=== PATIENT | male | born 1950 ===

== ENCOUNTER → 2020-05-11 09:25 | Outpatient (BNVA) | payer MEDICARE, OTHER, SELFPAY | PROVIDERS: PCP Internal Medicine; Visit Provider Anesthesiology | DX: G89.4 Chronic pain syndrome (principal); G03.8 Meningitis due to other specified causes; M19.011 Primary osteoarthritis, right shoulder; M96.1 Postlaminectomy syndrome, not elsewhere classified | CPT/HCPCS: 62370 ==

== ENCOUNTER → 2020-06-14 08:13 | Outpatient (BNVA) | payer MEDICARE, OTHER, SELFPAY | PROVIDERS: PCP Internal Medicine; Referring Provider Internal Medicine; Visit Provider Anesthesiology | DX: G03.9 Meningitis, unspecified (principal); G89.4 Chronic pain syndrome; M19.011 Primary osteoarthritis, right shoulder; M96.1 Postlaminectomy syndrome, not elsewhere classified | CPT/HCPCS: 99212 ==

== ENCOUNTER 2020-06-28 13:41 | Outpatient (REF) | payer MEDICARE, OTHER, SELFPAY ==
--- NOTE | 2020-06-28 14:19 | MR_ITS ---
EXAMINATION: MR LUMBAR SPINE WITHOUT AND WITH CONTRAST CLINICAL INFORMATION: Bilateral leg pain. COMPARISON: None TECHNIQUE: MRI of the lumbar spine was obtained using routine sequences without and with intravenous administration of 10 mL of Gadavist. FINDINGS: VERTEBRAL BODIES AND PARASPINAL STRUCTURES: The marrow signal is mildly heterogeneous with regions of fatty change. There is a minimal anterolisthesis at L4-L5. Chronic post laminectomy changes evident at L5-S1. There are no compression fractures. Mild endplate edematous changes are evident at L5-S1 with degenerative Schmorl's nodes. There is ectasia of the upper abdominal aorta, partially visualized. CONUS MEDULLARIS AND CAUDA EQUINA: Normal, terminating at the level of L1. No lower cord signal abnormality is seen. The cauda equina nerve roots are normal. There is no pathologic leptomeningeal enhancement. SPINAL LEVELS: L1-L2: No disc pathology. No central canal stenosis or foraminal narrowing. L2-L3: Mild facet arthropathy. No disc abnormality. No central canal stenosis or foraminal narrowing. L3-L4: Mild facet arthropathy and thickening of the ligamentum flavum with a minimal annular bulge. Mild central canal stenosis. Very mild right foraminal encroachment. L4-L5: Mild anterolisthesis and disc bulge with a shallow broad-based right paracentral disc protrusion resulting in ventral thecal sac distortion. Hypertrophic facet arthropathy and thickening of the ligamentum flavum also present. Findings result in grgkxktb-af-[id number] central canal stenosis. Focal right foraminal disc protrusion abuts the exiting right L4 nerve root with mild right foraminal encroachment. L5-S1: Chronic postoperative changes without central canal stenosis. A small left lateral recess disc protrusion results in mild mass effect upon the left S1 nerve root. Patent foramina. MR/MR lumbar spine wo con IMPRESSION: Mild anterolisthesis and [id number]-[id number] central canal stenosis with spondylitic changes at L4-L5. Additional focal right foraminal disc protrusion abutting the right L4 nerve root. Chronic postoperative changes at L5-S1. Focal left lateral recess disc protrusion with mild mass effect upon the left S1 nerve root.
[2020-06-28 14:24] LABS: Blood Urea Nitrogen 20 mg/dL (9-16); Estimated Glomerular Filt Rate > 60
== END 2020-06-28 13:42 | disposition home or self-care (01) ==
LOC: HO.MRI 13:41
PROVIDERS: Visit Provider Anesthesiology
DX: G03.9 Meningitis, unspecified (principal); G89.4 Chronic pain syndrome; M96.1 Postlaminectomy syndrome, not elsewhere classified; M19.011 Primary osteoarthritis, right shoulder
CPT/HCPCS: 72148; 82565; 84520; A9585

== ENCOUNTER → 2020-07-12 11:36 | Outpatient (BNVA) | payer MEDICARE, OTHER, SELFPAY | PROVIDERS: PCP Internal Medicine; Visit Provider Anesthesiology | DX: G03.9 Meningitis, unspecified (principal); M19.011 Primary osteoarthritis, right shoulder; G89.4 Chronic pain syndrome; M96.1 Postlaminectomy syndrome, not elsewhere classified | CPT/HCPCS: Q3014 ==

== ENCOUNTER 2020-07-27 05:09 | Outpatient (REF) | payer MEDICARE, OTHER, SELFPAY | END 2020-07-27 05:10 | disposition home or self-care (01) | LOC: HO.RADIR 05:09 | PROVIDERS: Visit Provider Anesthesiology | DX: M19.011 Primary osteoarthritis, right shoulder (principal); G03.9 Meningitis, unspecified; G89.4 Chronic pain syndrome; M96.1 Postlaminectomy syndrome, not elsewhere classified | CPT/HCPCS: 99212 ==

== ENCOUNTER 2020-09-07 07:56 | Outpatient (REF) | payer MEDICARE, OTHER, SELFPAY | END 2020-09-07 07:57 | disposition home or self-care (01) | LOC: HO.RADIR 07:56 | PROVIDERS: Visit Provider Anesthesiology | DX: G03.9 Meningitis, unspecified (principal); M19.011 Primary osteoarthritis, right shoulder; G89.4 Chronic pain syndrome; M96.1 Postlaminectomy syndrome, not elsewhere classified; Z88.0 Allergy status to penicillin; Z88.8 Allergy status to other drugs, medicaments and biological substances | CPT/HCPCS: 62370 ==

== ENCOUNTER 2020-10-26 06:09 | Outpatient (REF) | payer MEDICARE, OTHER, SELFPAY | END 2020-10-26 06:10 | disposition home or self-care (01) | LOC: HO.RADIR 06:09 | PROVIDERS: Visit Provider Anesthesiology | DX: Z13.89 Encounter for screening for other disorder (principal) ==

== ENCOUNTER 2020-11-02 07:14 | Outpatient (REF) | payer MEDICARE, OTHER, SELFPAY | END 2020-11-02 07:15 | disposition home or self-care (01) | LOC: HO.RADIR 07:14 | PROVIDERS: Visit Provider Anesthesiology | DX: Z13.89 Encounter for screening for other disorder (principal) ==

== ENCOUNTER 2020-12-28 06:22 | Outpatient (REF) | payer MEDICARE, OTHER, SELFPAY | END 2020-12-28 06:23 | disposition home or self-care (01) | LOC: HO.RADIR 06:22 | PROVIDERS: Visit Provider Anesthesiology | DX: Z13.89 Encounter for screening for other disorder (principal) ==

== ENCOUNTER 2021-02-15 05:50 | Outpatient (REF) | payer MEDICARE, OTHER, SELFPAY | END 2021-02-15 05:51 | disposition home or self-care (01) | LOC: HO.RADIR 05:50 | PROVIDERS: Visit Provider Anesthesiology | DX: Z13.89 Encounter for screening for other disorder (principal) ==

== ENCOUNTER 2021-04-12 06:31 | Outpatient (REF) | payer MEDICARE, OTHER, SELFPAY | END 2021-04-12 06:32 | disposition home or self-care (01) | LOC: HO.RADIR 06:31 | PROVIDERS: Visit Provider Anesthesiology | DX: Z13.89 Encounter for screening for other disorder (principal) ==

== ENCOUNTER 2021-06-07 05:43 | Outpatient (REF) | payer MEDICARE, OTHER, SELFPAY | END 2021-06-07 05:44 | disposition home or self-care (01) | LOC: HO.RADIR 05:43 | PROVIDERS: Visit Provider Anesthesiology | DX: Z13.89 Encounter for screening for other disorder (principal) ==

== ENCOUNTER 2021-06-27 10:35 | Outpatient (RCR) | payer MEDICARE, OTHER, SELFPAY | END 2021-07-14 11:37 | disposition home or self-care (01) | LOC: HO.WCC 10:35 | PROVIDERS: PCP Internal Medicine; Visit Provider Physician Assistant | DX: L97.421 Non-pressure chronic ulcer of left heel and midfoot limited to breakdown of skin (principal); I87.2 Venous insufficiency (chronic) (peripheral); R60.0 Localized edema; G62.9 Polyneuropathy, unspecified; I10 Essential (primary) hypertension; Z87.891 Personal history of nicotine dependence; Z79.2 Long term (current) use of antibiotics | CPT/HCPCS: 11055; 97597; 99212 ==

== ENCOUNTER 2021-08-16 05:55 | Outpatient (REF) | payer MEDICARE, OTHER, SELFPAY | END 2021-08-16 05:56 | disposition home or self-care (01) | LOC: HO.RADIR 05:55 | PROVIDERS: Visit Provider Anesthesiology | DX: Z13.89 Encounter for screening for other disorder (principal) ==

== ENCOUNTER 2021-10-11 06:04 | Outpatient (REF) | payer MEDICARE, OTHER, SELFPAY | END 2021-10-11 06:05 | disposition home or self-care (01) | LOC: HO.RADIR 06:04 | PROVIDERS: Visit Provider Anesthesiology | DX: Z13.89 Encounter for screening for other disorder (principal) ==

== ENCOUNTER 2021-11-22 06:19 | Outpatient (REF) | payer MEDICARE, OTHER, SELFPAY | END 2021-11-22 06:20 | disposition home or self-care (01) | LOC: HO.RADIR 06:19 | PROVIDERS: Visit Provider Anesthesiology | DX: Z13.89 Encounter for screening for other disorder (principal) ==

== ENCOUNTER → 2022-01-12 09:35 | Outpatient (BNVA) | payer MEDICARE, OTHER, SELFPAY | PROVIDERS: PCP Internal Medicine; Visit Provider Internal Medicine | DX: G89.4 Chronic pain syndrome (principal) | CPT/HCPCS: 62370 ==

== ENCOUNTER → 2022-02-15 10:20 | Outpatient (BNVA) | payer MEDICARE, OTHER, SELFPAY | PROVIDERS: PCP Internal Medicine; Visit Provider Anesthesiology | DX: Z45.1 Encounter for adjustment and management of infusion pump (principal); G89.4 Chronic pain syndrome; G03.9 Meningitis, unspecified; M19.011 Primary osteoarthritis, right shoulder; M96.1 Postlaminectomy syndrome, not elsewhere classified | CPT/HCPCS: 62367 ==

== ENCOUNTER 2022-02-16 10:00 | Day surgery (SDC) | payer MEDICARE, OTHER, SELFPAY ==
[2022-02-16] VITALS (7 sets, daily range): BP systolic 114–153; BP diastolic 55–86; PULSE 58–64; RESP 12–18; TEMP 36.6; O2SAT 96–100; BMI 36.3
--- NOTE | ~2022-02-16 | FL_ITS ---
EXAMINATION: XR FLUOROSCOPY WITH IMAGES CLINICAL INFORMATION: Refill pump. COMPARISON: None. TECHNIQUE: Fluoroscopy performed by Dr. Alexander Munguia. Fluoroscopy time: 0.0 minutes DAP: 0.599 mGycm2 Images: 1 FINDINGS: A single image was obtained about the left pelvis where a pump/electronic device is noted. No gross bony abnormality seen. FL/FL guidance in OR IMPRESSION: Single image of the left pelvis obtained. A pump/electronic device is noted..
--- NOTE | 2022-02-16 12:26 | MHC.SHP ---
Pre-Procedural Eval Section A Date of Service: 02/16/22 The patient is an INPATIENT: No Changes since office visit: Yes Patient answered all questions The History & Physical has been completed within 30 days and I have reviewed it.: No Section B Chief Complaint: Postlaminectomy syndrome, not elsewhere classified Details of Present Illness: as above Relevant Family History (Specify if Yes): No Relevant Social History: None Present Medications: None Medical History: No relevant PMH History of Previous Operations: Relevant previous surgery/procedure and date(s) Allergies: Allergies Allergy/AdvReac Type Severity Reaction Status Date / Time penicillin G Allergy Severe Hives Verified 02/16/22 10:49 zolpidem [Ambien] Allergy Intermediate sleep Verified 02/16/22 10:49 walking Review of Systems Sugical H&P ROS: Negative: Cardiovascular, Respiratory, Neurological, Psychiatric, Hem-Onc, Allergic/Immunologic, Gastrointestinal, Genitourinary, Musculoskeletal, Integumentary, Endocrine and Eyes/Ears/Nose/Throat and Yes, Specify: Constitution (morbid obesity) Exam Surgical H&P Exam: Normal: HEENT, Normal: Heart, Normal: Lungs, Normal: Extremities, Normal: Skin and Normal: Neurological and Significant Findings: Abdomen (enlarge 2 to intraabdominal and s/q fat) Plan Diagnosis/Plan: Unchanged I have reviewed the history and physical and performed a pertinent physical examination on my patient. No changes have occurred unless specified.
--- NOTE | 2022-02-16 12:28 | W.PM.OPN ---
Operative Note Operative Note Date of Service: 02/16/22 Narrative: THE PATIENT CAME TODAY IN THE OR FOR THE CHANGE OF THE MEDICATION IN her PAIN PUMP. Yesterday 02/15/2022 he came to the office for the pump refill and the attempt to penetrate a central plug of the pump was technically difficult. The patient recently had THR and was at home with minimal mobility. He gained significant amount of weight. 4 attempts to find a central plug was made with one set of the sterile refill kit without success. The needle was removed and Ultrasound probe was brought on the field and location of the central plug was found on the screen. The projection of the plug to the skin was verified and new kit was brought up and assembled with the second drape and prep. At this time the central plug was found with one attempt however when aspiration was performed the serosanguineous fluid appeared in the extension set and went into the syringe. The decision was made not to refill the pump. The amount of aspirated fluid was 11 mls which was corresponding to the amount of the fluid read by the interrogation device from the pump. The patient was discharged from the office in stable condition but later on that date at home he started to feel dizzy. His BP was 140/70 and he called 911 the ambulance came and brought him to the ER of [facility]. There he was diagnosed with respiratory depression and he was given naloxone intranasal. He was under observation for 12 hours and no new episodes of dizziness were observed. He came today to OR for the refill under Xray guidance. HE WAS POSITIONED supine on the bed AND THE AREA OF THE INTRATHECAL PUMP WAS PREPPED WITH CHLORAPREP. The fenestrated drape was sterilely applied over the area of the pump. Sterile gloves were worn and of the aspiration system was assembled containing 2 in 22 gauge noncoring needle, the needle was connected to extension tubing which was connected to the 20 cc sterile syringe. C-arm was brought over the operating field and square image of the pump was demonstrated on the screen. 22G noncoring needle was inserted through the skin and advanced into the main reservoir of the pump. Aspiration was made on the syringe and scant amount of pale serosanguneous fluid was aspirated into the needle. After that 20 mls of PF normal saline was injected into the pump with frequent aspirations and free flow of the fluid back into the syringe. initially the fluid was slightly blood tinged but eventually became completely clear. The pump was flushed with 20 mls twice.. After that a new batch? of medication was obtained which was containing? Fentanyl in concentration 12,000 micro g/ml and bupivacain 15 mg per ml .? The admixture was made in 20 cc syringe prepared by [facility] compounding pharmacy. The syringe was connected to the bacterial filter, and then connected to the extension tubing. After that the medication in the syringe was slowly instilled into the pump with aspirations at 15 and 5 cc ames. ? After that the needle was removed and sterile dressing was applied.? The pump was reprogrammed and remained at previous doses of the opioid medications which includes continuos 2500 micro g of fentanyl plus 1500 micro g of fentanyl on demand.? The discharge instructions were given - see in the instruction.
--- NOTE | 2022-02-16 14:47 | P.BOP_ITS ---
Brief Operative Note Date of Service: 02/16/22 Pre-op diagnosis: postlaminectomy syndrome Post-op diagnosis: same Procedure: refill of the ITDD Surgeon: Alexander Munguia MD Was an Independent Producer used for this Procedure?: No Estimated blood loss (mL): 0 Pathology: none sent Condition: stable Disposition: PACU
== END 2022-02-16 14:09 | disposition home or self-care (01) ==
PROVIDERS: PCP Internal Medicine; Visit Provider Anesthesiology
PROC: (CPT 62370; principal; 2022-02-16 11:20)
DX: M96.1 Postlaminectomy syndrome, not elsewhere classified (principal); G03.9 Meningitis, unspecified; M19.011 Primary osteoarthritis, right shoulder; G89.4 Chronic pain syndrome; Z96.643 Presence of artificial hip joint, bilateral; Z79.899 Other long term (current) drug therapy; Z88.0 Allergy status to penicillin; Z87.891 Personal history of nicotine dependence; Z98.890 Other specified postprocedural states
CPT/HCPCS: 62370

== ENCOUNTER 2022-04-18 07:21 | Outpatient (REF) | payer MEDICARE, OTHER, SELFPAY ==
--- NOTE | ~2022-04-18 | FL_ITS ---
EXAMINATION: XR FLUOROSCOPY WITH IMAGES CLINICAL INFORMATION: G89.4 - Chronic pain syndrome COMPARISON: Fluoroscopic spot views 02/16/2022, MR lumbar spine 06/28/2020 TECHNIQUE: Fluoroscopy performed by Dr. Alexander Munguia. Fluoroscopy time: 0.1 minutes. Cumulative Dose: 4.04 mGy. DAP: 1.10 Gy-cm2. Images: 1. FINDINGS: Electronic pump device overlying the left upper pelvis paralumbar region. There is some faint catheter tubing present. Probable orthopedic screw overlies left pelvis. There are degenerative changes lumbar spine with vertebral spurring. FL/FL guidance in treatment room IMPRESSION: Fluoroscopy for pain management procedure.
== END 2022-04-18 07:22 | disposition home or self-care (01) ==
LOC: HO.RADIR 07:21
PROVIDERS: Visit Provider Anesthesiology
DX: M96.1 Postlaminectomy syndrome, not elsewhere classified (principal); G89.4 Chronic pain syndrome; G03.9 Meningitis, unspecified; M19.011 Primary osteoarthritis, right shoulder
CPT/HCPCS: 62370

== ENCOUNTER → 2022-06-12 08:10 | Outpatient (BNVA) | payer MEDICARE, OTHER, SELFPAY | PROVIDERS: PCP Internal Medicine; Visit Provider Anesthesiology | DX: M96.1 Postlaminectomy syndrome, not elsewhere classified (principal); G89.4 Chronic pain syndrome; G03.8 Meningitis due to other specified causes; M19.011 Primary osteoarthritis, right shoulder | CPT/HCPCS: 62370; 99212 ==

== ENCOUNTER → 2022-07-26 13:29 | Outpatient (BNVA) | payer MEDICARE, OTHER, SELFPAY | PROVIDERS: PCP Internal Medicine; Visit Provider Anesthesiology | DX: Z45.1 Encounter for adjustment and management of infusion pump (principal); G89.4 Chronic pain syndrome; M96.1 Postlaminectomy syndrome, not elsewhere classified; G03.9 Meningitis, unspecified; M19.011 Primary osteoarthritis, right shoulder | CPT/HCPCS: 62370 ==

== ENCOUNTER → 2022-09-13 12:55 | Outpatient (BNVA) | payer MEDICARE, OTHER, SELFPAY | PROVIDERS: PCP Internal Medicine; Visit Provider Anesthesiology | DX: Z45.1 Encounter for adjustment and management of infusion pump (principal); G89.4 Chronic pain syndrome; M96.1 Postlaminectomy syndrome, not elsewhere classified; M19.011 Primary osteoarthritis, right shoulder; G03.9 Meningitis, unspecified | CPT/HCPCS: 62370 ==

== ENCOUNTER → 2022-11-01 13:44 | Outpatient (BNVA) | payer MEDICARE, OTHER, SELFPAY | PROVIDERS: PCP Internal Medicine; Visit Provider Anesthesiology | DX: G03.9 Meningitis, unspecified (principal); M19.011 Primary osteoarthritis, right shoulder; G89.4 Chronic pain syndrome; M96.1 Postlaminectomy syndrome, not elsewhere classified; Z96.643 Presence of artificial hip joint, bilateral | CPT/HCPCS: 62370 ==

== ENCOUNTER → 2022-12-18 11:26 | Outpatient (BNVA) | payer MEDICARE, OTHER, SELFPAY | PROVIDERS: PCP Internal Medicine; Visit Provider Anesthesiology ==

== ENCOUNTER 2022-12-26 06:15 | Outpatient (REF) | payer MEDICARE, OTHER, SELFPAY | END 2022-12-26 06:16 | disposition home or self-care (01) | LOC: CF 06:15 | PROVIDERS: Visit Provider Anesthesiology | DX: G03.9 Meningitis, unspecified (principal); M19.011 Primary osteoarthritis, right shoulder; G89.4 Chronic pain syndrome; M96.1 Postlaminectomy syndrome, not elsewhere classified; Z45.1 Encounter for adjustment and management of infusion pump; Z96.89 Presence of other specified functional implants | CPT/HCPCS: 62370 ==

== ENCOUNTER → 2023-01-04 08:26 | Outpatient (BNVA) | payer MEDICARE, OTHER, SELFPAY | PROVIDERS: PCP Internal Medicine; Visit Provider Anesthesiology | DX: G89.4 Chronic pain syndrome (principal); M96.1 Postlaminectomy syndrome, not elsewhere classified; M19.011 Primary osteoarthritis, right shoulder; G03.9 Meningitis, unspecified | CPT/HCPCS: 99212 ==

== ENCOUNTER → 2023-02-14 10:07 | Outpatient (BNVA) | payer MEDICARE, OTHER, SELFPAY | PROVIDERS: PCP Internal Medicine; Visit Provider Anesthesiology | DX: Z46.2 Encounter for fitting and adjustment of other devices related to nervous system and special senses (principal) | CPT/HCPCS: 99211 ==

== ENCOUNTER 2023-02-21 14:52 | Outpatient (AMB) | payer MEDICARE, OTHER, SELFPAY ==
[2023-02-21 15:16] VITALS: BP 141/73; PULSE 76; O2SAT 97; BMI 33.0
--- NOTE | 2023-02-21 15:16 | A.OFFVIS_ITS ---
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 Allergies penicillin G Allergy (Severe, Verified 02/21/23 15:56) Hives zolpidem [Ambien] Allergy (Intermediate, Verified 02/21/23 15:56) sleep walking Medication List - Last Reconciled 02/21/23 by Lilibeth Bonilla RN alprazolam 0.5 mg PO TID PRN aspirin (Adult Low Dose Aspirin) 81 mg PO DAILY flecainide 100 mg PO BID furosemide 80 mg PO DAILY hydrocodone-acetaminophen 7.5-325 mg 1 tab PO TID PRN 30 days levothyroxine 88 mcg PO DAILY lisinopril 10 mg PO DAILY metoprolol succinate ER 100 mg PO DAILY miscellaneous medical supply [facility] [place] potassium chloride ER 40 mEq PO DAILY potassium chloride ER 40 mEq PO DAILY sildenafil 100 mg PO tamsulosin 0.4 mg PO BEDTIME testosterone 10 mg/0.5 gram /actuation 20 mg topical DAILY zaleplon 10 mg PO BEDTIME PRN 30 days HPI HPI Comments History of Present Illness Details Marcus is very pleasant 72 years old gentleman who is in my office with complains on pain in bilateral shoulders lower back bilateral lower extremities. He is in my office under observation with intrathecal drug delivery system pain pump. About 2 years ago he was found to be prescribed with 3 different practitioners with the opioid medications while he was receiving opioid medications from of this office oral consumption. On top of that him was receiving intrathecal opioids. He was suspended at that time for 1 year interval because we found this situation is quite dangerous for the patient. He was readmitted to our a chronic opioid program. He was prescribed with hydrocodone 7.5 mg t.i.d. he reported no pain relief from this medication at all. He brought today excess of the hydrocodone. Will destroy his hydrocodone and I will prescribe him hydromorphone 2 mg t.i.d.. He has continued to be prescribed benzodiazepines I will send him prescription of the Narcan. I will continue to fill up his pain pump with medications as it was done pre viously. I will make sure that he has supply of Narcan at home as well. Today's pump refill is as below. PENDING SALE TO [facility] Medical History (Updated 01/04/23 @ 09:11 by Alexander Munguia MD) History of cardioversion Primary osteoarthritis, right shoulder Surgical History (Updated 02/16/22 @ 10:40 by Diane Thomas RN) History of bilateral hip replacements Hx of colonoscopy Hx of spinal surgery Social History Patient Tobacco Use Status: Former Tobacco user Review of Systems Const All systems reviewed & are unremarkable except as noted in HPI and below Neuro Denies Abnormal speech present Physical Exam Vital Signs: Last Vital Signs Pulse 76 02/21/23 15:16 BP 141/73 H 02/21/23 15:16 Pulse Ox 97 02/21/23 15:16 Oxygen Delivery Method Room Air 02/21/23 15:16 BMI result Body Mass Index 33.0 Const General: cooperative, no acute distress and well groomed Orientation/consciousness: patient oriented x3 Resp Effort & Inspection: normal respiratory effort, able to speak in complete sentences and normal respiratory pattern Cardio Jugular venous distension: no JVD Neuro General: patient oriented x3 and gait normal Cognition (Neuro): normal cognition Speech: No Abnormal speech present Psych Appearance: grossly normal Mental Status: mental status grossly normal Speech and movement: Normal speech and movement present Affect: normal affect Attitude: cooperative Thought process: Normal thought process present Thought content: Normal thought content present Insight: Fair insight present (Psych) Assessment & Plan Assessment & Plan (1) Adhesive arachnoiditis: Code(s): G03.9 - Meningitis, unspecified (2) Primary osteoarthritis, right shoulder: Code(s): M19.011 - Primary osteoarthritis, right shoulder (3) Chronic pain syndrome: Code(s): G89.4 - Chronic pain syndrome (4) Postlaminectomy syndrome: Code(s): M96.1 - Postlaminectomy syndrome, not elsewhere classified Plan: . In the beginning of 2020 at his pump refilled It was noted that 3 different practitioners were prescribing this patient to different medications. . he was in the breech of a contract. He was suspended with his oral opioid therapy according to his risks. However I agreed to continue to refill his pump with current dose of the medications without any escalation. In March 2022 during the pump refill when the access to the port was found to be difficult aspiration of the meds from the pump was found to be grossly blood tinged. The pump was filled with saline and the patient was sent home. The refill eventually was performed in OR. Since then the patient is insisting to do refills only in OR under fluoroscopy guidance, however now since we have ultrasound machine in the office he would accept refills with ultrasound guidance. I promised him to start him on hydroxyzine however unfortunately he is on flecainide very high doses and may lead to QT interval prolongation. Before starting him on hydroxyzine I need to send him to EKG to check the length of his QT interval. Tizanidine might be theoretically helpful however he is on 100 mg of metoprolol and that medication may slow his heart rate down. I will start him on Dilaudid 2 mg p.o. t.i.d.. He has to attend pill count in 2 weeks. eart rate down. Plan Intrathecal pump refill. THE PATIENT CAME TODAY IN THE office FOR THE CHANGE OF THE MEDICATION IN her PAIN PUMP. The name and date of were verified and informed consent was obtained for the procedure. ?The pump was interrogated and the residual amount of fluid was found to be 3.7 mL. HE WAS POSITIONED supine on the bed. Ultrasound probe was placed on the left lower abdomen in the area of location of the pain pump and the silicone plug location was established by ultrasound. The location of the silicone plug was marked with permanent marker. After that THE AREA OF THE INTRATHECAL PUMP WAS PREPPED WITH CHLORAPREP. The fenestrated drape was sterilely applied over the area of the pump. Sterile gloves were worn and of the aspiration system was assembled containing 2 in 22 gauge noncoring needle, the needle was connected to extension tubing which was connected to the 20 cc sterile syringe. The pain pump was palpated under the skin in the patient's right buttock area. The needle was inserted through the skin and the central plug of the pain pump and fluid was aspirated. The clear fluid was going into the syringe the total amount of the fluid was 5.0 mL .. After that a new batch? of medication was obtained which was containing Fentanyl in concentration 12,000 micro g/ml and bupivacain 15 mg per ml. The admixture was made in 20 cc syringe prepared by [facility] compounding pharmacy. The syringe was connected to the bacterial filter, and then connected to the extension tubing. After that the medication in the syringe was slowly instilled into the pump with aspirations at 15 and 5 cc ames.? The pump was reprogrammed for the doses of Fentanyl 2,399 mcg per day with corresponding dose of bupivacaine.? The patient was given 5 doses of PTM 425 micrograms intrathecally? every 4 hours with maximum 5 activations per 24 hour. With all activations the total dose of fentanyl is 4,485 mg in 24 hours. Medications: New hydromorphone Partial Fill upon patient request. 2 mg PO TID 30 days 90 tabs 0RF naloxone 4 mg/actuation spray 1 dose into ONE nostril; alternate nostrils w each dose until help arrives 4 mg intranasal Q3M 1 day PRN 2 ea 2RF opioid overdose Discontinued hydrocodone-acetaminophen 7.5-325 mg Partial Fill upon patient request. Discontinued Reason: Doctor's Order 1 tab PO TID 30 days PRN 90 tabs 0RF pain Coding Level of Care Code Est Pt Level 4 (30931) Procedure Only Diagnoses Adhesive arachnoiditis G03.9 Primary osteoarthritis, right shoulder M19.011 Chronic pain syndrome G89.4 Postlaminectomy syndrome M96.1
== END 2023-02-21 15:45 | disposition home or self-care (01) ==
PROVIDERS: PCP Internal Medicine; Visit Provider Anesthesiology
DX: G89.4 Chronic pain syndrome (principal); M19.011 Primary osteoarthritis, right shoulder; G03.9 Meningitis, unspecified; M96.1 Postlaminectomy syndrome, not elsewhere classified
CPT/HCPCS: 62370; 99214

== ENCOUNTER → 2023-02-21 14:52 | Outpatient (BNVA) | payer MEDICARE, OTHER, SELFPAY | PROVIDERS: PCP Internal Medicine; Visit Provider Anesthesiology | DX: G03.9 Meningitis, unspecified (principal); M19.011 Primary osteoarthritis, right shoulder; M96.1 Postlaminectomy syndrome, not elsewhere classified; G89.4 Chronic pain syndrome | CPT/HCPCS: 99212 ==

== ENCOUNTER → 2023-03-07 11:25 | Outpatient (BNVA) | payer MEDICARE, OTHER, SELFPAY | PROVIDERS: PCP Internal Medicine; Visit Provider Anesthesiology | DX: Z51.81 Encounter for therapeutic drug level monitoring (principal); Z79.899 Other long term (current) drug therapy | CPT/HCPCS: 99211 ==

== ENCOUNTER 2023-04-11 14:15 | Outpatient (AMB) | payer MEDICARE, OTHER, SELFPAY ==
--- NOTE | 2023-04-11 14:39 | MHC.OFFVIS ---
Intake Vital Signs 04/11/23 14:52 Height 5 ft 10 in Weight 237 lb BMI 34.0 BP 120/58 L Blood Pressure Location Lt brachial Position Sitting Respiration 16 Pulse 65 Pulse Oximetry (%) 94 Oxygen Delivery Method Room Air Intake Visit Reasons: ITDD Refill/Pill count Intake Note: patient comes in for ITDD refill and pill count. Allergies penicillin G Allergy (Severe, Verified 04/11/23 14:39) Hives zolpidem [Ambien] Allergy (Intermediate, Verified 04/11/23 14:39) sleep walking HPI HPI Comments History of Present Illness Details Marcus is back in my office for the pain medication refill and refill of the intrathecal pump. He receives 2 mg of Dilaudid 3 times a day. He reports this regimen helps him to stay active and perform better activities of daily living. He today presented for the pill count with 36 pills in his possession his supposed to have only 30 pills. That demonstrates responsible attitude to were the opioid medications his mass pat is also consistent with current prescription. He is on Zaleplon for night sleep which is prescribed to him by me as well. He has naloxone his possession at home. He will be refilled with his medication on 04/22/2023. His next pump refill will be scheduled in May. Today pump refill note as below. He continues to receive continues doses and on demand doses as below. Prior: C/o on pain in bilateral shoulders lower back bilateral lower extremities. He is in my office under observation with intrathecal drug delivery system pain pump. About 2 years ago he was found to be prescribed with 3 different practitioners with the opioid medications while he was receiving opioid medications from of this office oral consumption. On top of that him was receiving intrathecal opioids. He was suspended at that time for 1 year interval because we found this situation is quite dangerous for the patient. He was readmitted to our a chronic opioid program. He has continued to be prescribed benzodiazepines and zaleplon he has Narcan in his household. [facility] Medical History (Updated 01/04/23 @ 09:11 by Alexander Munguia MD) History of cardioversion Primary osteoarthritis, right shoulder Surgical History (Updated 02/16/22 @ 10:40 by Diane Thomas RN) History of bilateral hip replacements Hx of colonoscopy Hx of spinal surgery Social History Patient Tobacco Use Status: Former Tobacco user Review of Systems Const All systems reviewed & are unremarkable except as noted in HPI and below Neuro Denies Abnormal speech present Physical Exam Vital Signs: Last Vital Signs Pulse 65 04/11/23 14:52 Resp 16 04/11/23 14:52 BP 120/58 L 04/11/23 14:52 Pulse Ox 94 04/11/23 14:52 Oxygen Delivery Method Room Air 04/11/23 14:52 BMI result Body Mass Index 34.0 Const General: cooperative, no acute distress and well groomed Orientation/consciousness: patient oriented x3 Resp Effort & Inspection: normal respiratory effort, able to speak in complete sentences and normal respiratory pattern Cardio Jugular venous distension: no JVD Neuro General: patient oriented x3 and gait normal Cognition (Neuro): normal cognition Speech: No Abnormal speech present Psych Appearance: grossly normal Mental Status: mental status grossly normal Speech and movement: Normal speech and movement present Affect: normal affect Attitude: cooperative Thought process: Normal thought process present Thought content: Normal thought content present Insight: Fair insight present (Psych) Assessment & Plan Assessment & Plan (1) Adhesive arachnoiditis: Code(s): G03.9 - Meningitis, unspecified (2) Primary osteoarthritis, right shoulder: Code(s): M19.011 - Primary osteoarthritis, right shoulder (3) Chronic pain syndrome: Code(s): G89.4 - Chronic pain syndrome Plan: I offered him today to change the concentration of bupivacaine and fentanyl in his pump to make his visits to us less frequent however the patient refused to consider this change. Maximum concentration of fentanyl is 10 mg per mL, concentration of the medication in [place] admixture [place] 6[address]74 micrograms/mL which is 12 milligrams/mL. This is more than maximal concentration. Therefore I cannot increase the concentration of the fentanyl any further. But we can doubled concentration of bupivacaine and effectively increase the bupivacaine does in the pump provided patient is consenting for this change. (4) Postlaminectomy syndrome: Code(s): M96.1 - Postlaminectomy syndrome, not elsewhere classified Plan: . In the beginning of 2020 at his pump refilled It was noted that 3 different practitioners were prescribing this patient to different medications. . he was in the breech of a contract. He was suspended with his oral opioid therapy according to his risks. However I agreed to continue to refill his pump with current dose of the medications without any escalation. In March 2022 during the pump refill when the access to the port was found to be difficult aspiration of the meds from the pump was found to be grossly blood tinged. The pump was filled with saline and the patient was sent home. The refill eventually was performed in OR. Since then the patient is insisting to do refills only in OR under fluoroscopy guidance, however now since we have ultrasound machine in the office he would accept refills with ultrasound guidance. Plan Intrathecal pump refill. THE PATIENT CAME TODAY IN THE office FOR THE CHANGE OF THE MEDICATION IN her PAIN PUMP. The name and date of were verified and informed consent was obtained for the procedure. ?The pump was interrogated and the residual amount of fluid was found to be 6.0 mL. HE WAS POSITIONED supine on the bed. Ultrasound probe was placed on the left lower abdomen in the area of location of the pain pump and the silicone plug location was established by ultrasound. The location of the silicone plug was marked with permanent marker. After that THE AREA OF THE INTRATHECAL PUMP WAS PREPPED WITH CHLORAPREP. The fenestrated drape was sterilely applied over the area of the pump. Sterile gloves were worn and of the aspiration system was assembled containing 2 in 22 gauge noncoring needle, the needle was connected to extension tubing which was connected to the 20 cc sterile syringe. The pain pump was palpated under the skin in the patient's right buttock area. The needle was inserted through the skin and the central plug of the pain pump and fluid was aspirated. The clear fluid was going into the syringe the total amount of the fluid was6.5mL .. After that a new batch? of medication was obtained which was containing Fentanyl in concentration 12,000 micro g/ml and bupivacain 15 mg per ml. The admixture was made in 20 cc syringe prepared by [facility] compounding pharmacy. The syringe was connected to the bacterial filter, and then connected to the extension tubing. After that the medication in the syringe was slowly instilled into the pump with aspirations at 15 and 5 cc ames.? The pump was reprogrammed for the doses of Fentanyl 2,399 mcg per day with corresponding dose of bupivacaine.? The patient was given 5 doses of PTM 425 micrograms intrathecally? every 4 hours with maximum 5 activations per 24 hour. With all activations the total dose of fentanyl is 4,485 mg in 24 hours. Medications: Changed From hydromorphone Partial Fill upon patient request. 2 mg PO TID 30 days 90 tabs 0RF pain G89.4 - Chronic pain syndrome, M96.1 - Postlaminectomy syndrome, not elsewhere classified To hydromorphone Partial Fill upon patient request. 2 mg PO TID 30 days PRN 90 tabs 0RF pain G89.4 - Chronic pain syndrome, M96.1 - Postlaminectomy syndrome, not elsewhere classified Coding Level of Care Code Est Pt Level 4 (26480) Procedure Only Diagnoses Adhesive arachnoiditis G03.9 Primary osteoarthritis, right shoulder M19.011 Chronic pain syndrome G89.4 Postlaminectomy syndrome M96.1
[2023-04-11 14:52] VITALS: BP 120/58; PULSE 65; RESP 16; O2SAT 94; BMI 34.0
== END 2023-04-11 15:49 | disposition home or self-care (01) ==
PROVIDERS: PCP Internal Medicine; Visit Provider Anesthesiology
DX: Z45.1 Encounter for adjustment and management of infusion pump (principal); G89.4 Chronic pain syndrome; M19.011 Primary osteoarthritis, right shoulder; M96.1 Postlaminectomy syndrome, not elsewhere classified; Z79.891 Long term (current) use of opiate analgesic
CPT/HCPCS: 62370; 99214

== ENCOUNTER → 2023-04-11 14:15 | Outpatient (BNVA) | payer MEDICARE, OTHER, SELFPAY | PROVIDERS: PCP Internal Medicine; Visit Provider Anesthesiology | DX: Z45.1 Encounter for adjustment and management of infusion pump (principal); G89.4 Chronic pain syndrome; G03.9 Meningitis, unspecified; M96.1 Postlaminectomy syndrome, not elsewhere classified; M19.011 Primary osteoarthritis, right shoulder | CPT/HCPCS: 62370; 99212 ==

== ENCOUNTER 2023-05-23 14:11 | Outpatient (AMB) | payer MEDICARE, OTHER, SELFPAY ==
--- NOTE | 2023-05-23 14:18 | MHC.OFFVIS ---
Intake Vital Signs 05/23/23 14:38 Height 5 ft 10 in Weight 247 lb 2 oz BMI 35.5 BP 156/72 H Blood Pressure Location Lt brachial Position Sitting Respiration 16 Pulse 67 Pulse Source Pulse Oximeter Pulse Oximetry (%) 94 Oxygen Delivery Method Room Air Intake Visit Reasons: Medication Count Intake Note: Patient comes in for pill count to Hydromorphone tablets. Allergies penicillin G Allergy (Severe, Verified 05/23/23 14:38) Hives zolpidem [Ambien] Allergy (Intermediate, Verified 05/23/23 14:38) sleep walking HPI HPI Comments History of Present Illness Details Marcus is back in my office for the pain medication refill. He receives 2 mg of Dilaudid 3 times a day. He reports this regimen helps him to stay active and perform better activities of daily living. He today presented for the pill count with 7 pills in his possession his supposed to have 0 pills. That demonstrates responsible attitude to the opioid medications his mass pat is also consistent with current prescription. He is on Zaleplon for night sleep which is prescribed to him by me as well. He has naloxone his possession at home. He will be refilled with his medication today. His next pump refil is in May 30. He reports that he was diagnosed with bronchitis and now he is taking antibiotic on for this condition. Prior: C/o on pain in bilateral shoulders lower back bilateral lower extremities. He is in my office under observation with intrathecal drug delivery system pain pump. About 2 years ago he was found to be prescribed with 3 different practitioners with the opioid medications while he was receiving opioid medications from of this office oral consumption. On top of that him was receiving intrathecal opioids. He was suspended at that time for 1 year interval because we found this situation is quite dangerous for the patient. He was readmitted to our a chronic opioid program. He has continued to be prescribed benzodiazepines and zaleplon he has Narcan in his household. [facility] Medical History (Updated 01/04/23 @ 09:11 by Alexander Munguia MD) History of cardioversion Primary osteoarthritis, right shoulder Surgical History (Updated 02/16/22 @ 10:40 by Diane Thomas RN) Hx of spinal surgery Hx of colonoscopy History of bilateral hip replacements Social History Patient Tobacco Use Status: Former Tobacco user Review of Systems Const All systems reviewed & are unremarkable except as noted in HPI and below Neuro Denies Abnormal speech present Physical Exam Vital Signs: Last Vital Signs Pulse 67 05/23/23 14:38 Resp 16 05/23/23 14:38 BP 156/72 H 05/23/23 14:38 Pulse Ox 94 05/23/23 14:38 Oxygen Delivery Method Room Air 05/23/23 14:38 BMI result Body Mass Index 35.5 Const General: cooperative, no acute distress and well groomed Orientation/consciousness: patient oriented x3 Resp Effort & Inspection: normal respiratory effort, able to speak in complete sentences and normal respiratory pattern Cardio Jugular venous distension: no JVD Neuro General: patient oriented x3 and gait normal Cognition (Neuro): normal cognition Speech: No Abnormal speech present Psych Appearance: grossly normal Mental Status: mental status grossly normal Speech and movement: Normal speech and movement present Affect: normal affect Attitude: cooperative Thought process: Normal thought process present Thought content: Normal thought content present Insight: Fair insight present (Psych) Assessment & Plan Assessment & Plan (1) Adhesive arachnoiditis: Code(s): G03.9 - Meningitis, unspecified (2) Primary osteoarthritis, right shoulder: Code(s): M19.011 - Primary osteoarthritis, right shoulder (3) Chronic pain syndrome: Code(s): G89.4 - Chronic pain syndrome (4) Postlaminectomy syndrome: Code(s): M96.1 - Postlaminectomy syndrome, not elsewhere classified Plan: . In the beginning of 2020 at his pump refilled It was noted that 3 different practitioners were prescribing this patient to different medications. . he was in the breech of a contract. He was suspended with his oral opioid therapy according to his risks. However I agreed to continue to refill his pump with current dose of the medications without any escalation. In March 2022 during the pump refill when the access to the port was found to be difficult aspiration of the meds from the pump was found to be grossly blood tinged. The pump was filled with saline and the patient was sent home. The refill eventually was performed in OR. Since then the patient is insisting to do refills only in OR under fluoroscopy guidance, however now since we have ultrasound machine in the office he would accept refills with ultrasound guidance. Plan I will refill medication for markers of today 05/23/2023. His supposed to have no medications in his possession he presented with 7 pills. This demonstrates responsible attitude for opioid medications. His pump refill is on 05/30/2023. Medications: Refilled hydromorphone Partial Fill upon patient request. 2 mg PO TID PRN 90 tabs 0RF pain 30 days G89.4 - Chronic pain syndrome, M96.1 - Postlaminectomy syndrome, not elsewhere classified Coding Level of Care Code Est Pt Level 3 (45127) Diagnoses Adhesive arachnoiditis G03.9 Primary osteoarthritis, right shoulder M19.011 Chronic pain syndrome G89.4 Postlaminectomy syndrome M96.1
[2023-05-23 14:38] VITALS: BP 156/72; PULSE 67; RESP 16; O2SAT 94; BMI 35.5
== END 2023-05-23 14:42 | disposition home or self-care (01) ==
PROVIDERS: PCP Internal Medicine; Visit Provider Anesthesiology
DX: G03.9 Meningitis, unspecified (principal); M19.011 Primary osteoarthritis, right shoulder; G89.4 Chronic pain syndrome; M96.1 Postlaminectomy syndrome, not elsewhere classified
CPT/HCPCS: 99213

== ENCOUNTER → 2023-05-23 14:11 | Outpatient (BNVA) | payer MEDICARE, OTHER, SELFPAY | PROVIDERS: PCP Internal Medicine; Visit Provider Anesthesiology | DX: Z51.81 Encounter for therapeutic drug level monitoring (principal); F11.20 Opioid dependence, uncomplicated; M19.011 Primary osteoarthritis, right shoulder; M96.1 Postlaminectomy syndrome, not elsewhere classified; G03.9 Meningitis, unspecified; G89.4 Chronic pain syndrome | CPT/HCPCS: 99212 ==

== ENCOUNTER 2023-05-30 13:46 | Outpatient (AMB) | payer MEDICARE, OTHER, SELFPAY ==
--- NOTE | 2023-05-30 14:03 | A.OFFVIS_ITS ---
Intake Vital Signs 05/30/23 14:12 Height 5 ft 10 in Weight 245 lb BMI 35.2 BP 128/60 Blood Pressure Location Rt brachial Position Sitting Respiration 16 Pulse 66 Pulse Source Pulse Oximeter Pulse Oximetry (%) 94 Oxygen Delivery Method Room Air Intake Visit Reasons: ITDD Refill Intake Note: patient comes in for pain pump medication refill. Pain level 6/10. Allergies penicillin G Allergy (Severe, Verified 05/30/23 14:11) Hives zolpidem [Ambien] Allergy (Intermediate, Verified 05/30/23 14:11) sleep walking HPI HPI Comments History of Present Illness Details Marcus is back in my office for the pain medication refill. He receives 2 mg of Dilaudid 3 times a day. He reports this regimen helps him to stay active and perform better activities of daily living. He today presented for the pill count with 7 pills in his possession his supposed to have 0 pills. That demonstrates responsible attitude to the opioid medications his mass pat is also consistent with current prescription. He is on Zaleplon for night sleep which is prescribed to him by me as well. He has naloxone his possession at home. He will be refilled with his medication today. His next pump refil is in May 30. He reports that he was diagnosed with bronchitis and now he is taking antibiotic on for this condition. Prior: C/o on pain in bilateral shoulders lower back bilateral lower extremities. He is in my office under observation with intrathecal drug delivery system pain pump. About 2 years ago he was found to be prescribed with 3 different practitioners with the opioid medications while he was receiving opioid medications from of this office oral consumption. On top of that him was receiving intrathecal opioids. He was suspended at that time for 1 year interval because we found this situation is quite dangerous for the patient. He was readmitted to our a chronic opioid program. He has continued to be prescribed benzodiazepines and zaleplon he has Narcan in his household. [facility] Medical History (Updated 01/04/23 @ 09:11 by Alexander Munguia MD) History of cardioversion Primary osteoarthritis, right shoulder Surgical History (Updated 02/16/22 @ 10:40 by Diane Thomas RN) Hx of spinal surgery Hx of colonoscopy History of bilateral hip replacements Social History Patient Tobacco Use Status: Former Tobacco user Review of Systems Const All systems reviewed & are unremarkable except as noted in HPI and below Neuro Denies Abnormal speech present Physical Exam Vital Signs: Last Vital Signs Pulse 66 05/30/23 14:12 Resp 16 05/30/23 14:12 BP 128/60 05/30/23 14:12 Pulse Ox 94 05/30/23 14:12 Oxygen Delivery Method Room Air 05/30/23 14:12 BMI result Body Mass Index 35.2 Const General: cooperative, no acute distress and well groomed Orientation/consciousness: patient oriented x3 Resp Effort & Inspection: normal respiratory effort, able to speak in complete sentences and normal respiratory pattern Cardio Jugular venous distension: no JVD Neuro General: patient oriented x3 and gait normal Cognition (Neuro): normal cognition Speech: No Abnormal speech present Psych Appearance: grossly normal Mental Status: mental status grossly normal Speech and movement: Normal speech and movement present Affect: normal affect Attitude: cooperative Thought process: Normal thought process present Thought content: Normal thought content present Insight: Fair insight present (Psych) Assessment & Plan Assessment & Plan (1) Adhesive arachnoiditis: Code(s): G03.9 - Meningitis, unspecified (2) Primary osteoarthritis, right shoulder: Code(s): M19.011 - Primary osteoarthritis, right shoulder (3) Chronic pain syndrome: Code(s): G89.4 - Chronic pain syndrome (4) Postlaminectomy syndrome: Code(s): M96.1 - Postlaminectomy syndrome, not elsewhere classified Plan: . In the beginning of 2020 at his pump refilled It was noted that 3 different practitioners were prescribing this patient to different medications. . he was in the breech of a contract. He was suspended with his oral opioid therapy according to his risks. However I agreed to continue to refill his pump with current dose of the medications without any escalation. In March 2022 during the pump refill when the access to the port was found to be difficult aspiration of the meds from the pump was found to be grossly blood tinged. The pump was filled with saline and the patient was sent home. The refill eventually was performed in OR. Since then the patient is insisting to do refills only in OR under fluoroscopy guidance, however now since we have ultrasound machine in the office he would accept refills with ultrasound guidance. The patient refuses to change concentration of the medication in his intrathecal pump, he prefers to say the same level of the same medications. Plan Intrathecal pump refill. THE PATIENT CAME TODAY IN THE office FOR THE CHANGE OF THE MEDICATION IN her PAIN PUMP. The name and date of were verified and informed consent was obtained for the procedure. ?The pump was interrogated and the residual amount of fluid was found to be 4.5 mL. HE WAS POSITIONED supine on the bed. Ultrasound probe was placed on the left lower abdomen in the area of location of the pain pump and the silicone plug location was established by ultrasound. The location of the silicone plug was marked with permanent marker. After that THE AREA OF THE INTRATHECAL PUMP WAS PREPPED WITH CHLORAPREP. The fenestrated drape was sterilely applied over the area of the pump. Sterile gloves were worn and of the aspiration system was assembled containing 2 in 22 gauge noncoring needle, the needle was connected to extension tubing which was connected to the 20 cc sterile syringe. The pain pump was palpated under the skin in the patient's right buttock area. The needle was inserted through the skin and the central plug of the pain pump and fluid was aspirated. The clear fluid was going into the syringe the total amount of the fluid was 5.3 mL .. After that a new batch? of medication was obtained which was containing Fentanyl in concentration 12,000 micro g/ml and bupivacain 15 mg per ml. The admixture was made in 20 cc syringe prepared by [facility] compounding pharmacy. The syringe was connected to the bacterial filter, and then connected to the extension tubing. After that the medication in the syringe was slowly instilled into the pump with aspirations at 15 and 5 cc ames.? The pump was reprogrammed for the doses of Fentanyl 2,399 mcg per day with corresponding dose of bupivacaine.? The patient was given 5 doses of PTM 425 micrograms intrathecally? every 4 hours with maximum 5 activations per 24 hour. With all activations the total dose of fentanyl is 4,485 mg in 24 hours. Coding Level of Care Code Procedure Only Diagnoses Adhesive arachnoiditis G03.9 Primary osteoarthritis, right shoulder M19.011 Chronic pain syndrome G89.4 Postlaminectomy syndrome M96.1
[2023-05-30 14:12] VITALS: BP 128/60; PULSE 66; RESP 16; O2SAT 94; BMI 35.2
== END 2023-05-30 14:57 | disposition home or self-care (01) ==
PROVIDERS: PCP Internal Medicine; Visit Provider Anesthesiology
DX: G03.9 Meningitis, unspecified (principal); M19.011 Primary osteoarthritis, right shoulder; G89.4 Chronic pain syndrome; M96.1 Postlaminectomy syndrome, not elsewhere classified; Z45.1 Encounter for adjustment and management of infusion pump
CPT/HCPCS: 62370; 99213

== ENCOUNTER → 2023-05-30 13:46 | Outpatient (BNVA) | payer MEDICARE, OTHER, SELFPAY | PROVIDERS: PCP Internal Medicine; Visit Provider Anesthesiology | DX: Z45.1 Encounter for adjustment and management of infusion pump (principal); M19.011 Primary osteoarthritis, right shoulder; M96.1 Postlaminectomy syndrome, not elsewhere classified; G89.4 Chronic pain syndrome; G03.9 Meningitis, unspecified | CPT/HCPCS: 62370; 99212 ==

== ENCOUNTER → 2023-06-20 13:38 | Outpatient (BNVA) | payer MEDICARE, OTHER, SELFPAY | PROVIDERS: PCP Internal Medicine; Visit Provider Anesthesiology | DX: Z51.81 Encounter for therapeutic drug level monitoring (principal); F11.20 Opioid dependence, uncomplicated | CPT/HCPCS: 99211 ==

== ENCOUNTER 2023-07-18 12:55 | Outpatient (AMB) | payer MEDICARE, OTHER, SELFPAY ==
--- NOTE | 2023-07-18 13:09 | MHC.OFFVIS ---
Intake Vital Signs 07/18/23 14:05 Height 5 ft 10 in Weight 263 lb BMI 37.7 BP 150/68 H Blood Pressure Location Lt brachial Position Sitting Respiration 17 Pulse 66 Pulse Source Pulse Oximeter Pulse Oximetry (%) 95 Oxygen Delivery Method Room Air Intake Visit Reasons: ITDD Pain Pump Refill AND Medication Count/conf Intake Note: Patient comes in for pain pump medication refill. He reports pain level of 6/10. Allergies penicillin G Allergy (Severe, Verified 07/18/23 14:05) Hives zolpidem [Ambien] Allergy (Intermediate, Verified 07/18/23 14:05) sleep walking HPI HPI Comments History of Present Illness Details Marcus is back in my office for the pain medication refill. He receives 2 mg of Dilaudid 3 times a day. He reports this regimen helps him to stay active and perform better activities of daily living. He today presented for the pill count with 9 pills in his possession his supposed to have 9 pills. His pill count is correct. Mass pat was reviewed there is no evidence of abuse or diversion. That demonstrates responsible attitude to the opioid medications his mass pat is also consistent with current prescription. He is on Zaleplon for night sleep which is prescribed to him by me as well. He has naloxone his possession at home. He will be refilled with his medication today. The pump is refilled as below. Prior: C/o on pain in bilateral shoulders lower back bilateral lower extremities. He is in my office under observation with intrathecal drug delivery system pain pump. About 2 years ago he was found to be prescribed with 3 different practitioners with the opioid medications while he was receiving opioid medications from of this office oral consumption. On top of that him was receiving intrathecal opioids. He was suspended at that time for 1 year interval because we found this situation is quite dangerous for the patient. He has continued to be prescribed benzodiazepines and zaleplon he has Narcan in his household. [facility] Medical History (Updated 01/04/23 @ 09:11 by Alexander Munguia MD) History of cardioversion Primary osteoarthritis, right shoulder Surgical History (Updated 02/16/22 @ 10:40 by Diane Thomas RN) Hx of spinal surgery Hx of colonoscopy History of bilateral hip replacements Social History Patient Tobacco Use Status: Former Tobacco user Review of Systems Const All systems reviewed & are unremarkable except as noted in HPI and below Neuro Denies Abnormal speech present Physical Exam Const General: cooperative, no acute distress and well groomed Orientation/consciousness: patient oriented x3 Resp Effort & Inspection: normal respiratory effort, able to speak in complete sentences and normal respiratory pattern Cardio Jugular venous distension: no JVD Neuro General: patient oriented x3 and gait normal Cognition (Neuro): normal cognition Speech: No Abnormal speech present Psych Appearance: grossly normal Mental Status: mental status grossly normal Speech and movement: Normal speech and movement present Affect: normal affect Attitude: cooperative Thought process: Normal thought process present Thought content: Normal thought content present Insight: Fair insight present (Psych) Assessment & Plan Assessment & Plan (1) Adhesive arachnoiditis: Code(s): G03.9 - Meningitis, unspecified (2) Primary osteoarthritis, right shoulder: Code(s): M19.011 - Primary osteoarthritis, right shoulder (3) Chronic pain syndrome: Code(s): G89.4 - Chronic pain syndrome (4) Postlaminectomy syndrome: Code(s): M96.1 - Postlaminectomy syndrome, not elsewhere classified Plan: He accepts pump refills only under image guidance. He is red admitted to our opioid program. He seem to be compliant with his opioid regimen. He was explained that is not ideal to have both oral and intrathecal opioids. However he sees this only as 1 solution for his pains widespread around his body. The patient refuses to change concentration of the medication in his intrathecal pump, he prefers to stay the same level of the same medications. Plan Intrathecal pump refill. THE PATIENT CAME TODAY IN THE office FOR THE CHANGE OF THE MEDICATION IN her PAIN PUMP. The name and date of were verified and informed consent was obtained for the procedure. ?The pump was interrogated and the residual amount of fluid was found to be 5.4 mL. HE WAS POSITIONED supine on the bed. Ultrasound probe was placed on the left lower abdomen in the area of location of the pain pump and the silicone plug location was established by ultrasound. The location of the silicone plug was marked with permanent marker. After that THE AREA OF THE INTRATHECAL PUMP WAS PREPPED WITH CHLORAPREP. The fenestrated drape was sterilely applied over the area of the pump. Sterile gloves were worn and of the aspiration system was assembled containing 2 in 22 gauge noncoring needle, the needle was connected to extension tubing which was connected to the 20 cc sterile syringe. The pain pump was palpated under the skin in the patient's right buttock area. The needle was inserted through the skin and the central plug of the pain pump and fluid was aspirated. The clear fluid was going into the syringe the total amount of the fluid was 6.1 mL .. After that a new batch? of medication was obtained which was containing Fentanyl in concentration 12,000 micro g/ml and bupivacain 15 mg per ml. The admixture was made in 20 cc syringe prepared by [facility] compounding pharmacy. The syringe was connected to the bacterial filter, and then connected to the extension tubing. After that the medication in the syringe was slowly instilled into the pump with aspirations at 15 and 5 cc ames.? The pump was reprogrammed for the doses of Fentanyl 2,399 mcg per day with corresponding dose of bupivacaine.? The patient was given 5 doses of PTM 425 micrograms intrathecally? every 4 hours with maximum 5 activations per 24 hour. With all activations the total dose of fentanyl is 4,485 mg in 24 hours. Coding Level of Care Code Est Pt Level 3 (29931) Procedure Only Diagnoses Adhesive arachnoiditis G03.9 Primary osteoarthritis, right shoulder M19.011 Chronic pain syndrome G89.4 Postlaminectomy syndrome M96.1
[2023-07-18 14:05] VITALS: BP 150/68; PULSE 66; RESP 17; O2SAT 95; BMI 37.7
== END 2023-07-18 15:03 | disposition home or self-care (01) ==
PROVIDERS: PCP Internal Medicine; Visit Provider Anesthesiology
DX: G89.4 Chronic pain syndrome (principal); G03.9 Meningitis, unspecified; M19.011 Primary osteoarthritis, right shoulder; M96.1 Postlaminectomy syndrome, not elsewhere classified; Z45.1 Encounter for adjustment and management of infusion pump
CPT/HCPCS: 62370; 99213

== ENCOUNTER → 2023-07-18 12:55 | Outpatient (BNVA) | payer MEDICARE, OTHER, SELFPAY | PROVIDERS: PCP Internal Medicine; Visit Provider Anesthesiology | DX: G03.9 Meningitis, unspecified (principal); M19.011 Primary osteoarthritis, right shoulder; M96.1 Postlaminectomy syndrome, not elsewhere classified; G89.4 Chronic pain syndrome | CPT/HCPCS: 62370; 99212 ==

== ENCOUNTER 2023-08-15 13:05 | Outpatient (AMB) | payer MEDICARE, OTHER, SELFPAY ==
--- NOTE | 2023-08-15 13:07 | A.OFFVIS_ITS ---
Intake Vital Signs 08/15/23 13:22 Height 5 ft 10 in Weight 250 lb 2 oz BMI 35.9 BP 130/72 Blood Pressure Location Lt brachial Position Sitting Respiration 16 Pulse 81 Pulse Source Pulse Oximeter Pulse Oximetry (%) 94 Oxygen Delivery Method Room Air Intake Visit Reasons: Pill count/confirmed Intake Note: Patient comes in for pill to Hydromorphone 2 mg tablets. Allergies penicillin G Allergy (Severe, Verified 08/15/23 13:24) Hives zolpidem [Ambien] Allergy (Intermediate, Verified 08/15/23 13:24) sleep walking HPI HPI Comments History of Present Illness Details Marcus is back in my office for the pain medication refill. He receives 2 mg of Dilaudid 3 times a day. He reports this regimen helps him to stay active and perform better activities of daily living. He admits that the changes in the weather does not help his pain. He today presented for the pill count with 19 pills in his possession his supposed to have 18 pills. His pill count is correct. Mass pat was reviewed there is no evidence of abuse or diversion. That demonstrates responsible attitude to the opioid medications his mass pat is also consistent with current prescription. He is on Zaleplon for night sleep which is prescribed to him by me as well. He has naloxone his possession at home. He will be refilled with his medication today. He receives benzodiazep bella from his primary care physician alprazolam 0.5 mg p.r.n. anxiety. The pump is refilled as below. Prior: C/o on pain in bilateral shoulders lower back bilateral lower extremities. He is in my office under observation with intrathecal drug delivery system pain pump. About 2 years ago he was found to be prescribed with 3 different practitioners with the opioid medications while he was receiving opioid medications from of this office oral consumption. On top of that him was receiving intrathecal opioids. He was suspended at that time for 1 year interval because we found this situation is quite dangerous for the patient. [facility] Medical History (Updated 01/04/23 @ 09:11 by Alexander Munguia MD) History of cardioversion Primary osteoarthritis, right shoulder Surgical History (Updated 02/16/22 @ 10:40 by Diane Thomas RN) Hx of spinal surgery Hx of colonoscopy History of bilateral hip replacements Social History Patient Tobacco Use Status: Former Tobacco user Review of Systems Const All systems reviewed & are unremarkable except as noted in HPI and below Neuro Denies Abnormal speech present Physical Exam Vital Signs: Last Vital Signs Pulse 81 08/15/23 13:22 Resp 16 08/15/23 13:22 BP 130/72 08/15/23 13:22 Pulse Ox 94 08/15/23 13:22 Oxygen Delivery Method Room Air 08/15/23 13:22 BMI result Body Mass Index 35.9 Const General: cooperative, no acute distress and well groomed Orientation/consciousness: patient oriented x3 Resp Effort & Inspection: normal respiratory effort, able to speak in complete sentences and normal respiratory pattern Cardio Jugular venous distension: no JVD Neuro General: patient oriented x3 and gait normal Cognition (Neuro): normal cognition Speech: No Abnormal speech present Psych Appearance: grossly normal Mental Status: mental status grossly normal Speech and movement: Normal speech and movement present Affect: normal affect Attitude: cooperative Thought process: Normal thought process present Thought content: Normal thought content present Insight: Fair insight present (Psych) Assessment & Plan Assessment & Plan (1) Adhesive arachnoiditis: Code(s): G03.9 - Meningitis, unspecified (2) Primary osteoarthritis, right shoulder: Code(s): M19.011 - Primary osteoarthritis, right shoulder (3) Chronic pain syndrome: Code(s): G89.4 - Chronic pain syndrome (4) Postlaminectomy syndrome: Code(s): M96.1 - Postlaminectomy syndrome, not elsewhere classified Plan: He accepts pump refills only under image guidance. He is red admitted to our opioid program. He seem to be compliant with his opioid regimen. He was explained that is not ideal to have both oral and intrathecal opioids. However he sees this only as 1 solution for his pains widespread around his body. The patient refuses to change concentration of the medication in his intrathecal pump, he prefers to stay the same level of the same medications. I will refill his medications hydromorphone 2 mg t.i.d. is needed he is due for his prescription add 08/22/2023. Plan Medications: Refilled hydromorphone Partial Fill upon patient request. 2 mg PO TID PRN 90 tabs 0RF pain 30 days G89.4 - Chronic pain syndrome, M96.1 - Postlaminectomy syndrome, not elsewhere classified Coding Level of Care Code Est Pt Level 3 (23757) Diagnoses Adhesive arachnoiditis G03.9 Primary osteoarthritis, right shoulder M19.011 Chronic pain syndrome G89.4 Postlaminectomy syndrome M96.1
[2023-08-15 13:22] VITALS: BP 130/72; PULSE 81; RESP 16; O2SAT 94; BMI 35.9
== END 2023-08-15 14:28 | disposition home or self-care (01) ==
PROVIDERS: PCP Internal Medicine; Visit Provider Anesthesiology
DX: G89.4 Chronic pain syndrome (principal); G03.9 Meningitis, unspecified; M19.011 Primary osteoarthritis, right shoulder; Z79.891 Long term (current) use of opiate analgesic; M96.1 Postlaminectomy syndrome, not elsewhere classified
CPT/HCPCS: 99213

== ENCOUNTER → 2023-08-15 13:05 | Outpatient (BNVA) | payer MEDICARE, OTHER, SELFPAY | PROVIDERS: PCP Internal Medicine; Visit Provider Anesthesiology | DX: Z51.81 Encounter for therapeutic drug level monitoring (principal); F11.20 Opioid dependence, uncomplicated; M19.011 Primary osteoarthritis, right shoulder; M96.1 Postlaminectomy syndrome, not elsewhere classified; G03.9 Meningitis, unspecified; G89.4 Chronic pain syndrome | CPT/HCPCS: 99212 ==

== ENCOUNTER 2023-09-03 13:26 | Outpatient (AMB) | payer MEDICARE, OTHER, SELFPAY ==
--- NOTE | 2023-09-03 13:48 | A.OFFVIS_ITS ---
Intake Vital Signs 09/03/23 13:49 Height 5 ft 10 in Weight 246 lb 8 oz BMI 35.4 BP 130/60 Blood Pressure Location Lt brachial Position Sitting Respiration 16 Pulse 70 Pulse Source Pulse Oximeter Pulse Oximetry (%) 94 Oxygen Delivery Method Room Air Intake Visit Reasons: ITDD Refill/lvm Intake Note: Patient comes in for intrathecal medication refill and pill count. Reports pain 6/10. Allergies penicillin G Allergy (Severe, Verified 09/03/23 13:49) Hives zolpidem [Ambien] Allergy (Intermediate, Verified 09/03/23 13:49) sleep walking HPI HPI Comments History of Present Illness Details Marcus is back in my office for the pain medication refill and refill of the medication in the pain pump. He receives 2 mg of Dilaudid 3 times a day. He reports this regimen helps him to stay active and perform better activities of daily living. He admits that the changes in the weather does not help his pain. He today presented for the pill count with 54 pills in his possession his supposed to have 54 pills. His pill count is correct. Mass pat was reviewed there is no evidence of abuse or diversion. He is on Zaleplon for night sleep which is prescribed to him by me as well. He has naloxone his possession at home. He will be refilled with his medication today. He receives benzodiazepines from his primary care physician alprazolam 0.5 mg p.r.n. anxiety. The pump is refilled as below. Prior: C/o on pain in bilateral shoulders lower back bilateral lower extremities. He is in my office under observation with intrathecal drug delivery system pain pump. About 2 years ago he was found to be prescribed with 3 different practitioners with the opioid medications while he was receiving opioid medications from of this office oral consumption. On top of that him was receiving intrathecal opioids. He was suspended at that time for 1 year interval because we found this situation is quite dangerous for the patient. [facility] Medical History (Updated 01/04/23 @ 09:11 by Alexander Munguia MD) History of cardioversion Primary osteoarthritis, right shoulder Surgical History (Updated 02/16/22 @ 10:40 by Diane Thomas RN) Hx of spinal surgery Hx of colonoscopy History of bilateral hip replacements Social History Patient Tobacco Use Status: Former Tobacco user Review of Systems Const All systems reviewed & are unremarkable except as noted in HPI and below Neuro Denies Abnormal speech present Physical Exam Vital Signs: Last Vital Signs Pulse 70 09/03/23 13:49 Resp 16 09/03/23 13:49 BP 130/60 09/03/23 13:49 Pulse Ox 94 09/03/23 13:49 Oxygen Delivery Method Room Air 09/03/23 13:49 BMI result Body Mass Index 35.4 Const General: cooperative, no acute distress and well groomed Orientation/consciousness: patient oriented x3 Resp Effort & Inspection: normal respiratory effort, able to speak in complete sentences and normal respiratory pattern Cardio Jugular venous distension: no JVD Neuro General: patient oriented x3 and gait normal Cognition (Neuro): normal cognition Speech: No Abnormal speech present Psych Appearance: grossly normal Mental Status: mental status grossly normal Speech and movement: Normal speech and movement present Affect: normal affect Attitude: cooperative Thought process: Normal thought process present Thought content: Normal thought content present Insight: Fair insight present (Psych) Assessment & Plan Assessment & Plan (1) Adhesive arachnoiditis: Code(s): G03.9 - Meningitis, unspecified Plan: Intrathecal pump refill. THE PATIENT CAME TODAY IN THE [id number] FOR THE CHANGE OF THE MEDICATION IN her PAIN PUMP. The name and date of were verified and informed consent was obtained for the procedure. ?The pump was interrogated and the residual amount of fluid was found to be 5.6 mL. HE WAS POSITIONED supine on the bed. Ultrasound probe was placed on the left lower abdomen in the area of location of the pain pump and the silicone plug location was established by ultrasound. The location of the silicone plug was marked with permanent marker. After that THE AREA OF THE INTRATHECAL PUMP WAS PREPPED WITH CHLORAPREP. The fenestrated drape was sterilely applied over the area of the pump. Sterile gloves were worn and of the aspiration system was assembled containing 2 in 22 gauge noncoring needle, the needle was connected to extension tubing which was connected to the 20 cc sterile syringe. The pain pump was palpated under the skin in the patient's left anterior abdomen area. The ultrasound probe was applied and the central plug was detected under the skin on direct ultrasound view. The point on the skin corresponding to the area of the central plug was marked with blue surgical marker. After that the area of the pump was prepped with ChloraPrep and draped with fenestrated drape. The needle was inserted through the skin and the central plug of the pain pump and fluid was aspirated. The clear fluid was going into the syringe the total amount of the fluid was 6.4 mL .. After that a new batch? of medication was obtained which was containing Fentanyl in concentration 12,500 micro g/ml and bupivacain 15 mg per ml. The admixture was made in 20 cc syringe prepared by [facility] compounding pharmacy. The syringe was connected to the bacterial filter, and then connected to the extension tubing. After that the medication in the syringe was slowly instilled into the pump with aspirations at 15 and 5 cc ames.? The pump was reprogrammed as it was previously set for the doses of Fentanyl 2,399 mcg per day with corresponding dose of bupivacaine.? The patient was given 5 doses of PTM 425 micrograms intrathecally? every 4 hours with maximum 5 activations per 24 hour. With all activations the total dose of fentanyl is 4,485 mg in 24 hour (2) Primary osteoarthritis, right shoulder: Code(s): M19.011 - Primary osteoarthritis, right shoulder (3) Chronic pain syndrome: Code(s): G89.4 - Chronic pain syndrome (4) Postlaminectomy syndrome: Code(s): M96.1 - Postlaminectomy syndrome, not elsewhere classified Plan: He accepts pump refills only under image guidance. He is readmitted to our opioid program. He seem to be compliant with his opioid regimen. He was explained that is not ideal to have both oral and intrathecal opioids. However he sees this only as 1 solution for his pains widespread around his body. The patient refuses to change concentration of the medication in his intrathecal pump, he prefers to stay the same level of the same medications. I will refill his medications hydromorphone 2 mg t.i.d. is needed he is due for his prescription add 08/22/2023. Plan Medications: Refilled hydromorphone Partial Fill upon patient request. 2 mg PO TID PRN 90 tabs 0RF pain 30 days G89.4 - Chronic pain syndrome, M96.1 - Postlaminectomy syndrome, not elsewhere classified Coding Level of Care Code Est Pt Level 3 (93685) Procedure Only Diagnoses Adhesive arachnoiditis G03.9 Primary osteoarthritis, right shoulder M19.011 Chronic pain syndrome G89.4 Postlaminectomy syndrome M96.1
[2023-09-03 13:49] VITALS: BP 130/60; PULSE 70; RESP 16; O2SAT 94; BMI 35.4
== END 2023-09-03 14:17 | disposition home or self-care (01) ==
PROVIDERS: PCP Internal Medicine; Visit Provider Anesthesiology
DX: G03.9 Meningitis, unspecified (principal); M19.011 Primary osteoarthritis, right shoulder; G89.4 Chronic pain syndrome; M96.1 Postlaminectomy syndrome, not elsewhere classified; Z45.1 Encounter for adjustment and management of infusion pump
CPT/HCPCS: 62370; 99213

== ENCOUNTER → 2023-09-03 13:26 | Outpatient (BNVA) | payer MEDICARE, OTHER, SELFPAY | PROVIDERS: PCP Internal Medicine; Visit Provider Anesthesiology | DX: Z45.89 Encounter for adjustment and management of other implanted devices (principal); Z51.81 Encounter for therapeutic drug level monitoring; F11.20 Opioid dependence, uncomplicated; M19.011 Primary osteoarthritis, right shoulder; M96.1 Postlaminectomy syndrome, not elsewhere classified; G03.9 Meningitis, unspecified; G89.4 Chronic pain syndrome | CPT/HCPCS: 62370; 99212 ==

== ENCOUNTER 2023-10-22 13:51 | Outpatient (AMB) | payer MEDICARE, OTHER, SELFPAY ==
--- NOTE | 2023-10-22 13:54 | A.OFFVIS_ITS ---
Intake Vital Signs 10/22/23 14:51 Height 5 ft 10 in Weight 258 lb BMI 37.0 BP 150/70 H Blood Pressure Location Lt brachial Position Sitting Respiration 16 Pulse 67 Pulse Source Pulse Oximeter Pulse Oximetry (%) 94 Oxygen Delivery Method Room Air Intake Visit Reasons: ITDD REFILL Intake Note: Patient comes in for intrathecal medication refill and pill count. Reports pain 6/10. Allergies penicillin G Allergy (Severe, Verified 10/22/23 14:53) Hives zolpidem [Ambien] Allergy (Intermediate, Verified 10/22/23 14:53) sleep walking HPI HPI Comments History of Present Illness Details Marcus is back in my office for the pain medication refill and refill of the medication in the pain pump. He receives 2 mg of Dilaudid 3 times a day. He reports this regimen helps him to stay active and perform better activities of daily living. He presents today with 16 pills in his possession. Supposed to have 12 pills in his possession. This demonstrates responsible attitude for opioid medications. He reports improved mobility and activities of daily living with the opioid medications. He is due for new prescription on 10/27/2023. His intrathecal pump was interrogated and refilled today. See description as below. He is going for shoulder surgery in [place] for rotator cuff tear. He is on Zaleplon for night sleep which is prescribed to him by me as well. He has naloxone his possession at home. He will be refilled with his medication today. He receives benzodiazepines from his primary care physician alprazolam 0.5 mg p.r.n. anxiety. The pump is refilled as below. Prior: C/o on pain in bilateral shoulders lower back bilateral lower extremities. He is in my office under observation with intrathecal drug delivery system pain pump. About 2 years ago he was found to be prescribed with 3 different practitioners with the opioid medications while he was receiving opioid medications from of this office oral consumption. On top of that him was receiving intrathecal opioids. He was suspended at that time for 1 year interval because we found this situation is quite dangerous for the patient. [facility] Medical History (Updated 01/04/23 @ 09:11 by Alexander Munguia MD) History of cardioversion Primary osteoarthritis, right shoulder Surgical History (Updated 02/16/22 @ 10:40 by Diane Thomas RN) Hx of spinal surgery Hx of colonoscopy History of bilateral hip replacements Social History Patient Tobacco Use Status: Former Tobacco user Review of Systems Const All systems reviewed & are unremarkable except as noted in HPI and below Neuro Denies Abnormal speech present Physical Exam Vital Signs: Last Vital Signs Pulse 67 10/22/23 14:51 Resp 16 10/22/23 14:51 BP 150/70 H 10/22/23 14:51 Pulse Ox 94 10/22/23 14:51 Oxygen Delivery Method Room Air 10/22/23 14:51 BMI result Body Mass Index 37.0 Const General: cooperative, no acute distress and well groomed Orientation/consciousness: patient oriented x3 Resp Effort & Inspection: normal respiratory effort, able to speak in complete sentences and normal respiratory pattern Cardio Jugular venous distension: no JVD Neuro General: patient oriented x3 and gait normal Cognition (Neuro): normal cognition Speech: No Abnormal speech present Psych Appearance: grossly normal Mental Status: mental status grossly normal Speech and movement: Normal speech and movement present Affect: normal affect Attitude: cooperative Thought process: Normal thought process present Thought content: Normal thought content present Insight: Fair insight present (Psych) Assessment & Plan Assessment & Plan (1) Adhesive arachnoiditis: Code(s): G03.9 - Meningitis, unspecified Plan: Intrathecal pump refill. THE PATIENT CAME TODAY IN THE [id number] FOR THE CHANGE OF THE MEDICATION IN her PAIN PUMP. The name and date of were verified and informed consent was obtained for the procedure. ?The pump was interrogated and the residual amount of fluid was found to be 4.2 mL. HE WAS POSITIONED supine on the bed. Ultrasound probe was placed on the left lower abdomen in the area of location of the pain pump and the silicone plug location was established by ultrasound. The location of the silicone plug was marked with permanent marker. After that THE AREA OF THE INTRATHECAL PUMP WAS PREPPED WITH CHLORAPREP. The fenestrated drape was sterilely applied over the area of the pump. Sterile gloves were worn and of the aspiration system was assembled containing 2 in 22 gauge noncoring needle, the needle was connected to extension tubing which was connected to the 20 cc sterile syringe. The pain pump was palpated under the skin in the patient's left anterior abdomen area. The ultrasound probe was applied and the central plug was detected under the skin on direct ultrasound view. The point on the skin corresponding to the area of the central plug was marked with blue surgical marker. After that the area of the pump was prepped with ChloraPrep and draped with fenestrated drape. The needle was inserted through the skin and the central plug of the pain pump and fluid was aspirated. The clear fluid was going into the syringe the total amount of the fluid was 5.2 mL .. After that a new batch? of medication was obtained which was containing Fentanyl in concentration 12,500 micro g/ml and bupivacain 15 mg per ml. The admixture was made in 20 cc syringe prepared by [facility] compounding pharmacy. The syringe was connected to the bacterial filter, and then connected to the extension tubing. After that the medication in the syringe was slowly instilled into the pump with aspirations at 15 and 5 cc ames.? The pump was reprogrammed as it was previously set for the doses of Fentanyl 2,399 mcg per day with corresponding dose of bupivacaine.? The patient was given 5 doses of PTM 425 micrograms intrathecally? every 4 hours with maximum 5 activations per 24 hour. With all activations the total dose of fentanyl is 4,485 mg in 24 hour. (2) Primary osteoarthritis, right shoulder: Code(s): M19.011 - Primary osteoarthritis, right shoulder (3) Chronic pain syndrome: Code(s): G89.4 - Chronic pain syndrome (4) Postlaminectomy syndrome: Code(s): M96.1 - Postlaminectomy syndrome, not elsewhere classified Plan: He accepts pump refills only under image guidance. He is readmitted to our opioid program. He seem to be compliant with his opioid regimen. He was explained that is not ideal to have both oral and intrathecal opioids. However he sees this only as 1 solution for his pains widespread around his body. He has naltrexone in 2 locations in his household and in his car as well. The patient refuses to change concentration of the medication in his intrathecal pump, he prefers to stay the same level of the same medications. I will refill his medications hydromorphone 2 mg t.i.d. is needed he is due for his prescription add 10/27/2023 Plan Medications: Refilled hydromorphone Partial Fill upon patient request. 2 mg PO TID PRN 90 tabs 0RF pain 30 days G89.4 - Chronic pain syndrome, M96.1 - Postlaminectomy syndrome, not elsewhere classified Coding Level of Care Code Est Pt Level 3 (79289) Procedure Only Diagnoses Adhesive arachnoiditis G03.9 Primary osteoarthritis, right shoulder M19.011 Chronic pain syndrome G89.4 Postlaminectomy syndrome M96.1
[2023-10-22 14:51] VITALS: BP 150/70; PULSE 67; RESP 16; O2SAT 94; BMI 37.0
== END 2023-10-22 14:38 | disposition home or self-care (01) ==
PROVIDERS: PCP Internal Medicine; Visit Provider Anesthesiology
DX: G03.9 Meningitis, unspecified (principal); M19.011 Primary osteoarthritis, right shoulder; G89.4 Chronic pain syndrome; M96.1 Postlaminectomy syndrome, not elsewhere classified; Z45.1 Encounter for adjustment and management of infusion pump
CPT/HCPCS: 62370; 99213

== ENCOUNTER → 2023-10-22 13:51 | Outpatient (BNVA) | payer MEDICARE, OTHER, SELFPAY | PROVIDERS: PCP Internal Medicine; Visit Provider Anesthesiology | DX: G03.9 Meningitis, unspecified (principal); M19.011 Primary osteoarthritis, right shoulder; G89.4 Chronic pain syndrome; M96.1 Postlaminectomy syndrome, not elsewhere classified | CPT/HCPCS: 62370; 99212 ==

== ENCOUNTER 2023-11-22 12:45 | Outpatient (AMB) | payer MEDICARE, OTHER, SELFPAY ==
--- NOTE | 2023-11-22 12:59 | MHC.OFFVIS ---
Vital Signs 11/22/23 13:08 Height 5 ft 10 in Weight 254 lb BMI 36.4 BP 127/63 Blood Pressure Location Lt brachial Position Sitting Respiration 16 Pulse 78 Pulse Source Pulse Oximeter Pulse Oximetry (%) 96 Oxygen Delivery Method Room Air Intake Visit Reasons: PILL COUNT/ Random UDS Intake Note: Patient comes in for pill count. Reports pain 6/10. Allergies penicillin G Allergy (Severe, Verified 10/22/23 14:53) Hives zolpidem [Ambien] Allergy (Intermediate, Verified 10/22/23 14:53) sleep walking HPI Comments Details: Marcus is back in my office for the pain medication refill. He receives 2 mg of Dilaudid 3 times a day. He reports this regimen helps him to stay active and perform better activities of daily living. He presents today with 8 pills in his possession. Supposed to have 9 pills in his possession. This demonstrates responsible attitude for opioid medications. He reports improved mobility and activities of daily living with the opioid medications. He is due for new prescription on 11/24/22 He is no longer on Zaleplon for night sleep due to insurance denial for the med. He reports that he is going to go for the surgery for his right shoulder with an orthopedic surgeon, apparently rotator cuff repair. He was ordered a UDS today. Prior: C/o on pain in bilateral shoulders lower back bilateral lower extremities. He is in my office under observation with intrathecal drug delivery system pain pump. About 2 years ago he was found to be prescribed with 3 different practitioners with the opioid medications while he was receiving opioid medications from of this office oral consumption. On top of that him was receiving intrathecal opioids. He was suspended at that time for 1 year interval because we found this situation is quite dangerous for the patient. [facility] Medical History (Updated 11/08/23 @ 09:52 by Alexander Munguia MD) Insomnia History of cardioversion Primary osteoarthritis, right shoulder Surgical History (Updated 02/16/22 @ 10:40 by Diane Thomas RN) Hx of spinal surgery Hx of colonoscopy History of bilateral hip replacements Social History Patient Tobacco Use Status: Former Tobacco user Review of Systems Const All systems reviewed & are unremarkable except as noted in HPI and below Neuro Denies Abnormal speech present Physical Exam Vital Signs: Last Vital Signs Pulse 78 11/22/23 13:08 Resp 16 11/22/23 13:08 BP 127/63 11/22/23 13:08 Pulse Ox 96 11/22/23 13:08 Oxygen Delivery Method Room Air 11/22/23 13:08 BMI result Body Mass Index 36.4 Const General: cooperative, no acute distress and well groomed Orientation/consciousness: patient oriented x3 Resp Effort & Inspection: normal respiratory effort, able to speak in complete sentences and normal respiratory pattern Cardio Jugular venous distension: no JVD Neuro General: patient oriented x3 and gait normal Cognition (Neuro): normal cognition Speech: No Abnormal speech present Psych Appearance: grossly normal Mental Status: mental status grossly normal Speech and movement: Normal speech and movement present Affect: normal affect Attitude: cooperative Thought process: Normal thought process present Thought content: Normal thought content present Insight: Fair insight present (Psych) Assessment & Plan Assessment & Plan (1) Adhesive arachnoiditis: Code(s): G03.9 - Meningitis, unspecified Category: Medical (2) Primary osteoarthritis, right shoulder: Code(s): M19.011 - Primary osteoarthritis, right shoulder Category: Medical (3) Chronic pain syndrome: Code(s): G89.4 - Chronic pain syndrome Category: Medical (4) Postlaminectomy syndrome: Code(s): M96.1 - Postlaminectomy syndrome, not elsewhere classified Category: Medical Plan: He accepts pump refills only under image guidance. He is readmitted to our opioid program. He seem to be compliant with his opioid regimen. He was explained that is not ideal to have both oral and intrathecal opioids. However he sees this only as 1 solution for his pains widespread around his body. He has naltrexone in 2 locations in his household and in his car as well. The patient refuses to change concentration of the medication in his intrathecal pump, he prefers to stay the same level of the same medications. I will refill his medications hydromorphone 2 mg t.i.d. is needed he is due for his prescription add 11/25/23 He was ordered UDS today. Plan Medications: Refilled hydromorphone Partial Fill upon patient request. 2 mg PO TID PRN 90 tabs 0RF pain 30 days G89.4 - Chronic pain syndrome, M96.1 - Postlaminectomy syndrome, not elsewhere classified
[2023-11-22 13:08] VITALS: BP 127/63; PULSE 78; RESP 16; O2SAT 96; BMI 36.4
== END 2023-11-22 13:22 | disposition home or self-care (01) ==
PROVIDERS: PCP Internal Medicine; Visit Provider Anesthesiology
DX: G03.9 Meningitis, unspecified (principal); M19.011 Primary osteoarthritis, right shoulder; G89.4 Chronic pain syndrome; M96.1 Postlaminectomy syndrome, not elsewhere classified
CPT/HCPCS: 99213

== ENCOUNTER → 2023-11-22 12:45 | Outpatient (BNVA) | payer MEDICARE, OTHER, SELFPAY | PROVIDERS: PCP Internal Medicine; Visit Provider Anesthesiology | DX: Z51.81 Encounter for therapeutic drug level monitoring (principal); F11.20 Opioid dependence, uncomplicated | CPT/HCPCS: 99212 ==

== ENCOUNTER 2023-12-10 15:27 | Outpatient (AMB) | payer MEDICARE, OTHER, SELFPAY ==
--- NOTE | 2023-12-10 15:29 | MHC.OFFVIS ---
Vital Signs 12/10/23 16:09 Height 5 ft 10 in Weight 263 lb 6 oz BMI 37.8 BP 138/72 Blood Pressure Location Lt brachial Position Sitting Respiration 16 Pulse 72 Pulse Source Pulse Oximeter Pulse Oximetry (%) 96 Oxygen Delivery Method Room Air Intake Visit Reasons: ITDD REFILL Intake Note: Patient comes in for intrathecal medication refill. Reports pain 5/10. Allergies penicillin G Allergy (Severe, Verified 12/10/23 16:13) Hives zolpidem [Ambien] Allergy (Intermediate, Verified 12/10/23 16:13) sleep walking [facility] Medical History (Updated 11/08/23 @ 09:52 by Alexander Munguia MD) Insomnia History of cardioversion Primary osteoarthritis, right shoulder Surgical History (Updated 02/16/22 @ 10:40 by Diane Thomas RN) Hx of spinal surgery Hx of colonoscopy History of bilateral hip replacements Social History Patient Tobacco Use Status: Former Tobacco user Physical Exam Vital Signs: Last Vital Signs Pulse 72 12/10/23 16:09 Resp 16 12/10/23 16:09 BP 138/72 12/10/23 16:09 Pulse Ox 96 12/10/23 16:09 Oxygen Delivery Method Room Air 12/10/23 16:09 BMI result Body Mass Index 37.8 Assessment & Plan Assessment & Plan (1) Adhesive arachnoiditis: Code(s): 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 THE PATIENT CAME TODAY IN THE [id number] FOR THE CHANGE OF THE MEDICATION IN her PAIN PUMP. The name and date of were verified and informed consent was obtained for the procedure. ?The pump was interrogated and the residual amount of fluid was found to be 4.5 mL. HE WAS POSITIONED supine on the bed. Ultrasound probe was placed on the left lower abdomen in the area of location of the pain pump and the silicone plug location was established by ultrasound. The location of the silicone plug was marked with permanent marker. After that THE AREA OF THE INTRATHECAL PUMP WAS PREPPED WITH CHLORAPREP. The fenestrated drape was sterilely applied over the area of the pump. Sterile gloves were worn and of the aspiration system was assembled containing 2 in 22 gauge noncoring needle, the needle was connected to extension tubing which was connected to the 20 cc sterile syringe. The pain pump was palpated under the skin in the patient's left anterior abdomen area. The ultrasound probe was applied and the central plug was detected under the skin on direct ultrasound view. The point on the skin corresponding to the area of the central plug was marked with blue surgical marker. After that the area of the pump was prepped with ChloraPrep and draped with fenestrated drape. The needle was inserted through the skin and the central plug of the pain pump and fluid was aspirated. The clear fluid was going into the syringe the total amount of the fluid was 5.0 mL .. After that a new batch? of medication was obtained which was containing Fentanyl in concentration 12,500 micro g/ml and bupivacain 15 mg per ml. The admixture was made in 20 cc syringe prepared by [facility] compounding pharmacy. The syringe was connected to the bacterial filter, and then connected to the extension tubing. After that the medication in the syringe was slowly instilled into the pump with aspirations at 15 and 5 cc ames.? The pump was reprogrammed as it was previously set for the doses of Fentanyl 2,399 mcg per day with corresponding dose of bupivacaine.? The patient was given 5 doses of PTM 425 micrograms intrathecally? every 4 hours with maximum 5 activations per 24 hour. With all activations the total dose of fentanyl is 4,485 mg in 24 hour. (2) Primary osteoarthritis, right shoulder: Code(s): M19.011 - Primary osteoarthritis, right shoulder Category: Medical (3) Chronic pain syndrome: Code(s): G89.4 - Chronic pain syndrome Category: Medical (4) Postlaminectomy syndrome: Code(s): M96.1 - Postlaminectomy syndrome, not elsewhere classified Category: Medical Plan: He accepts pump refills only under image guidance. He is readmitted to our opioid program. He seem to be compliant with his opioid regimen. He was explained that is not ideal to have both oral and intrathecal opioids. However he sees this only as 1 solution for his pains widespread around his body. He has naltrexone in 2 locations in his household and in his car as well. The patient refuses to change concentration of the medication in his intrathecal pump, he prefers to stay the same level of the same medications. I will refill his medications hydromorphone 2 mg t.i.d. is needed he is due for his prescription add 10/27/2023 Plan Coding Level of Care Code Procedure Only Diagnoses Adhesive arachnoiditis G03.9 Primary osteoarthritis, right shoulder M19.011 Chronic pain syndrome G89.4 Postlaminectomy syndrome M96.1
[2023-12-10 16:09] VITALS: BP 138/72; PULSE 72; RESP 16; O2SAT 96; BMI 37.8
== END 2023-12-10 16:04 | disposition home or self-care (01) ==
PROVIDERS: PCP Internal Medicine; Referring Provider Internal Medicine; Visit Provider Anesthesiology
DX: Z45.1 Encounter for adjustment and management of infusion pump (principal); G89.4 Chronic pain syndrome; G03.9 Meningitis, unspecified; M19.011 Primary osteoarthritis, right shoulder; M96.1 Postlaminectomy syndrome, not elsewhere classified
CPT/HCPCS: 62370; 76942

== ENCOUNTER → 2023-12-10 15:27 | Outpatient (BNVA) | payer MEDICARE, OTHER, SELFPAY | PROVIDERS: PCP Internal Medicine; Visit Provider Anesthesiology | DX: M19.011 Primary osteoarthritis, right shoulder (principal); M96.1 Postlaminectomy syndrome, not elsewhere classified; G03.9 Meningitis, unspecified; G89.4 Chronic pain syndrome | CPT/HCPCS: 62370 ==

== ENCOUNTER 2023-12-19 15:32 | Outpatient (AMB) | payer MEDICARE, OTHER, SELFPAY ==
--- NOTE | 2023-12-19 15:59 | A.OFFVIS_ITS ---
Vital Signs 12/19/23 16:04 Height 5 ft 10 in Weight 262 lb BMI 37.6 BP 150/72 H Blood Pressure Location Lt brachial Position Sitting Respiration 14 Pulse 79 Pulse Source Pulse Oximeter Pulse Oximetry (%) 97 Oxygen Delivery Method Room Air Intake Visit Reasons: Pill Count Intake Note: Patient comes in for pill count. Reports pain 6/10. Allergies penicillin G Allergy (Severe, Verified 12/19/23 16:04) Hives zolpidem [Ambien] Allergy (Intermediate, Verified 12/19/23 16:04) sleep walking HPI Comments Details: Marcus is back in my office for the pain medication refill. He is on 2 mg of Dilaudid 3 times a day. He reports this regimen helps him to stay active and perform better activities of daily living. He presents today with 21 pills in his possession. Supposed to have 18 pills in his possession. This demonstrates responsible attitude for opioid medications. He reports improved mobility and activities of daily living with the opioid medications. He is due for new prescription on 11/24/22 Prior: C/o on pain in bilateral shoulders lower back bilateral lower extremities. He is in my office under observation with intrathecal drug delivery system pain pump. About 2 years ago he was found to be prescribed with 3 different pr actitioners with the opioid medications while he was receiving opioid medications from of this office oral consumption. On top of that him was receiving intrathecal opioids. He was suspended at that time for 1 year interval because we found this situation is quite dangerous for the patient. [facility] Medical History (Updated 11/08/23 @ 09:52 by Alexander Munguia MD) Insomnia History of cardioversion Primary osteoarthritis, right shoulder Surgical History (Updated 02/16/22 @ 10:40 by Diane Thomas RN) Hx of spinal surgery Hx of colonoscopy History of bilateral hip replacements Social History Patient Tobacco Use Status: Former Tobacco user Review of Systems Const All systems reviewed & are unremarkable except as noted in HPI and below Neuro Denies Abnormal speech present Physical Exam Vital Signs: Last Vital Signs Pulse 79 12/19/23 16:04 Resp 14 12/19/23 16:04 BP 150/72 H 12/19/23 16:04 Pulse Ox 97 12/19/23 16:04 Oxygen Delivery Method Room Air 12/19/23 16:04 BMI result Body Mass Index 37.6 Const General: cooperative, no acute distress and well groomed Orientation/consciousness: patient oriented x3 Resp Effort & Inspection: normal respiratory effort, able to speak in complete sentences and normal respiratory pattern Cardio Jugular venous distension: no JVD Neuro General: patient oriented x3 and gait normal Cognition (Neuro): normal cognition Speech: No Abnormal speech present Psych Appearance: grossly normal Mental Status: mental status grossly normal Speech and movement: Normal speech and movement present Affect: normal affect Attitude: cooperative Assessment & Plan Assessment & Plan (1) Adhesive arachnoiditis: Code(s): G03.9 - Meningitis, unspecified Category: Medical (2) Primary osteoarthritis, right shoulder: Code(s): M19.011 - Primary osteoarthritis, right shoulder Category: Medical (3) Chronic pain syndrome: Code(s): G89.4 - Chronic pain syndrome Category: Medical (4) Postlaminectomy syndrome: Code(s): M96.1 - Postlaminectomy syndrome, not elsewhere classified Category: Medical Plan: Of the drug screen the patient received from us via saliva test it was not positive for any of the medications he is actually taking. Therefore it was incorrectly taken. I me the presumption that he had just dry mouth and not maria victoria ugh of the fluid in the mouth swab 2 tested for any amount of the medication. Therefore he has not suspended in our opioid program. We will continue his opioid prescription as previously done. I will prescribe him today with hydromorphone 2 mg t.i.d. and the date of the prescription will be 12/26/2023. He will continue to be followed up in this office with pump refills. Plan Medications: Refilled hydromorphone Partial Fill upon patient request. 2 mg PO TID PRN 90 tabs 0RF pain 30 days G89.4 - Chronic pain syndrome, M96.1 - Postlaminectomy syndrome, not elsewhere classified Coding Level of Care Code Est Pt Level 3 (66782) Diagnoses Adhesive arachnoiditis G03.9 Primary osteoarthritis, right shoulder M19.011 Chronic pain syndrome G89.4 Postlaminectomy syndrome M96.1
[2023-12-19 16:04] VITALS: BP 150/72; PULSE 79; RESP 14; O2SAT 97; BMI 37.6
== END 2023-12-19 16:09 | disposition home or self-care (01) ==
PROVIDERS: PCP Internal Medicine; Visit Provider Anesthesiology
DX: G03.9 Meningitis, unspecified (principal); M19.011 Primary osteoarthritis, right shoulder; G89.4 Chronic pain syndrome; M96.1 Postlaminectomy syndrome, not elsewhere classified
CPT/HCPCS: 99213

== ENCOUNTER → 2023-12-19 15:32 | Outpatient (BNVA) | payer MEDICARE, OTHER, SELFPAY | PROVIDERS: PCP Internal Medicine; Visit Provider Anesthesiology | DX: Z51.81 Encounter for therapeutic drug level monitoring (principal); F11.20 Opioid dependence, uncomplicated; M19.011 Primary osteoarthritis, right shoulder; M96.1 Postlaminectomy syndrome, not elsewhere classified; G03.9 Meningitis, unspecified; G89.4 Chronic pain syndrome | CPT/HCPCS: 99212 ==

== ENCOUNTER 2024-01-16 12:48 | Outpatient (AMB) | payer MEDICARE, OTHER, SELFPAY ==
--- NOTE | 2024-01-16 12:57 | A.OFFVIS_ITS ---
Vital Signs 01/16/24 13:07 Height 5 ft 10 in Weight 259 lb 2 oz BMI 37.2 BP 160/68 H Blood Pressure Location Lt radial Position Sitting Respiration 16 Pulse 64 Pulse Source Pulse Oximeter Pulse Oximetry (%) 97 Oxygen Delivery Method Room Air Intake Visit Reasons: PILL COUNT Intake Note: Patient comes in for pill count. Reports pain 6/10. Allergies penicillin G Allergy (Severe, Verified 01/16/24 13:09) Hives zolpidem [Ambien] Allergy (Intermediate, Verified 01/16/24 13:09) sleep walking HPI Comments Details: Marcus is back in my office for the pain medication refill. He reports that he has not feeling well today. Two weeks ago he contracted norovirus and developed diarrhea and dehydration. He was 1 day in the hospital. His pill count is correct today. He presented with 24 pills in his possession. His supposed to have 24 pills in his possession. He is on 2 mg of Dilaudid 3 times a day. This demonstrates responsible attitude for opioid medications. He reports improved mobility and activities of daily living with the opioid medications. He is due for new prescription on 11/24/22 Prior: C/o on pain in bilateral shoulders lower back bilateral lower extremities. He is in my office under observation with intrathecal drug delivery system pain pump. About 2 years ago he was found to be prescribed with 3 different practitioners with the opioid medications while he was receiving opioid medications from of this office oral consumption. On top of that him was receiving intrathecal opioids. He was suspended at that time for 1 year interval because we found this situation is quite dangerous for the patient. [facility] Medical History (Updated 11/08/23 @ 09:52 by Alexander Munguia MD) Insomnia History of cardioversion Primary osteoarthritis, right shoulder Surgical History (Updated 02/16/22 @ 10:40 by Diane Thomas RN) Hx of spinal surgery Hx of colonoscopy History of bilateral hip replacements Social History Patient Tobacco Use Status: Former Tobacco user Review of Systems Const All systems reviewed & are unremarkable except as noted in HPI and below Neuro Denies Abnormal speech present Physical Exam Vital Signs: Last Vital Signs Pulse 64 01/16/24 13:07 Resp 16 01/16/24 13:07 BP 160/68 H 01/16/24 13:07 Pulse Ox 97 01/16/24 13:07 Oxygen Delivery Method Room Air 06/12/24 13:07 BMI result Body Mass Index 37.2 Const General: cooperative, no acute distress and well groomed Orientation/consciousness: patient oriented x3 Resp Effort & Inspection: normal respiratory effort, able to speak in complete sentences and normal respiratory pattern Cardio Jugular venous distension: no JVD Neuro General: patient oriented x3 and gait normal Cognition (Neuro): normal cognition Speech: No Abnormal speech present Psych Appearance: grossly normal Mental Status: mental status grossly normal Speech and movement: Normal speech and movement present Affect: normal affect Attitude: cooperative Assessment & Plan Assessment & Plan (1) Adhesive arachnoiditis: Code(s): G03.9 - Meningitis, unspecified Category: Medical (2) Primary osteoarthritis, right shoulder: Code(s): M19.011 - Primary osteoarthritis, right shoulder Category: Medical (3) Chronic pain syndrome: Code(s): G89.4 - Chronic pain syndrome Category: Medical (4) Postlaminectomy syndrome: Code(s): M96.1 - Postlaminectomy syndrome, not elsewhere classified Category: Medical Plan: Marcus is doing okay with his opioids demonstrated good pill count today. His next pill count will be scheduled in 1 month. He is recovering from norovirus. He spent 1 day in the hospital. His next pain pump fill up in 2 weeks. Of the drug screen the patient received from us via saliva test it was not positive for any of the medications he is actually taking. Therefore it was incorrectly taken. I me the presumption that he had just dry mouth and not enough of the fluid in the mouth swab 2 tested for any amount of the medication. Therefore he has not suspended in our opioid program. We will continue his opioid prescription as previously done. I will prescribe him today with hydromorphone 2 mg t.i.d. and the date of the prescription will be 12/26/2023. He will continue to be followed up in this office with pump refills. Plan Medications: Refilled hydromorphone Partial Fill upon patient request. 2 mg PO TID PRN 90 tabs 0RF pain 30 days G89.4 - Chronic pain syndrome, M96.1 - Postlaminectomy syndrome, not elsewhere classified Coding Level of Care Code Est Pt Level 3 (00571) Diagnoses Adhesive arachnoiditis G03.9 Primary osteoarthritis, right shoulder M19.011 Chronic pain syndrome G89.4 Postlaminectomy syndrome M96.1
[2024-01-16 13:07] VITALS: BP 160/68; PULSE 64; RESP 16; O2SAT 97; BMI 37.2
== END 2024-01-16 13:15 | disposition home or self-care (01) ==
PROVIDERS: PCP Internal Medicine; Visit Provider Anesthesiology
DX: G89.4 Chronic pain syndrome (principal); G03.9 Meningitis, unspecified; M19.011 Primary osteoarthritis, right shoulder; M96.1 Postlaminectomy syndrome, not elsewhere classified
CPT/HCPCS: 99213

== ENCOUNTER → 2024-01-16 12:48 | Outpatient (BNVA) | payer MEDICARE, OTHER, SELFPAY | PROVIDERS: PCP Internal Medicine; Visit Provider Anesthesiology | DX: Z51.81 Encounter for therapeutic drug level monitoring (principal); Z45.1 Encounter for adjustment and management of infusion pump; G03.9 Meningitis, unspecified; G89.4 Chronic pain syndrome; M19.011 Primary osteoarthritis, right shoulder; M96.1 Postlaminectomy syndrome, not elsewhere classified | CPT/HCPCS: 99212 ==

== ENCOUNTER 2024-01-30 11:28 | Outpatient (AMB) | payer MEDICARE, OTHER, SELFPAY ==
--- NOTE | 2024-01-30 11:33 | MHC.OFFVIS ---
Vital Signs 01/30/24 11:40 Height 5 ft 10 in Weight 261 lb BMI 37.4 BP 140/74 H Blood Pressure Location Lt brachial Position Sitting Respiration 14 Pulse 66 Pulse Source Pulse Oximeter Pulse Oximetry (%) 94 Oxygen Delivery Method Room Air Intake Visit Reasons: ITDD REFILL Intake Note: Patient comes in for intrathecal medication refill. Reports pain 11/13. Allergies penicillin G Allergy (Severe, Verified 01/30/24 11:42) Hives zolpidem [Ambien] Allergy (Intermediate, Verified 01/30/24 11:42) sleep walking HPI Comments Details: Marcus is back in my office for refill of the intrathecal pain pump. He continues to complain on pain on bilateral shoulders. He reports limited mobility of bilateral shoulders. He informed me that he is going to have bilateral intra-articular injections. He does not know the target of the injections but I presume they will be intra-articular bilateral steroid injections. I explained to the patient risks of the steroid medications. I discussed briefly with him possibility of treating his pain with stim wave/Curonix. Alternatively he is 73 years old and could be a good candidate for reverse total shoulder replacement. He continues to receive benefit from the pain pump. The pain pump was refilled as below. Prior: C/o on pain in bilateral shoulders lower back bilateral lower extremities. He is in my office under observation with intrathecal drug delivery system pain pump. About 2 years ago he was found to be prescribed with 3 different practitioners with the opioid medications while he was receiving opioid medications from of this office oral consumption. On top of that him was receiving intrathecal opioids. He was suspended at that time for 1 year interval because we found this situation is quite dangerous for the patient. [facility] Medical History (Updated 11/08/23 @ 09:52 by Alexander Munguia MD) Insomnia History of cardioversion Primary osteoarthritis, right shoulder Surgical History (Updated 02/16/22 @ 10:40 by Diane Thomas RN) Hx of spinal surgery Hx of colonoscopy History of bilateral hip replacements Social History Patient Tobacco Use Status: Former Tobacco user Review of Systems Const All systems reviewed & are unremarkable except as noted in HPI and below Neuro Denies Abnormal speech present Physical Exam Vital Signs: Last Vital Signs Pulse 66 01/30/24 11:40 Resp 14 01/30/24 11:40 BP 140/74 H 01/30/24 11:40 Pulse Ox 94 01/30/24 11:40 Oxygen Delivery Method Room Air 01/30/24 11:40 BMI result Body Mass Index 37.4 Const General: cooperative, no acute distress and well groomed Orientation/consciousness: patient oriented x3 Resp Effort & Inspection: normal respiratory effort, able to speak in complete sentences and normal respiratory pattern Cardio Jugular venous distension: no JVD Neuro General: patient oriented x3 and gait normal Cognition (Neuro): normal cognition Speech: No Abnormal speech present Psych Appearance: grossly normal Mental Status: mental status grossly normal Speech and movement: Normal speech and movement present Affect: normal affect Attitude: cooperative Assessment & Plan Assessment & Plan (1) Adhesive arachnoiditis: Code(s): 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 THE PATIENT CAME TODAY IN THE [facility] FOR THE CHANGE OF THE MEDICATION IN her PAIN PUMP. The name and date of were verified and informed consent was obtained for the procedure. ?The pump was interrogated and the residual amount of fluid was found to be 3.1 mL. HE WAS POSITIONED supine on the bed. Ultrasound probe was placed on the left lower abdomen in the area of location of the pain pump and the silicone plug location was established by ultrasound. The location of the silicone plug was marked with permanent marker. After that THE AREA OF THE INTRATHECAL PUMP WAS PREPPED WITH CHLORAPREP. The fenestrated drape was sterilely applied over the area of the pump. Sterile gloves were worn and of the aspiration system was assembled containing 2 in 22 gauge noncoring needle, the needle was connected to extension tubing which was connected to the 20 cc sterile syringe. The pain pump was palpated under the skin in the patient's left anterior abdomen area. The ultrasound probe was applied and the central plug was detected under the skin on direct ultrasound view. The point on the skin corresponding to the area of the central plug was marked with blue surgical marker. After that the area of the pump was prepped with ChloraPrep and draped with fenestrated drape. The needle was inserted through the skin and the central plug of the pain pump and fluid was aspirated. The clear fluid was going into the syringe the total amount of the fluid was 4.0 mL .. After that a new batch? of medication was obtained which was containing Fentanyl in concentration 12,500 micro g/ml and bupivacain 15 mg per ml. The admixture was made in 20 cc syringe prepared by [facility] compounding pharmacy. The syringe was connected to the bacterial filter, and then connected to the extension tubing. After that the medication in the syringe was slowly instilled into the pump with aspirations at 15 and 5 cc ames.? The pump was reprogrammed as it was previously set for the doses of Fentanyl 2,399 mcg per day with corresponding dose of bupivacaine.? The patient was given 5 doses of PTM 425 micrograms intrathecally? every 4 hours with maximum 5 activations per 24 hour. With all activations the total dose of fentanyl is 4,485 mg in 24 hour. (2) Primary osteoarthritis, right shoulder: Code(s): M19.011 - Primary osteoarthritis, right shoulder Category: Medical (3) Chronic pain syndrome: Code(s): G89.4 - Chronic pain syndrome Category: Medical (4) Postlaminectomy syndrome: Code(s): M96.1 - Postlaminectomy syndrome, not elsewhere classified Category: Medical Plan: He accepts pump refills only under image guidance. He is readmitted to our opioid program. He seem to be compliant with his opioid regimen. He was explained that is not ideal to have both oral and intrathecal opioids. However he sees this only as 1 solution for his pains widespread around his body. He has naltrexone in 2 locations in his household and in his car as well. The patient refuses to change concentration of the medication in his intrathecal pump, he prefers to stay the same level of the same medications. His next refill is due on 03/20/2024. I will request the order of the same medication for him. Plan Coding Level of Care Code Est Pt Level 3 (05004) Procedure Only Diagnoses Adhesive arachnoiditis G03.9 Primary osteoarthritis, right shoulder M19.011 Chronic pain syndrome G89.4 Postlaminectomy syndrome M96.1
[2024-01-30 11:40] VITALS: BP 140/74; PULSE 66; RESP 14; O2SAT 94; BMI 37.4
== END 2024-01-30 12:15 | disposition home or self-care (01) ==
PROVIDERS: PCP Internal Medicine; Visit Provider Anesthesiology
DX: G89.4 Chronic pain syndrome (principal); M96.1 Postlaminectomy syndrome, not elsewhere classified; M19.011 Primary osteoarthritis, right shoulder; G03.9 Meningitis, unspecified; Z45.1 Encounter for adjustment and management of infusion pump
CPT/HCPCS: 62370; 99213

== ENCOUNTER → 2024-01-30 11:28 | Outpatient (BNVA) | payer MEDICARE, OTHER, SELFPAY | PROVIDERS: PCP Internal Medicine; Visit Provider Anesthesiology | DX: G03.9 Meningitis, unspecified (principal); M19.011 Primary osteoarthritis, right shoulder; G89.4 Chronic pain syndrome; M96.1 Postlaminectomy syndrome, not elsewhere classified; Z45.1 Encounter for adjustment and management of infusion pump | CPT/HCPCS: 62370; 99212 ==

== ENCOUNTER 2024-02-13 11:32 | Outpatient (AMB) | payer MEDICARE, OTHER, SELFPAY ==
--- NOTE | 2024-02-13 11:33 | A.OFFVIS_ITS ---
Vital Signs 02/13/24 11:51 Height 5 ft 10 in Weight 247 lb 2 oz BMI 35.5 BP 150/74 H Blood Pressure Location Lt brachial Position Sitting Respiration 16 Pulse 70 Pulse Source Pulse Oximeter Pulse Oximetry (%) 95 Oxygen Delivery Method Room Air Intake Visit Reasons: Pill Count Intake Note: Patient comes in for pill count. Reports pain 3.5/10. Allergies penicillin G Allergy (Severe, Verified 02/13/24 11:48) Hives zolpidem [Ambien] Allergy (Intermediate, Verified 02/13/24 11:48) sleep walking HPI Comments Details: Marcus is back in my office for pain medication refill and follow-up. He reports the pain in the shoulders is better now. He reports that he receives steroid injections. He is asking me if would be appropriate to order him continuous chronic steroid oral therapy. I discouraged him from this consideration. I explained to him risks side effects and complications of chronic steroid therapy. 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 Pill count today: His supposed to have 33 pills in his possession. He took 33 pills in his possession. This demonstrates responsible attitude to opioid medications. His pain today is 3.5/10. Prior: C/o on pain in bilateral shoulders lower back bilateral lower extremities. He is in my office under observation with intrathecal drug delivery system pain pump. About 2 years ago he was found to be prescribed with 3 different practitioners with the opioid medications while he was receiving opioid medications from of this office oral consumption. On top of that him was receiving intrathecal opioids. He was suspended at that time for 1 year interval because we found this situation is quite dangerous for the patient. [facility] Medical History (Updated 11/08/23 @ 09:52 by Alexander Munguia MD) Insomnia History of cardioversion Primary osteoarthritis, right shoulder Surgical History (Updated 02/16/22 @ 10:40 by Diane Thomas RN) Hx of spinal surgery Hx of colonoscopy History of bilateral hip replacements Social History Patient Tobacco Use Status: Former Tobacco user Review of Systems Const All systems reviewed & are unremarkable except as noted in HPI and below Neuro Denies Abnormal speech present Physical Exam Vital Signs: Last Vital Signs Pulse 70 02/13/24 11:51 Resp 16 02/13/24 11:51 BP 150/74 H 02/13/24 11:51 Pulse Ox 95 07/10/24 11:51 Oxygen Delivery Method Room Air 02/13/24 11:51 BMI result Body Mass Index 35.5 Const General: cooperative, no acute distress and well groomed Orientation/consciousness: patient oriented x3 Resp Effort & Inspection: normal respiratory effort, able to speak in complete sentences and normal respiratory pattern Cardio Jugular venous distension: no JVD Neuro General: patient oriented x3 and gait normal Cognition (Neuro): normal cognition Speech: No Abnormal speech present Psych Appearance: grossly normal Mental Status: mental status grossly normal Speech and movement: Normal speech and movement present Affect: normal affect Attitude: cooperative Assessment & Plan Assessment & Plan (1) Adhesive arachnoiditis: Code(s): G03.9 - Meningitis, unspecified Category: Medical (2) Primary osteoarthritis, right shoulder: Code(s): M19.011 - Primary osteoarthritis, right shoulder Category: Medical (3) Chronic pain syndrome: Code(s): G89.4 - Chronic pain syndrome Category: Medical (4) Postlaminectomy syndrome: Code(s): M96.1 - Postlaminectomy syndrome, not elsewhere classified Category: Medical Plan: Marcus is doing okay with his opioids demonstrated good pill count today. His next pill count will be scheduled in 1 month. He will continue to be followed up in this office with pump refills. Plan Medications: Refilled hydromorphone Partial Fill upon patient request. 2 mg PO TID 30 days PRN 90 tabs 0RF pain G89.4 - Chronic pain syndrome, M96.1 - Postlaminectomy syndrome, not elsewhere classified Coding Level of Care Code Est Pt Level 3 (46612) Diagnoses Adhesive arachnoiditis G03.9 Primary osteoarthritis, right shoulder M19.011 Chronic pain syndrome G89.4 Postlaminectomy syndrome M96.1
[2024-02-13 11:51] VITALS: BP 150/74; PULSE 70; RESP 16; O2SAT 95; BMI 35.5
== END 2024-02-13 12:02 | disposition home or self-care (01) ==
PROVIDERS: PCP Internal Medicine; Visit Provider Anesthesiology
DX: G89.4 Chronic pain syndrome (principal); M19.011 Primary osteoarthritis, right shoulder; M96.1 Postlaminectomy syndrome, not elsewhere classified; G03.9 Meningitis, unspecified
CPT/HCPCS: 99213

== ENCOUNTER → 2024-02-13 11:32 | Outpatient (BNVA) | payer MEDICARE, OTHER, SELFPAY | PROVIDERS: PCP Internal Medicine; Visit Provider Anesthesiology | DX: G89.4 Chronic pain syndrome (principal); G03.9 Meningitis, unspecified; M19.011 Primary osteoarthritis, right shoulder; M96.1 Postlaminectomy syndrome, not elsewhere classified; Z79.891 Long term (current) use of opiate analgesic | CPT/HCPCS: 99212 ==

== ENCOUNTER 2024-03-13 14:09 | Outpatient (AMB) | payer MEDICARE, OTHER, SELFPAY ==
--- NOTE | 2024-03-13 14:47 | A.OFFVIS_ITS ---
Vital Signs 03/13/24 16:07 Height 5 ft 10 in Weight 248 lb 6 oz BMI 35.6 BP 150/72 H Blood Pressure Location Lt brachial Position Sitting Respiration 16 Pulse 67 Pulse Source Pulse Oximeter Pulse Oximetry (%) 97 Oxygen Delivery Method Room Air Intake Visit Reasons: ITDD REFILL/PILL COUNT Intake Note: Patient comes in for intrathecal medication refill and pill count. Reports pain 5/10. Allergies penicillin G Allergy (Severe, Verified 04/10/24 14:01) Hives zolpidem [Ambien] Allergy (Intermediate, Verified 04/10/24 14:01) sleep walking HPI Comments Details: Marcus is back in my office for pain medication refill in the pain pump and follow-up. He reports the pain in the shoulders is better now. He reports that he is going for shoulder surgery. 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 Pill count today: His supposed to have 33 pills in his possession. He took 33 pills in his possession. This demonstrates responsible attitude to opioid medications. His pain today is 3.5/10. Prior: C/o on pain in bilateral shoulders lower back bilateral lower extremities. He is in my office under observation with intrathecal drug delivery system pain pump. About 2 years ago he was found to be prescribed with 3 different practitioners with the opioid medications while he was receiving opioid medications from of this office oral consumption. On top of that him was receiving intrathecal opioids. He was suspended at that time for 1 year interval because we found this situation is quite dangerous for the patient. ON LICENSE OF [facility] Medical History (Updated 11/08/23 @ 09:52 by Alexander Munguia MD) Insomnia History of cardioversion Primary osteoarthritis, right shoulder Surgical History (Updated 02/16/22 @ 10:40 by Diane Thomas RN) Hx of spinal surgery Hx of colonoscopy History of bilateral hip replacements Social History Patient Tobacco Use Status: Former Tobacco user Review of Systems Const All systems reviewed & are unremarkable except as noted in HPI and below Neuro Denies Abnormal speech present Physical Exam Vital Signs: Last Vital Signs Pulse 67 03/13/24 16:07 Resp 16 03/13/24 16:07 BP 150/72 H 03/13/24 16:07 Pulse Ox 97 03/13/24 16:07 Oxygen Delivery Method Room Air 03/13/24 16:07 BMI result Body Mass Index 35.6 Const General: cooperative, no acute distress and well groomed Orientation/consciousness: patient oriented x3 Resp Effort & Inspection: normal respiratory effort, able to speak in complete sentences and normal respiratory pattern Cardio Jugular venous distension: no JVD Neuro General: patient oriented x3 and gait normal Cognition (Neuro): normal cognition Speech: No Abnormal speech present Psych Appearance: grossly normal Mental Status: mental status grossly normal Speech and movement: Normal speech and movement present Affect: normal affect Attitude: cooperative Assessment & Plan Assessment & Plan (1) Adhesive arachnoiditis: Code(s): 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 THE PATIENT CAME TODAY IN THE [id number] FOR THE CHANGE OF THE MEDICATION IN her PAIN PUMP. The name and date of were verified and informed consent was obtained for the procedure. ?The pump was interrogated and the residual amount of fluid was found to be 6.2 mL. HE WAS POSITIONED supine on the bed. Ultrasound probe was placed on the left lower abdomen in the area of location of the pain pump and the silicone plug location was established by ultrasound. The location of the silicone plug was marked with permanent marker. After that THE AREA OF THE INTRATHECAL PUMP WAS PREPPED WITH CHLORAPREP. The fenestrated drape was sterilely applied over the area of the pump. Sterile gloves were worn and of the aspiration system was assembled containing 2 in 22 gauge noncoring needle, the needle was connected to extension tubing which was connected to the 20 cc sterile syringe. The pain pump was palpated under the skin in the patient's left anterior abdomen area. The ultrasound probe was applied and the central plug was detected under the skin on direct ultrasound view. The point on the skin corresponding to the area of the central plug was marked with blue surgical marker. After that the area of the pump was prepped with ChloraPrep and draped with fenestrated drape. The needle was inserted through the skin and the central plug of the pain pump and fluid was aspirated. The clear fluid was going into the syringe the total amount of the fluid was 7.4 mL .. After that a new batch? of medication was obtained which was containing Fentanyl in concentration 12,500 micro g/ml and bupivacain 15 mg per ml. The admixture was made in 20 cc syringe prepared by [facility] compounding pharmacy. The syringe was connected to the bacterial filter, and then connected to the extension tubing. After that the medication in the syringe was slowly instilled into the pump with aspirations at 15 and 5 cc ames.? The pump was reprogrammed as it was previously set for the doses of Fentanyl 2,399 mcg per day with corresponding dose of bupivacaine.? The patient was given 5 doses of PTM 425 micrograms intrathecally? every 4 hours with maximum 5 activations per 24 hour. With all activations the total dose of fentanyl is 4,485 mg in 24 hour. (2) Primary osteoarthritis, right shoulder: Code(s): M19.011 - Primary osteoarthritis, right shoulder Category: Medical (3) Chronic pain syndrome: Code(s): G89.4 - Chronic pain syndrome Category: Medical (4) Postlaminectomy syndrome: Code(s): M96.1 - Postlaminectomy syndrome, not elsewhere classified Category: Medical Plan: He accepts pump refills only under image guidance. He is readmitted to our opioid program. He seem to be compliant with his opioid regimen. He was explained that is not ideal to have both oral and intrathecal opioids. However he sees this only as 1 solution for his pains widespread around his body. He has naltrexone in 2 locations in his household and in his car as well. The patient refuses to change concentration of the medication in his intrathecal pump, he prefers to stay the same level of the same medications. I will request the order of the same medication for him. Plan Coding Level of Care Code Est Pt Level 3 (63673) Procedure Only Diagnoses Adhesive arachnoiditis G03.9 Primary osteoarthritis, right shoulder M19.011 Chronic pain syndrome G89.4 Postlaminectomy syndrome M96.1
[2024-03-13 16:07] VITALS: BP 150/72; PULSE 67; RESP 16; O2SAT 97; BMI 35.6
== END 2024-03-13 15:09 | disposition home or self-care (01) ==
PROVIDERS: PCP Internal Medicine; Visit Provider Anesthesiology
DX: G89.4 Chronic pain syndrome (principal); M19.011 Primary osteoarthritis, right shoulder; M96.1 Postlaminectomy syndrome, not elsewhere classified; Z79.891 Long term (current) use of opiate analgesic; Z45.1 Encounter for adjustment and management of infusion pump
CPT/HCPCS: 62370; 99213

== ENCOUNTER → 2024-03-13 14:09 | Outpatient (BNVA) | payer MEDICARE, OTHER, SELFPAY | PROVIDERS: PCP Internal Medicine; Visit Provider Anesthesiology | DX: Z45.89 Encounter for adjustment and management of other implanted devices (principal); M19.011 Primary osteoarthritis, right shoulder; M96.1 Postlaminectomy syndrome, not elsewhere classified; G89.4 Chronic pain syndrome; G03.9 Meningitis, unspecified | CPT/HCPCS: 62370; 99212 ==

== ENCOUNTER 2024-04-10 13:46 | Outpatient (AMB) | payer MEDICARE, OTHER, SELFPAY ==
[2024-04-10 14:00] VITALS: BP 150/72; PULSE 71; O2SAT 97; BMI 35.4
--- NOTE | 2024-04-10 14:00 | A.OFFVIS_ITS ---
Vital Signs 04/10/24 14:00 Height 5 ft 10 in Weight 247 lb BMI 35.4 BP 150/72 H Blood Pressure Location Rt brachial Position Sitting Pulse 71 Pulse Source Pulse Oximeter Pulse Oximetry (%) 97 Oxygen Delivery Method Room Air Intake Visit Reasons: PILL COUNT Allergies penicillin G Allergy (Severe, Verified 04/10/24 14:01) Hives zolpidem [Ambien] Allergy (Intermediate, Verified 04/10/24 14:01) sleep walking Medication List - Last Reconciled 04/10/24 by Annalise Yeager alprazolam 0.5 mg PO TID PRN aspirin (Adult Low Dose Aspirin) 81 mg PO DAILY flecainide 100 mg PO BID furosemide 80 mg PO DAILY hydromorphone 2 mg PO TID PRN 30 days levothyroxine 88 mcg PO DAILY lisinopril 5 mg PO DAILY metoprolol succinate ER 50 mg PO DAILY [employer] magnet naloxone 4 mg/actuation 4 mg intranasal Q3M PRN 1 day sildenafil 100 mg PO tamsulosin 0.4 mg PO BEDTIME testosterone 10 mg/0.5 gram /actuation 10 mg topical DAILY zaleplon 10 mg PO BEDTIME PRN 30 days HPI Comments Details: Marcus presents to the office for follow up chronic pain and chronic opioid therapy management. Patient is prescribed hydromorphone 2 mg p.o. 3 times daily as needed. Patient arrived today with the expectation of having 39 pills, she presented 40 pills which were counted in the presence of two staff members and returned to the patient in the original prescription bottle. This demonstrates responsible attitude toward patient's opioid medications. Pain is reported today as 7/10 and last dose of pain medication was taken at 10:00 this morning. Patient denies side effects including somnolence, constipation, itching, dyspne a, rash, dizziness or weakness. Patient also has intrathecal drug delivery device for his lower back pain but states the prescription oral opioid medication helps with his bilateral upper back and shoulder pain. Recently underwent shoulder MRIs, he has a tele visit scheduled today with the surgeon to discuss surgical repair of his left shoulder. He is requesting increase in his oral opioid medications until he has recovered for surgery. Prior: Marcus is back in my office for pain medication refill and follow-up. He reports the pain in the shoulders is better now. He reports that he receives steroid injections. He is asking me if would be appropriate to order him continuous chronic steroid oral therapy. I discouraged him from this consideration. I explained to him risks side effects and complications of chronic steroid therapy. 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 Pill count today: His supposed to have 33 pills in his possession. He took 33 pills in his possession. This demonstrates responsible attitude to opioid medications. His pain today is 3.5/10. Prior: C/o on pain in bilateral shoulders lower back bilateral lower extremities. He is in my office under observation with intrathecal drug delivery system pain pump. About 2 years ago he was found to be prescribed with 3 different practitioners with the opioid medications while he was receiving opioid medications from of this office oral consumption. On top of that him was receiving intrathecal opioids. He was suspended at that time for 1 year interval because we found this situation is quite dangerous for the patient. [facility] Medical History (Updated 11/08/23 @ 09:52 by Alexander Munguia MD) Insomnia History of cardioversion Primary osteoarthritis, right shoulder Surgical History (Updated 02/16/22 @ 10:40 by Diane Thomas RN) Hx of spinal surgery Hx of colonoscopy History of bilateral hip replacements Social History Patient Tobacco Use Status: Former Tobacco user Review of Systems Const All systems reviewed & are unremarkable except as noted in HPI and below Physical Exam Vital Signs: Last Vital Signs Pulse 71 04/10/24 14:00 BP 150/72 H 04/10/24 14:00 Pulse Ox 97 04/10/24 14:00 Oxygen Delivery Method Room Air 04/10/24 14:00 BMI result Body Mass Index 35.4 General: awake, alert, oriented. Answers questions appropriately. Fully engaged in examination. Skin: warm, dry, intact HEENT: Normocephalic. Hearing intact. Cardiac: External chest normal in appearance. Respiratory: No cough, audible wheezing or stridor. Abdomen: without gross distension. MS: No obvious swelling or deformities. Neurological: Oriented to person, place, time and situation. Thought process intact. No gait abnormalities appreciated. Psychiatric: Appropriate mood and affect. Good judgment and insight. Results Reviewed Results Reviewed: VERTEBRAL BODIES AND PARASPINAL STRUCTURES: The marrow signal is mildly heterogeneous with regions of fatty change. There is a minimal anterolisthesis at L4-L5. Chronic post laminectomy changes evident at L5-S1. There are no compression fractures. Mild endplate edematous changes are evident at L5-S1 with degenerative Schmorl's nodes. There is ectasia of the upper abdominal aorta, partially visualized. CONUS MEDULLARIS AND CAUDA EQUINA: Normal, terminating at the level of L1. No lower cord signal abnormality is seen. The cauda equina nerve roots are normal. There is no pathologic leptomeningeal enhancement. SPINAL LEVELS: L1-L2: No disc pathology. No central canal stenosis or foraminal narrowing. L2-L3: Mild facet arthropathy. No disc abnormality. No central canal stenosis or foraminal narrowing. L3-L4: Mild facet arthropathy and thickening of the ligamentum flavum with a minimal annular bulge. Mild central canal stenosis. Very mild right foraminal encroachment. L4-L5: Mild anterolisthesis and disc bulge with a shallow broad-based right paracentral disc protrusion resulting in ventral thecal sac distortion. Hypertrophic facet arthropathy and thickening of the ligamentum flavum also present. Findings result in [id number] central canal stenosis. Focal right foraminal disc protrusion abuts the exiting right L4 nerve root with mild right foraminal encroachment. L5-S1: Chronic postoperative changes without central canal stenosis. A small left lateral recess disc protrusion results in mild mass effect upon the left S1 nerve root. Patent foramina. MR/MR lumbar spine wo con IMPRESSION: Mild anterolisthesis and [id number] central canal stenosis with spondylitic changes at L4-L5. Additional focal right foraminal disc protrusion abutting the right L4 nerve root. Chronic postoperative changes at L5-S1. Focal left lateral recess disc protrusion with mild mass effect upon the left S1 nerve root. Assessment & Plan Assessment & Plan (1) Adhesive arachnoiditis: Code(s): G03.9 - Meningitis, unspecified Category: Medical (2) Primary osteoarthritis, right shoulder: Code(s): M19.011 - Primary osteoarthritis, right shoulder Category: Medical (3) Chronic pain syndrome: Code(s): G89.4 - Chronic pain syndrome Category: Medical (4) Postlaminectomy syndrome: Code(s): M96.1 - Postlaminectomy syndrome, not elsewhere classified Category: Medical Plan: Masspat was reviewed and without concerns. No obvious signs of diversion, abuse or misuse of the opioid medications. Will send in prescription for hydromorphone 2 mg p.o. t.i.d. with an advanced date of 04/24/2024. Patient will ensure visit note from orthopedic surgeon sent to our office for review. Message has been sent to Dr. Munguia to review patient's request for hydromorphone dose increase. Patient was advised that this would need to be done by Dr. Munguia. Patient to follow-up in the office in 1 month, sooner if needed. All questions and concerns have been answered and patient agrees with the plan. Plan Medications: Refilled hydromorphone Partial Fill upon patient request. 2 mg PO TID 30 days PRN 90 tabs 0RF pain G89.4 - Chronic pain syndrome, M96.1 - Postlaminectomy syndrome, not elsewhere classified Coding Level of Care Code Est Pt Level 4 (64283) Complex EM visit Add On G2211 Diagnoses Adhesive arachnoiditis G03.9 Primary osteoarthritis, right shoulder M19.011 Chronic pain syndrome G89.4 Postlaminectomy syndrome M96.1
== END 2024-04-10 14:13 | disposition home or self-care (01) ==
PROVIDERS: PCP Internal Medicine; Visit Provider Registered Nurse Emergency
DX: G03.9 Meningitis, unspecified (principal); M19.011 Primary osteoarthritis, right shoulder; G89.4 Chronic pain syndrome; M96.1 Postlaminectomy syndrome, not elsewhere classified
CPT/HCPCS: 99214; G2211

== ENCOUNTER → 2024-04-10 13:46 | Outpatient (BNVA) | payer MEDICARE, OTHER, SELFPAY | PROVIDERS: PCP Internal Medicine; Visit Provider Registered Nurse Emergency | DX: M19.011 Primary osteoarthritis, right shoulder (principal); G89.4 Chronic pain syndrome; M96.1 Postlaminectomy syndrome, not elsewhere classified; G03.9 Meningitis, unspecified; Z51.81 Encounter for therapeutic drug level monitoring; Z79.891 Long term (current) use of opiate analgesic | CPT/HCPCS: 99212 ==

== ENCOUNTER 2024-04-24 14:00 | Outpatient (AMB) | payer MEDICARE, OTHER, SELFPAY ==
--- NOTE | 2024-04-24 14:06 | MHC.OFFVIS ---
Vital Signs 04/24/24 14:07 Height 5 ft 10 in Weight 250 lb BMI 35.9 Intake Visit Reasons: INP- Insomnia, unspecified Intake Note: Patient presents for insomnia. was on Zyrem for sleep thought I didn't need it, that was 10 years ago. Allergies penicillin G Allergy (Severe, Verified 04/24/24 14:09) Hives zolpidem [Ambien] Allergy (Intermediate, Verified 04/24/24 14:09) sleep walking Medication List - Last Reconciled 04/24/24 by Sabi Gore, LULA alprazolam 0.5 mg PO TID PRN aspirin (Adult Low Dose Aspirin) 81 mg PO DAILY flecainide 100 mg PO BID furosemide 80 mg PO DAILY hydromorphone 2 mg PO TID PRN 30 days levothyroxine 88 mcg PO DAILY lisinopril 5 mg PO DAILY metoprolol succinate ER 50 mg PO DAILY [employer]ellaneous [employer] magnet naloxone 4 mg/actuation 4 mg intranasal Q3M PRN 1 day sildenafil 100 mg PO tamsulosin 0.4 mg PO BEDTIME testosterone 10 mg/0.5 gram /actuation 10 mg topical DAILY zaleplon 10 mg PO BEDTIME PRN 30 days HPI Comments Details: 73-yr-old male presents for new in-person patient visit for sleep consultation- insomnia. Patient reports he has had difficulty sleeping since the when he began having pain s/s which has been attributed to arachnoiditis d/t a remote h/o myelogram following a lumbar spine injury in the . He states that he can easily fall asleep, but has difficulty maintaining sleep. He does not nap, but can doze off x's 20 minutes or so around 4pm if sitting inactive. He states he has had multiple sleep studies, last was in [id number], which did not show sleep apnea. In the past, pt states his previous pain management Dr Parag Baez had diagnosed him w/ narcolepsy w/o cataplexy (pt is unsure if he ever had MSLT). He denies cataplexy. He is prone to orthostatic lightheadedness. He was has previously tried Ambien, which caused parasomnias (was cleaning his kitchen etc). Also tried on Xyrem- this put him into a deep sleep but he did not like the feeling. Tried lunesta but was not helpful. Has been using Sonesta with better effect- takes in the middle of the night after he wakes up w/ pain. He states that his insurance is no longer covering the Sonesta so he is needing to use a coupon to help cover the cost of this med. He does endorse a BUE tremor if he tries to hold his arms up w/o support or using his arms- like using his computer mouse- more so when the shoulder pain is worse. His mother and family has tremors. He does have Bilateral shoulder pain. Decreased sense of smell since his 20s- s/p a suffer exposure. STM may be worse when in pain. Denies snoring, apneas, parasomnias, leg cramps. PFSH Medical History Insomnia History of cardioversion Primary osteoarthritis, right shoulder Surgical History Hx of spinal surgery Hx of colonoscopy History of bilateral hip replacements Social History (Updated 04/24/24 @ 14:10 by FARIDA Pederson) Alcohol intake: never Patient Tobacco Use Status: Former Tobacco user Physical Exam Vital Signs: BMI result Body Mass Index 35.9 Const General: no acute distress Orientation/consciousness: patient oriented x3 HEENT Other: Mallampati stage Resp Effort & Inspection: normal respiratory effort and able to speak in complete sentences Cardio Rate: regular rate Rhythm: regular rhythm Neuro Other: Slight stoop, w/ mild right neck posture. BUE rest/postural tremor. BLE edema General: patient oriented x3 Psych Mental Status: mental status grossly normal Speech and movement: Clear speech present Attitude: cooperative Assessment & Plan Assessment & Plan (1) Insomnia: Code(s): G47.00 - Insomnia, unspecified Category: Medical (2) Chronic pain syndrome: Code(s): G89.4 - Chronic pain syndrome Category: Medical Plan Pt may continue Zaleplon 10mg qhs. We can refill this when due. Pt denies parasomnias. Advised to let us know if he develops any s/s parasomnias. Note-I would not revisit Xyrem as pt's s/s do not seem c/w narcolpsy and pt is on opioid tx. Pt seen in c/w Dr Mari Green. Coding Level of Care Code New Pt Level 4 (39890) Diagnoses Insomnia G47.00 Chronic pain syndrome G89.4
[2024-04-24 14:07] VITALS: BMI 35.9
== END 2024-04-24 15:31 | disposition home or self-care (01) ==
PROVIDERS: PCP Internal Medicine; Visit Provider Nurse Practitioner Family
DX: G47.00 Insomnia, unspecified (principal); G89.4 Chronic pain syndrome
CPT/HCPCS: 99204; 99214

== ENCOUNTER → 2024-04-24 14:00 | Outpatient (BNVA) | payer MEDICARE, OTHER, SELFPAY | PROVIDERS: PCP Internal Medicine; Visit Provider Nurse Practitioner Family | DX: G47.00 Insomnia, unspecified (principal); G89.4 Chronic pain syndrome | CPT/HCPCS: 99202 ==

== ENCOUNTER 2024-05-01 13:56 | Outpatient (AMB) | payer MEDICARE, OTHER, SELFPAY ==
--- NOTE | 2024-05-01 14:05 | A.OFFVIS_ITS ---
Vital Signs 05/01/24 14:22 Height 5 ft 10 in Weight 249 lb 8 oz BMI 35.8 BP 150/70 H Blood Pressure Location Lt brachial Position Sitting Respiration 16 Pulse 79 Pulse Source Pulse Oximeter Pulse Oximetry (%) 95 Oxygen Delivery Method Room Air Intake Visit Reasons: ITDD REFILL/PILL COUNT Intake Note: Patient comes in for intrathecal medication refill. Reports back pain 5/10 and shoulder pain 8/10. Allergies penicillin G Allergy (Severe, Verified 05/01/24 14:24) Hives zolpidem [Ambien] Allergy (Intermediate, Verified 05/01/24 14:24) sleep walking HPI Comments Details: Marcus is back in my office for pain medication refill in the pain pump and follow-up. Unfortunately he was indefinitely suspended now with our opioid program. He wrote a note to me in which he admitted that he took I took several extra 2mg tablets as my left shoulder pain is a 9/10 pain level and my right shoulder 7/10. Now I am out of pain meds. The patient was explained that he just can not take extra doses of the opioid medications without consulting with the doctor. He is on multiple medications which possibly can affect his respiratory drive: He was taking intrathecal fentanyl, he was taking oral hydromorphone, he was taking alprazolam and he was taken zaleplon. The combination of the 4 is extremely dangerous and although the note of the neurologist provider stated that he does not have obstructive sleep apnea central sleep apnea can not be excluded in a situation like that. I feel very uncomfortable to continue prescription of the oral opioid medications for this patient. I will prescribe to him enough of the pills to wean himself off of the oral opioid therapy so he would not go into withdrawal. The prescription will be 5 mg of hydromorphone 4 times a day total of 120 pills which he should decrease the daily dose by half a pill every week. He is scheduled for shoulder surgery in [place]. After shoulder surgery he can receive medications now from his surgeon for postoperative acute pain. He hopes that after the surgery his shoulder pain will become much better and he no longer would require oral opioids. He reports that he is going for shoulder surgery. 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 The pill count was not performed today, he has suspended with our chronic oral opioid program. He will be suspended indefinitely. He was initially evaluated as moderate risk, he was suspended for 1 year, he was readmitted to our oral opioid program, cause of that suspension previously his risk level became severe. Prior: C/o on pain in bilateral shoulders lower back bilateral lower extremities. He is in my office under observation with intrathecal drug delivery system pain pump. About 2 years ago he was found to be prescribed with 3 different practitioners with the opioid medications while he was receiving opioid medications from of this office oral consumption. On top of that him was rece iving intrathecal opioids. He was suspended at that time for 1 year interval because we found this situation is quite dangerous for the patient. [facility], [facility] Medical History Insomnia History of cardioversion Primary osteoarthritis, right shoulder Surgical History Hx of spinal surgery Hx of colonoscopy History of bilateral hip replacements Social History (Updated 04/24/24 @ 14:10 by FARIDA Pederson) Alcohol intake: never Patient Tobacco Use Status: Former Tobacco user Review of Systems Const All systems reviewed & are unremarkable except as noted in HPI and below Neuro Denies Abnormal speech present Physical Exam Vital Signs: Last Vital Signs Pulse 79 05/01/24 14:22 Resp 16 05/01/24 14:22 BP 150/70 H 05/01/24 14:22 Pulse Ox 95 05/01/24 14:22 Oxygen Delivery Method Room Air 05/01/24 14:22 BMI result Body Mass Index 35.8 Const General: cooperative, no acute distress and well groomed Orientation/consciousness: patient oriented x3 Resp Effort & Inspection: normal respiratory effort, able to speak in complete sentences and normal respiratory pattern Cardio Jugular venous distension: no JVD Neuro General: patient oriented x3 and gait normal Cognition (Neuro): normal cognition Speech: No Abnormal speech present Psych Appearance: grossly normal Mental Status: mental status grossly normal Speech and movement: Normal speech and movement present Affect: normal affect Attitude: cooperative Assessment & Plan Assessment & Plan (1) Adhesive arachnoiditis: Code(s): 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 THE PATIENT CAME TODAY IN THE [id number] FOR THE CHANGE OF THE MEDICATION IN her PAIN PUMP. The name and date of were verified and informed consent was obtained for the procedure. ?The pump was interrogated and the residual amount of fluid was found to be 4.9 mL. HE WAS POSITIONED supine on the bed. Ultrasound probe was placed on the left lower abdomen in the area of location of the pain pump and the silicone plug location was established by ultrasound. The location of the silicone plug was marked with permanent marker. After that THE AREA OF THE INTRATHECAL PUMP WAS PREPPED WITH CHLORAPREP. The fenestrated drape was sterilely applied over the area of the pump. Sterile gloves were worn and of the aspiration system was assembled containing 2 in 22 gauge noncoring needle, the needle was connected to extension tubing which was connected to the 20 cc sterile syringe. The pain pump was palpated under the skin in the patient's left anterior abdomen area. The ultrasound probe was applied and the central plug was detected under the skin on direct ultrasound view. The point on the skin corresponding to the area of the central plug was marked with blue surgical marker. After that the area of the pump was prepped with ChloraPrep and draped with fenestrated drape. The needle was inserted through the skin and the central plug of the pain pump and fluid was aspirated. The clear fluid was going into the syringe the total amount of the fluid was 5.9 mL .. After that a new batch? of medication was obtained which was containing Fentanyl in concentration 12,500 micro g/ml and bupivacain 15 mg per ml. The admixture was made in 20 cc syringe prepared by [facility] compounding pharmacy. The syringe was connected to the bacterial filter, and then connected to the extension tubing. After that the medication in the syringe was slowly instilled into the pump with aspirations at 15 and 5 cc ames.? The pump was reprogrammed as it was previously set for the doses of Fentanyl 2,399 mcg per day with corresponding dose of bupivacaine.? The patient was given 5 doses of PTM 425 micrograms intrathecally? every 4 hours with maximum 5 activations per 24 hour. With all activations the total dose of fentanyl is 4,485 mg in 24 hour. (2) Primary osteoarthritis, right shoulder: Code(s): M19.011 - Primary osteoarthritis, right shoulder Category: Medical (3) Chronic pain syndrome: Code(s): G89.4 - Chronic pain syndrome Category: Medical (4) Postlaminectomy syndrome: Code(s): M96.1 - Postlaminectomy syndrome, not elsewhere classified Category: Medical Plan: The patient is suspended indefinitely in our opioid program because of self admitting in his note to us that he took more medication that. Unfortunately this suspension is indefinite because last time his addiction risk went up to severe. The pump refill is as above. I will continue to refill his pump with the medication as above. He will have his surgery on bilateral shoulders and his surgeon may prescribe opioids for postoperative pain. He was given today last prescription of hydromorphone 2 mg q.i.d. for 120 pills. He was recommended to taper this medication down reducing a daily dose by 1 pill or half a pill for every week. The patient refuses to change concentration of the medication in his intrathecal pump, he prefers to stay the same level of the same medications. I will request the order of the same medication for him. Plan Medications: Changed From hydromorphone Partial Fill upon patient request. 2 mg PO TID 30 days PRN 90 tabs 0RF pain G89.4 - Chronic pain syndrome, M96.1 - Postlaminectomy syndrome, not elsewhere classified To hydromorphone Partial Fill upon patient request. Last prescription due to oral opioid contract termination. The patient is recommended to use this medication to wean himself from oral opioids by taking 1/2 of the tablet a day less each week after 05/24/2024. 2 mg PO QID 30 days PRN 120 tabs 0RF pain G89.4 - Chronic pain syndrome, M96.1 - Postlaminectomy syndrome, not elsewhere classified Coding Level of Care Code Est Pt Level 3 (62451) Procedure Only Diagnoses Adhesive arachnoiditis G03.9 Primary osteoarthritis, right shoulder M19.011 Chronic pain syndrome G89.4 Postlaminectomy syndrome M96.1
[2024-05-01 14:22] VITALS: BP 150/70; PULSE 79; RESP 16; O2SAT 95; BMI 35.8
== END 2024-05-01 14:50 | disposition home or self-care (01) ==
PROVIDERS: PCP Internal Medicine; Visit Provider Anesthesiology
DX: G89.4 Chronic pain syndrome (principal); M19.011 Primary osteoarthritis, right shoulder; M96.1 Postlaminectomy syndrome, not elsewhere classified; Z45.1 Encounter for adjustment and management of infusion pump
CPT/HCPCS: 62370; 99213

== ENCOUNTER → 2024-05-01 13:56 | Outpatient (BNVA) | payer MEDICARE, OTHER, SELFPAY | PROVIDERS: PCP Internal Medicine; Visit Provider Anesthesiology | DX: M19.011 Primary osteoarthritis, right shoulder (principal); G03.9 Meningitis, unspecified; G89.4 Chronic pain syndrome; M96.1 Postlaminectomy syndrome, not elsewhere classified; Z45.1 Encounter for adjustment and management of infusion pump; Z51.81 Encounter for therapeutic drug level monitoring; Z79.891 Long term (current) use of opiate analgesic | CPT/HCPCS: 62370; 99212 ==

== ENCOUNTER 2024-06-16 14:15 | Outpatient (AMB) | payer MEDICARE, OTHER, SELFPAY ==
--- NOTE | 2024-06-16 14:17 | A.OFFVIS_ITS ---
Vital Signs 06/16/24 14:47 Height 5 ft 10 in Weight 249 lb 2 oz BMI 35.7 BP 180/88 H Blood Pressure Location Rt brachial Position Sitting Pulse 71 Pulse Source Pulse Oximeter Pulse Oximetry (%) 98 Oxygen Delivery Method Room Air Intake Visit Reasons: ITDD Refill Intake Note: Pain today 11/13 [employer] Consultant Required: No Accompanied by: Self / Same As Patient Allergies penicillin G Allergy (Severe, Verified 06/16/24 14:48) Hives zolpidem [Ambien] Allergy (Intermediate, Verified 06/16/24 14:48) sleep walking HPI Comments Details: Marcus is back in my office for pain medication refill in the pain pump and follow-up. The pump refill as below. He is going for shoulder surgery and he requests me to submit a letter to the certified surgical technologist and [facility] in [place]. I will provide such a letter for him the letter is related to function of the pump and relation of the pump to the surgical instrumentation in procedures. He is currently indefinitely suspended from our opioid program. The prescription will be 5 mg of hydromorphone 4 times a day total of 120 pills which he should decrease the daily dose by half a pill every week. He is scheduled for shoulder surgery in [place]. After shoulder surgery he can receive medications now from his surgeon for postoperative acute pain. He hopes that after the surgery his shoulder pain will become much better and he no longer would require oral opioids. He reports that he is going for shoulder surgery. 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 The pill count was not performed today, he has suspended with our chronic oral opioid program. He will be suspended indefinitely. He was initially evaluated as moderate risk, he was suspended for 1 year, he was readmitted to our oral opioid program, cause of that suspension previously his risk level became severe. Prior: C/o on pain in bilateral shoulders lower back bilateral lower extremities. He is in my office under observation with intrathecal drug delivery system pain pump. About 2 years ago he was found to be prescribed with 3 different practitioners with the opioid medications while he was receiving opioid medications from of this office oral consumption. On top of that him was receiving intrathecal opioids. He was suspended at that time for 1 year interval because we found this situation is quite dangerous for the patient. [facility] Medical History Insomnia History of cardioversion Primary osteoarthritis, right shoulder Surgical History Hx of spinal surgery Hx of colonoscopy History of bilateral hip replacements Social History (Updated 04/24/24 @ 14:10 by FARIDA Pederson) Alcohol intake: never Patient Tobacco Use Status: Former Tobacco user Review of Systems Const All systems reviewed & are unremarkable except as noted in HPI and below Neuro Denies Abnormal speech present Physical Exam Vital Signs: Last Vital Signs Pulse 71 06/16/24 14:47 BP 180/88 H 06/16/24 14:47 Pulse Ox 98 06/16/24 14:47 Oxygen Delivery Method Room Air 06/16/24 14:47 BMI result Body Mass Index 35.7 Const General: cooperative, no acute distress and well groomed Orientation/consciousness: patient oriented x3 Resp Effort & Inspection: normal respiratory effort, able to speak in complete sentences and normal respiratory pattern Cardio Jugular venous distension: no JVD Neuro General: patient oriented x3 and gait normal Cognition (Neuro): normal cognition Speech: No Abnormal speech present Psych Appearance: grossly normal Mental Status: mental status grossly normal Speech and movement: Normal speech and movement present Affect: normal affect Attitude: cooperative Assessment & Plan Assessment & Plan (1) Adhesive arachnoiditis: Code(s): 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 THE PATIENT CAME TODAY IN THE office FOR THE CHANGE OF THE MEDICATION IN her PAIN PUMP. The name and date of were verified and informed consent was obtained for the procedure. ?The pump was interrogated and the residual amount of fluid was found to be 5.2 mL. HE WAS POSITIONED supine on the bed. Ultrasound probe was placed on the left lower abdomen in the area of location of the pain pump and the silicone plug location was established by ultrasound. The location of the silicone plug was marked with permanent marker. After that THE AREA OF THE INTRATHECAL PUMP WAS PREPPED WITH CHLORAPREP. The fenestrated drape was sterilely applied over the area of the pump. Sterile gloves were worn and of the aspiration system was assembled containing 2 in 22 gauge noncoring needle, the needle was connected to extension tubing which was connected to the 20 cc sterile syringe. The pain pump was palpated under the skin in the patient's left anterior abdomen area. The ultrasound probe was applied and the central plug was detected under the skin on direct ultrasound view. The point on the skin corresponding to the area of the central plug was marked with blue surgical marker. After that the area of the pump was prepped with ChloraPrep and draped with fenestrated drape. The needle was inserted through the skin and the central plug of the pain pump and fluid was aspirated. The clear fluid was going into the syringe the total amount of the fluid was 5.7 mL .. After that a new batch? of medication was obtained which was containing Fentanyl in concentration 12,500 micro g/ml and bupivacain 15 mg per ml. The admixture was made in 20 cc syringe prepared by [facility] compounding pharmacy. The syringe was connected to the bacterial filter, and then connected to the extension tubing. After that the medication in the syringe was slowly instilled into the pump with aspirations at 15 and 5 cc ames.? The pump was reprogrammed as it was previously set for the doses of Fentanyl 2,399 mcg per day with corresponding dose of bupivacaine.? The patient was given 5 doses of PTM 425 micrograms intrathecally? every 4 hours with maximum 5 activations per 24 hour. With all activations the total dose of fentanyl is 4,485 mg in 24 hour. (2) Primary osteoarthritis, right shoulder: Code(s): M19.011 - Primary osteoarthritis, right shoulder Category: Medical (3) Chronic pain syndrome: Code(s): G89.4 - Chronic pain syndrome Category: Medical (4) Postlaminectomy syndrome: Code(s): M96.1 - Postlaminectomy syndrome, not elsewhere classified Category: Medical Plan: The patient is suspended indefinitely in our opioid program because of self admitting in his note to us that he took more medication that. Unfortunately this suspension is indefinite because last time his addiction risk went up to severe. The pump refill is as above. A letter will be sent to certified surgical technologist regarding of his pain pump relation to his surgery on the shoulder. The patient refuses to change concentration of the medication in his intrathecal pump, he prefers to stay the same level of the same medications. Plan Patient Instructions: I here by testify that I spent 32 minutes in conversation with this patient as well as preparing the necessary documentation as well as planning his care and organizing this note. Coding Level of Care Code Est Pt Level 4 (01220) Diagnoses Adhesive arachnoiditis G03.9 Primary osteoarthritis, right shoulder M19.011 Chronic pain syndrome G89.4 Postlaminectomy syndrome M96.1
[2024-06-16 14:47] VITALS: BP 180/88; PULSE 71; O2SAT 98; BMI 35.7
== END 2024-06-16 14:50 | disposition home or self-care (01) ==
PROVIDERS: PCP Internal Medicine; Visit Provider Anesthesiology
DX: G03.9 Meningitis, unspecified (principal); M19.011 Primary osteoarthritis, right shoulder; G89.4 Chronic pain syndrome; M96.1 Postlaminectomy syndrome, not elsewhere classified
CPT/HCPCS: 99214

== ENCOUNTER → 2024-06-16 14:15 | Outpatient (BNVA) | payer MEDICARE, OTHER, SELFPAY | PROVIDERS: PCP Internal Medicine; Visit Provider Anesthesiology | DX: Z45.1 Encounter for adjustment and management of infusion pump (principal); G03.9 Meningitis, unspecified; M19.011 Primary osteoarthritis, right shoulder; G89.4 Chronic pain syndrome; M96.1 Postlaminectomy syndrome, not elsewhere classified; Z98.890 Other specified postprocedural states; Z96.643 Presence of artificial hip joint, bilateral | CPT/HCPCS: 99212 ==

== ENCOUNTER 2024-07-16 13:20 | Outpatient (AMB) | payer MEDICARE, OTHER, SELFPAY ==
--- NOTE | 2024-07-16 13:23 | MHC.OFFVIS ---
Vital Signs 07/16/24 13:27 Height 5 ft 10 in Weight 249 lb BMI 35.7 BP 149/71 H Blood Pressure Location Rt brachial Position Sitting Respiration 16 Pulse 108 H Pulse Source Pulse Oximeter Intake Visit Reasons: ITDD REFILL Allergies penicillin G Allergy (Severe, Verified 07/16/24 13:33) Hives zolpidem [Ambien] Allergy (Intermediate, Verified 07/16/24 13:33) sleep walking Medication List - Last Reconciled 07/16/24 by Cherri Pedersen LPN alprazolam 0.5 mg PO TID PRN aspirin (Adult Low Dose Aspirin) 81 mg PO DAILY flecainide 100 mg PO BID furosemide 80 mg PO DAILY hydromorphone 2 mg PO QID PRN 30 days levothyroxine 88 mcg PO DAILY lisinopril 5 mg PO DAILY metoprolol succinate ER 50 mg PO DAILY miscellaneous medical supply [employer] naloxone 4 mg/actuation 4 mg intranasal Q3M PRN 1 day sildenafil 100 mg PO tamsulosin 0.4 mg PO BEDTIME testosterone 10 mg/0.5 gram /actuation 10 mg topical DAILY zaleplon 10 mg PO BEDTIME PRN 30 days HPI Comments Details: Marcus is back in my office for pain medication refill in the pain pump and follow-up. The pump refill as below. He went for shoulder surgery he reports improvement on the shoulder condition after the surgery. He is currently indefinitely suspended from our opioid program. We continued to fill up his intrathecal pain pump. [facility] Medical History Insomnia History of cardioversion Primary osteoarthritis, right shoulder Surgical History Hx of spinal surgery Hx of colonoscopy History of bilateral hip replacements Social History (Updated 04/24/24 @ 14:10 by FARIDA Pederson) Alcohol intake: never Patient Tobacco Use Status: Former Tobacco user Review of Systems Const All systems reviewed & are unremarkable except as noted in HPI and below Neuro Denies Abnormal speech present Physical Exam Vital Signs: Last Vital Signs Pulse 108 H 07/16/24 13:27 Resp 16 07/16/24 13:27 BP 149/71 H 07/16/24 13:27 BMI result Body Mass Index 35.7 Const General: cooperative, no acute distress and well groomed Orientation/consciousness: patient oriented x3 Resp Effort & Inspection: normal respiratory effort, able to speak in complete sentences and normal respiratory pattern Cardio Jugular venous distension: no JVD Neuro General: patient oriented x3 and gait normal Cognition (Neuro): normal cognition Speech: No Abnormal speech present Psych Appearance: grossly normal Mental Status: mental status grossly normal Speech and movement: Normal speech and movement present Affect: normal affect Attitude: cooperative Assessment & Plan Assessment & Plan (1) Adhesive arachnoiditis: Code(s): 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 THE PATIENT CAME TODAY IN THE office FOR THE CHANGE OF THE MEDICATION IN her PAIN PUMP. The name and date of were verified and informed consent was obtained for the procedure. ?The pump was interrogated and the residual amount of fluid was found to be 5.2 mL. HE WAS POSITIONED supine on the bed. Ultrasound probe was placed on the left lower abdomen in the area of location of the pain pump and the silicone plug location was established by ultrasound. The location of the silicone plug was marked with permanent marker. After that THE AREA OF THE INTRATHECAL PUMP WAS PREPPED WITH CHLORAPREP. The fenestrated drape was sterilely applied over the area of the pump. Sterile gloves were worn and of the aspiration system was assembled containing 2 in 22 gauge noncoring needle, the needle was connected to extension tubing which was connected to the 20 cc sterile syringe. The pain pump was palpated under the skin in the patient's left anterior abdomen area. The ultrasound probe was applied and the central plug was detected under the skin on direct ultrasound view. The point on the skin corresponding to the area of the central plug was marked with blue surgical marker. After that the area of the pump was prepped with ChloraPrep and draped with fenestrated drape. The needle was inserted through the skin and the central plug of the pain pump and fluid was aspirated. The clear fluid was going into the syringe the total amount of the fluid was 5.7 mL .. After that a new batch? of medication was obtained which was containing Fentanyl in concentration 12,500 micro g/ml and bupivacain 15 mg per ml. The admixture was made in 20 cc syringe prepared by [facility] compounding pharmacy. The syringe was connected to the bacterial filter, and then connected to the extension tubing. After that the medication in the syringe was slowly instilled into the pump with aspirations at 15 and 5 cc ames.? The pump was reprogrammed as it was previously set for the doses of Fentanyl 2,399 mcg per day with corresponding dose of bupivacaine.? The patient was given 5 doses of PTM 425 micrograms intrathecally? every 4 hours with maximum 5 activations per 24 hour. With all activations the total dose of fentanyl is 4,485 mg in 24 hour. (2) Primary osteoarthritis, right shoulder: Code(s): M19.011 - Primary osteoarthritis, right shoulder Category: Medical (3) Chronic pain syndrome: Code(s): G89.4 - Chronic pain syndrome Category: Medical (4) Postlaminectomy syndrome: Code(s): M96.1 - Postlaminectomy syndrome, not elsewhere classified Category: Medical Plan: The patient is suspended indefinitely in our opioid program because of self admitting in his note to us that he took more medication that. Unfortunately this suspension is indefinite because last time his addiction risk went up to severe. The pump refill is as above. The patient refuses to change concentration of the medication in his intrathecal pump, he prefers to stay the same level of the same medications. Plan Coding Level of Care Code Est Pt Level 3 (48545) Procedure Only Diagnoses Adhesive arachnoiditis G03.9 Primary osteoarthritis, right shoulder M19.011 Chronic pain syndrome G89.4 Postlaminectomy syndrome M96.1
[2024-07-16 13:27] VITALS: BP 149/71; PULSE 108; RESP 16; BMI 35.7
--- OUTSIDE RECORDS SUMMARY | 2024-07-17 02:25 | XMS_ITS | Continuity of Care Document ---
Author Organization [facility] [place] [facility] Address [address] [place] [id number] Care Team Providers Care Correctional Cook Name Role Phone TOMASA TORREZ Primary Care Provider Assessment Encounter Date Assessment Date Assessment LastModified by Organization Details LastModified Time 06/30/2024 06/30/2024 73-year-old gentleman with some chronic pain who we will switch his pain meds over to hydromorphone and give him 20 additional ones but he is aware that there will be no more prescriptions. I will see him back in August. [email or web address] Not available 06/30/2024 14:06:34 Plan of Treatment Reminders Order Date Submit Date Provider Last Modified By Organization Details Last Modified Time Details Appointments Post-O perati ve F/U 15 min 025 10:45AM JASON FULLER MD Not available Not available Not available Lab None record ed. Referral None record ed. Procedures None record ed. Surgeries None record ed. Imaging None record ed. Medication Orders None record ed. Patient TargetsNo targets recorded. Patient InstructionsNo instructions recorded. Reason for Referral None Reported. Results Created Date Observation Date Name Description Value Unit Range Abnormal Flag Note LastModifiedBy Organization Detail LastModifiedTime 06/12/20 24 pre opera tive order s* No observ ation record ed. ATHENAFAX Not Available 2023 14:26:09 Result Notes None recorded. Problems Name Problem SNOMED Code Status Onset Date Resolution Date Notes Provider Name and Address Organization Details Recorded Time Localized, primary osteoarthritis of the shoulder region 455067927 Active 2020 MADDIE HARIRS [address] [place] [address], [id number] , [facility] 14:29:32 Problem Notes None recorded. Procedures Surgical History Date Name Laterality Status Provider Name and Address Organization Details Recorded Time 06/19/20 24 Orthopaedic Surgery completed Yamila Aleman [place] [facility] 06/30/2024 13:36:47 05/12/20 22 Other completed Vero Cutler [place] [facility] 01/20/2023 10:39:38 11/05/19 21 Orthopaedic Surgery completed Celestine Rojasell [place] [facility] 02/02/2021 12:30:59 08/12/19 21 Orthopaedic Surgery completed Liliana Kumar [place] [facility] 05/06/2021 09:11:03 08/06/19 03 Orthopaedic Surgery completed Beatrice Chávez [place] [facility] 01/20/2020 14:31:23 08/06/19 02 Orthopaedic Surgery completed Beatrice Chávez [place] [facility] 01/20/2020 14:31:32 08/06/19 00 Orthopaedic Surgery completed Beatrice Chávez [place] [facility] 01/20/2020 14:31:14 08/06/18 96 Orthopaedic Surgery completed Beatrice Chávez [place] - [facility] 01/20/2020 14:30:55 08/06/18 76 Orthopaedic Surgery completed Beatrice Chávez [place] [facility] 01/20/2020 14:30:41 08/06/18 74 Orthopaedic Surgery completed Beatrice Chávez [place] [facility] 01/20/2020 14:30:27 Imaging Results None recorded. Procedure Notes None recorded. Medical Equipment None Reported. Allergies Allergen ID Allergen Name Allergen Category Reaction Reaction Severity Criticality Documentation Date Start Date Code Code System Note Provider Name and Address Organization Details Recorded Time 167189 Medicinal product containin g penicilli n and acting as antibacte rial agent (product) medicatio n Not available Not available Not available 01/20/2020 54063 05 SNOMED Beatrice Mayberryal null, [place] - [facility] 0 14:27:38 [id number] Ambien medicatio n Not available Not available Not available 01/20/2020 21314 5 RxNorm Beatrice Senechal null, [place] - [facility] 0 14:27:44 Medications Name Sig Start Date Stop Date Status Note LastModified by Organization Details LastModified Time cyclobenz aprine 10 mg tablet TK 1 T PO BID PRF MUSCLE SPASM 07/26 completed Not Available Not Available Not Available furosemid e 40 mg tablet 01/19 completed Not Available Not Available Not Available methocarb mason 500 mg tablet TAKE 1 TABLET BY MOUTH EVERY 8 HOURS NEEDED FOR POST-OPE RATIVE MUSCLE SPASM 05/11 completed Not Available Not Available Not Available prednison e 10 mg tablet 01/19 completed Not Available Not Available Not Available doxycycli ne hyclate 100 mg capsule TAKE 1 CAPSULE BY MOUTH TWICE A DAY 01/30 completed Not Available Not Available Not Available Depo-Medr ol 40 mg/mL suspensio n for injection Take 3 mL by injectio n route. 12/20 completed 3mL injected into Right Shoulder US guided Not Available Not Available Not Available torsemide 20 mg tablet TAKE TWO TABLETS BY MOUTH EVERY DAY active Not Available Not Available No t Available amiodaron e 200 mg tablet TAKE 1 TABLET BY MOUTH TWICE A DAY FOR 2 DAYS THEN TAKE 1 TABLET BY MOUTH ONCE DAILY 05/11 completed Not Available Not Available Not Available metoprolo l succinate ER 50 mg tablet,ex tended release 24 hr TAKE ONE TABLET BY MOUTH EVERY DAY active Not Available Not Available No t Available ondansetr on HCl 4 mg tablet 06/24 completed Not Available Not Available Not Available hydromorp roz 8 mg tablet TAKE 1 TABLET BY MOUTH TWICE DAILY FOR PAIN 05/11 completed Not Available Not Available Not Available betametha sana, augmented 0.05 % topical cream 01/30 completed Not Available Not Available Not Available metoprolo l succinate ER 100 mg tablet,ex tended release 24 hr TAKE ONE TABLET BY MOUTH EVERY DAY 10/25 completed Not Available Not Available Not Available clopidogr el 75 mg tablet TAKE ONE TABLET BY MOUTH EVERY DAY 01/30 completed Not Available Not Available Not Available amlodipin e 5 mg tablet 12/05 completed Not Available Not Available Not Available sildenafi l 100 mg tablet TAKE 1 TABLET 100MG) BY MOUTH ONCE A DAY NEEDED APPROXIM ATELY 1 HOUR BEFORE SEXUAL ACTIVITY active Not Available Not Available No t Available hydrocort isone acetate 25 mg rectal supposito ry 01/19 completed Not Available Not Available Not Available ketorolac 0.5 % eye drops 1 DROP IN EACH EYE TWO TIMES A DAY FOR 3 WEEKS active Not Available Not Available No t Available Kenalog 40 mg/mL suspensio n for injection Take 2 mL by injectio n route. 02/27 completed US Guided Not Available Not Available Not Available levothyro xine 88 mcg tablet TAKE ONE TABLET BY MOUTH EVERY DAY active Not Available Not Available No t Available alprazola m 0.5 mg tablet TAKE ONE TABLET BY MOUTH THREE TIMES A DAY NEEDED active Not Available Not Available No t Available hydromorp roz 2 mg tablet 1 tablet PO Q8-12H PRN postop pain. Take lowest dose necessar y for pain control. active Not Available Not Available No t Available potassium chloride ER 20 mEq tablet,ex tended release(p art/cryst ) TAKE TWO TABLETS BY MOUTH EVERY DAY 01/31 completed Not Available Not Available Not Available methocarb mason 750 mg tablet TAKE 1 TABLET BY MOUTH EVERY 6 HOURS NEEDED FOR POSTOP MUSCLE SPASMS 05/11 completed Not Available Not Available Not Available tamsulosi n 0.4 mg capsule TAKE TWO CAPSULES BY MOUTH AT BEDTIME active Not Available Not Available No t Available furosemid e 80 mg tablet TAKE ONE TABLET BY MOUTH EVERY DAY active Not Available Not Available No t Available betametha sone valerate 0.1 % topical cream active Not Available Not Available Not Available doxycycli ne monohydra te 100 mg capsule 12/05 completed Not Available Not Available Not Available hydrocodo ne 7.5 mg-acetam inophen 325 mg tablet TAKE ONE TABLET BY MOUTH THREE TIMES A DAY NEEDED FOR PAIN 01/30 completed Not Available Not Available Not Available oseltamiv ir 75 mg capsule TAKE ONE CAPSULE BY MOUTH TWICE A DAY FOR 5 DAYS 01/30 completed Not Available Not Available Not Available lisinopri l 10 mg tablet TAKE ONE TABLET BY MOUTH TWICE A DAY active Not Available Not Available No t Available flecainid e 50 mg tablet 01/19 completed Not Available Not Available Not Available flecainid e 100 mg tablet TAKE ONE TABLET BY MOUTH TWICE A DAY active Not Available Not Available No t Available omeprazol e 20 mg capsule,d elayed release 01/19 completed Not Available Not Available Not Available diclofena c sodium 75 mg tablet,de layed release TAKE 1 TABLET BY MOUTH TWICE DAILY FOR 14 DAYS 01/30 completed Not Available Not Available Not Available lisinopri l 5 mg tablet 1 tablet every day by oral route. active Not Available Not Available No t Available zaleplon 10 mg capsule TAKE ONE CAPSULE BY MOUTH DAILY AT BEDTIME NEEDED FOR INSOMNIA active Not Available Not Available No t Available oxycodone 30 mg tablet 01/19 completed Not Available Not Available Not Available ondansetr on 4 mg disintegr ating tablet DISSOLVE ONE TABLET BY MOUTH EVERY 8 HOURS NEEDED FOR NAUSEA AND VOMITING 02/27 completed Not Available Not Available Not Available doxycycli ne hyclate 100 mg tablet TAKE ONE TABLET BY MOUTH EVERY 12 HOURS FOR 10 DAYS 10/25 completed Not Available Not Available Not Available finasteri de 5 mg tablet TAKE 1 TABLET BY MOUTH EVERY DAY 05/11 completed Not Available Not Available Not Available oxycodone 5 mg tablet Take 1 tablet every 4 hours by oral route. active Not Available Not Available No t Available azithromy juan daniel 500 mg tablet TAKE ONE TABLET BY MOUTH ONE HOUR PRIOR TO DENTAL PROCEDUR E UNITL November01/20 completed Not Available Not Available Not Available cyclobenz aprine 5 mg tablet TAKE 1 TABLET BY MOUTH 3 TIMES DAILY 01/30 completed Not Available Not Available Not Available tadalafil 10 mg tablet 01/19 completed Not Available Not Available Not Available tadalafil 20 mg tablet 01/19 completed Not Available Not Available Not Available eszopiclo ne 2 mg tablet TAKE ONE TABLET BY MOUTH AT BEDTIME NEEDED FOR INSOMNIA 01/19 completed Not Available Not Available Not Available aspirin active Not Available Not Avail able Not Available vitamin E active Not Available Not Cristal ilable Not Available Vitamin D active Not Available Not Cristal ilable Not Available fentanyl (PF)-bupi vacaine-N aCl active Not Available Not Available Not Available GaviLyte- G 236 gram-22.7 4 gram-6.74 gram-5.86 gram oral solution FOLLOW PREP INSTRUCT IONS GIVEN BY YOUR DOCTOR'S OFFICE 01/30 completed Not Available Not Available Not Available Colcrys 0.6 mg tablet TK 1 TO 2 TS PO QD 09/22 completed Not Available Not Available Not Available amlodipin e besylate (bulk) 07/26 completed Not Available Not Available Not Available Pradaxa 150 mg capsule 01/19 completed Not Available Not Available Not Available testoster one 10 mg/0.5 gram/actu ation transderm al gel pump APPLY TWO PUMPS TO ONE LEG EVERY DAY active Not Available Not Available No t Available testoster one 20.25 mg/1.25 gram per pump act.(1.62 %) transderm al gel APPLY ONE PUMP TO THE SKIN EVERY DAY active Not Available Not Available No t Available Eliquis 5 mg tablet TAKE 1 TABLET BY MOUTH TWICE DAILY 01/19 completed Not Available Not Available Not Available Eliquis 2.5 mg tablet TAKE 1 TABLET BY MOUTH TWICE DAILY RESUME 5 MG TABLETS TWICE DAILY FROM 1 05/11 completed Not Available Not Available Not Available Multi Vitamin active Not Available Not Available Not Available potassium chloride ER 20 mEq tablet,ex tended release TAKE 2 TABLETS BY MOUTH ONCE DAILY 01/31 completed Not Available Not Available Not Available colchicin e 0.6 mg capsule Take 2 capsules every day by oral route. 09/22 completed Not Available Not Available Not Available Movantik 12.5 mg tablet Take 1 tablet every day by oral route. 07/26 completed Not Available Not Available Not Available Movantik 25 mg tablet TAKE ONE TABLET BY MOUTH EVERY DAY 01/30 completed Not Available Not Available Not Available naloxone 4 mg/actuat ion nasal spray active Not Available Not Available Not Available metoprolo l succinate ER 100 mg capsule sprinkle, ext. release 24 hr Take 1 capsule every day by oral route. 07/26 completed Not Available Not Available Not Available Lagevrio 200 mg capsule (EUA) TAKE 4 CAPSULES TOTAL IS 800MG) BY MOUTH EVERY 12 HOURS FOR 5 DAYS, WITH OR WITHOUT FOOD 01/30 completed Not Available Not Available Not Available Vitals Date Recorded Body height Provider Name an d Address Organization Details Last Updated DateTime 06/30/2024 177.8 cm Yamila Aleman [facility] 06/30/2024 13:51:10 Social History Question Answer Notes LastModified by Organizat ion Details LastModified Time Tobacco Smoking Status Former Smoker quit 25 yrs ago Arlet dennis [facility] 07/26/2020 11:47:51 What Is Your Level Of Alcohol Consumption? Occasional Couple Drinks/week Information not available 07/26/2020 How Many Times Per Week Do You Consume Alcohol? 1-2 Times Per Week [email or web address] Information not available 02/28/2024 Auto Related Injury? No Information not available 01/20/2023 Do You Or Have You Ever Used E-cigarettes Or Vape? 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 5-7 Times Per Week Yoga [email or web address] Information not available 02/28/2024 Have You Had Cortisone? Yes R Shoulder 08/2019 [email or web address] Information not available 01/20/2020 Do You Or Have You Ever Used Smokeless Tobacco? Never Used Smokeless Tobacco [email or web address] Information not available 07/26/2020 How Much Tobacco Do You Smoke? No Information not available 01/20/2023 How Many Years Have You Smoked Tobacco? 25 [email or web address] Information not available 02/01/2024 Work Related Injury? No Information not available 01/20/2023 Sex: Unknown Functional Status Question Answer Note LastModified by Organization D etails LastModified Time What is your exercise level? Heavy [email or web address] Information not available 02/28/2024 Mental Status None recorded. Family History Relationship Description Onset Age of this Age Resolved Age Notes LastModified by Organization Details LastModified Time Father Phlebitis [email or web address] Not available 02/01/2024 10:43:40 Unspecified Relation Phlebitis [email or web address] Not available 024 10:43:40 Medical History Condition Response Blood Clots / Phlebitis N Heart Problems N HIV or AIDS N High Blood Pressure Y Depression or Anxiety Y Irregular Heartbeat Y MRSA N Any Other Significant Medical Issues Y Emphysema / Chronic Bronchitis N Reaction to General/Local Anesthesia N Weight Gain / Loss N Hepatitis / Jaundice N Kidney / Bladder Infections N Diabetes N Bleeding Disorder N Hearing Loss N Angina, Heart Failure or Attack N Seizures / Epilepsy N Night Sweats N Osteoarthritis / Rheumatoid arthritis / Other N Cancer N Stroke N Chemical Dependency / Alcoholism N Ulcer / Stomach Bleeding / Indigestion N Visual Loss or Glaucoma N Thyroid Disorder Y Psoriasis / Skin Rash N Heart Disease N Pulmonary Embolism N Asthma / Shortness of Breath / Sleep 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 (please specify) N Immunizations Vaccine Type Date Status Note Provider Nam e and Address Organization Details Recorded Time SARS-COV-2 (COVID-19) vaccine, UNSPECIFIED 1 completed Brandi Johnson sonny, [facility] 12/15/2020 12:58:30 SARS-COV-2 (COVID-19) vaccine, UNSPECIFIED 1 [facility] 12:58:41 Influenza, split virus, quadrivalent, preservative 0 completed Sadie Garcia [facility] 05/12/2020 11:01:29 COVID-19, mRNA, LNP-S, PF, 30 mcg/0.3 mL dose 1 completed Carmen Chu [facility] 12/05/2021 15:40:37 Past Encounters Encounter ID Performer Location Encounter Start Date Encounter Closed Date Diagnosis/Indication Diagnosis SNOMED-CT Code Diagnosis ICD10 Code [id number] JASON FULLER MD [place] [facility] [address] [place] [phone] 06/30/2024 12:57:47 06/30/2024 14:08:06 Strain of rotator cuff of shoulder 361666952 S46.011D Health Concerns Section Related Observation LastModified by Organization Detai ls LastModified Time None Recorded Concern Status LastModified by Organization Details LastModified Time None Recorded Payers Encounter Date Sequence Insurance Name Policy Number Policy Vogel Covered Member ID Vogel Member ID Guarantor Name 06/30/2024 1 [place] [employer] Marcus Maddox [id number] Marcus Tan 06/30/2024 2 [facility] (MEDICARE SUPPLEMENT) Marcus Young Tan [id number] Marcus Maddox Notes Date Note Type Note Provider Name and Address Organization Details Recorded Time 06/30/2024 text/html Marcus comes in to day [place] by his for his first postoperative visit status post his left shoulder single anchor rotator cuff repair subacromial decompression and biceps tenotomy 06/19/2024. He is doing well. He has found of the 30 oxycodone does not work very well with him and he is actually not taking the full prescription but he would like to switch over to some hydromorphone 4 mg. JASON FULLER MD [address] [place] [address], [place], [phone], [facility] 07/02/2024 09:18:08
--- OUTSIDE RECORDS SUMMARY | 2024-07-17 02:25 | XMS_ITS | Data Portability ---
Author Organization [facility] Office Address [address] [facility] [place] [address] Care Team Providers Care Rn Homecare Name Role Phone TOMASA TORREZ Primary Care Provider Assessment Encounter Date Assessment Date Assessment LastModified by Organization Details LastModified Time 10/26/2023 10/26/2023 Overall the patient feels that his left shoulder is fairly stable and responding well to the cortisone shots so we will stay the course in regards to the left shoulder. His right shoulder is becoming more problematic. He notices decreased range of motion decreased strength and increase in nighttime pain. He is wondering if he is going to need surgical intervention at some point in time. He has travel plans coming up over the course the next few months I would not want to do anything until the fall if he was to have surgery. I reviewed his most recent MRI of his right shoulder from 02/14/2023 which did show a full-thickness tear of the long head of the biceps with high-grade chronic partial tear of the subscapularis with a bursal partial tear of the supraspinatus with bursitis with mild fatty atrophy. He would like to come in to meet with Dr. Singh Rick over the summer to discuss if surgery would be warranted option for him. He is scheduled for right shoulder reevaluation on 02/28/2024. We did discuss injecting both of his shoulders today to try to get him some temporary relief and some more longstanding relief for the left shoulder. TREATMENT GIVEN: I confirmed that the patient does not have a history of prior adverse reactions, active infections, or relevant allergies. There was no effusion, erythema, or warmth, and the skin was clear. After discussion of the risks including, but not limited to infection, localized soreness and swelling, reaction to medications, the patient consented to proceeding with the regimen. Under sterile conditions with the use of alcohol and Betadine prep on the bilateral shoulder and ethyl chloride spray on the skin, I applied sterile ultrasound gel and utilized the rimidi Ultrasound to ensure accurate needle placement. Topical anesthesia was achieved by inserting 2 cc of 2% lidocaine into the subcutaneous tissues, followed by the placement of 2cc of Kenalog and 4cc of 2% lidocaine into the subacromial space and glenohumeral jointwithout incident. Ultrasound images were scanned into the patient's chart. The injection was completed without complication and a Band-Aid was applied. The patient tolerated the procedure well and was instructed to avoid strenuous activity for the next 24-48 hours and use ice, NSAIDS, or Tylenol for pain as needed. PLAN: The patient was given the usual post injection instructions, including to call the office if there is any increased pain or discomfort, as well as to ice the area and take anti-inflammator ies as indicated. We will see the patient back to assess response to the injection. All of the patient's questions were answered. [email or web address] Not available 10/26/2023 12:00:40 02/01/2024 02/01/2024 TREATMENT GIVEN: I confirmed that the patient does not have a history of prior adverse reactions, active infections, or relevant allergies. There was no effusion, erythema, or warmth, and the skin was clear. After discussion of the risks including, but not limited to infection, localized soreness and swelling, reaction to medications, the patient consented to proceeding with the regimen. Under sterile conditions with the use of alcohol and Betadine prep on the bilateral shoulder and ethyl chloride spray on the skin, I applied sterile ultrasound gel and utilized the rimidi Ultrasound to ensure accurate needle placement. Topical anesthesia was achieved by inserting 2 cc of 2% lidocaine into the subcutaneous tissues, followed by the placement of 2cc of Kenalog and 4cc of 2% lidocaine into the subacromial space and glenohumeral jointwithout incident. Ultrasound images were scanned into the patient's chart. The injection was completed without complication and a Band-Aid was applied. The patient tolerated the procedure well and was instructed to avoid strenuous activity for the next 24-48 hours and use ice, NSAIDS, or Tylenol for pain as needed. PLAN: The patient was given the usual post injection instructions, including to call the office if there is any increased pain or discomfort, as well as to ice the area and take anti-inflammator ies as indicated. We will see the patient back to assess response to the injection. All of the patient's questions were answered. [email or web address] Not available 02/01/2024 12:47:30 02/28/2024 02/28/2024 Marcus is a 73-year-old gentleman with a right shoulder MRI from a year ago which shows a partial-thicknes s rotator cuff tear which I am concerned has progressed so I therefore and requesting an MRI of his right shoulder. Regards to his left shoulder he has sleep disturbance and worsening left shoulder pain with significant weakness so I am recommending a left shoulder MRI to assess his rotator cuff on that side. I will do a telehealth with him after his bilateral shoulder MRIs have been obtained. [email or web address] Not available 02/28/2024 11:45:57 06/30/2024 06/30/2024 73-year-old gentleman with some chronic [...] Organization Details Last Modified Time Details Appointments Post-Oper ative F/U 15 min 2024 10:45A M SINGH RICK MD Not available Not available Not available Lab None recorded. Referral None recorded. Procedures None recorded. Surgeries orthopaed ic surgery (SURG) 2023 024 [email or web address] [facility] (Surgery Scheduling), [address], [place], [address], 05/22/2024 14:55:01 Imaging MRI, shoulder, w/o contrast - paspls call to schedule, thank you DX: r/o rct, shoulder pain(erin ent has drug infusion system pump/left side) 2023 024 [facility] ([facility]), [address] [place], [address], 03/13/2024 12:49:43 MRI, shoulder, w/o contrast - paspls call to schedule, thank you DX:r/o rct, shoulder pain(erin ent has drug infusion system pump/left side) 2023 024 [email or web address] [facility] ([facility]), [address] [place], [address], 03/06/2024 08:28:20 Medication Orders Kenalog 40 mg/mL suspensio n for injection 2023 024 [place] [address] [id number], [address] [place] [address], [address], 02/28/2024 11:28:02 Kenalog 40 mg/mL suspensio n for injection 2023 024 [place] [address] [facility], [address] [place] [address], [address], 02/28/2024 11:28:02 Kenalog 40 mg/mL suspensio n for injection 2023 024 [place] [address] [facility], [address] [place] [address], [address], 02/28/2024 11:28:02 Patient TargetsNo targets recorded. Patient InstructionsNo instructions recorded. Reason for Referral None Reported. Results Created Date Observation Date Name Description Value Unit Range Abnormal Flag Note LastModifiedBy Organization Detail LastModifiedTime 06/19/20 24 06/19/2024 CBC AND DIFFGuru BASHIR WBC 4.06 K/uL 4.00-1 1.00 Not Available [facility] - Lab [address] [facility], [place], [address], 06/19/2024 08:07:31 06/19/20 24 06/19/2024 CBC AND ANA JONES AL RBC 3.45 M/uL 4.20-5 .80 low Not Available [facility] - Lab [address] [facility], [place], [address], 06/19/2024 08:07:31 06/19/20 24 06/19/2024 CBC AND DIFFE RENTI AL hemoglobin 13.0 g/dL 14.0-1 7.0 low Not Available [facility] - Lab [address] [facility], [place], [address], 06/19/2024 08:07:31 06/19/20 24 06/19/2024 CBC AND DIFFE RENTI AL hematocrit 38.8 % 42.0-5 1.0 low Not Available [facility] Lab [address] [facility], [place], [address], 06/19/2024 08:07:31 06/19/20 24 06/19/2024 CBC AND DIFFE RENTI AL MCH 37.7 pg 27.0-3 4.0 high Not Available [facility] Lab [address] [facility], [place], [address], 06/19/2024 08:07:31 06/19/20 24 06/19/2024 CBC AND DIFFE RENTI AL MCHC 33.5 g/dL 31.0-3 6.0 Not Available [facility] - Lab [address] [facility], [place], [address], 06/19/2024 08:07:31 06/19/20 24 06/19/2024 CBC AND DIFFE RENTI AL MCV 113 fL 80-98 high Not Available [facility] - Lab [address] [facility], [place], [address], 06/19/2024 08:07:31 06/19/20 24 06/19/2024 CBC AND DIFFE RENTI AL RDW 11.2 % 11.5-1 4.5 low Not Available [facility] Lab [address] [facility], [place], [address], 06/19/2024 08:07:31 06/19/20 24 06/19/2024 CBC AND DIFFE RENTI AL RDW-SD 46.4 fL 35.1-4 6.3 high Not Available [facility] Lab [address] [facility], [place], [address], 06/19/2024 08:07:31 06/19/20 24 06/19/2024 CBC AND DIFFE RENTI AL platelet count 155 K/uL 150-40 0 Not Available [facility] - Lab [address] [facility], [place], [address], 06/19/2024 08:07:31 06/19/20 24 06/19/2024 CBC AND DIFFE RENTI AL mean platelet volume 9.6 fL 9.4-12 .4 Not Available [facility] Lab [address] [facility], [place], [address], 06/19/2024 08:07:31 06/19/20 24 06/19/2024 CBC AND DIFFE RENTI AL polys 48.7 % 50.0-7 0.0 low Not Available [facility] Lab [address] [facility], [place], [address], 06/19/2024 08:07:31 06/19/20 24 06/19/2024 CBC AND DIFFE RENTI AL lymphocyte 33.7 % 18.0-4 2.0 Not Available [facility] - Lab [address] [facility], [place], [address], 06/19/2024 08:07:31 06/19/20 24 06/19/2024 CBC AND DIFFE RENTI AL monocyte 12.8 % 2.0-11 .0 high Not Available [facility] Lab [address] [facility], [place], [address], 06/19/2024 08:07:31 06/19/20 24 06/19/2024 CBC AND DIFFE RENTI AL eosinophil 3.4 % 0.0-5. 0 Not Available [facility] - Lab [address] [place], [address], 06/19/2024 08:07:31 06/19/20 24 06/19/2024 CBC AND DIFFE RENTI AL basophil 1.2 % 0.0-2. 0 Not Available [facility] - Lab [address] [facility], [place], [address], 06/19/2024 08:07:31 06/19/20 24 06/19/2024 CBC AND DIFFE RENTI AL immature granulocytes 0.2 % Not Available [facility] - Lab [address] [facility], [place], [address], 06/19/2024 08:07:31 06/19/20 24 06/19/2024 CBC AND DIFFE RENTI AL absolute gran CT 1.97 K/uL 1.60-6 .10 Not Available [facility] Lab [address] [facility], [place], [address], 06/19/2024 08:07:31 06/19/20 24 06/19/2024 CBC AND DIFFE RENTI AL absolute immature gran CT 0.01 K/uL 0.00-0 .09 Not Available [facility] - Lab [address] [facility], [place], [address], 06/19/2024 08:07:31 06/19/20 24 06/19/2024 CBC AND DIFFE RENTI AL absolute lymph CT 1.37 K/uL 1.20-3 .70 Not Available [facility] - Lab [address] [facility], [place], [address], 06/19/2024 08:07:31 06/19/20 24 06/19/2024 CBC AND DIFFE RENTI AL absolute mono CT 0.52 K/uL 0.20-0 .80 Not Available [facility] - Lab [address] [facility], [place], [address], 06/19/2024 08:07:31 06/19/20 24 06/19/2024 CBC AND DIFFE RENTI AL absolute eos CT 0.14 K/uL 0.04-0 .54 Not Available [facility] - Lab [address] [facility], [place], [address], 06/19/2024 08:07:31 06/19/20 24 06/19/2024 CBC AND DIFFE RENTI AL absolute baso CT 0.05 K/uL 0.01-0 .08 Not Available [facility] - Lab [address] [facility], [place], [address], 06/19/2024 08:07:31 06/19/20 24 06/19/2024 POTAS SIUM potassium 5.6 mmol/ L 3.5-5. 3 high Not Available [facility] - Lab [address] [facility], [place], [address], 06/19/2024 09:12:12 06/19/20 24 06/19/2024 POTAS SIUM potassium 4.4 mmol/ L 3.5-5. 3 Not Available [facility] [address] [facility], [place], [address], 06/19/2024 10:56:49 03/13/20 24 03/13/2024 MRI, ravi aguilar, w/o contr ast [facility] Access ion Number : [id number] Patizay t Name: [place] Maddox Record Number : [id number] Date of : 1950 Date of Exam: 2023 Referr ing Physic mouna: Singh Santana [place] Should er [address] [facility], [address] [place] [address] Exam: MR Should er (C-) CPT 36673 - Right Room Descri ption: [facility] Siem Verio 3.0T MR Should er (C-) CPT 21875 CLINIC AL INDICA TION: Reason For Exam: Pain in right should er TECHNI QUE: MRI of the right should er was perfor med withou t intrav enous contra st. COMPAR OLESYA: Multip le priors , most recent MRI right should er 023, Right should er radiog raphs 02/08/20 23 FINDIN GS: Images are degrad ed by motion artifa ct Os acromi miguel Mild acromi oclavi cular osteoa rthrit is is unchan ged. Full-t hickne ss supras pinatu s tear. Torn fibers retrac mi approx imatel y 1 to 1.5 cm. Tear measur es approx imatel y 1.5 to 2 cm front to back. Mild fatty atroph y of the supras pinatu s muscle belly. Infras pinatu s tendin opathy . Superi mposed , low-gr caroline partia l articu lar surfac e tear within distal infras pinatu s tendon fibers . Mild fatty atroph y of the infras pinatu s muscle belly. Teres minor tendon is intact . Narrow ed coraco marli l interv al. High-g rade partia l subsca pulari s tear with attenu ated distal subsca pulari s tendon fibers . Mild fatty atroph y of the subsca pulari s muscle belly High-g rade partia l vs comple te tear with marked attenu ation of the long head of the biceps tendon with intra- articu lar fibers medial ly disloc ated from the bicipi rachel groove . Interm ediate T2 signal within a thicke najma inferi or glenoh umeral ligame nt. Interm ediate signal throug hout the labrum consis tent with diffus e intras ubstan ce labral degene ration . Small glenoh umeral osteop hytes. IMPRES GENESIS: Full-t hickne ss supras pinatu s tear. Infras pinatu s tendin opathy with superi mposed low-gr caroline partia l tear High-g rade partia l subsca pulari s tear with marked attenu ation of distal subsca pulari s tendon fibers at the level of the coraco marli l interv al. Coraco marli l interv al is narrow ed. Very high-g rade partia l versus comple te biceps tear with attenu ated intra- articu lar biceps tendon fibers noted medial ly disloc ated from the bicipi rachel groove . Interm ediate signal throug hout the labrum consis tent with diffus e intras ubstan ce labral degene ration . Interm ediate T2 signal within a thicke najma inferi or glenoh umeral ligame nt. Findin g can be seen with synovi tis and adhesi ve capsul itis. Mild acromi oclavi cular and glenoh umeral osteoa rthrit is. Os acromi miguel I, Ally Soto MD, have review ed the images and report and concur with the reside nt, Mis loyas , findin gs. Electr onical ly Signed By: Ally Soto MD [email or web address] [facility] ([facility]) [address], [place], [address], 03/13/2024 13:23:35 03/13/20 24 03/13/2024 MRI, ravi aguilar, w/o contr ast [facility] Access ion Number : [id number] Patien t Name: Marcus Maddox Record Number : [id number] Date of : 1950 Date of Exam: 2023 Referr ing Physic mouna: Singh Santana [place] Should er [address] [facility], [address] [place] [address] Exam: MR Should er (C-) CPT 00444 - Left Room Descri ption: [facility] Ver 3.0T MR Should er (C-) CPT 21839 CLINIC AL INDICA TION: Reason For Exam: Pain in left should er TECHNI QUE: MRI of the left should er was perfor med withou t intrav enous contra st. COMPAR OLESYA: None. FINDIN GS: Images are degrad ed by motion artifa ct Modera te acromi oclavi cular osteoa rthrit is Advanc ed supras pinatu s tendin opathy with superi mposed interm ediate grade partia l intras ubstan ce vs bursal surfac e tear noted within footpr int and cummins hed fibers . Minima l fatty atroph y of the supras pinatu s muscle belly. Mild infras pinatu s tendin opathy . Minima l fatty atroph y of the infras pinatu s muscle belly. Teres minor tendon is intact . Attenu ated distal subsca pulari s tendon fibers consis tent with high-g rade partia l tearin g. Tearin g is superi mposed upon subsca pulari s tendin opathy . Minima l fatty atroph y of the subsca pulari s muscle belly. Narrow ed coraco marli l interv al. Partia l tearin g and tendin opathy within the intra- articu lar portio n of the long head of the biceps tendon . Long head of the biceps tendon is medial ly sublux ed within the bicipi rachel groove . Interm ediate T2 signal within a thicke najma inferi or glenoh umeral ligame nt. IMPRES GENESIS: Advanc ed supras pinatu s tendin opathy with superi mposed interm ediate grade partia l tear Mild infras pinatu s tendin opathy Attenu ated distal subsca pulari s tendon fibers consis tent with high-g rade partia l subsca pulari s tearin g. Tear is superi mposed upon subsca pulari s tendin opathy . Narrow ed coraco marli l interv al. Partia l tearin g and advanc ed tendin opathy within the intra- articu lar portio n of the long head of the biceps tendon . Long head of biceps tendon is medial ly sublux ed within the bicipi rachel groove . Findin g can be seen with biceps madeline injuri es. Interm ediate T2 signal within a thicke najma inferi or glenoh umeral ligame nt can be seen with synovi tis and adhesi ve capsul itis. Modera te acromi oclavi cular osteoa rthrit is. I, Ally Soto MD, have review ed the images and report and concur with the reside nt, brenda Galindo. Electr onical ly Signed By: Ally Soto MD [email or web address] [facility] ([facility]) [address], [place], [address], 03/13/2024 13:23:34 06/12/20 24 pre opera tive order s* No observ ation record ed. [email or web address] Not Available 2023 14:26:09 Result Notes None recorded. Problems Name Problem SNOMED Code Status Onset Date Resolution Date Notes Provider Name and Address Organization Details Recorded Time Localized, primary osteoarthritis of the shoulder region 783324464 Active 2020 MADDIE HARRIS [address] [place] [address], [place], [address] [place] [address] - [facility] 14:29:32 Problem Notes None recorded. Procedures Surgical History Date Name Laterality Status Provider Name and Address Organization Details Recorded Time 06/19/20 24 Orthopaedic Surgery completed Yamila Aleman [place] - [facility] 06/30/2024 13:36:47 05/12/20 22 Other completed Vero Cutler [facility] - [place] [facility] 01/20/2023 10:39:38 11/05/19 21 Orthopaedic Surgery completed Celestine George OR - [facility] 02/02/2021 12:30:59 08/12/19 21 Orthopaedic Surgery completed Liliana Kumar OR - [facility] 05/06/2021 09:11:03 08/06/19 03 Orthopaedic Surgery completed Beatricenay Mayberryal OR - [facility] 01/20/2020 14:31:23 08/06/19 02 Orthopaedic Surgery completed Beatrice Chávez OR - [facility] 01/20/2020 14:31:32 08/06/19 00 Orthopaedic Surgery completed Beatricenay Mayberryal OR - [facility] 01/20/2020 14:31:14 08/06/18 96 Orthopaedic Surgery completed Beatricenay Mayberryal OR - [facility] 01/20/2020 14:30:55 08/06/18 76 Orthopaedic Surgery completed Beatricenay Mayberryal OR - [facility] 01/20/2020 14:30:41 08/06/18 74 Orthopaedic Surgery completed Beatrice Senechal OR - [facility] 01/20/2020 14:30:27 Imaging Results Imaging Date Name Status LastModified by Organiz ation Details LastModified Time 03/13/2024 MRI, shoulder, w/o contrast completed [address] [facility] ([facility]) [address] [facility] [place], [address], 03/13/2024 13:23:35 03/13/2024 MRI, shoulder, w/o contrast completed [address] [facility] ([facility]) [address], [place], [address], 03/13/2024 13:23:34 06/12/2024 pre operative orders* completed [email or web address] Information not available 06/12/2024 14:26:09 Procedure Notes None recorded. Medical Equipment None Reported. Allergies Allergen ID Allergen Name Allergen Category Reaction Reaction Severity Criticality Documentation Date Start Date Code Code System Note Provider Name and Address Organization Details Recorded Time 083888 Medicinal product containin g penicilli n and acting as antibacte rial agent (product) medicatio n Not available Not available Not available 01/20/2020 67067 05 SNOMED Beatrice Senechal [facility], [facility] 0 14:27:38 [id number] Ambien medicatio n Not available Not available Not available 01/20/2020 64392 5 RxNorm Beatrice Senechal [facility], [facility] 0 14:27:44 Medications Name [...] Not Available Not Available Not Available betametha sone, augmented 0.05 % topical cream 01/30 completed [...] Not Available Vitals Date Recorded Body height Body mass index (BMI) Body weight Provider Name and Address Organization Details Last Updated DateTime 10/26/2023 177.8 cm 36.6 kg/m2 868298.05 g Kristel Waller [facility] 10/26/2023 10:23:59 Date Recorded Body height Provider Name an d Address Organization Details Last Updated DateTime 02/01/2024 177.8 cm Melissatigre Digna [facility] 02/01/2024 10:43:33 Date Recorded Body height Body mass index (BMI) Body weight Provider Name and Address Organization Details Last Updated DateTime 02/28/2024 177.8 cm 36.6 kg/m2 442229.05 g Miriam Morel [facility] 02/28/2024 11:27:56 Date Recorded Body height Provider Name an d Address Organization Details Last Updated DateTime 04/10/2024 177.8 cm Liu Zaidi [facility] 04/10/2024 15:56:53 Date Recorded Body height Provider Name an d Address Organization Details Last Updated DateTime 06/30/2024 177.8 cm Yamila Love [facility] 06/30/2024 13:51:10 Social History Question Answer Notes LastModified by Organizat ion Details LastModified Time Tobacco Smoking Status Former Smoker quit 25 yrs ago Arlet Chisholm [facility] 07/26/2020 11:47:51 What Is Your Level Of Alcohol Consumption? Occasional Couple Drinks/week [email or web address] Information not available 07/26/2020 How Many Times Per Week Do You Consume Alcohol? 1-2 Times Per Week [email or web address] Information not available 02/28/2024 Auto Related Injury? No Information not available 01/20/2023 Do You Or Have You Ever Used E-cigarettes Or Vape? 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 5-7 Times Per Week Yoga [email or web address] Information not available 02/28/2024 Have You Had Cortisone? Yes R Shoulder 08/2019 [email or web address] Information not available 01/20/2020 Do You Or Have You Ever Used Smokeless Tobacco? Never Used Smokeless Tobacco [email or web address] Information not available 07/26/2020 How Much Tobacco Do You Smoke? No Information not available 01/20/2023 How Many Years Have You Smoked Tobacco? 25 [email or web address] Information not available 02/01/2024 Work Related Injury? No Information not available 01/20/2023 Sex: Unknown Functional Status Question Answer Note LastModified by Organization D etails LastModified Time What is your exercise level? 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) N Immunizations Vaccine Type Date Status Note Provider Nam e and Address Organization Details Recorded Time SARS-COV-2 (COVID-19) vaccine, UNSPECIFIED 03/08/202 1 completed Brandi Johnson null, [facility] 12/15/2020 12:58:30 SARS-COV-2 (COVID-19) vaccine, UNSPECIFIED 1 completed Brandi Johnson sonny, [facility] 12/15/2020 12:58:41 Influenza, split virus, quadrivalent, preservative 0 completed Sadie Garcia null, [facility] 05/12/2020 11:01:29 COVID-19, mRNA, LNP-S, PF, 30 mcg/0.3 mL dose 1 completed Carmen Chu sonny, [facility] 12/05/2021 15:40:37 Past Encounters Encounter ID Performer Location Encounter Start Date Encounter Closed Date Diagnosis/Indication Diagnosis SNOMED-CT Code Diagnosis ICD10 Code [id number] MADDIE HARRIS [address] [address] 1 01/20/2020 13:54:59 01/21/2020 14:46:51 Shoulder pain 51903266 M25.511 [id number] WILMA PELAYO MD [facility] [address] [place] [id number] 1 05/12/2020 10:23:36 05/12/2020 13:55:44 Shoulder pain 65795932 M25.511 [id number] MADDIE FARR [facility] [address] [place] [id number] 6 06/24/2020 09:40:09 06/24/2020 11:47:04 Impingement syndrome of right shoulder region 5188744603 75424 M75.41 [id number] WILMA RODRIGUEZ MD [facility] [address] [place] [id number] 1 07/26/2020 11:08:15 07/26/2020 13:07:34 Prosthetic joint mechanical failure [id number] T84.091A T84.090A [id number] MADDIE BURGOS [facility] [address] [place] [address] [id number] 1 09/22/2020 11:10:12 09/23/2020 10:05:35 Mechanical complication of internal joint prosthesis 737359395 T84.091D [id number] MADDIE HARRIS [facility] [address] [place] [address] [id number] 1 09/22/2020 13:25:10 09/22/2020 16:01:15 Localized, primary osteoarthritis of the shoulder region 162200374 M19.011 [id number] WILMA RODRIGUEZ MD [facility] [address] [place] [address] [id number] 6 12/15/2020 12:17:37 12/15/2020 13:40:34 Mechanical complication of internal joint prosthesis 642568019 T84.091A T84.090D [id number] MADDIE SMITH [facility] [address] [address] 6 12/16/2020 09:25:16 12/17/2020 10:58:55 Localized, primary osteoarthritis of the shoulder region 928136109 M19.011 [id number] WILMA RODRIGUEZ MD [facility] [address] [id number] 6 02/09/2021 13:39:00 02/09/2021 16:41:37 Prosthetic joint mechanical failure 627877494 T84.091A T84.090A [id number] MADDIE BURGOS [facility] [address] [place] [id number] 1 05/11/2021 11:13:59 05/11/2021 15:11:03 Mechanical complication of internal joint prosthesis 612292860 T84.090D T84.091D [id number] WILMA RODRIGUEZ MD [facility] [address] [place] [id number] 1 12/05/2021 14:43:53 12/05/2021 16:03:15 Mechanical complication of internal joint prosthesis [id number] T84.091A T84.090D [id number] MADDIE SMITH [facility] [address] [place] [address] [id number] 1 01/20/2023 09:28:03 01/22/2023 09:23:37 Bursitis of left shoulder [id number] 71441 M75.52 Shoulder pain 78860637 M 25.650 [id number] MADDIE SMITH [facility] [address] [place] [id number] 1 02/23/2023 13:24:28 02/23/2023 14:41:26 Bursitis of right shoulder 4090271469 21444 M75.51 Partial th ickness rotator cuff tear 978785212 M75.535 [id number] MADDIE FARR [facility] [address] [place] [address] 1 07/20/2023 09:14:49 07/20/2023 13:47:46 Bilateral shoulder joint pain 2137895352 5762426 M25.511 M25.895 [id number] MADDIE FARR [facility] [address] [place] [id number] 1 10/26/2023 10:03:14 10/26/2023 15:05:30 Strain of rotator cuff of shoulder 542245363 S46.011D Bilateral impingement syndrome of shoulders 0147846326 3546650 M75.41 M75.42 Bilateral shoulder joint pain 3182550574 [id number] M25.511 M25.803 [id number] MADDIE FARR [facility] [address] [place] [address] [id number] 1 02/01/2024 10:32:25 02/01/2024 12:42:45 Pain of right shoulder joint 0304844480 [id number] M25.511 Pain of le ft shoulder region 5582332186 M25.809 [id number] SINGH RICK MD [facility] [employer] [address] [place] [id number] 6 02/28/2024 11:17:20 02/28/2024 12:05:58 Shoulder pain 44857830 M25.512 M25.873 [id number] SINGH RICK MD [facility] [employer],[facility] [address] [place] [address] [id number] 6 04/10/2024 15:52:50 04/15/2024 09:45:32 Shoulder pain 00748587 M25.512 M25.508 [id number] SIGNH RICK MD [facility] [address] [place] [address] [id number] 1 06/30/2024 12:57:47 06/30/2024 14:08:06 Strain of rotator cuff of shoulder 386684975 S46.011D Health Concerns Section Related Observation LastModified by Organization Detai ls LastModified Time None Recorded Concern Status LastModified by Organization Details LastModified Time None Recorded Advance Directives Directive None Recorded Payers Encounter Date Sequence Insurance Name Policy Number Policy Vogel Covered Member ID Vogel Member ID Guarantor Name 10/26/2023 1 [place] [employer] Marcus Maddox [id number] Marcus Maddox 10/26/2023 2 [facility] (MEDICARE SUPPLEMENT) Marcus Maddox [id number] Marcus Maddox 02/01/2024 1 [place] [employer] Marcus Maddox [id number] Marcus Maddox 02/01/2024 2 [facility] (MEDICARE SUPPLEMENT) Marcus Maddox [id number] Marcus Maddox 02/28/2024 1 [place] [employer] Marcus Maddox [id number] Marcus Maddox 02/28/2024 2 [facility] (MEDICARE SUPPLEMENT) Marcus Maddox [id number] Marcus Maddox 04/10/2024 1 [place] [employer] Marcus Maddox [id number] Marcus Maddox 04/10/2024 2 [facility] (MEDICARE SUPPLEMENT) Marcus Maddox [id number] Marcus Maddox 06/30/2024 1 [place] [employer] Marcus Maddox [id number] 6 Marcus Maddox 06/30/2024 2 [facility] (MEDICARE SUPPLEMENT) Marcus Maddox [id number] Marcus Maddox Notes Date Note Type Note Provider Name and Address Organization Details Recorded Time 10/26/2023 text/html 73-year-old male who was last in the office 07/20/2023 at which time he received bilateral cortisone injections. The injection lasted approximately 2 months in the right shoulder and 3 months of left shoulder. His left shoulder seems to be responding longer. He is concerned that the right shoulder does seem to be getting worse. He may be interested in surgical intervention in the fall to deal with his right shoulder but does not want to do anything until the fall. We did discuss repeating the cortisone injections in the bilateral shoulders today but having him come in for surgical consult with Dr. Rick this upcoming February in the event that he will schedule surgery in April or May. AMANDA ARRIOLA, MADDIE [address] [place], [phone], [facility] 10/26/2023 15:06:18 02/01/2024 text/html 73-year-old male who is here today with continued bilateral shoulder pain right greater than left. He was last in the office on 10/27/2023 at which time we gave him bilateral cortisone injections. He has been getting these over the course of the last year approximately every 3 to 4 months. He is likely going to schedule surgery for the fall and has a surgical consult already scheduled with Dr. Singh Rick at the end of February. Today we talked through the pros and cons of doing bilateral cortisone injections today versus a Medrol Dosepak because if we move forward with the injections today he would likely not be able to do the surgeries anytime sooner than May. Based on his life and work schedules he does not think this will be a problem so after careful consideration we have decided to move forward with repeat injections. MADDIE FARR [address] [place] [address], [phone], [facility] 02/01/2024 12:49:31 02/28/2024 text/html Marcus is a well-known patient to this practice who Murray has been managing with intermittent cortisone injections. Traditionally the right shoulder has been worse than the left so there is an MRI from February 2023 showing a high-grade partial-thickness rotator cuff tear of his right shoulder. His left shoulder though is now more problematic. He would like to have them both improved and comes today to discuss possible surgical intervention. SINGH RICK MD [address] [place] [address], [phone], [facility] 02/29/2024 12:27:43 04/10/2024 text/html This visit was conducted as a real time interactive {{audio audio/visua l*}} telehealth visit conducted via {{Qure 4 U* Doxyme trueAnthemime Phone Call}} The patient was identified by name and date of and consented to this telehealth visit. The patient was at their home in [place] and I was at my {{[facility] in [place]}}. Participants of the telehealth visit included myself and the patient {{family resource specialist fr iend}}. The patient was last seen for an office visit on February 28, 2024. This visit was done over the course of {{10 20* 30}} minutes including record review. When I had seen Marcus previously we had recommended that he get bilateral shoulder MRIs. He has a known right shoulder partial-thickness rotator cuff tear but his pain was worse in the left. The MRI of his left shoulder which was obtained at [facility] on March 13, 2021 shows rotator cuff tendinopathy with a partial grade tear of the supraspinatus with a superior border the subscapularis tear with a long head of his biceps tendon medially subluxed within the bicipital groove. This is his main source of pain he is point tender over that area and it is causing him difficulty with sleep. I therefore recommended he undergo a left shoulder arthroscopic assessment of his rotator cuff with possible rotator cuff repair with left shoulder arthroscopic biceps tenotomy versus tenodesis. He would like to get this done as soon as possible. In regards to his right shoulder his MRI shows progression of his partial-thickness tear from a year ago to a now full-thickness tear with a dislocated biceps tendon versus a complete biceps tendon rupture. This will need to be addressed in the future but it is not as problematic as his left so we will address his left shoulder first and deal with his right in the future. He is comfortable with this plan and will follow-up with me in the operating room as soon as we can get our schedules coordinated. SINGH RICK MD [address] [place], [phone], [facility] 04/15/2024 14:27:58 06/30/2024 text/html Marcus comes in to day Kumhailee by his for his first postoperative visit status post his left shoulder single anchor rotator cuff repair subacromial decompression and biceps tenotomy 06/19/2024. He is doing well. He has found of the 30 oxycodone does not work very well with him and he is actually not taking the full prescription but he would like to switch over to some hydromorphone 4 mg. SINGH RICK MD [address] [place], [phone], [facility] 07/02/2024 09:18:08
--- OUTSIDE RECORDS SUMMARY | 2024-07-17 02:26 | XMS_ITS | Continuity of Care Document ---
Author Organization [facility] [address] [place] [address] Phone [phone] Care Team Providers [employer] Tavern Car Attendant Name Role Phone Benjamin Rosales M.D. 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 Onset: 04/19/2022 Degeneration of lumbar inter vertebral disc Prema Marcial M.D. Onset: 04/19/2022 Arachnoiditis Prema Marcial M.D. Ons et: 04/19/2022 Avascular necrosis of bone of hip Prema Ayala M.D. Onset: 04/19/2022 Benign prostatic hyperplasia Prema emmanuel M.D. Onset: 04/19/2022 Bilateral lower leg edema Prema Marcial M.D. Onset: 04/19/2022 Atrial fibrillation Prema Marcial M.D. Onset: 04/19/2022 Disorder of rotator cuff Prema Marcial M.D. Onset: 04/19/2022 Anxiety Prema Marcial M.D. 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 75gm E23.0 Prema Marcial M.D. 05/05/2024 Hydromorphone HCL2mg Tablets 1 tab by mouth three times daily prn 20tabs Prema Marcial M.D. 01/17/2024 Ccffkbzzyh21mp Tablets Take 1 Tablet By Mouth Once Daily Alternating With 1/2 Tablet Daily Benjamin Rosales M.D. Sildenafil Kruyupy219uq Tablets Take 1 Tablet By Mouth Every Day 1 Hour Before Sexual Activity as Needed Benjamin Rosales M.D. Levothyroxine Gzrgpj40ujs Tablets Take 1 Tablet By Mouth Once Daily Benjamin Rosales M.D. Alprazolam0.5mg Tablets Take 1 Tablet By Mouth Three Times Daily as Needed Leona Murphy NRaciel Bqftldksqo09rk Tablets Take 1 tablet bid Benjamin Rosales M.D. Tamsulosin HCL0.4mg Capsules Take 2 Capsules By Mouth Every Day AT Bedtime Duane Atkins NP Flecainide Wldvkfx831nk Tablets Take 1 Tablet By Mouth Every 12 Hours Unknown Senna8.6mg Tablets Take 2 Tablets By Mouth Daily as Needed For Constipation Unknown Docusate Qmdcjn690bw Capsules Take 2 Capsule By Mouth Daily as Needed For Constipation Unknown Metoprolol Succinate PO627lt Tablets ER 24HR Take 1/2 Tablet By Oral Route 1 Time Daily Unknown Vitamin E925cvu (1000 Ut) Capsules 1 by mouth every day Prema Marcial M.D. Aspir-Vui55yn Tablets DR 1 by mouth every day Unknown History Medications Khnuqbfxjngr09ab/Act (2%) Gel apply 2 pumps to each leg every day 120gm E23.0 Prema Marcial M.D. 02/24/2024 - 05/05/2024 Vital Signs Date Vital Result Comment 01/17/2024 3:22pm BP Systolic 138 mmHg BP Diastolic 70 mmHg Heart Rate 67 /min Height 68 inches 5'8 Weight 255.50 lb BMI (Body Mass Index) 38.8 kg/m2 Results Test Acquired Date Facility Test Result H/L Range Note Laboratory test finding 05/05/2024 [facility] Testosterone 278 ng/dL 264-916 1 Laboratory test finding 02/24/2024 [facility] Testosterone <pending> Verbal Order 02/14/2024 [facility] See below: Comment: 2 Additional Test(s) Requested Comment: 3 Laboratory test finding 02/14/2024 [facility] Testosterone 115 ng/dL Low 264-916 4 Written Authorization See Comment: 5 Laboratory test finding 02/14/2024 [facility] Prostate-Specifi c Ag 2.8 ng/mL 0.0-4.0 6 Laboratory test finding 01/17/2024 [facility] Prostate-Specifi c Ag <pending> Complete Auto Blood Count 06/26/2023 [facility] WBC 3.2 K/MM3 Low (4.0-11. 0) RBC 3.25 M/MM3 Low (4.70-6. 10) HGB 11.9 GM/DL Low (13.7-17 .1) HCT 36.5 % Low (40.5-50 .0) MCV 112.3 FL High (80.0-94 .0) MCH 36.6 pg High (27.0-34 .0) MCHC 32.6 g/dL Low (33.0-37 .0) PLT 156 K/MM3 (150-460 ) RDW-SD 50.8 FL High (<47.0) MPV 9.9 FL (9.4-12. 4) Automated NRBC 0.0 #/100WBC'S Abs. NRBC 0.0 K/MM3 Laboratory test finding 06/07/2023 [facility] Ferritin <pending> Laboratory test finding 06/07/2023 [facility] Vitamin B12 <pending> Methylmalonic Acid, Serum <pending> Homocysteine,Pl a sma/Serum <pending> Laboratory test finding 05/24/2023 [facility] Testosterone 323 ng/dL (280-800 ) 7 Laboratory test finding 05/24/2023 [facility] TSH With Reflex To FT4 1.02 uIU/mL (0.4-4.2 ) Complete Abc With Diff 05/24/2023 [facility] WBC 4.1 K/MM3 (4.0-11. 0) RBC 3.09 M/MM3 Low (4.70-6. 10) HGB 11.7 GM/DL Low (13.7-17 .1) HCT 35.3 % Low (40.5-50 .0) MCV 114.2 FL High (80.0-94 .0) MCH 37.9 pg High (27.0-34 .0) MCHC 33.1 g/dL (33.0-37 .0) PLT 175 K/MM3 (150-460 ) RDW-SD 49.1 FL High (<47.0) MPV 9.7 FL (9.4-12. 4) Automated NRBC 0.0 #/100WBC'S Abs. NRBC 0.0 K/MM3 Neut # 2.6 K/MM3 (1.3-7.0 ) Lymph # 0.9 K/MM3 (0.8-3.1 ) Barry# 0.5 K/MM3 (0.4-1.3 ) Eo # 0.1 K/MM3 (0.0-0.4 ) Baso # 0.1 K/MM3 (0.0-0.1 ) Abs. Imm Gran 0.0 K/MM3 Neut 62.3 % (44-76) Lymph 21.5 % (15-43) Monocyte 12.3 % High (4.5-10. 5) Eo 2.2 % (0-6) Baso 1.2 % (0-2) Imm Gran 0.5 % Laboratory test finding 12/21/2022 [facility] Testosterone Total (Males > 15 Yrs) <pending> Complete Auto Blood Count 12/20/2022 [facility] WBC 3.1 K/MM3 Low (4.0-11. 0) RBC 3.56 M/MM3 Low (4.70-6. 10) HGB 12.9 GM/DL Low (13.7-17 .1) HCT 38.8 % Low (40.5-50 .0) MCV 109.0 FL High (80.0-94 .0) MCH 36.2 pg High (27.0-34 .0) MCHC 33.2 g/dL (33.0-37 .0) PLT 175 K/MM3 (150-460 ) RDW-SD 50.1 FL High (<47.0) MPV 9.7 FL (9.4-12. 4) Automated NRBC 0.0 #/100WBC'S Abs. NRBC 0.0 K/MM3 Urinalysis Complete 12/20/2022 [facility] Appear/Color COLORLESS 8 SP. [place] 1.009 (1.002-1 .030) Urine PH 6.5 (5.0-8.0 ) Urine Albumin NEGATIVE (Neg) Urine Glucose NEGATIVE (Neg) Urine Ketones NEGATIVE (Neg) Urine Bilirubin NEGATIVE (Neg) Urine Hemoglobin NEGATIVE (Neg) Urine Nitrite NEGATIVE (Neg) Urine Leukocyte NEGATIVE (Neg) Urobilinogen NORMAL mg/dL (Norm) Urine WBCs <1 /HPF (0-5) Urine RBCs 1 /HPF (0-3) Mucus SLIGHT /LPF Squamous Epith <1 /HPF (0-8) Hyaline Cast 6 LPF High (0-2) Comprehensive Metabolic Panl 12/20/2022 [facility] Glucose 91 mg/dL (70-99) BUN 34 mg/dL High (8-23) Creatinine 1.2 mg/dL (0.7-1.2 ) Sodium 139 mmol/L (133-145 ) Potassium 5.2 mmol/L (3.6-5.2 ) Chloride 99 mmol/L (98-107) Bicarbonate 30 mmol/L High (22-29) Anion Gap 10 (4-17) Albumin 4.9 GM/DL High (3.4-4.8 ) Calcium 9.7 mg/dL (8.6-10. 5) Bilirubin,Total 0.7 mg/dL (0-1.2 ) Total Protein 7.2 GM/DL (6.2-8.2 ) Ag Ratio 2.1 Ast 28 U/L (0-40) Alk Phos 55 U/L (40-129) Alt 22 U/L (0-41) Estimated GFR Creatinine 66 ML/MIN/1.73M 2 9 Lipid Panel 12/20/2022 [facility] Cholesterol, Total 200 mg/dL High (<200) Triglyceride 110 mg/dL (<150) HDL Chol 80 mg/dL (>39) LDL Cholesterol , Calculated 98 mg/dL (0-130) Non HDL Cholesterol (Calc) 120 mg/dL (<160) Laboratory test finding 12/20/2022 [facility] PSA Screen 2.6 NG/ML (0-4) 10 Testosterone 881 ng/dL High (280-800 ) TSH With Reflex To FT4 1.92 uIU/mL (0.4-4.2 ) Laboratory test finding 10/18/2022 [facility] TSH With Reflex To FT4 <pending> Testosterone Total (Males > 15 Yrs) <pending> Complete Abc With Diff 04/19/2022 [facility] WBC 3.8 K/MM3 Low (4.0-11. 0) RBC 3.63 M/MM3 Low (4.70-6. 10) HGB 13.2 GM/DL Low (13.7-17 .1) HCT 39.5 % Low (40.5-50 .0) MCV 108.8 FL High (80.0-94 .0) MCH 36.4 pg High (27.0-34 .0) MCHC 33.4 g/dL (33.0-37 .0) PLT 163 K/MM3 (150-460 ) RDW-SD 51.4 FL High (<47.0) MPV 10.4 FL (9.4-12. 4) Automated NRBC 0.0 #/100WBC'S Abs. NRBC 0.0 K/MM3 Neut # 2.2 K/MM3 (1.3-7.0 ) Lymph # 1.0 K/MM3 (0.8-3.1 ) Barry# 0.5 K/MM3 (0.4-1.3 ) Eo # 0.1 K/MM3 (0.0-0.4 ) Baso # 0.1 K/MM3 (0.0-0.1 ) Abs. Imm Gran 0.0 K/MM3 Neut 58.4 % (44-76) Lymph 25.9 % (15-43) Monocyte 12.2 % High (4.5-10. 5) Eo 1.9 % (0-6) Baso 1.3 % (0-2) Imm Gran 0.3 % Laboratory test finding 04/19/2022 [facility] PSA Screen 2.1 NG/ML (0-4) 11 TSH With Reflex To FT4 1.14 uIU/mL (0.4-4.2 ) Testosterone 557 ng/dL (280-800 ) 1 Adult male reference interval is based on a population of healthy nonobese males (BMI <30) between 19 and 39 years old. Alejandra, et.al. JCEM 2017,102;5795-2700. PMID: [id number]. 2 Please provide reque sted information and fax to . The [place] Code of Federal Regulations requires a written and signed request be forwarded to a laboratory following a verbal order of a laboratory test. Please assist us to meet this requirement and to complete our records. Date: Diagnosis code(s) provided for this order: e29.1 Additional Diagnosis Code(s): Please Print ICD-9/10 Diagnosis Code(s): Physician or Authorized Designee: Please Print Physician or Authorized Designee Signature: Your Signature Confirms Your Order Of The Test(s) Listed 3 Test(s) added per Gia Hernandez at account 02-21-2024 Logged by Sadie Castro Test# [id number] Testosterone 4 Adult male reference interval is based on a population of healthy nonobese males (BMI <30) between 19 and 39 years old. Alejandra, et.al. JCEM 2017,102;5151-3123. PMID: [id number]. 5 Written Authorizatio n Received. Authorization received from PREMA TERRY 02-23-2024 Logged by Halle Garcia 6 Xi ECLIA methodol ogy. According to the [place] [employer], Serum PSA should decrease and remain at undetectable levels after radical prostatectomy. The AUA defines biochemical recurrence as an initial PSA value 0.2 ng/mL or greater followed by a subsequent confirmatory PSA value 0.2 ng/mL or greater. Values obtained with different assay methods or kits cannot be used interchangeably. Results cannot be interpreted as absolute evidence of the presence or absence of malignant disease. 7 Duplicate order canc elled via interface 8 CLEAR 9 Creatinine based est imated glomerular filtration (eGFR) in adults is calculated using the National Kid[employer] recommended 2020 CKD-EPI equation. Estimates GFR from serum creatinine, age and sex. 10 TEST PERFORMED USING THE XI ELECTROCHEMILLUMINESCENCE TOTAL PSA ASSAY. PSA VALUES OBTAINED WITH OTHER ASSAY METHODS OR KITS CANNOT BE USED INTERCHANGEABLY. 11 TEST PERFORMED USING THE XI ELECTROCHEMILLUMINESCENCE TOTAL PSA ASSAY. PSA VALUES OBTAINED WITH OTHER ASSAY METHODS OR KITS CANNOT BE USED INTERCHANGEABLY. Procedures Date Code Description Status 04/19/2022 37727 Collection Of Venous Blood B y Venipuncture Completed Medical Devices Description No Information Available Encounters Type Date Location Provider Dx Diagnosis Office Visit 01/17/2024 3:00p Main Office Prema Marcial M.D. 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 01/17/2024 E03.9 Hypothyroidism, unspecified Prema Marcial M.D. Plan of Treatment Future Appointment(s):* 07/18/2024 2:15 pm - Prema Marcial M.D. at Main Office 04/19/2022 - Prema Marcial M.D.* E03.9 Hypothyroidism, unspecified * E23.0 Hypogonadotropic hypogonadism Functional Status Description No Information Available Mental Status Description No Information Available Referrals Description No Information Available
== END 2024-07-16 13:55 | disposition home or self-care (01) ==
PROVIDERS: PCP Internal Medicine; Visit Provider Anesthesiology
DX: G03.9 Meningitis, unspecified (principal); M19.011 Primary osteoarthritis, right shoulder; G89.4 Chronic pain syndrome; M96.1 Postlaminectomy syndrome, not elsewhere classified; Z45.1 Encounter for adjustment and management of infusion pump
CPT/HCPCS: 62370; 99213

== ENCOUNTER → 2024-07-16 13:20 | Outpatient (BNVA) | payer MEDICARE, OTHER, SELFPAY | PROVIDERS: PCP Internal Medicine; Visit Provider Anesthesiology | DX: Z45.1 Encounter for adjustment and management of infusion pump (principal); G03.9 Meningitis, unspecified; M19.011 Primary osteoarthritis, right shoulder; G89.4 Chronic pain syndrome; M96.1 Postlaminectomy syndrome, not elsewhere classified | CPT/HCPCS: 62370; 99212 ==

== ENCOUNTER 2024-08-20 07:37 | Outpatient (AMB) | payer MEDICARE, OTHER, SELFPAY ==
--- NOTE | 2024-08-20 07:39 | MHC.OFFVIS ---
Intake Visit Reasons: 3 mo F/U Allergies penicillin G Allergy (Severe, Verified 08/20/24 07:39) Hives zolpidem [Ambien] Allergy (Intermediate, Verified 08/20/24 07:39) sleep walking Medication List - Last Reconciled 08/20/24 by LULA Larkin alprazolam 0.5 mg PO TID PRN aspirin (Adult Low Dose Aspirin) 81 mg PO DAILY flecainide 100 mg PO BID furosemide 80 mg PO DAILY hydromorphone 2 mg PO QID PRN 30 days levothyroxine 88 mcg PO DAILY lisinopril 5 mg PO DAILY metoprolol succinate ER 50 mg PO DAILY miscellaneous medical supply [employer] magnet naloxone 4 mg/actuation 4 mg intranasal Q3M PRN 1 day sildenafil 100 mg PO tamsulosin 0.4 mg PO BEDTIME testosterone 10 mg/0.5 gram /actuation 10 mg topical DAILY zaleplon 10 mg PO BEDTIME PRN 30 days HPI Comments Details: 73-yr-old male presents for follow-up telehealth appointment for insomnia. This appointment was conducted via telephone only as patient was unable to operate tele video technology today. Pt is currently recovering from RSV. Pt reports he underwent left shoulder and bicep tendon repair on 06/19/24, which he is recovering well from. Pt reports he continues to wake up every night from break through arachnoiditis back pain despite being compliant w/ his pain pump. Though, he notes that his hydromorphone dose has than decreased, which he stated was due to a miscommunication regarding his pain medication orders following his recent surgery. Pt continues to go to bed and falls asleep until about 3am, and then he takes the Sonesta 10mg and can sleep for about another 3 hours. Today, patient notes that he is not interested in revisiting Xyrem tx. 04/24/24, Initial HPI: Patient reports he has had difficulty sleeping since the when he began having pain s/s which has been attributed to arachnoiditis d/t a remote h/o myelogram following a lumbar spine injury in the . He states that he can easily fall asleep, but has difficulty maintaining sleep. He does not nap, but can doze off x's 20 minutes or so around 4pm if sitting inactive. He states he has had multiple sleep studies, last was in 4752-8521, which did not show sleep apnea. In the past, pt states his previous pain management Dr Parag Baez had diagnosed him w/ narcolepsy w/o cataplexy (pt is unsure if he ever had MSLT). He denies cataplexy. He is prone to orthostatic lightheadedness. He was has previously tried Ambien, which caused parasomnias (was cleaning his kitchen etc). Also tried on Xyrem- this put him into a deep sleep but he did not like the feeling. Tried lunesta but was not helpful. Has been using Sonesta with better effect- takes in the middle of the night after he wakes up w/ pain. He states that his insurance is no longer covering the Sonesta so he is needing to use a coupon to help cover the cost of this med. He does endorse a BUE tremor if he tries to hold his arms up w/o support or using his arms- like using his computer mouse- more so when the shoulder pain is worse. His mother and family has tremors. He does have Bilateral shoulder pain. Decreased sense of smell since his 20s- s/p a suffer exposure. STM may be worse when in pain. Denies snoring, apneas, parasomnias, leg cramps. [facility] Medical History Insomnia History of cardioversion Primary osteoarthritis, right shoulder Surgical History Hx of spinal surgery Hx of colonoscopy History of bilateral hip replacements Social History Alcohol intake: never Patient Tobacco Use Status: Former Tobacco user Physical Exam Const General: cooperative and no acute distress Orientation/consciousness: patient oriented x3 Resp Effort & Inspection: normal respiratory effort and able to speak in complete sentences Neuro General: patient oriented x3 Cognition (Neuro): normal cognition Psych Mental Status: mental status grossly normal Affect: normal affect Attitude: cooperative Telehealth Telehealth Telehealth [facility] Location of provider rendering services: practice address Location of patient: address on file Patient Identification confirmed using: Name, : Yes Telehealth method: voice only Patient verbally consented to treatment: Yes Patient verbally consented to billing insurance company: Yes Patient informed of any privacy concerns related to visit: Yes Minutes spent on Phone/Video with Pt.: 22 Assessment & Plan Assessment & Plan (1) Insomnia: Code(s): G47.00 - Insomnia, unspecified Category: Medical (2) Chronic pain syndrome: Code(s): G89.4 - Chronic pain syndrome Category: Medical Plan Pt may continue Zaleplon 10mg qhs. We can refill this when due. Pt denies parasomnias. Advised to let us know if he develops any s/s parasomnias. Note-I would not revisit Xyrem as pt's s/s do not seem c/w narcolpsy and pt is on opioid tx. Pt to follow-up in 6 months or sooner prn. Coding Level of Care Code Tele Est Pt Level 4 (66459) Diagnoses Insomnia G47.00 Chronic pain syndrome G89.4
--- OUTSIDE RECORDS SUMMARY | 2024-08-20 07:39 | XMS_ITS | Continuity of Care Document ---
Author Organization [facility] grisel [place] Office Address [address] [place] [phone] Care Team Providers Care Hides Inspector Name Role Phone TOMASA TORREZ Primary Care Provider [phone] Assessment Encounter Date Assessment Date Assessment LastModified [...] Organization Details Last Modified Time Details Appointments Establish ed 15 2024 11:00A Rodo FULLER MD Not available Not available Not available Lab None recorded. Referral None recorded. Procedures None recorded. Surgeries None recorded. Imaging None recorded. Medication Orders None recorded. Patient TargetsNo targets recorded. Patient InstructionsNo instructions [...] Localized, primary osteoarthritis of the shoulder region [id number] Active 2020 MADDIE HARRIS [address] [place] [address], [phone] , [facility] 14:29:32 Problem Notes None recorded. Procedures Surgical History Date Name Laterality Status Provider Name and Address Organization Details Recorded Time 06/19/20 24 Orthopaedic Surgery completed JASON FULLER MD [address] [place] [address], [phone] 08/19/2024 10:57:32 05/12/20 22 Other completed Vero Bote [place] - [facility] 01/20/2023 10:39:38 11/05/19 21 Orthopaedic Surgery completed Celestine Ariel [place] - [facility] 02/02/2021 12:30:59 08/12/19 21 Orthopaedic Surgery completed Liliana Kumar [place] [facility] 05/06/2021 09:11:03 08/06/19 03 Orthopaedic Surgery completed Beatrice Chávez [place] - [facility] 01/20/2020 14:31:23 08/06/19 02 Orthopaedic Surgery completed Beatrice Mayberryal [place] - [facility] 01/20/2020 14:31:32 08/06/19 00 Orthopaedic Surgery completed Beatrice Mayberryal [place] - [facility] 01/20/2020 14:31:14 08/06/18 96 Orthopaedic Surgery completed Beatrice Mayberryal [place] - [facility] 01/20/2020 14:30:55 08/06/18 76 Orthopaedic Surgery completed Beatrice Mayberryal [place] - [facility] 01/20/2020 14:30:41 08/06/18 74 Orthopaedic Surgery completed Beatrice Senechal [place] - [facility] 01/20/2020 14:30:27 Imaging Results None recorded. Procedure Notes None recorded. Medical Equipment None Reported. Allergies Allergen ID Allergen Name Allergen Category Reaction Reaction Severity Criticality Documentation Date Start Date Code Code System Note Provider Name and Address Organization Details Recorded Time 059595 Medicinal product containin g penicilli n and acting as antibacte rial agent (product) medicatio n Not available Not available Not available 01/20/2020 60812 05 SNOMED Beatrice Senechal null, [place] - [facility] 0 14:27:38 [id number] Ambien medicatio n Not available Not available Not available 01/20/2020 18346 5 RxNorm Beatrice Senechal null, [place] - [facility] 0 14:27:44 Medications Name [...] completed Not Available Not Available Not Available betamethelvis hood, augmented 0.05 % topical cream 01/30 completed [...] Take 2 mL by injectio n route. 2024 active US Guided Not Available Not Available Not Available levothyro xine 88 mcg tablet TAKE ONE TABLET BY MOUTH EVERY DAY 08/19 completed Not Available Not Available Not Available alprazola m 0.5 mg tablet TAKE [...] betametha sone valerate 0.1 % topical cream 08/19 completed Not Available Not Available Not Available [...] Not Available lisinopri l 5 mg tablet Take 1 tablet every day by oral route. 08/19 completed Not Available Not Available Not Available zaleplon 10 mg capsule TAKE ONE [...] tablet every 4 hours by oral route. 08/19 completed Not Available Not Available Not Available azithromy juan daniel 500 mg tablet [...] Available naloxone 4 mg/actuat ion nasal spray 08/19 completed Not Available Not Available Not Available [...] Updated DateTime 06/30/2024 177.8 cm Yamila Aleman [place] [facility] 06/30/2024 13:51:10 Social History Question Answer Notes LastModified by Organizat ion Details LastModified Time Tobacco Smoking Status Former Smoker quit 25 yrs ago Arlet Chisholm [facility] 07/26/2020 11:47:51 What Is Your Level Of Alcohol Consumption? Occasional Couple Drinks/week [email or web address] Information not available 07/26/2020 How Many Times Per Week Do You Consume Alcohol? 1-2 Times Per Week [email or web address] Information not available 02/28/2024 Auto Related Injury? No Information not available 01/20/2023 Do You Or Have You Ever Used E-cigarettes Or Vape? 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 5-7 Times Per Week Yoga [email or web address] Information not available 02/28/2024 Have You Had Cortisone? Yes R Shoulder 08/2019 [email or web address] Information not available 01/20/2020 Do You Or Have You Ever Used Smokeless Tobacco? Never Used Smokeless Tobacco [email or web address] Information not available 07/26/2020 How Much Tobacco Do You Smoke? No Information not available 01/20/2023 Do You Use Any Illicit Or Recreational Drugs? No Information not available 08/19/2024 How Many Years Have You Smoked Tobacco? 25 [email or web address] Information not available 02/01/2024 Work Related Injury? No Information not available 01/20/2023 Do You Or Have You Ever Used Any Other Forms Of Tobacco Or Nicotine? No Information not available 08/19/2024 Sex: Unknown Functional Status Question Answer Note LastModified by Organization D etails LastModified Time What is your exercise level? Heavy [email or web address] Information not available 02/28/2024 Mental Status None recorded. Family History Relationship Description Onset Age of this Age Resolved Age Notes LastModified by Organization Details LastModified Time Father Phlebitis [email or web address] Not available 02/01/2024 10:43:40 Unspecified Relation Phlebitis [email or web address] Not available 024 10:43:40 Medical History Condition Response HIV or AIDS N High Blood Pressure Y Irregular Heartbeat Y MRSA N Any Other Significant Medical Issues Y Weight Gain / Loss N Hearing Loss N Angina, Heart Failure or Attack N Night Sweats N Seizures / Epilepsy N Osteoarthritis / Rheumatoid arthritis / Other N Cancer N Stroke N Ulcer / Stomach Bleeding / Indigestion N Visual Loss or Glaucoma N Blood Clots / Phlebitis N Heart Problems N Depression or Anxiety Y Emphysema / Chronic Bronchitis N Reaction to General/Local Anesthesia N Hepatitis / Jaundice N Kidney / Bladder Infections N Diabetes N Bleeding Disorder N Chemical Dependency / Alcoholism N Psoriasis / Skin Rash N Thyroid Disorder Y Heart Disease N Asthma / Shortness of Breath / 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 (please specify) N Pulmonary Embolism N Immunizations Vaccine Type Date Status Note Provider Nam e and Address Organization Details Recorded Time SARS-COV-2 (COVID-19) vaccine, UNSPECIFIED 1 completed Brandi dennis [facility] 12/15/2020 12:58:30 SARS-COV-2 (COVID-19) vaccine, UNSPECIFIED 1 completed Brandi dennis [facility] 12/15/2020 12:58:41 Influenza, split virus, quadrivalent, preservative 0 completed Sadie Garcia [facility] 05/12/2020 11:01:29 COVID-19, mRNA, LNP-S, PF, 30 mcg/0.3 mL dose 1 completed Carmen Chu [facility] 12/05/2021 15:40:37 Past Encounters Encounter ID Performer Location Encounter Start Date Encounter Closed Date Diagnosis/Indication Diagnosis SNOMED-CT Code Diagnosis ICD10 Code Diagnosis Note [id number] JASON FULLER MD [place] Office [address] [place], [place] [phone] 1 06/30/2024 12:57:47 06/30/2024 14:08:06 Strain of rotator cuff of shoulder 831931723 S46.011D Health Concerns Section Related Observation LastModified by Organization Detai ls LastModified Time None Recorded Concern Status LastModified by Organization Details LastModified Time None Recorded Payers Encounter Date Sequence Insurance Name Policy Number Policy Vogel Covered Member ID Vogel Member ID Guarantor Name 06/30/2024 1 [place]ICARE [place] [employer] Marcus Maddox [id number] Marcus Maddox 06/30/2024 2 [facility] (MEDICARE SUPPLEMENT) Marcus Hector Tan [id number] Marcus Maddox Notes Date Note Type Note Provider Name and Address Organization Details Recorded Time 06/30/2024 text/html Marcus comes in to marcel Zepeda by his for his first postoperative visit [...] some hydromorphone 4 mg. JASON FULLER MD [address] [place] [address], [phone], [facility] 07/02/2024 09:18:08
--- OUTSIDE RECORDS SUMMARY | 2024-08-20 07:39 | XMS_ITS | Continuity of Care Document ---
Author Organization [facility] [address] [place] [address] Phone [phone] Care Team Providers Care Packaging Machine Operator Name Role Phone Benjamin Rosales M.D. 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 75gm E23.0 Prema Marcial M.D. 05/05/2024 Hydromorphone HCL2mg Tablets 1 tab by mouth three times daily prn 20tabs Pream Marcial M.D. 01/17/2024 Flecainide Ckfwmzp068cx Tablets Take 1 Tablet By Mouth Every 12 Hours Unknown Multivitamin Adults 50+Adlt 50+ Tablets 1 by mouth every day Unknown Vitamin [id number] Tablets ER 1 by mouth every day Unknown Aspir-Kwq82fp Tablets DR 1 by mouth every day Unknown Vitamin C936bsa (1000 Ut) Capsules 1 by mouth every day Prema Marcial M.D. Metoprolol Succinate VH643nc Tablets ER 24HR Take 1/2 Tablet By Oral Route 1 Time Daily Unknown Docusate Mkuedl835gr Capsules Take 2 Capsule By Mouth Daily as Needed For Constipation Unknown Senna8.6mg Tablets Take 2 Tablets By Mouth Daily as Needed For Constipation Unknown Tamsulosin HCL0.4mg Capsules Take 2 Capsules By Mouth Every Day AT Bedtime Duane Atkins NP Dzseufljam73ec Tablets Take 1 tablet bid Benjamin Rosales M.D. Alprazolam0.5mg Tablets Take 1 Tablet By Mouth Three Times Daily as Needed Leona Murphy N.P. Levothyroxine Kgpoek84abb Tablets Take 1 Tablet By Mouth Once Daily Benjamin Rosales M.D. Sildenafil Mbwkbte989vu Tablets Take 1 Tablet By Mouth Every Day 1 Hour Before Sexual Activity as Needed Benjamin Rosales M.D. Vbgskyjegb24ez Tablets Take 1 Tablet By Mouth Once Daily Alternating With 1/2 Tablet Daily Benjamin Rosales M.D. History Medications Wwkqknnbflou10ys/Act (2%) Gel apply 2 pumps to each leg every day 120gm E23.0 Prema Marcial M.D. 02/24/2024 - 05/05/2024 Vital Signs Date Vital Result Comment 07/18/2024 2:26pm BP Systolic 124 mmHg BP Diastolic 60 mmHg Heart Rate 73 /min Height 68 inches 5'8 Weight 254.00 lb BMI (Body Mass Index) 38.6 kg/m2 Results Test Acquired Date Facility Test [...] Ag <pending> Complete Auto Blood Count 06/26/2023 [facility] WBC 3.2 K/MM3 Low (4.0-11. [...] NRBC 0.0 K/MM3 Laboratory test finding 06/07/2023 [facility] Ferritin <pending> Laboratory test finding 06/07/2023 [facility] Vitamin B12 <pending> Methylmalonic Acid, Serum <pending> Homocysteine,Pl a sma/Serum <pending> Laboratory test finding 05/24/2023 [facility] Testosterone 323 ng/dL (280-800 ) 7 Laboratory test finding 05/24/2023 [facility] TSH With Reflex To FT4 1.02 uIU/mL (0.4-4.2 ) Complete Abc With Diff 05/24/2023 [facility] WBC 4.1 K/MM3 (4.0-11. 0) [...] ) Lymph # 0.9 K/MM3 (0.8-3.1 ) Sandoval# 0.5 K/MM3 (0.4-1.3 ) Eo # 0.1 K/MM3 (0.0-0.4 ) Baso # 0.1 K/MM3 (0.0-0.1 ) Abs. Imm Gran 0.0 K/MM3 Neut 62.3 % (44-76) Lymph 21.5 % (15-43) Monocyte 12.3 % High (4.5-10. 5) Eo 2.2 % (0-6) Baso 1.2 % (0-2) Imm Gran 0.5 % Laboratory test finding 12/21/2022 [facility] Testosterone Total (Males > 15 Yrs) <pending> Complete Auto Blood Count 12/20/2022 [facility] WBC 3.1 K/MM3 Low (4.0-11. [...] Abs. NRBC 0.0 K/MM3 Urinalysis Complete 12/20/2022 [facility] Appear/Color COLORLESS 8 SP. Varina 1.009 (1.002-1 .030) Urine PH 6.5 (5.0-8.0 [...] LPF High (0-2) Comprehensive Metabolic Panl 12/20/2022 [facility] Glucose 91 mg/dL (70-99) BUN [...] 66 ML/MIN/1.73M 2 9 Lipid Panel 12/20/2022 [facility] Cholesterol, Total 200 mg/dL High (<200) Triglyceride 110 mg/dL (<150) HDL Chol 80 mg/dL (>39) LDL Cholesterol , Calculated 98 mg/dL (0-130) Non HDL Cholesterol (Calc) 120 mg/dL (<160) Laboratory test finding 12/20/2022 [facility] PSA Screen 2.6 NG/ML (0-4) 10 Testosterone 881 ng/dL High (280-800 ) TSH With Reflex To FT4 1.92 uIU/mL (0.4-4.2 ) Laboratory test finding 10/18/2022 [facility] TSH With Reflex To FT4 <pending> Testosterone Total (Males > 15 Yrs) <pending> Complete Abc With Diff 04/19/2022 [facility] WBC 3.8 K/MM3 Low (4.0-11. [...] ) Lymph # 1.0 K/MM3 (0.8-3.1 ) Sandoval# 0.5 K/MM3 (0.4-1.3 ) Eo # 0.1 K/MM3 (0.0-0.4 ) Baso # 0.1 K/MM3 (0.0-0.1 ) Abs. Imm Gran 0.0 K/MM3 Neut 58.4 % (44-76) Lymph 25.9 % (15-43) Monocyte 12.2 % High (4.5-10. 5) Eo 1.9 % (0-6) Baso 1.3 % (0-2) Imm Gran 0.3 % Laboratory test finding 04/19/2022 [facility] PSA Screen 2.1 NG/ML (0-4) 11 TSH With Reflex To FT4 1.14 uIU/mL (0.4-4.2 ) Testosterone 557 ng/dL (280-800 ) 1 Adult male reference interval is based on a population of healthy nonobese males (BMI <30) between 19 and 39 years old. Alejandra, et.al. JCEM 2017,102;4798-0742. PMID: [id number]. 2 Please provide reque sted information and [...] account 02-21-2024 Logged by Sadie Castro Test# [id number] Testosterone 4 Adult male reference interval is based on a population of healthy nonobese males (BMI <30) between 19 and 39 years old. Alejandra, et.al. JCEM 2017,102;2875-4261. PMID: [id number]. 5 Written Authorizatio n Received. Authorization received from PREMA TERRY 02-23-2024 Logged by Halle Garcia 6 Xi ECLIA methodol ogy. According to the [employer], Serum PSA should decrease and [...] INTERCHANGEABLY. Procedures Date Code Description Status 04/19/2022 59286 Collection Of Venous Blood B y Venipuncture Completed Medical Devices Description No Information Available Encounters Type Date Location Provider Dx Diagnosis Office Visit 07/18/2024 2:15p Main Office Prema Marcial M.D. 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 07/18/2024 E03.9 Hypothyroidism, unspecified Prema Marcial M.D. Plan of Treatment Future Appointment(s):* 01/22/2025 1:00 pm - Prema Marcial M.D. at Main Office 04/19/2022 - Prema Marcial M.D.* E03.9 Hypothyroidism, unspecified * E23.0 Hypogonadotropic hypogonadism Functional Status Description No Information Available Mental Status Description No Information Available Referrals Description No Information Available
== END 2024-08-20 16:29 | disposition home or self-care (01) ==
PROVIDERS: PCP Internal Medicine; Visit Provider Nurse Practitioner Family
DX: G47.00 Insomnia, unspecified (principal); G89.4 Chronic pain syndrome
CPT/HCPCS: 98016

== ENCOUNTER 2024-09-04 13:13 | Outpatient (AMB) | payer MEDICARE, OTHER, SELFPAY ==
--- NOTE | 2024-09-04 13:15 | A.OFFVIS_ITS ---
Vital Signs 09/04/24 13:22 09/04/24 13:37 Height 5 ft 10 in 5 ft 10 in Weight 242 lb 4 oz 242 lb 4 oz BMI 34.8 34.8 BP 143/66 H 143/66 H Blood Pressure Location Rt brachial Rt brachial Position Sitting Sitting Pulse 80 80 Pulse Source Pulse Oximeter Pulse Oximeter Intake Visit Reasons: ITDD Pump Refll Intake Note: Pain today 11/13 Lead Clinical Research Coordinator Required: No Contact Acid Plant Operator Helper: Contact Acid Plant Operator Helper Present Accompanied by: Self / Same As Patient Allergies penicillin G Allergy (Severe, Verified 09/04/24 13:38) Hives zolpidem [Ambien] Allergy (Intermediate, Verified 09/04/24 13:38) sleep walking PFSH Medical History Insomnia History of cardioversion Primary osteoarthritis, right shoulder Surgical History Hx of spinal surgery Hx of colonoscopy History of bilateral hip replacements Social History Alcohol intake: never Patient Tobacco Use Status: Former Tobacco user Physical Exam Vital Signs: Last Vital Signs Pulse 80 09/04/24 13:22 BP 143/66 H 09/04/24 13:22 BMI result Body Mass Index 34.8 Assessment & Plan Assessment & Plan (1) Adhesive arachnoiditis: Code(s): 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 THE PATIENT CAME TODAY IN THE office FOR THE CHANGE OF THE MEDICATION IN her PAIN PUMP. The name and date of were verified and informed consent was obtained for the procedure. ?The pump was interrogated and the residual amount of fluid was found to be 3.8 mL. HE WAS POSITIONED supine on the bed. Ultrasound probe was placed on the left lower abdomen in the area of location of the pain pump and the silicone plug location was established by ultrasound. The location of the silicone plug was marked with permanent marker. After that THE AREA OF THE INTRATHECAL PUMP WAS PREPPED WITH CHLORAPREP. The fenestrated drape was sterilely applied over the area of the pump. Sterile gloves were worn and of the aspiration system was assembled containing 2 in 22 gauge noncoring needle, the needle was connected to extension tubing which was connected to the 20 cc sterile syringe. The pain pump was palpated under the skin in the patient's left anterior abdomen area. The ultrasound probe was applied and the central plug was detected under the skin on direct ultrasound view. The point on the skin corresponding to the area of the central plug was marked with blue surgical marker. After that the area of the pump was prepped with ChloraPrep and draped with fenestrated drape. The needle was inserted through the skin and the central plug of the pain pump and fluid was aspirated. The clear fluid was going into the syringe the total amount of the fluid was 4.4 mL .. After that a new batch? of medication was obtained which was containing Fentanyl in concentration 12,500 micro g/ml and bupivacain 15 mg per ml. The admixture was made in 20 cc syringe prepared by [facility] compounding pharmacy. The syringe was connected to the bacterial filter, and then connected to the extension tubing. After that the medication in the syringe was slowly instilled into the pump with aspirations at 15 and 5 cc ames.? The pump was reprogrammed as it was previously set for the doses of Fentanyl 2,399 mcg per day with corresponding dose of bupivacaine.? The patient was given 5 doses of PTM 425 micrograms intrathecally? every 4 hours with maximum 5 activations per 24 hour. With all activations the total dose of fentanyl is 4,485 mg in 24 hour. (2) Primary osteoarthritis, right shoulder: Code(s): M19.011 - Primary osteoarthritis, right shoulder Category: Medical (3) Chronic pain syndrome: Code(s): G89.4 - Chronic pain syndrome Category: Medical (4) Postlaminectomy syndrome: Code(s): M96.1 - Postlaminectomy syndrome, not elsewhere classified Category: Medical Plan: The patient is suspended indefinitely in our opioid program because of self admitting in his note to us that he took more medication that. Unfortunately this suspension is indefinite because last time his addiction risk went up to severe. The pump refill is as above. The patient refuses to change concentration of the medication in his intrathecal pump, he prefers to stay the same level of the same medications. STEREOPTIC PROJECTION TOPOGRAPHER Sabi anderson will take over Zaleplon prescription for the patient. Plan Coding Level of Care Code Procedure Only Diagnoses Adhesive arachnoiditis G03.9 Primary osteoarthritis, right shoulder M19.011 Chronic pain syndrome G89.4 Postlaminectomy syndrome M96.1
[2024-09-04 13:22] VITALS: BP 143/66; PULSE 80; BMI 34.8
[2024-09-04 13:37] VITALS: BP 143/66; PULSE 80; BMI 34.8
--- OUTSIDE RECORDS SUMMARY | 2024-09-04 17:04 | XMS_ITS | Clinical Summary ---
Author Organization [facility] Address [address] [address] Phone Care Team Providers Care Economic History Teacher Name Role Phone Benjamin Rosales MD Primary Care Provider [phone] Allergies Active Allergy Reactions Criticality Noted Date Comments Codeine 04/30/2023 Penicillins Hives,Other (see comments),Rash High 08/09/2018 Zolpidem Other (see comments) 08/09/2018 Other reaction(s): sleepwalk Confusion ,sleep walk Sleep walks Medications ALPRAZolam (XANAX) 0.5 MG tablet Take 0.5 mg by mouth 3 (three) times a day if needed Active fentaNYL (DURAGESIC) 12 MCG/HR fentanyl (PF)-bupivacai ne-NaCl Active flecainide (TAMBOCOR) 100 MG tablet Take 100 mg by mouth every 12 (twelve) hours Active furosemide (LASIX) 80 MG tablet Take 80 mg by mouth 1 (one) time each day Active levothyroxine (SYNTHROID, LEVOTHROID) 88 MCG tablet Take 88 mcg by mouth 1 (one) time each day Active lisinopril 10 MG tablet Take 10 mg by mouth 1 (one) time each day Active metoprolol succinate XL (TOPROL-XL) 100 MG 24 hr tablet Take 50 mg by mouth 1 (one) time each day Active sildenafil (VIAGRA) 100 MG tablet Take 100 mg by mouth 1 (one) time each day if needed 1 prior to sexual activity Active tamsulosin (FLOMAX) 0.4 MG 24 hr capsule Take 0.4 mg by mouth 1 (one) time each day Active zaleplon (SONATA) 10 MG capsule Take 10 mg by mouth in the morning. Active HYDROmorphone (DILAUDID) 2 MG tablet Take 2 mg by mouth in the morning and 2 mg at noon and 2 mg in the evening and 2 mg before bedtime. Active doxycycline (VIBRA-TABS) 100 MG tablet TAKE ONE TABLET BY MOUTH EVERY 12 HOURS FOR 10 DAYS Active Naloxone HCl 4 MG/0.1ML liquid INSTILL ONE SPRAY INTO ONE NOSTRIL EVERY 3 MINUTES NEEDED FOR OPIOID OVERDOSE. 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 Drug-induced constipation 05/31/20232022 Drug-induced gynecomastia 05/31/20232022 Ex-smoker 05/31/2023 05/31/2023 H/O: artificial joint 05/31/2023 05/31/2023 H/O Spinal surgery 05/31/2023 History of excision of derick a of lumbar vertebra for decompression of spinal cord 05/31/2023 05/31/2023 Overview (05/31/2023): twice, ages 20 and 21 at L4-5 and L5-S1 Hypokalemia 05/31/2023 05/31/2023 Insomnia 05/31/2023 05/31/2023 Obesity 05/31/2023 05/31/2023 Post-laminectomy syndrome 05/31/20232022 Radicular syndrome of lower limbs 05/31/2023 05/31/2023 Acute nontraumatic kidney injury 05/01/2023 Hypertension 05/01/2023 Anxiety 04/19/2022 05/31/2023 Atrial fibrillation 04/19/2022 05/31/2023 Osteonecrosis of hip 04/19/2022 Benign prostatic hyperplasia 04/19/2022 Bilateral lower leg edema 04/19/20222022 Degeneration of lumbar intervertebral disc 04/1905/31/2023 Disorder of rotator cuff 04/19/2022 023 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 Primary hypothyroidism 04/19/2022 3 COVID-19 12/24/2021 05/31/2023 Overview (05/31/2023): Problem added by Discern Expert Localized, primary osteoarthritis of the shoulde r region 09/22/2020 05/31/2023 Arrhythmia 11/01/2018 05/31/2023 Overview (05/31/2023): Atrial fibrillation s/p ablation Pain 08/13/2018 05/31/2023 Adhesive arachnoiditis 03/14/2018 3 Immunizations Name Administration Dates Next Due Influenza, Quadrivalent, With Preservative 05/11 Pfizer SARS-COV-2 07/24/2021,10/31/2020,10/12/19 21 SARS-CoV-2, Unspecified 10/31/2020,10/11/2020 Social History Tobacco Use Types Packs/Day Years Used Date Smoking Tobacco: Never Smokeless Tobacco: Never Tobacco Cessation:Counseling Given: Not Answered Alcohol Use Standard Drinks/Week Comments Never 0 (1 standard drink = 0.6 oz pur e alcohol) Sex and Gender Information Value Date Recorded Sex Assigned at Not on file Legal Sex Male 8:28 AM EDT Gender Identity Not on file Sexual Orientation Not on file Last Filed Vital Signs Vital Sign Reading Time Taken Comments Blood Pressure 125/71 05/21/2024 2:26 PM EDT Pulse 66 05/21/2024 2:26 PM EDT Temperature - - Respiratory Rate - - Oxygen Saturation 94% 05/01/2023 2:42 PM EDT Inhaled Oxygen Concentration - - Weight 116 kg (256 lb) 05/21/2024 2:26 PM EDT Height 177.8 cm (5' 10 ) 05/01/2023 2:42 PM EDT Body Mass Index 36.73 05/01/2023 2:42 PM EDT Plan of Treatment Upcoming Encounters Date Type Department Care Team (Late st Contact Info) Description 06/15/2025 1:00 PM EST Office Visit [facility] [address] [facility] [address] [place] [address] Simon Carranza MD [address] [facility] [address] [place] [id number] Health Maintenance Due Date Last Done Comments Pneumococcal Vaccine: 65+ Ye ars (1 of 2 - PCV) 1956 Colorectal Cancer Screening: Annual FOBT 2001 Colorectal Cancer Screening: Colonoscopy 2001 Colorectal Cancer Screening: Sigmoidoscopy 2001 Influenza Vaccine (#1) 2024 05/11/2020 Hepatitis B Vaccine Aged Out No longe r eligible based on patient's age to complete this topic Insurance [facility] MEDICARE MEDICARE [facility] Care Teams Economic History Teacher Relationship Specialty Start Date End Date Benjamin Rosales MD [address] [place] [address] PCP - General Internal Medicine 05/11/22
--- OUTSIDE RECORDS SUMMARY | 2024-09-04 17:04 | XMS_ITS | Data Portability ---
Author Organization 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 [email or web address] Not available 06/30/2024 14:06:34 08/19/2024 08/19/2024 TREATMENT GIVEN: I confirmed that the patient [...] of alcohol and Betadine prep on the right shoulder and ethyl chloride spray on the skin, I applied sterile ultrasound gel and utilized the [facility] to ensure accurate needle placement. Topical [...] patient's questions were answered. [email or web address] Not available 08/19/2024 14:10:03 08/19/2024 08/19/2024 Marcus is making good progress in regards to his left shoulder which was surgically repaired 2 and half months ago. He is continue to work on range of motion and strengthening. My experience is the biceps pain will resolve with time. I did give him some guidance on that. In regards to his right shoulder he would not want anything done for several months so we will give him a cortisone injection today to see if we can settle that down. He will follow-up with me in 3 months time in regards to his left shoulder. [email or web address] Not available 08/19/2024 11:15:19 Plan of Treatment Reminders Order Date Submit Date Provider Last Modified By Organization Details Last Modified Time Details Appointments Establish ed 15 2024 11:00A Rodo FULLER MD Not available Not available Not available Lab None recorded. Referral None recorded. Procedures None recorded. Surgeries orthopaed ic surgery (SURG) 2023 024 [email or web address] [facility] (Surgery Scheduling), [address], [place], [address], 05/22/2024 14:55:01 Imaging MRI, shoulder, w/o contrast - paspls call to schedule, thank you DX: r/o rct, shoulder pain(erin ent has drug infusion system pump/left side) 2023 024 HAM [facility] ([facility]), [address], [place], [address], 03/13/2024 12:49:43 MRI, shoulder, w/o contrast - paspls call to schedule, thank you DX:r/o rct, shoulder pain(erin ent has drug infusion system pump/left side) 2023 024 [email or web address] [facility] ([facility]), [address] [place], [address], 03/06/2024 08:28:20 Medication Orders Kenalog 40 mg/mL suspensio n for injection 2024 025 [place] [address] [id number], [address] [place], [address], 08/19/2024 15:43:08 Patient TargetsNo targets recorded. Patient InstructionsNo instructions recorded. Reason for Referral None Reported. Results Created Date Observation Date Name Description Value Unit Range Abnormal Flag Note LastModifiedBy Organization Detail LastModifiedTime 06/19/2006/19/2024 CBC AND DIFFE JAHAIRATI AL WBC 4.06 K/uL 4.00-1 1.00 Not Available [facility] [address] [place], [address], 06/19/2024 08:07:31 06/19/20 24 06/19/2024 CBC AND DIFFE JAHAIRATI AL RBC 3.45 M/uL 4.20-5 .80 low Not Available [facility] [address] [place], [address], 06/19/2024 08:07:31 06/19/20 24 06/19/2024 CBC AND DIFFGuru CAMPOTI AL hemoglobin 13.0 g/dL 14.0-1 7.0 low Not Available [facility] Lab [address] [place], [address], 06/19/2024 08:07:31 06/19/20 24 06/19/2024 CBC AND DIFFE RENTI AL hematocrit 38.8 % 42.0-5 1.0 low Not Available [facility] [address], [place], [address], 06/19/2024 08:07:31 06/19/20 24 06/19/2024 CBC AND DIFFE RENTI AL MCH 37.7 pg 27.0-3 4.0 high Not Available [facility] [address], [place], [address], 06/19/2024 08:07:31 06/19/20 24 06/19/2024 CBC AND DIFFE RENTI AL MCHC 33.5 g/dL 31.0-3 6.0 Not Available [facility] [address], [place], [address], 06/19/2024 08:07:31 06/19/20 24 06/19/2024 CBC AND DIFFE RENTI AL MCV 113 fL 80-98 high Not Available [facility] - Lab [address], [place], [address], 06/19/2024 08:07:31 06/19/20 24 06/19/2024 CBC AND DIFFE RENTI AL RDW 11.2 % 11.5-1 4.5 low Not Available [facility] [address], [place], [address], 06/19/2024 08:07:31 06/19/20 24 06/19/2024 CBC AND DIFFE RENTI AL RDW-SD 46.4 fL 35.1-4 6.3 high Not Available [facility] [address], [place], [address], 06/19/2024 08:07:31 06/19/20 24 06/19/2024 CBC AND DIFFE RENTI AL platelet count 155 K/uL 150-40 0 Not Available [facility] [address], [place], [address], 06/19/2024 08:07:31 06/19/20 24 06/19/2024 CBC AND DIFFE RENTI AL mean platelet volume 9.6 fL 9.4-12 .4 Not Available [facility] [address], [place], [address], 06/19/2024 08:07:31 06/19/20 24 06/19/2024 CBC AND DIFFE RENTI AL polys 48.7 % 50.0-7 0.0 low Not Available [facility] [address], [place], [address], 06/19/2024 08:07:31 06/19/20 24 06/19/2024 CBC AND DIFFE RENTI AL lymphocyte 33.7 % 18.0-4 2.0 Not Available [facility] [address], [place], [address], 06/19/2024 08:07:31 06/19/20 24 06/19/2024 CBC AND DIFFE RENTI AL monocyte 12.8 % 2.0-11 .0 high Not Available [facility] [address], [place], [address], 06/19/2024 08:07:31 06/19/20 24 06/19/2024 CBC AND DIFFE RENTI AL eosinophil 3.4 % 0.0-5. 0 Not Available [facility] [address], [place], [address], 06/19/2024 08:07:31 06/19/20 24 06/19/2024 CBC AND DIFFE RENTI AL basophil 1.2 % 0.0-2. 0 Not Available [facility] [address], [place], [address], 06/19/2024 08:07:31 06/19/20 24 06/19/2024 CBC AND DIFFE RENTI AL immature granulocytes 0.2 % Not Available [facility] [address], [place], [address], 06/19/2024 08:07:31 06/19/20 24 06/19/2024 CBC AND DIFFE RENTI AL absolute gran CT 1.97 K/uL 1.60-6 .10 Not Available [facility] [address], [place], [address], 06/19/2024 08:07:31 06/19/20 24 06/19/2024 CBC AND DIFFE RENTI AL absolute immature gran CT 0.01 K/uL 0.00-0 .09 Not Available [facility] [address], [place], [address], 06/19/2024 08:07:31 06/19/20 24 06/19/2024 CBC AND DIFFE RENTI AL absolute lymph CT 1.37 K/uL 1.20-3 .70 Not Available [facility] [address], [place], [address], 06/19/2024 08:07:31 06/19/20 24 06/19/2024 CBC AND DIFFE RENTI AL absolute mono CT 0.52 K/uL 0.20-0 .80 Not Available [facility] [address], [place], [address], 06/19/2024 08:07:31 06/19/20 24 06/19/2024 CBC AND DIFFE RENTI AL absolute eos CT 0.14 K/uL 0.04-0 .54 Not Available [facility] [address], [place], [address], 06/19/2024 08:07:31 06/19/20 24 06/19/2024 CBC AND DIFFE RENTI AL absolute baso CT 0.05 K/uL 0.01-0 .08 Not Available [facility] [address] [facility], [place], [address], 06/19/2024 08:07:31 06/19/20 24 06/19/2024 POTAS SIUM potassium 5.6 mmol/ L 3.5-5. 3 high Not Available [facility] [address], [place], [address], 06/19/2024 09:12:12 06/19/20 24 06/19/2024 POTAS SIUM potassium 4.4 mmol/ L 3.5-5. 3 Not Available [facility] [address], [place], [address], 06/19/2024 10:56:49 03/13/20 24 03/13/2024 MRI, ravi aguilar, w/o contr ast [facility] [place] [facility] Access ion Number : [id number] Patizay t Name: Marcus Maddox sarika Record Number : [id number] Date of : 1950 Date of Exam: 2023 Referr ing Physic mouna: Singh Santana [facility] Should er [address] [facility], [address] [place] [address] Exam: MR Should er (C-) CPT 76919 - Right Room Descri ption: Bennett Siem Verio 3.0T MR Should er (C-) CPT 53860 CLINIC AL INDICA TION: Reason For Exam: [...] and concur with the reside nt, Mis salazar's , findin gs. Electr onical ly Signed By: Ally Soto MD [email or web address] [facility] ([facility]) [address], [place], [address], 03/13/2024 13:23:35 03/13/20 24 03/13/2024 MRI, ravi lauren, w/o contr ast [facility] Access ion Number : [id number] Patien t Name: Marcus Maddox Record Number : [id number] Date of : 1950 Date of Exam: 2023 Referr ing Physic mouna: Singh Santana Regina Should er [address] [facility], [address] [place] [address] Exam: MR Should er (C-) CPT 90785 - Left Room Descri ption: [facility] Verio 3.0T MR Should er (C-) CPT 53747 CLINIC AL INDICA TION: Reason For Exam: [...] ly Signed By: Ally Soto MD [email or web address] [facility] ([facility]) [address] [place], [address], 03/13/2024 13:23:34 06/12/20 24 pre opera tive order s* No observ ation record ed. ATHENAFAX Not Available 2023 14:26:09 Result Notes None recorded. Problems Name Problem SNOMED Code Status Onset Date Resolution Date Notes Provider Name and Address Organization Details Recorded Time Localized, primary osteoarthritis of the shoulder region 185838882 Active 2020 MADDIE HARRIS [address] [place] [address], [phone] , [facility] 14:29:32 Problem Notes None recorded. Procedures Surgical History Date Name Laterality Status Provider Name and Address Organization Details Recorded Time 06/19/20 24 Orthopaedic Surgery completed SINGH FULLER MD [address] [place] [address], [phone], [facility] 08/19/2024 10:57:32 05/12/20 22 Other completed Vero Bote [place] [facility] 01/20/2023 10:39:38 11/05/19 21 Orthopaedic Surgery completed Celestine George [place] - [facility] 02/02/2021 12:30:59 08/12/19 21 Orthopaedic Surgery completed Liliana Kumar [place] [facility] 05/06/2021 09:11:03 08/06/19 03 Orthopaedic Surgery completed Beatrice Senechal [place] - [facility] 01/20/2020 14:31:23 08/06/19 02 Orthopaedic Surgery completed Beatrice Senechal [place] - [facility] 01/20/2020 14:31:32 08/06/19 00 Orthopaedic Surgery completed Beatrice Senechal [place] [facility] 01/20/2020 14:31:14 08/06/18 96 Orthopaedic Surgery completed Beatrice Senechal [place] [facility] 01/20/2020 14:30:55 08/06/18 76 Orthopaedic Surgery completed Beatrice Senechal [place] - [facility] 01/20/2020 14:30:41 08/06/18 74 Orthopaedic Surgery completed Beatrice Senechal [place] - [facility] 01/20/2020 14:30:27 Imaging Results Imaging Date Name Status LastModified by [facility]iz [facility] Details LastModified Time 03/13/2024 MRI, shoulder, w/o contrast completed [address] [facility] ([facility]) [address], [place], [address], 03/13/2024 13:23:35 03/13/2024 MRI, shoulder, w/o contrast completed [address] [facility] ([facility]) [address], [place], [address], 03/13/2024 13:23:34 06/12/2024 pre operative orders* completed ATHENAFAX Information not available 06/12/2024 14:26:09 Procedure Notes None recorded. Medical Equipment None Reported. Allergies Allergen ID Allergen Name Allergen Category Reaction Reaction Severity Criticality Documentation Date Start Date Code Code System Note Provider Name and Address Organization Details Recorded Time 656511 Product containin g penicilli n and antibioti c (product) medicatio n Not available Not available Not available 01/20/2020 95765 05 SNOMED Beatrice Senechal [facility], [facility] 0 14:27:38 022107 Ambien medicatio n Not available Not available Not available 01/20/2020 11194 5 RxNorm Beatrice Senechal [place], [place] - [facility] 0 14:27:44 Medications Name [...] d Address Organization Details Last Updated DateTime 02/28/2024 177.8 cm Miriam Morel [facility] 02/28/2024 11:27:52 Date Recorded Body mass index (BMI) Body weight Provider Name and Address Organization Details Last Updated DateTime 02/28/2024 36.6 kg/m2 275979.05 g Miriam Morel [facility] 02/28/2024 11:27:56 Date Recorded Body height Provider Name an d Address Organization Details Last Updated DateTime 04/10/2024 177.8 cm Liu Zaidi [facility] 04/10/2024 15:56:53 Date Recorded Body height Provider Name an d Address Organization Details Last Updated DateTime 06/30/2024 177.8 cm Yamila Love [facility] 06/30/2024 13:51:10 Date Recorded Body height Provider Name an d Address Organization Details Last Updated DateTime 08/19/2024 177.8 cm SINGH FULLER MD [address] [place] [address], [id number] [place] [address] [facility] 08/19/2024 10:55:45 Date Recorded Body mass index (BMI) Body weight Provider Name and Address Organization Details Last Updated DateTime 08/19/2024 36.6 kg/m2 663994.05 g SINGH FULLER MD [address] [place] [address], [phone] [place] [address] [facility] 08/19/2024 10:55:50 Social History Question Answer Notes LastModified by Organizat ion Details LastModified Time Tobacco Smoking Status Former Smoker quit 25 yrs ago Arlet Chisholm [facility] 07/26/2020 11:47:51 What Is Your Level Of Alcohol Consumption? Occasional Couple Drinks/week [email or web address] Information not available 07/26/2020 How Many Times Per Week Do You Consume Alcohol? 1-2 Times Per Week Information not available 02/28/2024 Auto Related Injury? No Information not available 01/20/2023 Do You Or Have You Ever Used E-cigarettes Or Vape? 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 5-7 Times Per Week Yoga [email or web address] Information not available 02/28/2024 Have You Had Cortisone? Yes R Shoulder 08/2019 [email or web address] Information not available 01/20/2020 Do You Or Have You Ever Used Smokeless Tobacco? Never Used Smokeless Tobacco [email or web address] Information not available 07/26/2020 How Much Tobacco [...] Heart Problems N HIV or AIDS N Depression or Anxiety Y High Blood Pressure Y Irregular Heartbeat Y MRSA N Emphysema / Chronic Bronchitis N Any Other Significant Medical Issues Y Reaction to General/Local Anesthesia N Weight Gain [...] Indigestion N Visual Loss or Glaucoma N Psoriasis / Skin Rash N Thyroid Disorder Y Heart Disease N Asthma / Shortness of Breath / Sleep Program Director Substance Abuse ea (please specify) N Pulmonary Embolism N Immunizations Vaccine Type Date Status Note Provider Nam e and Address Organization Details Recorded Time SARS-COV-2 (COVID-19) vaccine, UNSPECIFIED 1 completed Brandi dennis, [facility] 12/15/2020 12:58:30 SARS-COV-2 (COVID-19) vaccine, UNSPECIFIED 1 completed Brandi dennis, [facility] 12/15/2020 12:58:41 Influenza, split virus, quadrivalent, preservative 0 [facility] 05/12/2020 11:01:29 COVID-19, mRNA, LNP-S, PF, 30 mcg/0.3 mL dose 1 completed Carmen Chu [facility] 12/05/2021 15:40:37 Past Encounters Encounter ID Performer Location Encounter Start Date Encounter Closed Date Diagnosis/Indication Diagnosis SNOMED-CT Code Diagnosis ICD10 Code Diagnosis Note [id number] MADDIE HARRIS [facility] [address] [place] [address] 01/20/2020 13:54:59 01/21/2020 14:46:51 Shoulder pain 39987528 M25.511 [id number] WILMA PELAYO MD [facility] [address] [place] [address] 1 05/12/2020 10:23:36 05/12/2020 13:55:44 Shoulder pain 45049405 M25.511 [id number] MADDIE FARR [facility] [address] [address] 06/24/2020 09:40:09 06/24/2020 11:47:04 Impingement syndrome of right shoulder region 6068602577 22025 M75.41 [id number] WILMA RODRIGUEZ MD [facility] [address] [place] [id number] 07/26/2020 11:08:15 07/26/2020 13:07:34 Prosthetic joint mechanical failure 795200925 T84.091A T84.090A [id number] MADDIE BURGOS [facility] [address] [place] [address] 09/22/2020 11:10:12 09/23/2020 10:05:35 Mechanical complication of internal joint prosthesis 126986854 T84.091D The patient is doing well s/p CORY revision. We discussed reasonable activity at this point in recovery. He should continue with the home PT course. He plans to defer outpatient PT at this time until after his R CORY revision on 11/04. I agree with this plan. The patient understand s to wait 90 days from the day of surgery before having dental work and was reminded of antibiotic prophylaxi s prior to dental procedures . He has requested a right shoulder cortisone injection today as his last injection in mid June was quite successful . I will have him set up with my colleague Yoshi Hernadez PA-C today. He agrees to call the office with any new developmen ts, questions or concerns. COVID statement: This visit is a face to face visit during the COVID-19 pandemic. Based on my clinical judgement, I felt that this visit could not be provided safely and appropriat tate via telehealth . Based on available informatio n prior to presentati on, the patient had a high risk of significan t worsening and potential functional impairment affecting ADL? s if the visit was not completed today. The patient was seen in the office after following PPE use, Workforce Safety, Patient Safety and Infection Control protocols for all services provided today in accordance with [facility] and CDC guidelines . [id number] MADDIE HARRIS [facility] [address] [place] [address] 09/22/2020 13:25:10 09/22/2020 16:01:15 Localized, primary osteoarthritis of the shoulder region 165844209 M19.011 [id number] WILMA RODRIGUEZ MD [facility] [address] [address] 12/15/2020 12:17:37 12/15/2020 13:40:34 Mechanical complication of internal joint prosthesis 655137735 T84.091A T84.090D Outpatient [place] [id number] MADDIE SMITH [facility] [address] [facility],[address] [address] 12/16/2020 09:25:16 12/17/2020 10:58:55 Localized, primary osteoarthritis of the shoulder region 636079868 M19.011 [id number] WILMA RODRIGUEZ MD [facility] [address] [facility] [address] [place] [address] 02/09/2021 13:39:00 02/09/2021 16:41:37 Prosthetic joint mechanical failure 439276602 T84.091A T84.090A [id number] MADDIE BURGOS [facility] [address] [place] [address] 05/11/2021 11:13:59 05/11/2021 15:11:03 Mechanical complication of internal joint prosthesis 363288397 T84.090D T84.091D We discussed Marcus's history, exam findings and radiograph s at length today. In general Marcus is doing quite well after bilateral acetabular revisions. I expect his right hip to continue to improve in regards to pain and strengthen ing. However, we did discuss some limitation s given this was revision surgery. It seems his symptoms are related to abductor tendinopat hy. We discussed treatment options including a GT bursa injection. He has elected to continue with conservati ve treatment including regular stretching and strengthen ing. He may call the office to schedule an injection if he so chooses. Otherwise he will f/u somewhere around 1 year after his right hip surgery in November of 2021. He knows to reach the office with any further problems, questions or concerns. COVID statement: This visit is a face to face visit during the COVID-19 pandemic. Based on my clinical judgement, I felt that this visit could not be provided safely and appropriat tate via telehealth . Based on available informatio n prior to presentati on, the patient had a high risk of significan t worsening and potential functional impairment affecting ADL? s if the visit was not completed today. The patient was seen in the office after following PPE use, Workforce Safety, Patient Safety and Infection Control protocols for all services provided today in accordance with [facility] and CDC guidelines . [id number] WILMA RODRIGUEZ MD [facility] [address] [place] [id number] 12/05/2021 14:43:53 12/05/2021 16:03:15 Mechanical complication of internal joint prosthesis 149741915 T84.091A T84.090D Outpatient PT [id number] MADDIE SMITH [facility] [address] [place] [id number] 01/20/2023 09:28:03 01/22/2023 09:23:37 Bursitis of left shoulder 8092428443 30071 M75.52 Shoulder pain 17761016 M 25.839 [id number] MADDIE SMITH [facility] [address] [place] [address] 02/23/2023 13:24:28 02/23/2023 14:41:26 Bursitis of right shoulder 0803829749 04725 M75.51 Partial th ickness rotator cuff tear 197181841 M75.965 [id number] MADDIE FARR [facility] [address] [place] [address] 07/20/2023 09:14:49 07/20/2023 13:47:46 Bilateral shoulder joint pain 6675987089 2360276 M25.511 M25.475 [id number] MADDIE FARR [facility] [address] [place] [address] 10/26/2023 10:03:14 10/26/2023 15:05:30 Strain of rotator cuff of shoulder 405643758 S46.011D Bilateral impingement syndrome of shoulders 0062019473 8914600 M75.41 M75.42 Bilateral shoulder joint pain 2797284672 1161792 M25.511 M25.736 [id number] MADDIE FARR [facility] [address] [place] [address] 1 02/01/2024 10:32:25 02/01/2024 12:42:45 Pain of right shoulder joint 3780819283 0833040 M25.511 Pain of le ft shoulder region 7158181547 M25.355 [id number] SINGH FULLER MD [facility] [address] [employer] [address] [place] [address] 02/28/2024 11:17:20 02/28/2024 12:05:58 Shoulder pain 99988698 M25.512 M25.707 [id number] SINGH FULLER MD [facility] [address] [employer] [address] [place] [address] 04/10/2024 15:52:50 04/15/2024 09:45:32 Shoulder pain 56627869 M25.512 M25.727 [id number] SINGH FULLER MD [facility] [address] [place] [id number] 06/30/2024 12:57:47 06/30/2024 14:08:06 Strain of rotator cuff of shoulder 251203478 S46.011D [id number] SINGH FULLER MD [facility] [address] [place] [address] 08/19/2024 10:41:25 08/19/2024 11:36:04 Strain of rotator cuff of shoulder 268334683 S46.011D [id number] MADDIE FARR [facility] [address] [place] [id number] 1 08/19/2024 12:39:37 08/19/2024 15:36:54 Pain of right shoulder joint 0530007009 2964695 M25.511 Health Concerns Section Related Observation LastModified by Organization Detai ls LastModified Time None Recorded Concern Status LastModified by Organization Details LastModified Time None Recorded Advance Directives Directive None Recorded Payers Encounter Date Sequence Insurance Name Policy Number Policy Vogel Covered Member ID Vogel Member ID Guarantor Name 02/28/2024 1 [place] [employer] Marcus Maddox [id number] Marcus Maddox 02/28/2024 2 [facility] (MEDICARE SUPPLEMENT) Marcus Maddox [id number] Marcus Maddox 04/10/2024 1 [place] [employer] [place] Marcus Maddox [id number] Marcus Maddox 04/10/2024 2 [facility] (MEDICARE SUPPLEMENT) Marcus Maddox [id number] Marcus Maddox 06/30/2024 1 [place] [employer] [place] Marcus Maddox [id number] Marcus Maddox 06/30/2024 2 [facility] (MEDICARE SUPPLEMENT) Marcus Young Tan [id number] Marcus Hendricksono 08/19/2024 1 [place] [employer] [employer] Marcus Maddox [id number] Marcus Maddox 08/19/2024 2 [facility] (MEDICARE SUPPLEMENT) Marcus Young Tan [id number] Marcus Maddox 08/19/2024 1 [place] Marcus Maddox [id number] 6 Marcus Maddox 08/19/2024 2 [facility] HOSPITAL (MEDICARE SUPPLEMENT) Marcus Maddxo [id number] Marcus Maddox Notes Date Note Type Note Provider Name and Address Organization Details Recorded Time 02/28/2024 text/html Marcus is a well-known patient [...] today to discuss possible surgical intervention. SINGH FULLER MD [address] [place] [address], [id number] 02/29/2024 12:27:43 04/10/2024 text/html This visit was conducted as a real time interactive {{audio audio/visua l*}} telehealth visit conducted via {{[employer]* [employer] Yetime Phone Call}} The patient was identified by name and date of and consented to this telehealth visit. The patient was at their home in [place] and I was at my {{[place] office [place] office* [place] [facility] in [place]}}. Participants of the telehealth visit included myself and the patient {{family partner fr iend}}. The patient was last seen [...] his left shoulder which was obtained at [place] on March 13, 2021 shows rotator cuff [...] we can get our schedules coordinated. SINGH FULLER MD [address] [place] [address], [phone], [facility] 04/15/2024 14:27:58 06/30/2024 text/html [...] over to some hydromorphone 4 mg. SINGH FULLER MD [address] [place] [address], [id number], [facility] 07/02/2024 09:18:08 08/19/2024 text/html Marcus comes in to day for his second postoperative visit status post his left shoulder scopic rotator cuff repair subacromial decompression biceps tenotomy 06/19/2024. Overall he is doing well but he did has noticed that when he pushes off the chair or when he uses his arm for supination he has a jolt of pain. He does seem to be becoming less frequent. The pain is in the area of his biceps tendon. His shoulder itself is doing very well and he is pleased with it. His right shoulder which has a small full-thickness rotator cuff tear is bothering him and he would like to consider an injection. SINGH FULLER MD [address] [place] [address], [id number], [facility] 08/20/2024 12:08:00
--- OUTSIDE RECORDS SUMMARY | 2024-09-04 17:04 | XMS_ITS ---
Author Organization [facility] Address [address] [facility] [address] [place] [address] Care Team Providers Care Copywriting Intern Name Role Phone Benjamin Rosales Primary Care Provider ASHLEIGH Kay Unavailable [phone] Allergies Allergen (clinical drug ingredient) Drug/Non Drug Allergy documented on EMR Reaction Allergy Type Onset Date Status codeine Codeine rash Drug Allergy Active Substance with penicillin structure and antibacterial mechanism of action (substance) Penicillins Unknown Drug Allergy Active Reason For Referral Reason Patient with chronic lower extremity edema and venous stasis changes. Has not had vascular work up. ? venous insufficiency and how severe. Patient already using elevation and compression Diagnosis 1 Bilateral lower extr emity edema (R60.0) Diagnosis 2 Venous stasis (I87.8 ) Referral Organization [facility] Referring Provider First Name ASHLEIGH Referring Provider Last Name YOSSI Referring Provider Speciality Podiatry Referred Provider Specialty Vascular and Interventional Radiology Referral Priority Routine REASON FOR VISIT PCP referral for pain right great toe Medications Medication SIG (Take, Route, Frequency, Duration) Notes Start Date End Date Status ALPRAZolam 0.5 MG 1 tablet Orally Twic e a day Active Aspirin 81 81 MG 1 tablet Orally Once a day Active Betamethasone Valerate 0.1 % 1 application Externally Once a day Not-Taking fentaNYL Active Flecainide Acetate 100 MG 0.5 tablet Ora lly every 12 hrs Active Lisinopril 10 MG 1 tablet Orally Once a day Active Metoprolol Succinate ER 100 MG 1 tablet Orally Once a day Active Multivitamin - 1 tablet Orally Once a day Active Sildenafil Citrate 100 MG 1 tablet as ne eded Orally Once a day Active Levothyroxine Sodium 88 MCG 1 tablet in the morning on an empty stomach Orally Once a day Active Tamsulosin HCl 0.4 MG 1 capsule Orally O nce a day Active Testim 50 MG/5GM (1%) 1 each to skin in the morning to shoulder, upper arms or abdomen Transdermal Once a day Active Vital Signs Weight 243.8 lbs 08/27/2024 Height 5ft 8.5in in 08/27/2024 BMI 36.53 kg/m2 08/27/2024 Encounters Encounter Location Date Provider Diagnosis [facility] [address] [facility] [address] [place] [address] 08/27/2024 ASHLEIGH YOSSI Pain around toenail, right foot M79.674 ; Acquired deformity of nail plate L60.8 ; Bilateral lower extremity edema R60.0 and Venous stasis I87.8 Assessments Encounter Date Diagnosis (ICD Code) Assessment Notes Treatment Notes Treatment Clinical Notes Section Notes 08/27/2024 Pain around toenail, right foot (ICD-10 - M79.674) This is an outpatient visit for evaluation and management of a new patient, which required appropriate review of pertinent medical history, review of any previous imaging, review of all previous records, and examination and decision-making. Time was 45 minutes spent in review of all these facets including face to face discussion with the patient regarding my findings and in discussion of a current and future treatment plan. Patient has chronic changes to his toenails on both feet. This is likely a result of his lower extremity weakness from his adhesive arachnoiditis and his chronic lower extremity edema, which looks more venous in nature. His arterial pulses are dopplerable. I discussed the option of a partial, full, and pemanent avulsion of the right great toenail. I discussed the risks of the procedure and the benefits along with the recoveries. I stressed that the chemical matrixectomy that is used to permanently remove the nail border will create a burn to the skin and nail matrix causing increased pain, swelling, drainage, and possibly blistering. This can take up to 4 weeks to heal over. There is also risk of the nail growing back despite chemical application. He understood. This is something that can be scheduled for him in the future. 08/27/2024 Acquired deformity of nail plate (ICD-10 - L60.8) 08/27/2024 Bilateral lower extremity edema (ICD-10 - R60.0) Patient has significant lower extremity edema with skin changes and varicosities. He has not had any evaluation with vascular. This does look venous in nature. He has been using compression and elevation with some improvement. I have placed a referral for a venous reflux study and consult with vein specialist to further evaluate. He is at risk of skin ulceration with uncontrolled edema as he already has significant skin changes. He was agreeable to this referral today. 08/27/2024 Venous stasis (ICD-10 - I87.8) Plan Of Treatment Treatment Notes Assessment Notes Pain around toenail, right foot This is an outpatient visit for evaluation and management of a new patient, which required appropriate review of pertinent medical history, review of any previous imaging, review of all previous records, and examination and decision-making. Time was 45 minutes spent in review of all these facets including face to face discussion with the patient regarding my findings and in discussion of a current and future treatment plan. Patient has chronic changes to his toenails on both feet. This is likely a result of his lower extremity weakness from his adhesive arachnoiditis and his chronic lower extremity edema, which looks more venous in nature. His arterial pulses are dopplerable. I discussed the option of a partial, full, and pemanent avulsion of the right great toenail. I discussed the risks of the procedure and the benefits along with the recoveries. I stressed that the chemical matrixectomy that is used to permanently remove the nail border will create a burn to the skin and nail matrix causing increased pain, swelling, drainage, and possibly blistering. This can take up to 4 weeks to heal over. There is also risk of the nail growing back despite chemical application. He understood. This is something that can be scheduled for him in the future. Bilateral lower extremity edema Patient has significant lower extremity edema with skin changes and varicosities. He has not had any evaluation with vascular. This does look venous in nature. He has been using compression and elevation with some improvement. I have placed a referral for a venous reflux study and consult with vein specialist to further evaluate. He is at risk of skin ulceration with uncontrolled edema as he already has significant skin changes. He was agreeable to this referral today. Referrals Referral Date Details 08/27/2024 08/27/2024, Patient with chronic lower extremity edema and venous stasis changes. Has not had vascular work up. ? venous insufficiency and how severe. Patient already using elevation and compression Next Appt Details Follow Up: 1 Week, Reason: Provider Name:ASHLEIGH SY, 09/05/2024 10:30:00 AM, [address] [facility], [facility] [address], [place], [address], Progress Notes * Marcus MADDOX SDOB:1950 (74 yo M)Acc No.[id number]:08/27/2024 Consult note Patient:?Marcus MADDOX Provider:?Ashleigh Medina DPM :1950???Age:74 Y???Sex:Male Jimmy e:08/27/2024 Phone: Address:[address] [place] [id number] Pcp:Benjamin Rosales Subjective: * Chief Complaints: * ???PCP referral for pain rig ht great toe * HPI: ???Foot & Ankle:?Mr. Maddox is a pleasant 74 year old male who is referred by his PCP. He has been having pain around his right great toenail. This has been an ongoing issue for him over the last 20 years. He has had similar issues to the left great toenail as well. He did have procedures to the left great toenail about 3 years ago to permanently remove the borders of the nail. He has since had no issues on the left. He does try to cut the border of the right great toenail. This occasionally gives him a few months of relief. He has never had any redness, swelling, or dainage from the toe. He does notice the nail is thicker to this toe. He admits he does have chronic lower extremity swelling to both legs. This has been an ongoing issue since he had a failed lower back surgery over 20ish years ago. The surgery left him immobile for about 6 months until he was diagnosed with adhesive arachnoiditis. He has since been following closely with pain management and has an intrathecal fentanyl pump that he uses for the neurological pain. He admits he gets some weakness more so to the left lower extremity than the right and has tingling in the toes at times. He does wear compression socks for his lower extremity swelling and also sleeps with his legs elevated. He states when he gets up he has basically no swelling and as the day goes on it worsens. He has chronic skin changes to both legs from the swelling. He has not have any vascular evaluation as he has been told that this is mostly lymphedema. * ROS:?General/Constitutional:?Denies?Chills.?Denies?Fatigue.?Denies?Fever.?Denies?Headache.?Allergy/Immunology:?Denies?Hives.?Denies?Itching.?Denies?Rash.?Endocrine:?Denies?Excessive sweating.?Denies?Excessive thirst.?Denies?Frequent urination.?Respiratory:?Denies?Cough.?Denies?Shortness of breath.?Denies?Wheezing.?Cardiovascular:?Denies?Chest pain.?Denies?Claudication.?Denies?Cyanosis.?Admits?Fluid accumulation in the legs.?Gastrointestinal:?Denies?Abdominal pain.?Denies?Constipation.?Denies?Diarrhea.?Hematology:?Denies?Bleeding problems.?Denies?Easy bruising.?Denies?Swollen glands.?Musculoskeletal:?Admits?Arthritis/Arthralgia.?Admits?Back problems.?Admits?Joint stiffness.?Denies?Swollen joints.?Peripheral Vascular:?Denies?Blanching of skin.?Denies?Cold extremities.?Admits?Decreased sensation in extremities.?Skin:?Admits?Discoloration.?Denies?Masses.?Admits?Nail changes.?Denies?Skin lesion(s).?Neurologic:?Admits?Balance difficulty.?Denies?Difficulty speaking.?Admits?Loss of strength.?Denies?Paralysis.?Admits?Tingling/Numbness.?Denies?Tremor.?Psychiatric:?Denies?Auditory/visual hallucinations.?Denies?Delusions.?Denies?Suicidal thoughts.? * Medical History:? * Surgical History:?hip replac ement, right 2020watchman device [place] surgery- torn rotator cuff and ruptured bicep 06/2024Failed spine surgery in remote past leading to adhesive arachnoiditis and chronic pain * Hospitalization/Major Diagno stic Procedure:?shoulder surgery 06/2024 * Family History:? high blood pressure, diabetes. * Social History:?tobacco: never alcohol:never Lives with . * Medications:?TakingTestim 50 MG/5GM (1%) Gel 1 each to skin in the morning to shoulder, upper arms or abdomen Transdermal Once a day Tamsulosin HCl 0.4 MG Capsule 1 capsule Orally Once a day Sildenafil Citrate 100 MG Tablet 1 tablet as needed Orally Once a day Multivitamin - Tablet 1 tablet Orally Once a day Metoprolol Succinate ER 100 MG Tablet Extended Release 24 Hour 1 tablet Orally Once a day Lisinopril 10 MG Tablet 1 tablet Orally Once a day Levothyroxine Sodium 88 MCG Tablet 1 tablet in the morning on an empty stomach Orally Once a day Flecainide Acetate 100 MG Tablet 0.5 tablet Orally every 12 hrs fentaNYL Aspirin 81 81 MG Tablet Delayed Release 1 tablet Orally Once a day ALPRAZolam 0.5 MG Tablet 1 tablet Orally Twice a day Taking Testim 50 MG/5GM (1%) Gel 1 each to skin in the morning to shoulder, upper arms or abdomen Transdermal Once a day Taking Tamsulosin HCl 0.4 MG Capsule 1 capsule Orally Once a day Taking Sildenafil Citrate 100 MG Tablet 1 tablet as needed Orally Once a day Taking Multivitamin - Tablet 1 tablet Orally Once a day Taking Metoprolol Succinate ER 100 MG Tablet Extended Release 24 Hour 1 tablet Orally Once a day Taking Lisinopril 10 MG Tablet 1 tablet Orally Once a day Taking Levothyroxine Sodium 88 MCG Tablet 1 tablet in the morning on an empty stomach Orally Once a day Taking Flecainide Acetate 100 MG Tablet 0.5 tablet Orally every 12 hrs Taking fentaNYL Taking Aspirin 81 81 MG Tablet Delayed Release 1 tablet Orally Once a day Taking ALPRAZolam 0.5 MG Tablet 1 tablet Orally Twice a day Not-TakingBetamethasone Valerate 0.1 % Cream 1 application Externally Once a day Medication List reviewed and reconciled with the patientNot-Taking Betamethasone Valerate 0.1 % Cream 1 application Externally Once a day Medication List reviewed and reconciled with the patient * Allergies:?Penicillins: Kuldip rgyCodeine: rash - Allergy Objective: * Vitals:?Wt:243.8lbs, Ht: 5ft 8.5in, BMI:36.53Index, Ht-cm: 173.99, Wt-k.59 kg. * Examination: ???General Examination: ???This is an elderly male. Alert and oriented today and in no acute distress. Patient comes in ambulating in slip on sneakers without using any assistive devices. Breathing is regular and unlabored while sitting. Affect is pleasant and cooperative. No unusual anxiety or depression noted. Hearing intact to spoken word. No evidence of visual impairment that would impact self care or ambulation. Patient has palpable dorsalis pedis pulse on the right. Unable to palpate the rest of the pulses. Doppler used and left DP and PT are biphasic and right PT is biphasic. There are diffuse?varicosities visualized from the ankle to the dorsum of each foot. There is chronic venous stasis changes to the lower legs with hemosiderin discoloration and induration of skin. No open wounds present. No pitting edema present to both lower extremities. Skin has mild xerosis plantarly. There are no open wounds, rashes, or lesions noted. There are flexible flexion deformities to the left 3rd, 4th, and 5th toes. These lesser toenails are thickened due to increased pressure. The right hallux toenail is discolored and thickened with pincer deformity. There is tenderness along the lateral right hallux nail fold without edema or erythema. The left hallux toenail has had permanent removal of the medial and lateral border of the toenail. ?Subtalar and ankle joint range of motion are unrestricted. 5/5 strength for anterior, posterior, and lateral lower extremity muscle groups on the left and right. Therapeutic Interventions: Assessment: * Assessment: 1.?Pain around toenail, righ t foot - M79.674 (Primary)???2.?Acquired deformity of nail plate - L60.8???3.?Bilateral lower extremity edema - R60.0???4.?Venous stasis - I87.8??? Plan: * Treatment: 2.?Bilateral lower extremity edema? Notes: Patient has significant lower extremity edema with skin changes and varicosities. He has not had any evaluation with vascular. This does look venous in nature. He has been using compression and elevation with some improvement. I have placed a referral for a venous reflux study and consult with vein specialist to further evaluate. He is at risk of skin ulceration with uncontrolled edema as he already has significant skin changes. He was agreeable to this referral today. ? Referral To:Vascular and Interventional Radiology ?Reason:Patient with chronic lower extremity edema and venous stasis changes. Has not had vascular work up. ? venous insufficiency and how severe. Patient already using elevation and compression 3.?Venous stasis? Referral To:Vascular and Interventional Radiology ?Reason:Patient with chronic lower extremity edema and venous stasis changes. Has not had vascular work up. ? venous insufficiency and how severe. Patient already using elevation and compression * Procedure Codes:? * Follow Up:?1 Week * Billing Information: * Visit Code:? 92883 Office Visit, New Pt., Level 4. * Procedure Codes:? * Sign off status: Completed true * Provider:?Ashleigh Medina DPM Date:?08/27 Generated for Shiv cobos/Nic/Papiitting on:?09/04/2024 05:04 PM EST History and Physical Notes * Examination Category Sub-Category Detail Notes Category Not es General Examination This is an elderly male. Alert and oriented today and in no acute distress. Patient comes in ambulating in slip on sneakers without using any assistive devices. Breathing is regular and unlabored while sitting. Affect is pleasant and cooperative. No unusual anxiety or depression noted. Hearing intact to spoken word. No evidence of visual impairment that would impact self care or ambulation. Patient has palpable dorsalis pedis pulse on the right. Unable to palpate the rest of the pulses. Doppler used and left DP and PT are biphasic and right PT is biphasic. There are diffuse varicosities visualized from the ankle to the dorsum of each foot. There is chronic venous stasis changes to the lower legs with hemosiderin discoloration and induration of skin. No open wounds present. No pitting edema present to both lower extremities. Skin has mild xerosis plantarly. There are no open wounds, rashes, or lesions noted. There are flexible flexion deformities to the left 3rd, 4th, and 5th toes. These lesser toenails are thickened due to increased pressure. The right hallux toenail is discolored and thickened with pincer deformity. There is tenderness along the lateral right hallux nail fold without edema or erythema. The left hallux toenail has had permanent removal of the medial and lateral border of the toenail. Subtalar and ankle joint range of motion are unrestricted. 5/5 strength for anterior, posterior, and lateral lower extremity muscle groups on the left and right. Consultation Request Notes Referral Date Referring Provider Referred Provider Not es 08/27/2024 ASHLEIGH SY , Patient with chronic lower extremity edema and venous stasis changes. Has not had vascular work up. ? venous insufficiency and how severe. Patient already using elevation and compression
--- OUTSIDE RECORDS SUMMARY | 2024-09-04 17:05 | XMS_ITS | Patient Health Record ---
Author Organization [facility] Address [address] [place] [address] Care Team Providers Care Process Excellence Manager Name Role Phone Benjamin Rosales Primary Care Provider JOSEE Kay Unavailable [phone] Allergies Allergen (clinical drug ingredient) Drug/Non Drug [...] 2 Venous stasis (I87.8 ) Referral Organization [facility] Referring Provider First Name JOSEE Referring Provider Last Name YOSSI Referring Provider Speciality Podiatry Referred Provider Specialty Vascular and Interventional Radiology Referral Priority Routine Medications Medication SIG (Take, Route, Frequency, Duration) Notes Start Date End Date Status Lisinopril 10 MG 1 tablet Orally Once a day Active Metoprolol Succinate ER 100 MG 1 tablet Orally Once a day Active Multivitamin - 1 tablet Orally Once a day Active Sildenafil Citrate 100 MG 1 tablet as ne eded Orally Once a day Active Tamsulosin HCl 0.4 MG 1 capsule Orally O nce a day Active Testim 50 MG/5GM (1%) 1 each to skin in the morning to shoulder, upper arms or abdomen Transdermal Once a day Active ALPRAZolam 0.5 MG 1 tablet Orally Twic e a day Active Aspirin 81 81 MG 1 tablet Orally Once a day Active Betamethasone Valerate 0.1 % 1 application Externally Once a day Not-Taking fentaNYL Active Flecainide Acetate 100 MG 0.5 tablet Ora lly every 12 hrs Active Levothyroxine Sodium 88 MCG 1 tablet in the morning on an empty stomach Orally Once a day Active Vital Signs Height 5ft 8.5in in 08/27/2024 Weight 243.8 lbs 08/27/2024 BMI 36.53 kg/m2 08/27/2024 Encounters Encounter Location Date Provider Diagnosis [facility] [address] [address] 08/27/2024 JOSEE YOSSI Pain around toenail, right foot M79.674 ; Acquired deformity of nail plate L60.8 ; Bilateral lower extremity edema R60.0 and Venous stasis I87.8 [facility] [address] [address] 08/27/2024 JOSEE YOSSI Assessments Encounter Date Diagnosis (ICD Code) Assessment [...] stasis (ICD-10 - I87.8) Plan Of Treatment Next Appt Details Provider Name:JOSEE SY, 09/05/2024 10:30:00 AM, [address] [facility], [facility] [address], [place], [address], Insurance Providers Payer Name Payer Address Payer Phone Subscriber Number Group Number Insured Name Patient Relationship to Insured Coverage Start Date Coverage End Date [employer] of [place] [address] JOSE LUCERO [id number] Marcus Maddox Self - patient is the insured [employer] [place] [address] [place] [address] [id number] Marcus Maddox Self - patient is the insured Medical (General) History Medical History History ICD Code anxiety aortic ectasia, thoracic aortic regurgitation atrial fibrillation, paroxysmal: had chet chman procedure Chronic back pain with adhesive arachnoi ditis: Has intrathecal pump benign prostatic hypertrophy benzodiazepine dependence Chronic lower extremity edema and skin c hanges erectile dysfunction hypertension hypogonadism hypothyroidism mitral regurgitation obesity opiate dependence Surgical History Surgery Date(Month/Year) hip replacement, right 2020 watchman device 2021 shoulder surgery- torn rotator cuff and ruptured bicep 06/2024 Failed spine surgery in prema te past leading to adhesive arachnoiditis and chronic pain Hospitalization History Reason Date(Month/Year) shoulder surgery 06/2024
--- OUTSIDE RECORDS SUMMARY | 2024-09-04 17:05 | XMS_ITS | Encounter Summary ---
Author Organization [facility] Address [address] [place] [address] Care Team Providers Care Vending Machine Host/Hostess Name Role Phone Benjamin Rosales MD Primary Care Provider [phone] Reason for Visit * Reason Onset Date Comments medication review 07/07/2024 Encounter Details Date Type Department Care Team (Late st Contact Info) Description 07/07/2024 Telephone [facility] [address] [facility] [address] [place] [phone] Lilibeth Mcbride NP [address] [place] [phone] medication review Social History Tobacco Use Types Packs/Day Years Used Date Smoking Tobacco: Former Cigarettes Q uit: 08/06/1990 Smokeless Tobacco: Never Alcohol Use Standard Drinks/Week Comments Yes 0 (1 standard drink = 0.6 oz pur e alcohol) Sex and Gender Information Value Date Recorded Sex Assigned at Not on file Gender Identity Not on file Sexual Orientation Not on file Job Start Date Occupation Industry Not on file Not on file Not on file documented as of this encounter Progress Notes * Martha Elmore MA - 07/09/2024 3:25 PM EST Images from the original note were not included. Patient made aware. Lab order faxed * Ashley Spicer RN - 07/09/2024 10:40 AM EST Spoke with pt reviewed SL recommendations. Pt will get BMP done at [facility] Right Fax is presently not working, will fax when working. Pt aware to not go today as lab order may not be there * Ashley Spicer RN - 07/08/2024 2:35 PM EST LMOM for pt to return call * Lilibeth Mcbride NP - 07/08/2024 2:07 PM EST If edema is well managed on current dose of Furosemide - continue at that dose. Please update BMP * Ashley Spicer RN - 07/07/2024 3:43 PM EST Pt informed VERN recommendations Med module updated * Sadie Underwood NP - 07/07/2024 3:30 PM EST If he is currently asymptomatic and having good urine output on furosemide he should stay on this dose. Will defer further recommendations to primary cards team will be back in the office tomorrow. * Ashley Spicer RN - 07/07/2024 1:22 PM EST ALMAS SL 06/17/2024 Stopped Torsemide 20 mg 2 tabs daily on 07/06/24 Restarted Furosemide 20 mg 4 tabs daily 07/06/24 Pt stating yesterday he felt that he could not urinate on Torsemide, so he switched back to Furosemide and has not had any issues urinating Denies SOB, PND, Orthopnea, edema Does not weigh himself or follow low salt diet Pt asking if he should stay on Furosemide ? Pt had BMP done 06/27/24 results are in EPIC * Manju Lira - 07/07/2024 11:47 AM EST Patient calling, he was taken off his furosemide and put on torsemide. Since starting this new medication, his legs started to swell and he was having issues going to the bathroom. He then, stopped taking the torsemide and went back on his original dose of furosemide, and states his leg swelling went away and he is using the bathroom normally again. He's wondering if he should stay on his furosemide? documented in this encounter Plan of Treatment Scheduled Orders Name Type Priority Associated Diagnoses Orde r Schedule Basic metabolic panel Lab Routine Atrial fibrillation, unspecified type (CMS/HCC) 1 Occurrences starting 07/09/2024 until 07/09/2025 documented as of this encounter Visit Diagnoses Diagnosis Atrial fibrillation, unspecified type (CMS/HCC)- Primary documented in this encounter Discontinued Medications Medication Sig Discontinue Reason Start Date End Da te torsemide (DEMADEX) 20 mg tablet Take 2 tablets (40 mg total) by mouth 1 (one) time each day. Alternate therapy 06/17/2024 07/07/2024 documented as of this encounter Historical Medications * This list may reflect changes made after this encounter. Medication Sig Dispensed Refills Start Date End Date furosemide (LASIX) 20 mg tablet Take 4 tablets (80 mg total) by mouth 1 (one) time each day. added in this encounter Care Teams Vending Machine Host/Hostess Relationship Specialty Start Date End Date Benjamin Rosales MD [facility] Veronika Sharma [address] PCP - General Internal Medicine 07/05/20 documented as of this encounter
--- OUTSIDE RECORDS SUMMARY | 2024-09-04 17:05 | XMS_ITS | Encounter Summary ---
Author Organization [facility] Address [address] [place] [phone] Care Team Providers Care Tail Dogger Name Role Phone Benjamin Rosales MD Primary Care Provider [phone] Encounter Details Date Type Department Care Team (Latest Contact Info) Description 05/08/2022 Transcribed Orders [address] [phone] Donta Espinoza MD [address] [address] Atrial fibrillation (HC Code) (HC CODE) (HC Code) (Primary Dx) Social History Tobacco Use Types Packs/Day Years Used Date Smoking Tobacco: Never Assessed PHQ-2 Answer Date Recorded PHQ-2 Total Score 0 01/01/2022 Sex and Gender Information Value Date Recorded Sex Assigned at Not on file Legal Sex Male 9:51 PM EST Gender Identity Not on file Sexual Orientation Not on file documented as of this encounter Plan of Treatment Not on file documented as of this encounter Results * Protime and INR (05/08/2022 11:43 AM EDT) Prothrombin Time 9.8 9.0 - 11.1 seconds 05/08/2022 1:49 PM EDT [facility] INR 1.01 0.90 - 1.16 05/08/2022 1:49 PM T [facility] Comment: RECOMMENDED INR THERAPEUTIC RANGES: ?STANDARD INTENSITY......2.0-3.0 ?HIGH INTENSITY..........2.5-3.5 Blood Venipuncture / Unknown 05/08/2022 11:43 AM EDT 05/08/2022 11:43 AM EDT us Donta Espinoza MD LAB BLOOD ORDERABLES Final Resul t Performing Organization Address City/State/[facility] [place] [address], [facility] [phone] documented in this encounter Visit Diagnoses Diagnosis Atrial fibrillation (HC Code) (HC CODE) (HC Code)- Primary Atrial fibrillation documented in this encounter Additional Health Concerns Infection Onset Date Last Indicated Resolved Time R/O Respiratory Virus 05/14/2023 05/14/20232022 6:26 PM EDT R/O COVID-19 05/14/2023 05/14/2023 05/14/2023 6:26 PM EDT Assessment Noted Time PHQ-9 Depression Total Score: 0 01/02/20 22 11:53 PM EDT documented as of this encounter Care Teams Tail Dogger Relationship Specialty Start Date End Date Benjamin Rosales MD [address] [phone] (Work) PCP - General Internal Medicine 01/31/20 documented as of this encounter
--- OUTSIDE RECORDS SUMMARY | 2024-09-04 17:05 | XMS_ITS ---
Author Organization [facility] Address [address] [address] Care Team Providers Care Textile Chemist Name Role Phone Benjamin Rosales Primary Care Provider JOSEE Kay Unavailable [phone] REASON FOR VISIT [facility] Referral Encounters Encounter Location Date Provider Diagnosis [facility] [address] [phone] 08/27/2024 JOSEE SY Plan Of Treatment Next Appt Details Provider Name:JOSEE SY, 09/05/2024 10:30:00 AM, [address] [address], [place], [address], Progress Notes * Marcus MADDOX SDOB:1950 (74 yo M)Acc No.[id number]:08/27/2024 Patient:?Marcus MADDOX :1950???Age:74 Y???Sex:Male Phone: Address:[address] [place] [address], [place], [address] * * Date:?
--- OUTSIDE RECORDS SUMMARY | 2024-09-04 17:05 | XMS_ITS | Clinical Summary ---
Author Organization [facility] Address [address] [place] [address] Care Team Providers Care Licensing Officer Name Role Phone Benjamin Rosales MD Primary Care Provider [phone] Allergies Active Allergy Reactions Criticality Noted Date Comments Codeine 07/28/2021 Penicillins Hives High 05/10/2022 Sotalol Rash 05/07/2024 Zolpidem Unknown 05/10/2022 Confusion ,sleep walk Medications Medication Sig Dispensed Refills Start Date End Date Status zaleplon (SONATA) 10 mg capsule Take 1 capsule (10 mg total) by mouth at bedtime. Active testosterone 20.25 mg/1.25 gram (1.62 %) gel in metered-dose pump APPLY ONE PUMP TO THE SKIN EVERY DAY Active tamsulosin (FLOMAX) 0.4 mg 24 hr capsule Take 2 capsules (0.8 mg total) by mouth 1 (one) time each day. at bedtime Active sildenafiL (VIAGRA) 100 mg tablet Take 1 tablet (100 mg total) by mouth if needed (as needed). Active ondansetron ODT (ZOFRAN-ODT) 4 mg disintegrating tablet Take 1 tablet (4 mg total) by mouth every 8 (eight) hours if needed for nausea. DISSOLVE ONE TABLET BY MOUTH EVERY 8 HOURS NEEDED FOR NAUSEA AND VOMITING 01/01/2024 Active Movantik 25 mg tablet Take 1 tablet (25 mg total) by mouth 1 (one) time each day. 11/25/2023 Active metoprolol succinate (TOPROL-XL) 50 mg 24 hr tablet Take 1 tablet (50 mg total) by mouth 1 (one) time each day. Active metoprolol succinate (TOPROL-XL) 100 mg 24 hr tablet Take 1 tablet (100 mg total) by mouth 1 (one) time each day. 09/03/2023 Active lisinopriL (PRINIVIL,ZESTRIL) 10 mg tablet Take 1 tablet (10 mg total) by mouth 1 (one) time each day. Active levothyroxine (SYNTHROID, LEVOTHROID) 88 mcg tablet Take 1 tablet (88 mcg total) by mouth 1 (one) time each day. Active HYDROmorphone (DILAUDID) 2 mg tablet TAKE 1 TABLET BY MOUTH FOUR TIMES DAILY NEEDED FOR PAIN. RECOMMENDED TO WEAN OFF BY TAKING 1/2 TABLET DAILY LESS EACH WEEK. Active flecainide (TAMBOCOR) 100 mg tablet Take 1 tablet (100 mg total) by mouth 2 (two) times a day. 06/06/2024 Active eszopiclone (LUNESTA) 2 mg tablet Take 1 tablet (2 mg total) by mouth at bedtime. Max Daily Amount: 2 mg Active docusate sodium (COLACE) 100 mg capsule Take 1 capsule (100 mg total) by mouth. 07/12/2015 Active cholecalciferol (VITAMIN D-3) 10 mcg (400 unit) tablet Take by mouth. Act dona ALPRAZolam (XANAX) 0.5 mg tablet Take 1 tablet (0.5 mg total) by mouth 3 (three) times a day if needed. Active aspirin 81 mg EC tablet Take 1 tablet (81 mg total) by mouth 1 (one) time each day. Active furosemide (LASIX) 20 mg tablet Take 4 tablets (80 mg total) by mouth 1 (one) time each day. Active Active Problems Problem Noted Date Diagnosed Date Chronic heart failure with preserved ejection fr action 06/17/2024 Sleep apnea in adult 06/17/2024 CKD (chronic kidney disease) 06/17/2024 Arrhythmia 06/17/2024 Encounters Date Type Department Care Team Description 07/07/[address] [facility] [address] [address] Lilibeth Mcbride NP medication review 06/17/2024 2:[address] [facility] 154 300 [facility] [address] [place] [address] Lilibeth Mcbride NP Atrial fibrillation, unspecified type (CMS/HCC) (Primary Dx) 06/13/[address] [facility] [address] [place] [address] Benjamin Rosales MD Referral (Received urgent pre-op referral. No records came with referral. Patient is established. Brought referral to [facility]one) from Last 3 Months Immunizations Name Administration Dates Next Due Pfizer SARS-CoV-2 COVID-19, mRNA, LNP-S, preservative free 07/24/2021,10/31/2020,10/11/2020 Surgical History Surgery Date Site/Laterality Comments BACK SURGERY PROCEDURE:BACK SURGERY TOTAL HIP ARTHROPLASTY PROCEDURE:TOTAL HIP ARTHROPLASTY;COMMENT:bilateral HIP ARTHROPLASTY 2020 Right PROCEDURE: HISTORICAL HIP REPLACEMENT; COMMENT: Dr. Mac Medical History Medical History Date Comments Chronic pain disorder DX:Chronic pain disorder;COMMENT:spinal punp witrh fentyl and buvivicaine Chronic constipation DX:Chronic constipation Arrhythmia DX:Arrhythmia Hypertension DX:Hypertension Peripheral neuropathy DX:Periphe ral neuropathy Anxiety DX:Anxiety Hyperthyroidism DX:Hyperthyroidi sm Hypoglycemia DX:Hypoglycemia A-fib (CMS/HCC) DX:A-fib ([facility]) Anxiety DX:Anxiety Back pain 07/28/2021 DX:Back pain Edema 07/28/2021 DX:Edema Erectile dysfunction 07/28/2021 DX:Erectile dysfunction Hypogonadism male 07/28/2021 DX:Hypogonadis m male Hypothyroidism 07/28/2021 DX:Hypothyroidis m Morbid obesity (CMS/HCC) DX:Morb id obesity ([facility]) Obesity DX:Obesity Opiate dependence (CMS/HCC) DX:O piate dependence ([facility]) Family History Medical History Relation Name Comments Other: Other Mother Afib Relation Name Status Comments Mother Social History Tobacco Use Types Packs/Day Years Used Date Smoking Tobacco: Former Cigarettes Q uit: 08/06/1990 Smokeless Tobacco: Never Tobacco Cessation:Counseling Given: Not Answered Alcohol Use Standard Drinks/Week Comments Yes 0 (1 standard drink = 0.6 oz pur e alcohol) Sex and Gender Information Value Date Recorded Sex Assigned at Not on file Gender Identity Not on file Sexual Orientation Not on file Job Start Date Occupation Industry Not on file Not on file Not on file Obstetrics History Last Filed Vital Signs Vital Sign Reading Time Taken Comments Blood Pressure 122/78 06/17/2024 2:33 PM EST Pulse 67 06/17/2024 2:33 PM EST Temperature - - Respiratory Rate - - Oxygen Saturation 95% 06/17/2024 2:33 PM EST Inhaled Oxygen Concentration - - Weight 120 kg (265 lb) 06/17/2024 2:33 PM EST Height 177.8 cm (5' 10 ) 06/17/2024 2:33 PM EST Body Mass Index 38.02 06/17/2024 2:33 PM EST Plan of Treatment Health Maintenance Due Date Last Done Comments Pneumococcal Vaccine: 65+ Years (1 of 2 - PCV) 1958 DTaP,Tdap,and Td Vaccines (1 - Tdap) 1971 Zoster Vaccines (1 of 2) 2002 RSV Immunization Patients 60+ Years Old (1 - Risk 60-74 years 1-dose series) 2012 Abdominal Aortic Aneurysm (AAA) Screen 09/28/2020 Cholesterol Screening (Lipid Panel) 09/28/2020 Colorectal Cancer Screening: Colonoscopy 09/28/2020 Falls Risk Assessment 09/28/2020 Hepatitis C Screening 09/28/2020 Medicare Annual Wellness Visit 09/28/2020 Social Influencers of Health Screening 09/28/2020 Depression Screening 01/01/2023 01/01/2022 COVID-19 Vaccine ( season) 2024 07/24/2021, 10/31/2020, 10/11/2020 Influenza Vaccine (#1) 2024 05/11/2020 Hypertension/CHF/CAD Annual BMP Blood Test 06/27/2025 06/27/2024, 05/08/2022, 05/08/2022, Additional history exists HIB Vaccines Aged Out No longer eligi ble based on patient's age to complete this topic HPV Vaccines Aged Out No longer eligi ble based on patient's age to complete this topic Hepatitis A Vaccines Aged Out No long er eligible based on patient's age to complete this topic Hepatitis B Vaccines Aged Out No long er eligible based on patient's age to complete this topic IPV Vaccines Aged Out No longer eligi ble based on patient's age to complete this topic MMR Vaccines Aged Out No longer eligi ble based on patient's age to complete this topic Meningococcal ACWY Vaccine Aged Out N o longer eligible based on patient's age to complete this topic RSV Immunization Patients Under 20 months Aged Out No longer eligible based on patient's age to complete this topic Varicella Vaccines Aged Out No longer eligible based on patient's age to complete this topic Medical Devices Implanted Type Area 3D Designer Device Identifier Shelf Expiration Date Model / Serial / Lot Device Clsur Watchman Flx Zandra 24mm Bsci-Prnt [id number] Implanted:Qty: 1 on 05/11/2022 by Donta Espinoza MD Left: [employer] 03/09/2025 [id number] / / [id number] Procedures Procedure Name Priority Date/Time Associated Diagnosis Comments EXTERNAL CLINICAL LAB Routine 07/22/2024 3:57 PM EST BASIC METABOLIC PANEL Routine 06/27/2024 1:05 PM EST Atrial fibrillation, unspecified type (CMS/HCC) ECG 12-LEAD Routine 06/17/2024 3:28 PM EST Atrial fibrillation, unspecified type (CMS/HCC) from Last 3 Months Results * External clinical lab (07/22/2024 3:57 PM EST) Historical Provider LAB BLOOD ORDERAB LES * (ABNORMAL) Basic metabolic panel (06/27/2024 1:05 PM EST) Glucose 80 70 - 99 mg/dL [facility] 1 Blood Urea Nitrogen (BUN) 32(H) 8 - 27 mg/dL [facility] 1 Creatinine 0.90 0.76 - 1.27 mg/dL [facility] 1 eGFR 91 >59 mL/min/1.7 3 [facility] 1 BUN/Creatinine Ratio 36(H) 10 - 24 [facility] 1 Sodium 140 134 - 144 mmol/L [facility] 1 Potassium 4.5 3.5 - 5.2 mmol/L [facility] 1 Chloride 100 96 - 106 mmol/L [facility] 1 Carbon Dioxide 27 20 - 29 mmol/L [facility] 1 Calcium 9.4 8.6 - 10.2 mg/dL [facility] 1 Blood Venous blood specimen / Unknown 06/27/2024 1:05 PM EST 06/27/2024 Narrative [facility] 1 - 06/28/2024 2:07 AM EST Performed at: ??01 - [facility] [address] ??[id number] Public Relations Representative: Anyi Robles MD, Phone: ??[phone] Specimen Comment: A courtesy copy of this report has been sent to [phone] Lilibeth Mcbride TANK FARM ATTENDANT LAB BLOOD ORDERABLES [facility] 1 * ECG 12 lead (06/17/2024 3:28 PM EST) Ventricular Rate ECG 67 BPM GEMUSE Atrial Rate 67 BPM GEMUSE P-R Interval 212 ms GEMUSE QRS Duration 98 ms GEMUSE Q-T Interval 432 ms GEMUSE QTc 456 ms GEMUSE P Wave Milton 75 degrees GEMUSE R [place] -28 degrees GEMUSE T [place] 19 degrees GEMUSE ECG Interpretation Sinus rhythm with 1st degree A-V block Otherwise normal ECG When compared with ECG of 12-JUL-2021 16:02, Confirmed by Addie ESPINOZA JOHN [id number]) on 06/18/2024 5:41:37 PM GEMUSE 06/17/2024 2:37 PM EST 06/18/2024 5:41 PM EST Lilibeth Mcbride TANK FARM ATTENDANT ECG ORDERABLES [facility] from Last 3 Months Care Teams Licensing Officer Relationship Specialty Start Date End Date Benjamin Rosales MD 300 Veronika Sharma [address] PCP - General Internal Medicine 07/05/20
--- OUTSIDE RECORDS SUMMARY | 2024-09-04 17:05 | XMS_ITS | Clinical Summary ---
Author Organization [address] Address [address] [place] [phone] Phone Care Team Providers Care Event Executive Name Role Phone Benjamin Rosales MD Primary Care Provider [phone] Allergies Active Allergy Reactions Criticality Noted Date Comments Penicillins Rash Low 01/31/2020 Medications ondansetron (ZOFRAN) 4 mg tablet Take 1 tablet (4 mg total) by mouth every 6 (six) hours. 12 tablet 01/31/20 Active apixaban (ELIQUIS) 5 mg tablet Take 1 tablet by mouth daily. Active flecainide (TAMBOCOR) 100 mg tablet Take 100 mg by mouth 2 (two) times daily. Active metoprolol succinate XL (TOPROL-XL) 100 mg 24 hr tablet Take 100 mg by mouth daily. Take with or immediately following a meal. Active lisinopriL (PRINIVIL,ZESTRIL ) 10 mg tablet Take 10 mg by mouth daily. Active flecainide (TAMBOCOR) 100 mg tablet Take 1 tablet (100 mg total) by mouth 2 (two) times daily. 10 tablet 01/03/20 Active Additional Information Patient not taking.Reported on 07/12/2022 ALPRAZolam (XANAX) 0.5 mg tablet TAKE ONE TABLET BY MOUTH THREE TIMES A DAY NEEDED 06/27/20 Active aspirin 81 mg EC delayed release tablet Take 1 tablet (81 mg total) by mouth. Active augmented betamethasone dipropionate (DIPROLENE-AF) 0.05 % cream betamethasone, augmented 0.05 % topical cream Active cholecalciferol, vitamin D3, 25 mcg (1,000 unit) tablet Take 1 tablet (1,000 Units total) by mouth daily. Active docusate sodium (COLACE) 100 mg capsule Active eszopiclone (LUNESTA) 2 mg Tab TAKE 1 TABLET BY MOUTH AT BEDTIME NEEDED FOR INSOMNIA 06/24/20 Active furosemide (LASIX) 80 mg tablet TAKE 1 TABLET BY MOUTH ONCE DAILY 03/31/20 Active HYDROmorphone (DILAUDID) 4 mg tablet Take 2 tablets (8 mg total) by mouth every 4 (four) hours as needed. Active levothyroxine (SYNTHROID, LEVOTHROID) 88 MCG tablet TAKE ONE TABLET BY MOUTH EVERY DAY 06/13/20 Active multivitamin liquid Take 5 mLs by mouth daily. Active potassium chloride (KLOR-CON) 20 mEq packet Take 1 packet (20 mEq total) by mouth. Active senna (SENOKOT) 8.6 mg tablet Active sildenafiL (VIAGRA) 100 mg tablet TAKE 1 TABLET 100MG) BT MOUTH ONCE A DAY NEEDED APPROXIMATELY 1 HOUR BEFORE SEXUAL ACTIVITY 06/27/20 Active tamsulosin (FLOMAX) 0.4 mg 24 hr capsule TAKE TWO CAPSULES BY MOUTH AT BEDTIME 06/09/20 Active testosterone (ANDROGEL) 20.25 mg/1.25 gram (1.62 %) per pump of transdermal gel Place onto the skin. Active vitamin E 200 UNIT capsule Take 1 capsule (200 Units total) by mouth daily. Active doxycycline hyclate (VIBRAMYCIN) 100 mg capsule Take 1 capsule (100 mg total) by mouth 2 (two) times daily. 14 capsule 05/14/20 23 Active Active Problems No known active problems Social History Tobacco Use Types Packs/Day Years Used Date Smoking Tobacco: Former Cigarettes Tobacco Cessation:Counseling Given: Not Answered PHQ-2 Answer Date Recorded PHQ-2 Total Score 0 01/01/2022 Sex and Gender Information Value Date Recorded Sex Assigned at Not on file Legal Sex Male 9:51 PM EST Gender Identity Not on file Sexual Orientation Not on file Last Filed Vital Signs Vital Sign Reading Time Taken Comments Blood Pressure 172/95 05/14/2023 5:03 PM EDT Pulse 63 05/14/2023 5:03 PM EDT Temperature 36.2 ??C (97.2 ??F) 05/14/2023 5:03 PM ED T Respiratory Rate 18 05/14/2023 5:03 PM EDT Oxygen Saturation 98% 05/14/2023 5:03 PM EDT Inhaled Oxygen Concentration - - Weight 111.5 kg (245 lb 13 oz) 05/14/2023 5:03 P M EDT Height 177.8 cm (5' 10 ) 07/12/2022 12:48 PM EST Body Mass Index 35.27 07/12/2022 12:48 PM EST Plan of Treatment Health Maintenance Due Date Last Done Comments HIV screening 1965 Hepatitis C screening 1970 Tetanus adult (Td q 10,TDAP once) 1972 Lipid disorder screening 1992 Colon cancer screening, Colonoscopy 1997 Shingles vaccine (Shingrix) (1 of 2 - Shingrix (RZV) 2 Dose Standard Series) 2002 RSV Discussion (1 - Risk 60- 74 years 1-dose series) 2012 Pneumo Vaccine 65+ (1 of 1 - PCV) 2017 Influenza vaccine 03/06/2024 05/11/2020 Covid-19 vaccine series ( - season) 2024 07/24/2021, 10/31/2020, 10/11/2020 Diabetes screening 05/08/2025 05/08/2022, 01/02/2022, 01/31/2020 Meningococcal Vaccine Aged Out No jayne vargas eligible based on patient's age to complete this topic Procedures Procedure Name Priority Date/Time Associated Diagnosis Comments BASIC METABOLIC PANEL Routine 05/08/2022 11:43 AM EDT Atrial fibrillation (HC Code) (HC CODE) (HC Code) from Last 3 Months or Most Recently Relevant to Health Maintenance Results * (ABNORMAL) Basic metabolic panel (05/08/2022 11:43 AM EDT) Glucose 88 65 - 110 mg/dL 05/08/2022 1:58 PM EDT [facility] Comment: Non-fasting: ??65-110 mg/dL Fasting (minimum 6 hrs): ??65-99 mg/dL BUN 29(H) 7 - 18 mg/dL 05/08/2022 1:58 PM [facility] Creatinine 0.96 0.70 - 1.30 mg/dL 05/08/2022 1:58 PM [facility] Sodium 140 136 - 145 mmol/L 05/08/2022 1:58 PM [facility] Potassium 4.9 3.5 - 5.1 mmol/L 05/08/2022 1:58 PM [facility] Chloride 104 98 - 107 mmol/L 05/08/2022 1:58 PM [facility] CO2 32 21 - 32 mmol/L 05/08/2022 1:58 PM [facility] Anion Gap 4(L) 5 - 15 mmol/L 05/08/2022 1:58 PM [facility] Calcium 9.4 8.5 - 10.1 mg/dL 05/08/2022 1:58 PM [facility] eGFR (Creatinine) >60 >=60 mL/min/1.7 3m2 05/08/2022 1:58 PM [facility] Comment:Estimated glomerular filtration rate (eGFR) was calculated using the improved CKD-EPI Creatinine (2020) equation. The eGFR provides a rough estimate of kidney function within 30% variability. Values under 60 mL/min/1.73 m2 may indicate CKD if noted for more than 3 months. The eGFR is only valid if creatinine is at steady state. Blood Venipuncture / Unknown 05/08/2022 11:43 AM EDT 05/08/2022 11:43 AM EDT us Donta Espinoza MD LAB BLOOD ORDERABLES Final Resul t [address] [address], [facility] [phone] from Last 3 Months or Most Recently Relevant to Health Maintenance Insurance MEDICARE [facility] MEDICARE [facility] MEDICARE [facility] MEDICARE [facility] MEDICARE Member Subscriber Plan / Payer (Ef fective 1999-Present) Name:Marcus Maddox Member ID:[id number] Relation to Subscriber:Self Name:Marcus Maddox Subscriber ID:[id number] Payer ID:[id number] Group ID:Not on file Type:Not on file Address: [address] MEDICARE MEDICARE Care Teams Event Executive Relationship Specialty Start Date End Date Benjamin Rosales MD [facility] Veronika Sharma [address] [phone] (Work) PCP - General Internal Medicine 01/31/20
--- OUTSIDE RECORDS SUMMARY | 2024-09-04 17:05 | XMS_ITS | Continuity of Care Document ---
Author Organization [facility] [place] [facility] Address [address] [place] [phone] Care Team Providers Care Mechanic Chief Name Role Phone LORE TOMASA Primary Care Provider [phone] Assessment Encounter Date Assessment Date Assessment LastModified by Organization Details LastModified Time 08/19/2024 08/19/2024 TREATMENT GIVEN: I confirmed that [...] applied sterile ultrasound gel and utilized the INFIMET Ultrasound to ensure accurate needle placement. Topical [...] as to ice the area and take anti-inflammato hector as indicated. We will see the patient back to assess response to the injection. All of the patient's questions were answered. [email or web address] Not available 08/19/2024 14:10:03 Plan of Treatment Reminders Order Date Submit Date Provider Last Modified By Organization Details Last Modified Time Details Appointments Establish ed 15 2024 11:00A Rodo FULLER MD Not available Not available Not available Lab None recorded. Referral None recorded. Procedures None recorded. Surgeries None recorded. Imaging None recorded. Medication Orders Kenalog 40 mg/mL suspensio n for injection 2024 [address] [place] [address] [id number], [address] [place], [address], 08/19/2024 15:43:08 Patient TargetsNo targets recorded. Patient InstructionsNo instructions recorded. Reason for Referral None Reported. Problems Name Problem SNOMED Code Status Onset Date Resolution Date Notes Provider Name and Address Organization Details Recorded Time Localized, primary osteoarthritis of the shoulder region 771152737 Active 2020 [address]IS [address] [place] [address], [phone], [facility] 14:29:32 Problem Notes None recorded. Procedures Surgical History Date Name Laterality Status Provider Name and Address Organization Details Recorded Time 06/19/20 24 Orthopaedic Surgery completed JASON FULLER MD [address] [place] [address], [phone], [facility] 08/19/2024 10:57:32 05/12/20 22 Other completed Vero Cutler [facility] 01/20/2023 10:39:38 11/05/19 21 Orthopaedic Surgery completed Celestine George [facility] 02/02/2021 12:30:59 08/12/19 21 Orthopaedic Surgery completed Liliana Kumar [facility] 05/06/2021 09:11:03 08/06/19 03 Orthopaedic Surgery completed Beatrice Chávez [facility] 01/20/2020 14:31:23 08/06/19 02 Orthopaedic Surgery completed Beatrice Chávez [facility] 01/20/2020 14:31:32 08/06/19 00 Orthopaedic Surgery completed Beatrice Chávez [facility] 01/20/2020 14:31:14 01/01/19 96 Orthopaedic Surgery completed Beatrice Chávez MA [facility] 01/20/2020 14:30:55 08/06/18 76 Orthopaedic Surgery completed Beatrice Chávez MA [facility] 01/20/2020 14:30:41 08/06/18 74 Orthopaedic Surgery completed Beatrice Chávez MA [facility] 01/20/2020 14:30:27 Imaging Results None recorded. Procedure Notes None recorded. Medical Equipment None Reported. Allergies Allergen ID Allergen Name Allergen Category Reaction Reaction Severity Criticality Documentation Date Start Date Code Code System Note Provider Name and Address Organization Details Recorded Time 021652 Product containin g penicilli n and antibioti c (product) medicatio n Not available Not available Not available 01/20/2020 57703 05 SNOMED Beatrice dennis [facility] 0 14:27:38 [id number] Ambien medicatio n Not available Not available Not available 01/20/2020 01746 5 RxNorm Beatrice dennis [facility] 0 14:27:44 Medications Name [...] RESUME 5 MG TABLETS TWICE DAILY FROM 05/11 completed Not Available Not Available Not [...] Details Last Updated DateTime 08/19/2024 177.8 cm JASON FULLER MD [address] [place] [phone] 08/19/2024 10:55:45 Date Recorded Body mass index (BMI) Body weight Provider Name and Address Organization Details Last Updated DateTime 08/19/2024 36.6 kg/m2 265980.05 g JASON FULLER MD [address] [place] [phone] [place] [address] [facility] 08/19/2024 10:55:50 Social History Question Answer Notes LastModified by Organizat ion Details LastModified Time Tobacco Smoking Status Former Smoker quit 25 yrs ago Arlet Chisholm [facility] 07/26/2020 11:47:51 What Is Your Level Of Alcohol Consumption? Occasional Couple Drinks/week [email or web address] Information not available 07/26/2020 How Many Times Per Week Do You Consume Alcohol? 1-2 Times Per Week [email or web address] Information not available 02/28/2024 Auto Related Injury? No Information not available 01/20/2023 Do You Or Have You Ever Used E-cigarettes Or Vape? 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 5-7 Times Per Week Yoga [email or web address] Information not available 02/28/2024 Have You Had Cortisone? Yes R Shoulder 08/2019 [email or web address] Information not available 01/20/2020 Do You Or Have You Ever Used Smokeless Tobacco? Never Used Smokeless Tobacco [email or web address] Information not available 07/26/2020 How Much Tobacco [...] Time What is your exercise level? Heavy [email or web address] Information not available 02/28/2024 Mental Status None [...] Asthma / Shortness of Breath / Sleep Digital Marketing Consultant ea (please specify) N Immunizations Vaccine Type Date Status Note Provider Nam e and Address Organization Details Recorded Time SARS-COV-2 (COVID-19) vaccine, UNSPECIFIED 1 completed Brandi dennis MA [facility] 12/15/2020 12:58:30 SARS-COV-2 (COVID-19) vaccine, UNSPECIFIED 1 completed Brandi Johnson [facility] 12/15/2020 12:58:41 Influenza, split virus, quadrivalent, preservative 0 completed Sadie Garcia [facility] 05/12/2020 11:01:29 COVID-19, mRNA, LNP-S, PF, 30 mcg/0.3 mL dose 1 completed Carmen Chu [facility] 12/05/2021 15:40:37 Past Encounters Encounter ID Performer Location Encounter Start Date Encounter Closed Date Diagnosis/Indication Diagnosis SNOMED-CT Code Diagnosis ICD10 Code Diagnosis Note [id number] JASON FULLER MD [facility] [address] [place], [place] [phone] 08/19/2024 10:41:25 08/19/2024 11:36:04 Strain of rotator cuff of shoulder 717450527 S46.011D [id number] MADDIE FARR [facility] [address] [place], [place] [phone] 08/19/2024 12:39:37 08/19/2024 15:36:54 Pain of right shoulder joint 7703094561 3726693 M25.511 Health Concerns Section Related Observation LastModified by Organization Detai ls LastModified Time None Recorded Concern Status LastModified by Organization Details LastModified Time None Recorded Payers Encounter Date Sequence Insurance Name Policy Number Policy Vogel Covered Member ID Vogel Member ID Guarantor Name 08/19/2024 1 [place]: [employer] Marcus Hendricksono [id number] Marcus Tan 08/19/2024 2 [facility] (MEDICARE SUPPLEMENT) Marcus Young Tan [id number] Marcus Tan Notes Date Note Type Note Provider Name and Address Organization Details Recorded Time 08/19/2024 text/html Marcus comes in to day [...] he would like to consider an injection. JASON FULLER MD [address] [place] [address], [phone], [facility] 08/20/2024 12:08:00
--- OUTSIDE RECORDS SUMMARY | 2024-09-04 17:05 | XMS_ITS | Encounter Summary ---
Author Organization [facility] Address [address] [place] [phone] Care Team Providers Care Hand Touch Up Painter Name Role Phone Benjamin Rosales MD Primary Care Provider [phone] Encounter Details Date Type Department Care Team ([facility] st Contact Info) Description 05/08/2022 Transcribed Orders [facility] Specimens [address] [place], [place] [id number] Don Maxwell MD [facility] [phone] Pre-op testing (Primary Dx) Social History Tobacco Use Types [...] documented as of this encounter Results * COVID-19 Clearance or for Placement Only (05/08/2022 11:43 AM EDT) SARS-CoV-2 RNA (COVID-19) Negative Negative 05/08/2022 6:46 PM EDT [facility] Comment: A negative result does not preclude SARS-CoV-2 infections and should not be used as the sole basis for treatment or other management decisions. ?? This assay is a Nucleic Acid Amplification Test (NAAT)/RT-PCR or TMA ([employer] [place] System). This is run on the netomat system. It has been validated for clinical use by the [facility] (CLIA #: [id number]). It has been granted Emergency Use Authorization by the [place] FDA. Note that falsely negative results can be due to poor sample quality, suboptimal sample type, low viral load, and viral genome variability. This test has not been evaluated for use in asymptomatic individuals. Test ordering and interpretation is at the discretion of the ordering provider. Fact Sheet for Healthcare Providers: Aptima SARS-CoV-2 assay: https://www.fda.gov/media/209787/download Aptima SARS-CoV-2/Flu assay: https://www.fda.gov/media/695889/download Fact Sheet for Patients: Aptima SARS-CoV-2 assay: https://www.fda.gov/media/140649/download Aptima SARS-CoV-2/Flu assay: https://www.fda.gov/media/349347/download Test performance has not been evaluated in asymptomatic patients. Test ordering and result interpretation is at the discretion of the ordering provider. Test performed at: [place] [address] Director: Beverly Freitas MD CLIA: [id number] Viral NASOPHARYNGEAL STRUCTURE / Unknown Collection / Unknown 05/08/2022 11:43 AM EDT 05/08/2022 11:43 AM EDT Don Maxwell MD MICROBIOLOGY - GENERAL KAYLA [place] [address], [facility] [phone] documented in this encounter Visit Diagnoses Diagnosis Pre-op testing- Primary Preoperative examination, unspecified documented in this encounter Additional Health Concerns Infection Onset Date Last Indicated Resolved Time R/O Respiratory Virus 05/14/2023 05/14/20232022 6:26 PM EDT R/O COVID-19 05/14/2023 05/14/2023 05/14/2023 6:26 PM EDT Assessment Noted Time PHQ-9 Depression Total Score: 0 01/02/20 22 11:53 PM EDT documented as of this encounter Care Teams Hand Touch Up Painter Relationship Specialty Start Date End Date Benjamin Rosales MD [address] Veronika Sharma [address] [phone] (Work) PCP - General Internal Medicine 01/31/20 documented as of this encounter
--- OUTSIDE RECORDS SUMMARY | 2024-09-04 17:05 | XMS_ITS | Continuity of Care Document ---
Author Organization [facility] [place] [facility] Address [address] [place] [phone] Care Team Providers Care Real Estate Professional Name Role Phone TOMASA TORREZ Primary Care Provider Assessment Encounter Date Assessment Date Assessment LastModified by Organization Details LastModified Time 08/19/2024 08/19/2024 Marcus is making good progress in regards to his left shoulder which was surgically repaired 2 and half months ago. He is continue to work on range of motion and strengthening . My experience is the biceps pain will [...] Localized, primary osteoarthritis of the shoulder region 267944886 Active 2020 MADDIE HARRIS [address] [place] [address], [phone], [facility] 14:29:32 Problem Notes None recorded. Procedures Surgical History Date Name Laterality Status Provider Name and Address Organization Details Recorded Time 06/19/20 24 Orthopaedic Surgery completed JASON FULLER MD [address] [place] [address], [phone], [place] - [facility] 08/19/2024 10:57:32 05/12/20 22 Other completed Vero Cutler [place] [facility] 01/20/2023 10:39:38 11/05/19 21 Orthopaedic Surgery completed Celestine George [place] - [facility] 02/02/2021 12:30:59 08/12/19 21 Orthopaedic Surgery completed Liliana Kumar [place] - [facility] 05/06/2021 09:11:03 08/06/19 03 Orthopaedic Surgery completed Beatrice Mayberryal [place] - [facility] 01/20/2020 14:31:23 08/06/19 02 Orthopaedic Surgery completed Beatrice Senechal [place] - [facility] 01/20/2020 14:31:32 08/06/19 00 Orthopaedic Surgery completed Beatrice Mayberryal [place] - [facility] 01/20/2020 14:31:14 08/06/18 96 Orthopaedic Surgery completed Beatrice Mayberryal [place] - [facility] 01/20/2020 14:30:55 08/06/18 76 Orthopaedic Surgery completed Beatrice Mayberryal [place] - [facility] 01/20/2020 14:30:41 08/06/18 74 Orthopaedic Surgery completed Beatrice Jefeal [place] - [facility] 01/20/2020 14:30:27 Imaging Results None recorded. Procedure Notes None recorded. Medical Equipment None Reported. Allergies Allergen ID Allergen Name Allergen Category Reaction Reaction Severity Criticality Documentation Date Start Date Code Code System Note Provider Name and Address Organization Details Recorded Time 202162 Product containin g penicilli n and antibioti c (product) medicatio n Not available Not available Not available 01/20/2020 58407 05 SNOMED Beatrice Mayberryal null, [place] - [facility] 0 14:27:38 389245 Ambien medicatio n Not available Not available Not available 01/20/2020 08186 5 RxNorm Beatrice Ismaelechal null, [place] - [facility] 0 14:27:44 Medications Name [...] DateTime 08/19/2024 177.8 cm JASON FULLER MD [address] [place] [address], [phone], [place] - [facility] 08/19/2024 10:55:45 Date Recorded Body mass index (BMI) Body weight Provider Name and Address Organization Details Last Updated DateTime 08/19/2024 36.6 kg/m2 653607.05 g JASON FULLER MD [address] [place] [address], [phone], [facility] 08/19/2024 10:55:50 Social History Question Answer Notes LastModified by Organizat ion Details LastModified Time Tobacco Smoking Status Former Smoker quit 25 yrs ago Arlet Kathrine [facility] 07/26/2020 11:47:51 What Is Your Level Of Alcohol Consumption? Occasional Couple Drinks/week [email or web address] Information not available 07/26/2020 How Many Times Per Week Do You Consume Alcohol? 1-2 Times Per Week [email or web address] Information not available 02/28/2024 Auto Related Injury? No Information not available 01/20/2023 Do You Or Have You Ever Used E-cigarettes Or Vape? 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 5-7 Times Per Week Yoga Information not available 02/28/2024 Have You Had Cortisone? Yes R Shoulder 08/2019 [email or web address] Information not available 01/20/2020 Do You Or Have You Ever Used Smokeless Tobacco? Never Used Smokeless Tobacco [email or web address] Information not available 07/26/2020 How Much Tobacco [...] Time What is your exercise level? Heavy [email or web address] Information not available 02/28/2024 Mental Status None [...] Asthma / Shortness of Breath / Sleep Corn Sheller ea (please specify) N Pulmonary Embolism N Immunizations Vaccine Type Date Status Note Provider Nam e and Address Organization Details Recorded Time SARS-COV-2 (COVID-19) vaccine, UNSPECIFIED 1 completed Brandi Johnson [facility] 12/15/2020 12:58:30 SARS-COV-2 (COVID-19) vaccine, UNSPECIFIED 1 completed Brandi dennis [facility] 12/15/2020 12:58:41 Influenza, split virus, quadrivalent, preservative 0 completed Sadie Garcia [facility] 05/12/2020 11:01:29 COVID-19, mRNA, LNP-S, PF, 30 mcg/0.3 mL dose 1 completed Carmen Chu [facility] 12/05/2021 15:40:37 Past Encounters Encounter ID Performer Location Encounter Start Date Encounter Closed Date Diagnosis/Indication Diagnosis SNOMED-CT Code Diagnosis ICD10 Code Diagnosis Note [id number] JASON FULLER MD [facility] [address] [place] [phone] 08/19/2024 10:41:25 08/19/2024 11:36:04 Strain of rotator cuff of shoulder 507721799 S46.011D [id number] MADDIE FARR [facility] [address] [place] [phone] 08/19/2024 12:39:37 08/19/2024 15:36:54 Pain of right shoulder joint 7970868983 7470512 M25.511 Health Concerns Section Related Observation LastModified by Organization Detai ls LastModified Time None Recorded Concern Status LastModified by Organization Details LastModified Time None Recorded Payers Encounter Date Sequence Insurance Name Policy Number Policy Vogel Covered Member ID Vogel Member ID Guarantor Name 08/19/2024 1 [place]ICARE [place] [id number] Marcus Maddox [id number] Marcus Maddox 08/19/2024 2 [facility] (MEDICARE SUPPLEMENT) Marcus Maddox [id number] Marcus Maddox Notes Date Note Type [...] to consider an injection. JASON FULLER MD [address] [place] [address], [place], [phone], [facility] 08/20/2024 12:08:00
--- OUTSIDE RECORDS SUMMARY | 2024-09-04 17:05 | XMS_ITS | Clinical Summary ---
Author Organization [facility] Address [address] [place] [address] Care Team Providers Care Rail Car Maintenance Mechanic Name Role Phone Benjamin Rosales MD Primary Care Provider [phone] Allergies Active Allergy Reactions Criticality Noted Date Comments Penicillins Hives High 05/10/2022 Zolpidem Other (See Comments) 05/10/2022 Confusion ,sleep walk Medications Medication Sig Dispensed Refills Start Date End Date Status eszopiclone (LUNESTA) 2 MG TABS Take 2 mg by mouth every night at bedtime. Take immediately before bedtime 0 Active furosemide (LASIX) 80 MG tablet Take 80 mg by mouth daily. 0 Active levothyroxine (SYNTHROID) tablet 88 mcg Take 88 mcg by mouth every morning on an empty stomach. 0 Active lisinopril (PRINIVIL,ZESTRIL) tablet 10 mg Take 10 mg by mouth daily. 0 Active HYDROmorphone (DILAUDID) 4 MG tablet Take 8 mg by mouth every 4 (four) hours as needed for pain. 0 Active tamsulosin (FLOMAX) 0.4 MG CAPS Take 0.4 mg by mouth 2 (two) times a day. 0 Active Testosterone 1.62 % GEL Place onto the skin. 0 Acti ve aspirin EC 81 MG tablet Take 81 mg by mouth daily. 0 Active ALPRAZolam (Xanax) 0.5 MG tablet Take 0.5 mg by mouth 3 (three) times a day as needed for sleep. 0 Active Active Problems Problem Noted Date Diagnosed Date A-fib 05/11/2022 Social History Tobacco Use Types Packs/Day Years Used Date Smoking Tobacco: Former Cigarettes Q uit: 1994 Smokeless Tobacco: Never Sex and Gender Information Value Date Recorded Sex Assigned at Male 05/09/2022 1:41 PM EDT Gender Identity Not on file Sexual Orientation Not on file Job Start Date Occupation Industry Not on file Not on file Not on file Last Filed Vital Signs Vital Sign Reading Time Taken Comments Blood Pressure 159/72 05/12/2022 7:49 AM EDT Pulse 59 05/12/2022 7:49 AM EDT Temperature 36.4 ??C (97.6 ??F) 05/12/2022 7:49 AM ED T Respiratory Rate 15 05/12/2022 7:49 AM EDT Oxygen Saturation 100% 05/12/2022 7:49 AM EDT Inhaled Oxygen Concentration - - Weight 112.7 kg (248 lb 7.3 oz) 022 11:27 PM EDT Height 177.8 cm (5' 10 ) 05/11/2022 7:00 AM EDT Body Mass Index 35.65 05/11/2022 7:00 AM EDT Plan of Treatment Health Maintenance Due Date Last Done Comments Hepatitis C Screening 1952 Depression Screening 1964 BMI Counseling 1970 Preventative Health Evaluation 1970 DTap / Tdap / Td (1 - Tdap) 1971 Colon Cancer Screening (Colonoscopy) 1997 Shingrix-Zoster Vaccine (1 o f 2) 2002 Fall Risk Assessment 2017 Pneumococcal Vaccine (1 of 1 - PCV) 2017 COVID-19 Vaccine (4 - 2023-2 5 season) 2024 07/24/2021, 10/31/2020, 10/11/2020 Influenza Vaccine (#1) 2024 05/11/2020 RSV Adult > 60+ Yrs or (1 - 1-dose 75+ series) 2027 Hepatitis B Vaccines Aged Out No long er eligible based on patient's age to complete this topic RSV Ped < 20 months Aged Out No longe r eligible based on patient's age to complete this topic Medical Devices Implanted Type Area Wire Hanger Device Identifier Shelf Expiration Date Model / Serial / Lot Device Clsur Watchman Flx Zandra 24mm Bsci-Prnt [id number] - [id number] Implanted:Qty: 1 on 05/11/2022 by Donta Espinoza MD at [facility] and Med Left: Chest [employer]ktalog[employer] DREA 03/09/2025 [id number] / / [id number] Advance Directives For more information, please contact: [phone] Latest Code Status on File Code Status Date Activated Date Inactivated Comments Full Code 05/11/2022 9:38 AM 05/12/2022 6:14 PM This code status was ascertained in the following way: discussion with patient . Care Teams Rail Car Maintenance Mechanic Relationship Specialty Start Date End Date Benjamin Rosales MD [address] [address] PCP - General [employer]asting 11/22/17
== END 2024-09-04 13:36 | disposition home or self-care (01) ==
PROVIDERS: PCP Internal Medicine; Visit Provider Anesthesiology
DX: Z45.1 Encounter for adjustment and management of infusion pump (principal); G03.9 Meningitis, unspecified; M19.011 Primary osteoarthritis, right shoulder; G89.4 Chronic pain syndrome; M96.1 Postlaminectomy syndrome, not elsewhere classified
CPT/HCPCS: 62370

== ENCOUNTER → 2024-09-04 13:13 | Outpatient (BNVA) | payer MEDICARE, OTHER, SELFPAY | PROVIDERS: PCP Internal Medicine; Visit Provider Anesthesiology | DX: G03.9 Meningitis, unspecified (principal); G89.4 Chronic pain syndrome; M19.011 Primary osteoarthritis, right shoulder; M96.1 Postlaminectomy syndrome, not elsewhere classified; Z45.1 Encounter for adjustment and management of infusion pump; Z79.891 Long term (current) use of opiate analgesic | CPT/HCPCS: 62370 ==

== ENCOUNTER 2024-10-27 13:17 | Outpatient (AMB) | payer MEDICARE, OTHER, SELFPAY ==
--- NOTE | 2024-10-27 13:32 | A.OFFVIS_ITS ---
Vital Signs 10/27/24 14:04 Height 5 ft 8 in Weight 249 lb BMI 37.9 BP 136/64 Blood Pressure Location Lt brachial Position Sitting Pulse 67 Pulse Oximetry (%) 98 Oxygen Delivery Method Room Air Intake Visit Reasons: ITDD Refill Vision Specialist Required: No Allergies penicillin G Allergy (Severe, Verified 10/27/24 14:05) Hives zolpidem [Ambien] Allergy (Intermediate, Verified 10/27/24 14:05) sleep walking Medication List - Last Reconciled 10/27/24 by Juliet Meredith, GRINDING MACHINE OPERATOR AUTOMATIC alprazolam 0.5 mg PO TID PRN aspirin (Adult Low Dose Aspirin) 81 mg PO DAILY flecainide 100 mg PO BID furosemide 80 mg PO DAILY hydromorphone 2 mg PO QID PRN 30 days levothyroxine 88 mcg PO DAILY lisinopril 5 mg PO DAILY metoprolol succinate ER 50 mg PO DAILY miscellaneous medical supply medtronics magnet naloxone 4 mg/actuation 4 mg intranasal Q3M PRN 1 day sildenafil 100 mg PO tamsulosin 0.4 mg PO BEDTIME testosterone 10 mg/0.5 gram /actuation 10 mg topical DAILY zaleplon 10 mg PO BEDTIME PRN 30 days HPI Comments Details: Marcus is back in my office for pain medication refill in the pain pump and follow-up. The pump refill as below. His pain pump needs to be replaced, the replacement time is April of 2025. Six-month after that the pump still will be considered working device however after that it will be rendered useless. If he wants to continue to fill up the pump with me he needs to go for pump replacement. I offered him pump replacement here however he can choose other facilities. [facility] Medical History Insomnia History of cardioversion Primary osteoarthritis, right shoulder Surgical History Hx of spinal surgery Hx of colonoscopy History of bilateral hip replacements Social History Alcohol intake: never Patient Tobacco Use Status: Former Tobacco user Review of Systems Const All systems reviewed & are unremarkable except as noted in HPI and below Neuro Denies Abnormal speech present Physical Exam Vital Signs: Last Vital Signs Pulse 67 10/27/24 14:04 BP 136/64 10/27/24 14:04 Pulse Ox 98 10/27/24 14:04 Oxygen Delivery Method Room Air 10/27/24 14:04 BMI result Body Mass Index 37.9 Const General: cooperative, no acute distress and well groomed Orientation/consciousness: patient oriented x3 Resp Effort & Inspection: normal respiratory effort, able to speak in complete sentences and normal respiratory pattern Cardio Jugular venous distension: no JVD Neuro General: patient oriented x3 and gait normal Cognition (Neuro): normal cognition Speech: No Abnormal speech present Psych Appearance: grossly normal Mental Status: mental status grossly normal Speech and movement: Normal speech and movement present Affect: normal affect Attitude: cooperative Assessment & Plan Assessment & Plan (1) Adhesive arachnoiditis: Code(s): 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 THE PATIENT CAME TODAY IN THE office FOR THE CHANGE OF THE MEDICATION IN her PAIN PUMP. The name and date of were verified and informed consent was obtained for the procedure. ?The pump was interrogated and the residual amount of fluid was found to be 2.3 mL. HE WAS POSITIONED supine on the bed. Ultrasound probe was placed on the left lower abdomen in the area of location of the pain pump and the silicone plug location was established by ultrasound. The location of the silicone plug was marked with permanent marker. After that THE AREA OF THE INTRATHECAL PUMP WAS PREPPED WITH CHLORAPREP. The fenestrated drape was sterilely applied over the area of the pump. Sterile gloves were worn and of the aspiration system was assembled containing 2 in 22 gauge noncoring needle, the needle was connected to extension tubing which was connected to the 20 cc sterile syringe. The pain pump was palpated under the skin in the patient's left anterior abdomen area. The ultrasound probe was applied and the central plug was detected under the skin on direct ultrasound view. The point on the skin corresponding to the area of the central plug was marked with blue surgical marker. After that the area of the pump was prepped with ChloraPrep and draped with fenestrated drape. The needle was inserted through the skin and the central plug of the pain pump and fluid was aspirated. The clear fluid was going into the syringe the total amount of the fluid was 3.1 mL .. After that a new batch? of medication was obtained which was containing Fentanyl in concentration 12,500 micro g/ml and bupivacain 15 mg per ml. The admixture was made in 20 cc syringe prepared by [facility] compounding pharmacy. The syringe was connected to the bacterial filter, and then connected to the extension tubing. After that the medication in the syringe was slowly instilled into the pump with aspirations at 15 and 5 cc ames.? The pump was reprogrammed as it was previously set for the doses of Fentanyl 2,399 mcg per day with corresponding dose of bupivacaine.? The patient was given 5 doses of PTM 425 micrograms intrathecally? every 4 hours with maximum 5 activations per 24 hour. With all activations the total dose of fentanyl is 4,485 mg in 24 hour. (2) Primary osteoarthritis, right shoulder: Code(s): M19.011 - Primary osteoarthritis, right shoulder Category: Medical (3) Chronic pain syndrome: Code(s): G89.4 - Chronic pain syndrome Category: Medical (4) Postlaminectomy syndrome: Code(s): M96.1 - Postlaminectomy syndrome, not elsewhere classified Category: Medical Plan: Patient's pain pump will in April of this year. I offered the patient pain pump replacement. Alternatively he can not go whenever he wants to go to replace this pain pump however if he wants me to continue filling up his pump he needs to replace it not later than October of 2025. After that time the device will be rendered useless. Plan Coding Level of Care Code Est Pt Level 3 (93477) Procedure Only Diagnoses Adhesive arachnoiditis G03.9 Primary osteoarthritis, right shoulder M19.011 Chronic pain syndrome G89.4 Postlaminectomy syndrome M96.1
[2024-10-27 14:04] VITALS: BP 136/64; PULSE 67; O2SAT 98; BMI 37.9
== END 2024-10-27 14:08 | disposition home or self-care (01) ==
LOC: HO.PMC 13:17
PROVIDERS: PCP Internal Medicine; Visit Provider Anesthesiology
DX: G03.9 Meningitis, unspecified (principal); M19.011 Primary osteoarthritis, right shoulder; G89.4 Chronic pain syndrome; M96.1 Postlaminectomy syndrome, not elsewhere classified; Z45.1 Encounter for adjustment and management of infusion pump
CPT/HCPCS: 62370; 99213

== ENCOUNTER → 2024-10-27 13:17 | Outpatient (BNVA) | payer MEDICARE, OTHER, SELFPAY | PROVIDERS: PCP Internal Medicine; Visit Provider Anesthesiology | DX: G03.9 Meningitis, unspecified (principal); M19.011 Primary osteoarthritis, right shoulder; G89.4 Chronic pain syndrome; M96.1 Postlaminectomy syndrome, not elsewhere classified; Z45.1 Encounter for adjustment and management of infusion pump; Z79.899 Other long term (current) drug therapy | CPT/HCPCS: 62370; 99212 ==

== ENCOUNTER 2024-12-15 13:24 | Outpatient (AMB) | payer MEDICARE, OTHER, SELFPAY ==
--- NOTE | 2024-12-15 13:27 | MHC.OFFVIS ---
Vital Signs 12/15/24 13:48 Height 5 ft 8 in Weight 250 lb BMI 38.0 BP 174/84 H Blood Pressure Location Lt brachial Position Sitting Pulse 73 Pulse Source Pulse Oximeter Pulse Oximetry (%) 98 Oxygen Delivery Method Room Air Intake Visit Reasons: ITDD Refill Allergies penicillin G Allergy (Severe, Verified 12/15/24 13:48) Hives zolpidem [Ambien] Allergy (Intermediate, Verified 12/15/24 13:48) sleep walking HPI Comments Details: Marcus is back in my office for pain medication refill in the pain pump and follow-up. The pump refill as below. His pain pump needs to be replaced, the replacement time is April of 2025. Six-month after that the pump still will be considered working device however after that it will be rendered useless. We discussed today doing a dye study to establish whether or not he has catheter is working properly. I explained to the patient that it is not very likely that his catheter is obstructed: We have small discrepancy slightly more than 1 cc each time we refill the pump, I think this old catheter is maybe positionally Julien but nevertheless properly working. I offered the patient to perform dye study on this pump. His next pump refill will be in 02/02/2025. I offered him to replace pain pump here because in April of 2025 however patient may choose another facility to replace his pump. If his pump is not replace 6 months after April of 2025 it will be rendered inaccurate, I will not be possibly able to refill his pump here. [facility] Medical History Insomnia History of cardioversion Primary osteoarthritis, right shoulder Surgical History Hx of spinal surgery Hx of colonoscopy History of bilateral hip replacements Social History Alcohol intake: never Patient Tobacco Use Status: Former Tobacco user Review of Systems Const All systems reviewed & are unremarkable except as noted in HPI and below Neuro Denies Abnormal speech present Physical Exam Vital Signs: Last Vital Signs Pulse 73 12/15/24 13:48 BP 174/84 H 12/15/24 13:48 Pulse Ox 98 12/15/24 13:48 Oxygen Delivery Method Room Air 12/15/24 13:48 BMI result Body Mass Index 38.0 Const General: cooperative, no acute distress and well groomed Orientation/consciousness: patient oriented x3 Resp Effort & Inspection: normal respiratory effort, able to speak in complete sentences and normal respiratory pattern Cardio Jugular venous distension: no JVD Neuro General: patient oriented x3 and gait normal Cognition (Neuro): normal cognition Speech: No Abnormal speech present Psych Appearance: grossly normal Mental Status: mental status grossly normal Speech and movement: Normal speech and movement present Affect: normal affect Attitude: cooperative Assessment & Plan Assessment & Plan (1) Adhesive arachnoiditis: Code(s): 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 THE PATIENT CAME TODAY IN THE office FOR THE CHANGE OF THE MEDICATION IN his PAIN PUMP. The name and date of were verified and informed consent was obtained for the procedure. ?The pump was interrogated and the residual amount of fluid was found to be 3.1 mL. HE WAS POSITIONED supine on the bed. Ultrasound probe was placed on the left lower abdomen in the area of location of the pain pump and the silicone plug location was established by ultrasound. The location of the silicone plug was marked with permanent marker. After that THE AREA OF THE INTRATHECAL PUMP WAS PREPPED WITH CHLORAPREP. The fenestrated drape was sterilely applied over the area of the pump. Sterile gloves were worn and of the aspiration system was assembled containing 2 in 22 gauge noncoring needle, the needle was connected to extension tubing which was connected to the 20 cc sterile syringe. The pain pump was palpated under the skin in the patient's left anterior abdomen area. The ultrasound probe was applied and the central plug was detected under the skin on direct ultrasound view. The point on the skin corresponding to the area of the central plug was marked with blue surgical marker. After that the area of the pump was prepped with ChloraPrep and draped with fenestrated drape. The needle was inserted through the skin and the central plug of the pain pump and fluid was aspirated. The clear fluid was going into the syringe the total amount of the fluid was 4.8 mL .. After that a new batch? of medication was obtained which was containing Fentanyl in concentration 12,500 micro g/ml and bupivacain 15 mg per ml. The admixture was made in 20 cc syringe prepared by [facility] compounding pharmacy. The syringe was connected to the bacterial filter, and then connected to the extension tubing. After that the medication in the syringe was slowly instilled into the pump with aspirations at 15 and 5 cc ames.? The pump was reprogrammed as it was previously set for the doses of Fentanyl 2,399 mcg per day with corresponding dose of bupivacaine.? The patient was given 5 doses of PTM 425 micrograms intrathecally? every 4 hours with maximum 5 activations per 24 hour. With all activations the total dose of fentanyl is 4,485 mg in 24 hour. (2) Primary osteoarthritis, right shoulder: Code(s): M19.011 - Primary osteoarthritis, right shoulder Category: Medical (3) Chronic pain syndrome: Code(s): G89.4 - Chronic pain syndrome Category: Medical (4) Postlaminectomy syndrome: Code(s): M96.1 - Postlaminectomy syndrome, not elsewhere classified Category: Medical Plan: Patient's pain pump will in April of this year. I offered the patient pain pump replacement. Alternatively he can not go whenever he wants to go to replace this pain pump however if he wants me to continue filling up his pump he needs to replace it not later than October of 2025. After that the pump will be rendered inaccurate and I will not be able to continue refills. We discussed possibility of doing dye study before pump replacement. I will see this patient for next pump refill on 02/02/2025. Fentanyl 12,500 micro g per mL and bupivacaine 15 milligrams/mL in 20 mL of preservative-free normal saline will be used again. Plan Coding Level of Care Code Est Pt Level 3 (45954) Procedure Only Diagnoses Adhesive arachnoiditis G03.9 Primary osteoarthritis, right shoulder M19.011 Chronic pain syndrome G89.4 Postlaminectomy syndrome M96.1
--- OUTSIDE RECORDS SUMMARY | 2024-12-15 13:44 | XMS_ITS ---
Author Organization [facility] Address [address] [address] Care Team Providers Care Loop Tender Name Role Phone Benjamin Rosales Primary Care Provider ASHLEIGH Kay Unavailable [phone] Allergies Allergen (clinical drug ingredient) Drug/Non Drug Allergy documented on EMR Reaction Allergy Type Onset Date Status codeine Codeine rash Drug Allergy Active Substance with penicillin structure and antibacterial mechanism of action (substance) Penicillins Unknown Drug Allergy Active REASON FOR VISIT ingrown procedure Medications Medication SIG (Take, Route, Frequency, Duration) Notes Start Date End Date Status Betamethasone Valerate 0.1 % 1 application Externally Once a day Not-Taking Flecainide Acetate 100 MG 0.5 tablet Ora lly every 12 hrs Active fentaNYL Active Aspirin 81 81 MG 1 tablet Orally Once a day Active ALPRAZolam 0.5 MG 1 tablet Orally Twic e a day Active Sildenafil Citrate 100 MG 1 tablet as ne eded Orally Once a day Active Multivitamin - 1 tablet Orally Once a day Active Metoprolol Succinate ER 100 MG 1 tablet Orally Once a day Active Lisinopril 10 MG 1 tablet Orally Once a day Active Levothyroxine Sodium 88 MCG 1 tablet in the morning on an empty stomach Orally Once a day Active Testim 50 MG/5GM (1%) 1 each to skin in the morning to shoulder, upper arms or abdomen Transdermal Once a day Active Tamsulosin HCl 0.4 MG 1 capsule Orally O nce a day Active Vital Signs Height 5ft 8.5in in 09/05/2024 Weight 243.7 lbs 09/05/2024 BMI 36.51 kg/m2 09/05/2024 Procedures Procedure Date Ordered Date Performed Result Body Sit e Removal of nail matrix 09/05/2024 N/A Encounters Encounter Location Date Provider Diagnosis [facility] [address] [facility] [address] [place] [address] 09/05/2024 ASHLEIGH SY 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 He states that this toe always bothers him when he is wearing any backless shoe. It becomes very sore. I discussed with him the mallet deformity and how this becomes accentuated when he has to use his toes to keep the shoe in place. I gave him a crest pad today to help bump the toe up. I discussed the option of avoiding backless shoes and the option of a flexor tenotomy procedure if needed. He will let me know in the future what he would like to do. 09/05/2024 Ingrown toenail (ICD-10 - L60.0) Patient presents for a phenol matrixectomy to the lateral border of the right great toenail. He continues to have pain to this area. The procedure was discussed in detail and consent obtained. The procedure was performed under local anesthetic. He tolerated this well. The toe was bandaged. I advised he keep the bandage on for 24 hours. He then can remove this and clean the toe in warm soapy water, apply aquaphore, and a bandage. He will notice some increased redness, tenderness, swelling, drainage, and perhaps some blistering and or bruising. This can last for 3-4 weeks. I gave him the written instructions and will see him back in 2 weeks or sooner if needed. Plan Of Treatment Treatment Notes Assessment Notes Mallet toe of right foot Patient present s with pain to the tip of the right 3rd toe. He states that this toe always bothers him when he is wearing any backless shoe. It becomes very sore. I discussed with him the mallet deformity and how this becomes accentuated when he has to use his toes to keep the shoe in place. I gave him a crest pad today to help bump the toe up. I discussed the option of avoiding backless shoes and the option of a flexor tenotomy procedure if needed. He will let me know in the future what he would like to do. Ingrown toenail Patient presents for a phenol matrixectomy to the lateral border of the right great toenail. He continues to have pain to this area. The procedure was discussed in detail and consent obtained. The procedure was performed under local anesthetic. He tolerated this well. The toe was bandaged. I advised he keep the bandage on for 24 hours. He then can remove this and clean the toe in warm soapy water, apply aquaphore, and a bandage. He will notice some increased redness, tenderness, swelling, drainage, and perhaps some blistering and or bruising. This can last for 3-4 weeks. I gave him the written instructions and will see him back in 2 weeks or sooner if needed. Pending Test Test Name Order Date Removal of nail matrix 09/05/2024 Next Appt Details Follow Up: 2 Weeks, Reason: Progress Notes * Marcus MADDOX SDOB:1950 (74 yo M)Acc No.[id number]:09/05/2024 Patient:?Marcus MADDOX Provider:?Ashleigh Medina DPRodo :1950???Age:74 Y???Sex:Male Jimmy e:09/05/2024 Phone: Address:[address] [place] [address] [id number] [phone] Pcp:Benjamin Rosales Subjective: * Chief Complaints: * ???Ingrown procedure * HPI: ???Constitutional:?Mr. Maddox presents back today for a permanent procedure to the right great toenail. He still has tenderness to the lateral border. He actually stubbed the toe shortly after his visit last week and had to remove part of the nail himself. He has not had any increased redness or swelling. He also is having pain to the tip of the right 3rd toe. This seems to always happen in backless shoe gear. He has never noticed any callus or lesion to this toe. He states it is very annoying when it starts. He has not tried much for it. * ROS:?General/Constitutional:?Denies?Chills.?Denies?Fatigue.?Denies?Fever.?Denies?Headache.?Endocrine:?Denies?Excessive sweating.?Denies?Excessive thirst.?Denies?Frequent urination.?Respiratory:?Denies?Cough.?Denies?Shortness of breath.?Denies?Wheezing.?Cardiovascular:?Denies?Chest pain.?Denies?Claudication.?Denies?Cyanosis.?Admits?Fluid accumulation in the legs.?Gastrointestinal:?Denies?Abdominal pain.?Denies?Constipation.?Denies?Diarrhea.?Hematology:?Denies?Bleeding problems.?Denies?Easy bruising.?Denies?Swollen glands.?Musculoskeletal:?Patient complaining of?pain to the tip of the right 3rd toe.?Admits?Arthritis/Arthralgia.?Admits?Back problems.?Admits?Joint stiffness.?Denies?Swollen joints.?Peripheral Vascular:?Denies?Blanching of skin.?Denies?Cold extremities.?Admits?Decreased sensation in extremities.?Skin:?Admits?Discoloration.?Denies?Masses.?Admits?Nail changes,?right great toenail.?Denies?Skin lesion(s).? * Medical History:? * Surgical History:?hip replac [...] patient * Allergies:?Penicillins: Kuldip rgyCodeine: rash - Allergyno[Allergies Verified] Objective: * Vitals:?Wt:243.7lbs, Ht: 5ft 8.5in, BMI:36.51Index, Ht-cm: 173.99, Wt-k.54 kg. * Examination: ???General Examination: ???This is an elderly male. Alert and oriented today and in no acute distress. Patient comes in ambulating in sandals without using any assistive devices. Breathing is [...] hallux nail fold without edema or erythema. Right 3rd toe with flexible flexion contracture to the DIPJ. tenderness to the right 3rd tuft. No edema or erythema. The left hallux toenail has had permanent removal of the medial and lateral border of the toenail. ?Subtalar and ankle joint range of motion are unrestricted. 5/5 strength for anterior, posterior, and lateral lower extremity muscle groups on the left and right. Assessment: * Assessment: 1.?Mallet toe of right foot - M20.5X1 (Primary)???2.?Ingrown toenail - L60.0??? Plan: * Treatment: 2.?Ingrown toenail?Procedure: Removal of nail matrix Notes: Patient presents for a phenol matrixectomy to the lateral border of the right great toenail. He continues to have pain to this area. The procedure was discussed in detail and consent obtained. The procedure was performed under local anesthetic. He tolerated this well. The toe was bandaged. I advised he keep the bandage on for 24 hours. He then can remove this and clean the toe in warm soapy water, apply aquaphore, and a bandage. He will notice some increased redness, tenderness, swelling, drainage, and perhaps some blistering and or bruising. This can last for 3-4 weeks. I gave him the written instructions and will see him back in 2 weeks or sooner if needed. ?? * Procedures:?PHENOL MATRIXECTOMY: A consent was gone over in detail today with the patient about phenol matrixectomies. We discussed all risks and benefits. Risks included pain, infection, bleeding, bruising, nerve damage, chemical burn, deformity of nail plate, loosening of remaining toenail, discoloration of skin and or nail, need for another nail procedure, and swelling. Benefits included decrease in pain and permanent removal. Patient agreed to have the lateral border of the right hallux toenail permanently removed today using phenol application. The patient's right foot was prepped with iodine solution and sterile draping was applied. Local anesthesia was infiltrated in a digital nerve block technique using 4cc of 1% lidocaine plain. Patient tolerated the injection well. Anesthesia was tested. Using a sterile elevator, the nail bed was freed of the lateral border of the nail dorsally, laterally, and plantarly. Using an YUPIQ nail splitter, the lateral border was cut. Straight hemostats were used to remove the border of the nail. The area was then inspected, and no other nail remnants were seen. Three 30 second applications of phenol were then performed to the exposed nail matrix. The area was cleansed with alcohol solution. Hemostasis maintained with direct pressure. A padded bandage applied. Patient tolerated the procedure well. ? * Procedure Codes:?47407 REMOV AL OF NAIL BED * Follow Up:?2 Weeks * Billing Information: * Visit Code:? 64664 Office Visit, Est Pt., Level 3. Modifiers: 25 * Procedure Codes:? 14351 REMOVAL OF NAIL BED. * Sign off status: Completed true * Provider:?Ashleigh Medina DPM Date:?09/05 Generated for Shiv cobos/Nic/Yasir on:?12/15/2024 01:44 PM EDT History and Physical Notes * Examination Category Sub-Category Detail Notes Category Not es General Examination This is an elderly male. Alert and oriented today and in no acute distress. Patient comes in ambulating in sandals without using any assistive devices. Breathing is [...] hallux nail fold without edema or erythema. Right 3rd toe with flexible flexion contracture to the DIPJ. tenderness to the right 3rd tuft. No edema or erythema. The left hallux toenail has had permanent removal of the medial and lateral border of the toenail. Subtalar and ankle joint range of motion are unrestricted. 5/5 strength for anterior, posterior, and lateral lower extremity muscle groups on the left and right.
--- OUTSIDE RECORDS SUMMARY | 2024-12-15 13:44 | XMS_ITS | Clinical Summary ---
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 [address] [facility] [address] [place] [address] Simon Carranza MD [address] [facility] [address] [place] [phone] Health Maintenance Due Date Last Done Comments Pneumococcal Vaccine: 50+ Ye ars (1 of 2 - PCV) 1971 Colorectal Cancer Screening: Annual FOBT 2001 Colorectal Cancer Screening: Colonoscopy 2001 Colorectal Cancer Screening: Sigmoidoscopy 2001 Influenza Vaccine (Season Ended) 2025 05/11/20 20 Hepatitis B Vaccine Aged Out No longe r eligible based on patient's age to complete this topic Insurance [facility] Medicare Medicare [facility] Care Teams Search Engine Marketing Strategist Relationship Specialty Start Date End Date Benjamin Rosales MD [address] [place] [address] PCP - General Internal Medicine 05/11/22
--- OUTSIDE RECORDS SUMMARY | 2024-12-15 13:44 | XMS_ITS | Data Portability ---
Author Organization [place] - [facility], [facility] - INPATIENT Address [address] [place] [address] Care Team Providers Care Facility Technician Name Role Phone TOMASA TORREZ Primary Care [...] applied sterile ultrasound gel and utilized the [employer] to ensure accurate needle placement. Topical [...] left shoulder. [email or web address] Not available 08/19/2024 11:15:19 10/08/2024 10/08/2024 ASSESSMENT: - Status post left shoulder rotator cuff repair and biceps tenodesis, approximately four months ago - Right rotator cuff tear, injected on 08/19/2024 PLAN: I reviewed Marcus's MRI and discussed the findings with him. I recommended that we see him back in two months for the right shoulder and reevaluate the left shoulder at that time. Depending on his progress, we may consider a repeat MRI for the right shoulder. I advised him to continue with band work exercises and to be careful to avoid activities that may flare up his pain. We will monitor his comfort level and adjust the plan as needed. [email or web address] Not available 10/08/2024 11:48:23 12/08/2024 12/08/2024 ASSESSMENT: Marcus Maddox is a 74-year-old male with right shoulder pain. PLAN: The patient was given the usual post-injection instructions, including to call the office if there is any increased pain or discomfort, as well as to ice the area and take anti-inflammator ies as indicated. We will see the patient back to assess response to the injection. All of the patient's questions were answered. After discussion of the risks including, but not limited to infection, localized soreness and swelling, reaction to medications, the patient elected to proceed with a right shoulder subacromial and glenohumeral joint injection. Confirmed that the patient does not have a history of prior adverse reactions, active infections, or relevant allergies. There was no erythema, or warmth, and the skin was clear. The skin was sterilized with alcohol & Betadine. [employer] was used to ensure accuracy of placement of the injection. 2cc's of 2% Lidocaine and 2cc's of Kenalog 40mg were injected into the subacromial space and glenohumeral joint without incident. Ultrasound images were scanned into the patient's chart. The injection was completed without complication and a Band-Aid was applied. The patient tolerated the procedure well and was instructed to avoid strenuous activity for the next 24-48 hours and use ice, NSAIDs or Tylenol for pain as needed. The patient will call immediately with any signs of infection or allergic reaction. [email or web address] Not available 12/08/2024 12:42:21 Plan of Treatment Reminders Order Date Submit Date Provider Last Modified By Organization Details Last Modified Time Details Appointments Establish ed 15 2024 11:15A Rodo RICK MD Not available Not available Not available Lab None recorded. Referral None recorded. Procedures None recorded. Surgeries None recorded. Imaging None recorded. Medication Orders Kenalog 40 mg/mL suspensio n for injection 2024 025 [email or web address] [id number], [address] [place], [address], 12/08/2024 13:07:11 Kenalog 40 mg/mL suspensio n for injection 2024 025 [email or web address] [id number], [address] [place], [address], 10/08/2024 11:32:58 Patient TargetsNo targets recorded. Patient InstructionsNo instructions recorded. Reason for Referral None Reported. Results Created Date Observation Date Name Description Value Unit Range Abnormal Flag Note LastModifiedBy Organization Detail LastModifiedTime 06/19/20 24 06/19/2024 CBC AND DIFFE RENTI AL WBC 4.06 K/uL 4.00-1 1.00 Not Available [facility] - Lab [address] [facility], [place], [address], 06/19/2024 08:07:31 06/19/20 24 06/19/2024 CBC AND DIFFE RENTI AL RBC 3.45 M/uL 4.20-5 .80 low Not Available [facility] Lab [address] [facility], [place], [address], 06/19/2024 08:07:31 06/19/20 24 06/19/2024 CBC AND DIFFE RENTI AL hemoglobin 13.0 g/dL 14.0-1 7.0 low Not Available [facility] Lab [address] [facility], [place], [address], 06/19/2024 08:07:31 06/19/20 24 06/19/2024 CBC AND DIFFE RENTI AL hematocrit 38.8 % 42.0-5 1.0 low Not Available [facility] [address] [facility], [place], [address], 06/19/2024 08:07:31 06/19/20 24 06/19/2024 CBC AND DIFFE RENTI AL MCH 37.7 pg 27.0-3 4.0 high Not Available [facility] [address] [facility], [place], [address], 06/19/2024 08:07:31 06/19/20 24 06/19/2024 CBC AND DIFFE RENTI AL MCHC 33.5 g/dL 31.0-3 6.0 Not Available [facility] - Lab [address] [facility], [place], [address], 06/19/2024 08:07:31 06/19/20 24 06/19/2024 CBC AND DIFFE RENTI AL MCV 113 fL 80-98 high Not Available [facility] - Lab [address] [facility], [place], [address], 06/19/2024 08:07:31 06/19/20 24 06/19/2024 CBC AND DIFFE RENTI AL RDW 11.2 % 11.5-1 4.5 low Not Available [facility] - Lab [address] [facility], [place], [address], 06/19/2024 08:07:31 06/19/20 24 06/19/2024 CBC AND DIFFE RENTI AL RDW-SD 46.4 fL 35.1-4 6.3 high Not Available [facility] [address] [facility], [place], [address], 06/19/2024 08:07:31 06/19/20 24 06/19/2024 CBC AND DIFFE RENTI AL platelet count 155 K/uL 150-40 0 Not Available [facility] [address] [place] [address], [place], [address], 06/19/2024 08:07:31 06/19/20 24 06/19/2024 CBC AND DIFFE RENTI AL mean platelet volume 9.6 fL 9.4-12 .4 Not Available [facility] [address] [facility], [place], [address], 06/19/2024 08:07:31 06/19/20 24 06/19/2024 CBC AND DIFFE RENTI AL polys 48.7 % 50.0-7 0.0 low Not Available [facility] - Lab [address] [facility], [place], [address], 06/19/2024 08:07:31 06/19/20 24 06/19/2024 CBC AND DIFFE RENTI AL lymphocyte 33.7 % 18.0-4 2.0 Not Available [facility] [address] [place], [address], 06/19/2024 08:07:31 06/19/20 24 06/19/2024 CBC AND DIFFE RENTI AL monocyte 12.8 % 2.0-11 .0 high Not Available [facility] [address] [facility] [place], [address], 06/19/2024 08:07:31 06/19/20 24 06/19/2024 CBC AND DIFFE RENTI AL eosinophil 3.4 % 0.0-5. 0 Not Available [facility] Lab [address] [facility], [place], [address], 06/19/2024 08:07:31 06/19/20 24 06/19/2024 CBC AND DIFFE RENTI AL basophil 1.2 % 0.0-2. 0 Not Available [facility] Lab [address] [facility], [place], [address], 06/19/2024 08:07:31 06/19/20 24 06/19/2024 CBC AND DIFFE RENTI AL immature granulocytes 0.2 % Not Available [facility] - Lab [address] [facility], [place], [address], 06/19/2024 08:07:31 06/19/20 24 06/19/2024 CBC AND DIFFE RENTI AL absolute gran CT 1.97 K/uL 1.60-6 .10 Not Available [facility] Lab [address] [facility], [place], [address], 06/19/2024 08:07:31 06/19/20 24 06/19/2024 CBC AND DIFFE RENTI AL absolute immature gran CT 0.01 K/uL 0.00-0 .09 Not Available [facility] Lab [address] [facility], [place], [address], 06/19/2024 08:07:31 06/19/20 24 06/19/2024 CBC AND DIFFE RENTI AL absolute lymph CT 1.37 K/uL 1.20-3 .70 Not Available [facility] [address] [facility], [place], [address], 06/19/2024 08:07:31 06/19/20 24 06/19/2024 CBC AND DIFFE RENTI AL absolute mono CT 0.52 K/uL 0.20-0 .80 Not Available [facility] Lab [address] [facility], [place], [address], 06/19/2024 08:07:31 06/19/20 24 06/19/2024 CBC AND DIFFE RENTI AL absolute eos CT 0.14 K/uL 0.04-0 .54 Not Available [facility] Lab [address] [facility], [place], [address], 06/19/2024 08:07:31 06/19/20 24 06/19/2024 CBC AND DIFFE RENTI AL absolute baso CT 0.05 K/uL 0.01-0 .08 Not Available [facility] [address] [facility], [place], [address], 06/19/2024 08:07:31 06/19/20 24 06/19/2024 POTAS SIUM potassium 5.6 mmol/ L 3.5-5. 3 high Not Available [facility] [address] [facility], [place], [address], 06/19/2024 09:12:12 06/19/2006/19/2024 POTAS SIUM potassium 4.4 mmol/ L 3.5-5. 3 Not Available [facility] [address] [facility], [place], [address], 06/19/2024 10:56:49 06/12/20 pre opera tive order s* No observ ation record ed. ATHENAFAX Not Available 2023 14:26:09 Result Notes None recorded. Problems Name Problem SNOMED Code Status Onset Date Resolution Date Notes Provider Name and Address Organization Details Recorded Time Localized, primary osteoarthritis of the shoulder region 279942255 Active 2020 MADDIE HARRIS [address] [place] [address], [phone] 14:29:32 Problem Notes None recorded. Procedures Surgical History Date Name Laterality Status Provider Name and Address Organization Details Recorded Time 06/19/20 24 Orthopaedic Surgery completed SINGH RICK MD [address] [place] [address], [phone], [facility] 08/19/2024 10:57:32 05/12/20 22 Other completed Vero Arlineguru [facility] 01/20/2023 10:39:38 11/05/19 21 Orthopaedic Surgery completed Celestine George [facility] 02/02/2021 12:30:59 08/12/19 21 Orthopaedic Surgery completed Liliana Kumar [facility] 05/06/2021 09:11:03 08/06/19 03 Orthopaedic Surgery completed Beatrice Chávez [facility] 01/20/2020 14:31:23 08/06/19 02 Orthopaedic Surgery completed Beatrice Chávez [facility] 01/20/2020 14:31:32 08/06/19 00 Orthopaedic Surgery completed Beatrice Chávez [facility] 01/20/2020 14:31:14 08/06/18 96 Orthopaedic Surgery completed Beatrice Chávez [facility] 01/20/2020 14:30:55 08/06/18 76 Orthopaedic Surgery completed Beatrice Chávez [facility] 01/20/2020 14:30:41 08/06/18 74 Orthopaedic Surgery completed Beatrice Chávez [facility] 01/20/2020 14:30:27 Imaging Results Imaging Date Name Status LastModified by Organiz ation Details LastModified Time 06/12/2024 pre operative orders* completed [email or web address] Information not available 06/12/2024 14:26:09 Procedure Notes None recorded. Medical Equipment None Reported. Allergies Allergen ID Allergen Name Allergen Category Reaction Reaction Severity Criticality Documentation Date Start Date Code Code System Note Provider Name and Address Organization Details Recorded Time 635171 Product containin g penicilli n (product) medicatio n Not available Not available Not available 01/20/2020 62400 8001 SNOMED Beatrice dennis [facility] 0 14:27:38 598394 Ambien medicatio n Not available Not available Not available 01/20/2020 95138 5 RxNorm Beatrice Chávez [facility] [place] - [facility] 0 14:27:44 Medications Name Sig Start Date [...] Not Available Not Available No t Available loperamid e 2 mg capsule TAKE 2 CAPSULES BY MOUTH AFTER FIRST LOOSE STOOL, FOLLOWED BY 1 CAPSULE AFTER EACH SUBSEQUE NT LOOSE STOOL. NOT TO EXCEED 8 CAPSULES PER DAY. active Not Available Not Available No t [...] Available ondansetr on HCl 4 mg tablet TAKE ONE TABLET BY MOUTH FOUR TIMES A DAY active Not Available Not Available No t Available hydromorp roz 8 mg tablet TAKE [...] TWO TIMES A DAY FOR 3 WEEKS 10/08 completed Not Available Not Available Not Available Kenalog 40 mg/mL suspensio n for [...] lowest dose necessar y for pain control. 10/08 completed Not Available Not Available Not Available potassium [...] betametha sone valerate 0.1 % topical cream APPLY TO AFFECTED AREA S) TWO TIMES A DAY FOR 2 WEEKS THEN 1 WEEK BREAK. REPEAT NEEDED FOR FLARES ON THE HANDS AND FEET 10/08 completed Not Available Not Available Not Available [...] omeprazol e 20 mg capsule,d elayed release TAKE ONE CAPSULE BY MOUTH EVERY DAY ONE HOUR BEFORE EATING active Not Available Not Available No t Available diclofena c sodium 75 mg tablet,de layed release TAKE 1 TABLET BY MOUTH TWICE DAILY FOR 14 DAYS 01/30 completed Not Available Not Available Not Available lisinopri l 5 mg tablet Take 1 tablet every day by oral route. 08/19 completed Not Available Not Available Not Available mupirocin 2 % topical ointment APPLY A SMALL AMOUNT OF MUPIROCI N MIXED WITH VASELINE ONTO PROCEDUR E SITE ONCE TO TWICE DAILY UNTIL HEALED active Not Available Not Available No t Available zaleplon 10 mg capsule TAKE ONE CAPSULE BY MOUTH DAILY AT BEDTIME NEEDED FOR INSOMNIA active Not Available Not Available No t Available oxycodone 30 mg tablet 01/19 completed Not Available Not Available Not Available ondansetr on 4 mg disintegr ating tablet DISSOLVE ONE TABLET ON TOP OF THE TONGUE THEN SWALLOW FOUR TIMES A DAY FOR 3 DAYS active Not Available Not Available No t Available doxycycli ne hyclate 100 mg tablet [...] Not Avail able Not Available vitamin E 10/08 completed Not Available Not Available Not Available Vitamin D active Not Available [...] transderm al gel APPLY ONE PUMP TO SKIN ONCE DAILY active Not Available Not Available No t [...] Updated DateTime 06/30/2024 177.8 cm Yamila Aleman [facility] 06/30/2024 13:51:10 Date Recorded Body height Body mass index (BMI) Body weight Provider Name and Address Organization Details Last Updated DateTime 08/19/2024 177.8 cm 36.6 kg/m2 678581.05 g SINGH RICK MD [address] [place] [phone] [place] [address] [facility] 08/19/2024 10:55:50 Date Recorded Body height Provider Name an d Address Organization Details Last Updated DateTime 10/08/2024 177.8 cm Singh Rick MD [address] [place] [address], [phone] [place] [address] [facility] 10/08/2024 11:32:52 Date Recorded Body height Provider Name an d Address Organization Details Last Updated DateTime 12/08/2024 177.8 cm Adele Breaux [facility] 12/08/2024 12:24:44 Social History Question Answer Notes LastModified by Organizat ion Details LastModified Time Tobacco Smoking Status Former Smoker quit 25 yrs ago Arlet Chisholm [facility] 07/26/2020 11:47:51 Auto Related Injury? No Information not available 01/20/2023 How Many Times Per Week Do You Exercise? 5-7 Times Per Week Yoga [email or web address] Information not available 02/28/2024 Have You Had Cortisone? Yes R Shoulder 08/2019 [email or web address] Information not available 01/20/2020 How Much Tobacco Do You Smoke? No Information not available 01/20/2023 How Many Years Have You Smoked Tobacco? 25 [email or web address] Information not available 02/01/2024 Work Related Injury? No Information not available 01/20/2023 Sex: Unknown Functional Status Question Answer Note LastModified by Organizat ion Details LastModified Time How many times per week do you consume alcohol? 1-2 times per week [email or web address] Information not available 02/28/2024 Do you use any illicit or recreational drugs? No Information not available 08/19/2024 Do you or have you ever used any other forms of tobacco or nicotine? No Information not available 08/19/2024 What is your level of alcohol consumption? Occasional couple drinks/wee k [email or web address] Information not available 07/26/2020 Do you or have you ever used smokeless tobacco? 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 Never used electronic cigarettes [email or web address] Information not available 07/26/2020 What is your exercise level? Heavy [email or web address] Information not available 02/28/2024 Mental Status None [...] Asthma / Shortness of Breath / Sleep Optical [employer] ea (please specify) N Immunizations Vaccine Type Date Status Note Provider Nam e and Address Organization Details Recorded Time SARS-COV-2 (COVID-19) vaccine, UNSPECIFIED 1 completed Brandi dennis, [facility] 12/15/2020 12:58:30 SARS-COV-2 (COVID-19) vaccine, UNSPECIFIED 1 completed Brandi dennis, [facility] 12/15/2020 12:58:41 Influenza, split virus, quadrivalent, preservative 0 completed Sadie dennis, [facility] 05/12/2020 11:01:29 COVID-19, mRNA, LNP-S, PF, 30 mcg/0.3 mL dose 1 completed Carmen Lenznno [facility], [facility] 12/05/2021 15:40:37 Past Encounters Encounter ID Performer Location Encounter Start Date Encounter Closed Date Diagnosis/Indication Diagnosis SNOMED-CT Code Diagnosis ICD10 Code Diagnosis Note [id number] MADDIE HARRIS [facility] [address] [place] [id number] 1 01/20/2020 13:54:59 01/21/2020 14:46:51 Pain of shoulder region 42661224 M25.511 [id number] WILMA PELYAO MD [facility] [address] [place] [phone] 1 05/12/2020 10:23:36 05/12/2020 13:55:44 Pain of shoulder region 77451338 M25.511 [id number] SINGH RICK MD [facility] [address] [place] [phone] 06/24/2020 09:40:09 06/24/2020 11:47:04 Impingement syndrome of right shoulder region 3085803639 56655 M75.41 [id number] WILMA RODRIGUEZ MD [facility] [address] [place] [id number] 1 07/26/2020 11:08:15 07/26/2020 13:07:34 Prosthetic joint mechanical failure 368444259 T84.091A T84.090A [id number] MADDIE BURGOS [facility] [address] [place] [address]65[address]183 1 09/22/2020 11:10:12 09/23/2020 10:05:35 Mechanical complication of internal joint prosthesis 628132076 T84.091D The patient is doing well s/p [...] all services provided today in accordance with [facility] and CDC guidelines . [id number] MADDIE HARRIS [facility] [address] [place] [address] [id number] 1 09/22/2020 13:25:10 09/22/2020 16:01:15 Localized, primary osteoarthritis of the shoulder region 748219159 M19.011 [id number] WILMA RODRIGUEZ MD [facility] Office [address] [address] 12/15/2020 12:17:37 12/15/2020 13:40:34 Mechanical complication of internal joint prosthesis 632512341 T84.091A T84.090D Outpatient [place] [id number] MADDIE SMITH [facility] Office [address] [address] 12/16/2020 09:25:16 12/17/2020 10:58:55 Localized, primary osteoarthritis of the shoulder region 981148504 M19.011 [id number] WILMA RODRIGUEZ MD [facility] Office 40 [facility] [address] [place] [address] 02/09/2021 13:39:00 02/09/2021 16:41:37 Prosthetic joint mechanical failure 122091385 T84.091A T84.090A [id number] MADDIE BURGOS [facility] [address] [place] [id number] 1 05/11/2021 11:13:59 05/11/2021 15:11:03 Mechanical complication of internal joint prosthesis 821670741 T84.090D T84.091D We discussed Marcus's history, exam [...] all services provided today in accordance with [facility] and CDC guidelines . [id number] WILMA RODRIGUEZ MD [facility] [address] [place] [id number] 1 12/05/2021 14:43:53 12/05/2021 16:03:15 Mechanical complication of internal joint prosthesis 843529785 T84.091A T84.090D Outpatient PT [id number] MADDIE SMITH [facility] [address] [place] [id number] 1 01/20/2023 09:28:03 01/22/2023 09:23:37 Bursitis of left shoulder 5734816194 27864 M75.52 Pain of sh oulder region 79531453 M25.563 [id number] MADDIE SMITH [facility] [address] [place] [id number] 1 02/23/2023 13:24:28 02/23/2023 14:41:26 Bursitis of right shoulder 6069226784 60691 M75.51 Partial th ickness rotator cuff tear 089266989 M75.781 [id number] MADDIE FARR [facility] [address] [place] [id number] 1 07/20/2023 09:14:49 07/20/2023 13:47:46 Bilateral shoulder joint pain 1925112633 2493627 M25.511 M25.664 [id number] MADDIE FARR [facility] [address] [place] [id number] 1 10/26/2023 10:03:14 10/26/2023 15:05:30 Strain of rotator cuff of shoulder 540314877 S46.011D Bilateral impingement syndrome of shoulders 4459070624 4872617 M75.41 M75.42 Bilateral shoulder joint pain 3756783416 0883530 M25.511 M25.627 [id number] MADDIE FARR [facility] [address] [place] [id number] 1 02/01/2024 10:32:25 02/01/2024 12:42:45 Pain of right shoulder joint 0943902628 5581817 M25.511 Pain of le ft shoulder region 0102375528 M25.624 [id number] MD [facility] [address] [employer] [address] [address] 02/28/2024 11:17:20 02/28/2024 12:05:58 Pain of shoulder region 89328547 M25.512 M25.338 [id number] MD Hina CHUNG am Office [address] [employer] [address] [id number] 04/10/2024 15:52:50 04/15/2024 09:45:32 Pain of shoulder region 53808500 M25.512 M25.170 [id number] SINGH RICK MD [facility] [address] [place] [id number] 1 06/30/2024 12:57:47 06/30/2024 14:08:06 Strain of rotator cuff of shoulder 938194787 S46.011D [id number] SINGH RICK MD [facility] [address] [place] [id number] 1 08/19/2024 10:41:25 08/19/2024 11:36:04 Strain of rotator cuff of shoulder 134455309 S46.011D [id number] MADDIE FARR [facility] [address] [place] [id number] 1 08/19/2024 12:39:37 08/19/2024 15:36:54 Pain of right shoulder joint 5492173737 [id number] M25.051 [id number] Singh Rick MD [place] [facility] [address] [facility], [address] [place] [address] 10/08/2024 11:21:20 10/08/2024 11:44:45 [id number] MADDIE Farr [place] [facility] 40 [facility] [address] [place] [address] 12/08/2024 12:00:08 12/08/2024 13:00:25 Pain of right shoulder region 6164317095 M25.511 Impingemen t syndrome of right shoulder region 8994373171 86042 M75.41 Partial th ickness rotator cuff tear 157688340 M75.111 Health Concerns Section Related Observation LastModified by Organization Detai ls LastModified Time None Recorded Concern Status LastModified by Organization Details LastModified Time None Recorded Advance Directives Directive None Recorded Payers Insurance Date Sequence Insurance Name Policy Number Policy Vogel Covered Member ID Vogel Member ID Guarantor Name 12/05/2024 2 [facility] (MEDICARE SUPPLEMENT) Marcus Young Tan [id number] Marcus Maddox 12/05/2024 1 MEDICARE B-AR: [employer] Marcus Maddox [id number] Marcus Maddox 07/18/2023 2 [facility] Marcus Maddox [id number] Marcus Maddox 12/05/2024 [employer] (MEDICARE DME REGION A) Marcus Maddox [id number] Marcus Maddox Notes Date Note Type Note [...] some hydromorphone 4 mg. SINGH RICK MD [address] [place] [address], [phone], [facility] 07/02/2024 09:18:08 08/19/2024 text/html Marcus comes in [...] would like to consider an injection. SINGH RICK MD [address] [place] [address], [phone], [facility] 08/20/2024 12:08:00 10/08/2024 text/html Marcus Maddox is a 74-year-old male who presents for a follow-up visit for his left shoulder. He is just shy of four months status post his left shoulder rotator cuff repair and biceps tenodesis. He reports that his left shoulder is healing well, and he has been working on strengthening exercises. He has a good range of motion, although there is still some more to be gained. He understands that it takes a full year to fully recover from a rotator cuff repair. Marcus also has a right rotator partial-thickness cuff tear that was injected on 08/19/2024, which has been helping. He notes that he has some pain in the right shoulder, especially with certain exercises, but it is not as severe as before. He has resumed working out and experienced a flare-up of pain after one exercise. He is not currently in therapy for either shoulder but is doing band work exercises at home. Singh Rick MD [address] [place], [address], [facility] 10/08/2024 12:12:36 12/08/2024 text/html Marcus Maddox is a 74-year-old male who presents for a follow-up regarding his right shoulder. He received a cortisone injection in the right shoulder in August, which provided relief for a while, but the pain has since returned. He has been trying to delay surgery due to other commitments and hopes to postpone it until the fall. He is aware that receiving another injection today would mean he cannot have surgery for at least three months. He has an upcoming appointment with Dr. Rick on 12/24 to discuss further management of his right shoulder. MADDIE Farr [address] [place], [address], [facility] 12/08/2024 13:10:03
--- OUTSIDE RECORDS SUMMARY | 2024-12-15 13:44 | XMS_ITS ---
Author Organization [facility] Address [address] [facility] [address] [place] [address] Care Team Providers Care Geological Technical Officer Name Role Phone Benjamin Rosales Primary Care Provider ASHLEIGH Kay Unavailable [phone] Allergies Allergen (clinical drug ingredient) Drug/Non Drug [...] 2 Venous stasis (I87.8 ) Referral Organization [facility] Referring Provider First [...] Transdermal Once a day Active Vital Signs Height 5ft 8.5in in 08/27/2024 Weight 243.8 lbs 08/27/2024 BMI 36.53 kg/m2 08/27/2024 Encounters Encounter Location Date Provider Diagnosis [facility] [address] [facility] [address] [place] [address] 08/27/2024 ASHLEIGH YOSSI Pain around toenail, right [...] Appt Details Follow Up: 1 Week, Reason: Progress Notes * Marcus MADDOX SDOB:1950 (74 yo M)Acc No.[id number]:08/27/2024 Consult note Patient:Marcus GARCIA Provider:?Ashleigh Medina DPM :1950???Age:74 Y???Sex:Male Jimmy e:08/27/2024 Phone: Address:[address] [place] [address], [id number] Pcp:Benjamin Rosales Subjective: * Chief Complaints: * [...] Week * Billing Information: * Visit Code:? 38409 Office Visit, New Pt., Level 4. * Procedure Codes:? * Sign off status: Completed true * Provider:?Ashleigh Medina DPM Date:?08/27 Generated for Shiv cobos/Nic/Papiitting on:?12/15/2024 01:44 PM EDT History and Physical [...]
--- OUTSIDE RECORDS SUMMARY | 2024-12-15 13:45 | XMS_ITS | Patient Health Record ---
Author Organization [facility] Address [address] [facility] [address] [place] [address] Care Team Providers Care Lead Technical Architect Name Role Phone Benjamin Rosales Primary Care Provider JOSEE Kay Unavailable [phone] Allergies Allergen (clinical drug ingredient) Drug/Non Drug [...] 2 Venous stasis (I87.8 ) Referral Organization [facility] Referring Provider First Name JOSEE Referring Provider Last Name YOSSI Referring Provider Speciality Podiatry Referred Provider Specialty Vascular and Interventional Radiology Referral Priority Routine Medications Medication SIG (Take, Route, Frequency, Duration) Notes Start Date End Date Status Testim 50 MG/5GM (1%) 1 each to skin in the morning to shoulder, upper arms or abdomen Transdermal Once a day Active Betamethasone Valerate 0.1 % 1 application Externally Once a day Not-Taking Tamsulosin HCl 0.4 MG 1 capsule Orally O nce a day Active Sildenafil Citrate 100 MG [...] empty stomach Orally Once a day Active Flecainide Acetate 100 MG 0.5 tablet Ora lly every 12 hrs Active fentaNYL Active Aspirin 81 81 MG 1 tablet Orally Once a day Active ALPRAZolam 0.5 MG 1 tablet Orally Twic e a day Active Vital Signs Height 5ft 8.5in in 09/05/2024 Weight 243.7 lbs 09/05/2024 BMI 36.51 kg/m2 09/05/2024 Procedures Procedure Date Ordered Date Performed Result Body Sit e Removal of nail matrix 09/05/2024 N/A Encounters Encounter Location Date Provider Diagnosis [facility] [address] 08/27/2024 JOSEE YOSSI Pain around toenail, right foot M79.674 ; Acquired deformity of nail plate L60.8 ; Bilateral lower extremity edema R60.0 and Venous stasis I87.8 [facility] [address] 09/05/2024 JOSEE YOSSI 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 09/05/2024 Mallet toe of right foot (ICD-10 [...] future what he would like to do. 08/27/2024 Bilateral lower extremity edema (ICD-10 - [...] stasis (ICD-10 - I87.8) Plan Of Treatment Pending Test Test Name Order Date Removal of nail matrix 09/05/2024 Insurance Providers Payer Name Payer Address Payer Phone Subscriber Number Group Number Insured Name Patient Relationship to Insured Coverage Start Date Coverage End Date Medicare of [place] [address] [place] [id number] Marcus Maddox Self - patient is the insured Wendell Shelby [address] [place] [phone] [id number] Marcus Maddox Self - patient is the [...]
--- OUTSIDE RECORDS SUMMARY | 2024-12-15 13:45 | XMS_ITS ---
Author Organization [facility] Address [address] [address] Care Team Providers Care Derrick Boat Captain Name Role Phone RupeshraghavendraBenjamin Primary Care Provider JOSEE Kay Unavailable [phone] REASON FOR VISIT [facility] Referral Encounters Encounter Location Date Provider Diagnosis [facility] [address] [address] 08/27/2024 JOSEE SY Plan Of Treatment No Information Progress Notes * Marcus DICKERSON SDOB:1950 (74 yo M)Acc No.[id number]:08/27/2024 Patient:?Marcus DICKERSON Hector :1950???Age:74 Y???Sex:Male Phone: Address:[address] [place] [address], [place], [address] * true * Date:? Generated for Dei chandrika/Nic/eTransmitting on:?12/15/2024 01:44 PM EDT
--- OUTSIDE RECORDS SUMMARY | 2024-12-15 13:45 | XMS_ITS | Continuity of Care Document ---
Author Organization [facility] [address] [place] [address] Phone [phone] Care Team Providers Care Bar Machine Operator Production Name Role Phone Benjamin Rosales M.D. 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 75gm E23.0 Prema Marcial M.D. 05/05/2024 Hydromorphone HCL2mg Tablets 1 tab by mouth three times daily prn 20tabs Prema Marcial M.D. 01/17/2024 Flecainide Qlolvtp227iw Tablets Take 1 Tablet By Mouth Every 12 Hours Unknown Multivitamin Adults 50+Adlt 50+ Tablets 1 by mouth every day Unknown Vitamin [id number] Tablets ER 1 by mouth every day Unknown Aspir-Dou38gy Tablets DR 1 by mouth every day Unknown Vitamin G905keq (1000 Ut) Capsules 1 by mouth every day Prema Marcial M.D. Metoprolol Succinate DB615kr Tablets ER 24HR Take 1/2 Tablet By Oral Route 1 Time Daily Unknown Docusate Ctvqaz249rg Capsules Take 2 Capsule By Mouth Daily as Needed For Constipation Unknown Senna8.6mg Tablets Take 2 Tablets By Mouth Daily as Needed For Constipation Unknown Tamsulosin HCL0.4mg Capsules Take 2 Capsules By Mouth Every Day AT Bedtime Duane Atkins NP Subylnhbaz64ka Tablets Take 1 tablet bid Benjamin Rosales M.D. Alprazolam0.5mg Tablets Take 1 Tablet By Mouth Three Times Daily as Needed Leona Murphy N.P. Levothyroxine Bqsdmk91rpd Tablets Take 1 Tablet By Mouth Once Daily Benjamin Rosales M.D. Sildenafil Xpxfrri007yw Tablets Take 1 Tablet By Mouth Every Day 1 Hour Before Sexual Activity as Needed Benjamin Rosales M.D. Npfawcctlv48aq Tablets Take 1 Tablet By Mouth Once Daily Alternating With 1/2 Tablet Daily Benjamin Rosales M.D. History Medications Uumlzeyyflcr94ro/Act (2%) Gel apply 2 pumps to each leg every day 120gm E23.0 Prema Marcial M.D. 02/24/2024 - 05/05/2024 Vital Signs Date Vital Result Comment 07/18/2024 2:26pm BP Systolic 124 mmHg BP Diastolic 60 mmHg Heart Rate 73 /min Height 68 inches 5'8 Weight 254.00 lb BMI (Body Mass Index) 38.6 kg/m2 Results Test Acquired Date Facility Test Result H/L Range Note Testosterone 05/05/2024 [facility] Testosterone 278 ng/dL 264-916 1 Testosterone 02/24/2024 [facility] Testosterone <pending> Verbal Order 02/14/2024 [facility] See below: Comment: 2 Additional Test(s) Requested Comment: 3 Testosterone 02/14/2024 [facility] Testosterone 115 ng/dL Low [phone] 4 Written Authorization 02/14/2024 [facility] Written Authorization See Comment: 5 Prostate-Specifi c Ag 02/14/2024 [facility] Prostate-Specifi c Ag 2.8 ng/mL 0.0-4.0 6 Prostate-Specifi c Ag 01/17/2024 [facility] Prostate-Specifi c Ag <pending> Complete Auto Blood Count 06/26/2023 [facility] WBC 3.2 K/MM3 Low [...] NRBC 0.0 #/100WBC'S Abs. NRBC 0.0 K/MM3 Ferritin 06/07/2023 [facility] Ferritin <pending> Vitamin B12 06/07/2023 [facility] Vitamin B12 <pending> Methylmalonic Acid, Serum 06/07/2023 [facility] Methylmalonic Acid, Serum <pending> Homocysteine,Zoya sma/Serum 06/07/2023 [facility] Homocysteine,Zoya sma/Serum <pending> TSH With Reflex To FT4 05/24/2023 [facility] TSH With Reflex To FT4 1.02 uIU/mL (0.4-4.2 ) Complete Abc With Diff 05/24/2023 [facility] WBC 4.1 K/MM3 (4.0-11. [...] ) Lymph # 0.9 K/MM3 (0.8-3.1 ) [place]# 0.5 K/MM3 (0.4-1.3 ) Eo # 0.1 K/MM3 (0.0-0.4 ) Baso # 0.1 K/MM3 (0.0-0.1 ) Abs. Imm Gran 0.0 K/MM3 Neut 62.3 % (44-76) Lymph 21.5 % (15-43) Monocyte 12.3 % High (4.5-10. 5) Eo 2.2 % (0-6) Baso 1.2 % (0-2) Imm Gran 0.5 % Testosterone 05/24/2023 [facility] Testosterone 323 ng/dL (280-800 ) 7 Testosterone Total (Males > 15 Yrs) 12/21/2022 [facility] Testosterone Total (Males > 15 Yrs) <pending> Complete Auto Blood Count 12/20/2022 [facility] WBC 3.1 K/MM3 Low [...] Abs. NRBC 0.0 K/MM3 Urinalysis Complete 12/20/2022 [facility] Appear/Color COLORLESS 8 SP. [place] 1.009 (1.002-1 .030) Urine PH 6.5 (5.0-8.0 [...] LPF High (0-2) Comprehensive Metabolic Panl 12/20/2022 [facility] Glucose 91 mg/dL (70-99) [...] 66 ML/MIN/1.73M 2 9 Lipid Panel 12/20/2022 [facility] Cholesterol, Total 200 mg/dL High (<200) Triglyceride 110 mg/dL (<150) HDL Chol 80 mg/dL (>39) LDL Cholesterol , Calculated 98 mg/dL (0-130) Non HDL Cholesterol (Calc) 120 mg/dL (<160) PSA Screen 12/20/2022 [facility] PSA Screen 2.6 NG/ML (0-4) 10 Testosterone 12/20/2022 [facility] Testosterone 881 ng/dL High (280-800 ) TSH With Reflex To FT4 12/20/2022 [facility] TSH With Reflex To FT4 1.92 uIU/mL (0.4-4.2 ) TSH With Reflex To FT4 10/18/2022 [facility] TSH With Reflex To FT4 <pending> Testosterone Total (Males > 15 Yrs) 10/18/2022 [facility] Testosterone Total (Males > 15 Yrs) <pending> Complete Abc With Diff 04/19/2022 [facility] WBC 3.8 K/MM3 Low [...] ) Lymph # 1.0 K/MM3 (0.8-3.1 ) [place]# 0.5 K/MM3 (0.4-1.3 ) Eo # 0.1 K/MM3 (0.0-0.4 ) Baso # 0.1 K/MM3 (0.0-0.1 ) Abs. Imm Gran 0.0 K/MM3 Neut 58.4 % (44-76) Lymph 25.9 % (15-43) Monocyte 12.2 % High (4.5-10. 5) Eo 1.9 % (0-6) Baso 1.3 % (0-2) Imm Gran 0.3 % PSA Screen 04/19/2022 [facility] PSA Screen 2.1 NG/ML (0-4) 11 TSH With Reflex To FT4 04/19/2022 [facility] TSH With Reflex To FT4 1.14 uIU/mL (0.4-4.2 ) Testosterone 04/19/2022 [facility] Testosterone 557 ng/dL (280-800 ) 1 Adult male reference interval is based on a population of healthy nonobese males (BMI <30) between 19 and 39 years old. Alejandra, et.al. JCEM 2017,102;9668-5873. PMID: [id number]. 2 Please provide reque sted information and [...] account 02-21-2024 Logged by Sadie Castro Test# [id number] Testosterone 4 Adult male reference interval is based on a population of healthy nonobese males (BMI <30) between 19 and 39 years old. Alejandra, et.al. JCEM 2017,102;3310-3367. PMID: [id number]. 5 Written Authorizatio n Received. Authorization received from PREMA TERRY 02-23-2024 Logged by Halle Garcia 6 Xi ECLIA methodol ogy. According to the [place] [employer], Serum PSA should decrease and [...] INTERCHANGEABLY. Procedures Date Code Description Status 04/19/2022 11808 Collection Of Venous Blood B y Venipuncture [...]
--- OUTSIDE RECORDS SUMMARY | 2024-12-15 13:45 | XMS_ITS | Clinical Summary ---
Author Organization [facility] Address [address] [place] [address] Care Team Providers Care Tire Retreader Name Role Phone Benjamin Rosales MD Primary Care Provider [phone] Allergies Active Allergy Reactions Criticality Noted Date Comments Codeine 07/28/2021 Penicillins Hives High 05/10/2022 Sotalol Rash 05/07/2024 Zolpidem Unknown 05/10/2022 Confusion ,sleep walk Medications zaleplon (SONATA) 10 mg capsule Take 1 [...] 8 HOURS NEEDED FOR NAUSEA AND VOMITING 01/01/20 24 Active Movantik 25 mg tablet Take 1 tablet (25 mg total) by mouth 1 (one) time each day. 11/25/19 24 Active metoprolol succinate (TOPROL-XL) 50 mg 24 hr tablet Take 1 tablet (50 mg total) by mouth 1 (one) time each day. Active metoprolol succinate (TOPROL-XL) 100 mg 24 hr tablet Take 1 tablet (100 mg total) by mouth 1 (one) time each day. 09/03/19 24 Active lisinopriL (PRINIVIL,ZESTRIL) 10 mg tablet Take [...] by mouth 2 (two) times a day. 06/06/20 24 Active eszopiclone (LUNESTA) 2 mg tablet Take 1 tablet (2 mg total) by mouth at bedtime. Max Daily Amount: 2 mg Active docusate sodium (COLACE) 100 mg capsule Take 1 capsule (100 mg total) by mouth. 07/12/20 15 Active cholecalciferol (VITAMIN D-3) 10 mcg (400 unit) tablet Take by mouth. Activ e ALPRAZolam (XANAX) 0.5 mg tablet Take 1 tablet (0.5 mg total) by mouth 3 (three) times a day if needed. Active aspirin 81 mg EC tablet Take 1 tablet (81 mg total) by mouth 1 (one) time each day. Active furosemide (LASIX) 20 mg tablet Take 4 tablets (80 mg total) by mouth 1 (one) time each day. Active acetaminophen (TYLENOL) 325 mg tablet Take 3 tablets (975 mg total) by mouth every 8 hours as needed. Active senna (SENOKOT) 8.6 mg tablet Active multivitamin (multivitamin with folic acid) tablet Take 1 tablet by mouth 1 (one) time each day. Active linaCLOtide (Linzess) 72 mcg capsuleIndications :Chronic constipation Take 1 capsule (72 mcg total) by mouth 1 (one) time each day before breakfast. 30 each 2 12/11/19 25 03/10/ 025 Active Active Problems Problem Noted Date Diagnosed Date Bleeding hemorrhoid 12/04/2024 Overview (12/04/2024): intermittent Complication of surgical procedure 12/04/2024 Intractable pain 12/04/2024 Chronic constipation 12/04/2024 Assessment & Plan (12/10/2024 4:45 PM EDT): Chronic constipation likely secondary to chronic opioid use. Start Linzess 72 mcg p.o. daily. Patient aware dose and frequency adjustments can be made pending his response. Orders: linaCLOtide (Linzess) 72 mcg capsule; Take 1 capsule (72 mcg total) by mouth 1 (one) time each day before breakfast. Disease of thyroid gland 12/04/2024 Overview (12/04/2024): hypothyroid Severe obesity (BMI 35.0-39. 9) with comorbidity (CMS/HCC V24, CMS/HCC V28) 12/04/2024 S/P TKR (total knee replacement) 12/04/2024 Obesity 12/04/2024 Chronic heart failure with p reserved ejection fraction (CMS/HCC V24, CMS/HCC V28) 06/17/2024 Sleep apnea in adult 06/17/2024 CKD (chronic kidney disease) 06/17/2024 Arrhythmia 06/17/2024 Complication of surgical procedure 05/31/2023 Drug-induced constipation 05/31/2023 Cardiomyopathy (CMS/HCC V24, CMS/HCC V28) 2022 Deficiency of testosterone biosynthesis 05/31/20 23 Radicular syndrome of lower limbs 05/31/2023 Obesity 05/31/2023 Hypokalemia 05/31/2023 Drug-induced gynecomastia 05/31/2023 History of artificial joint 05/31/2023 Hypertension 05/01/2023 Acute nontraumatic kidney injury (CMS/HCC V24) 0 05/01/2023 Anxiety 04/19/2022 Atrial fibrillation (CMS/HCC V24, CMS/HCC V28) 0 04/19/2022 Degeneration of lumbar intervertebral disc 04/19 Avascular necrosis of bone o f hip (CMS/HCC V24, CMS/HCC V28) 04/19/2022 Osteonecrosis of hip (CMS/HCC V24, [facility] V28) 04/19/2022 Hypogonadotropic hypogonadism ([facility] V24) 04/06 Disorder of rotator cuff 04/19/2022 Edema of both lower legs 04/19/2022 COVID-19 12/24/2021 Overview (12/04/2024): Problem added by Discern Expert Aortic regurgitation 07/28/2021 Aortic ectasia, thoracic ([facility] V24) Mitral regurgitation 07/28/2021 Primary localized osteoarthrosis of shoulder reg ion 09/22/2020 History of total hip replacement 08/14/2020 Acute pain 08/12/2020 Anxiety state 08/04/2020 Benign prostatic hyperplasia 08/04/2020 Primary hypothyroidism 08/04/2020 Insomnia 08/04/2020 Male erectile disorder 08/04/2020 A-fib ([facility] V24, [facility] V28) 07/29/2020 Overview (12/04/2024): ablation and medically managed Chest pain 07/29/2020 Overview (12/04/2024): Chest pain Dilated cardiomyopathy ([facility] V24, [facility] V28 ) 07/29/2020 Overview (12/04/2024): Dilated cardiomyopathy Congestive heart failure ([facility] V24, [facility] V 28) 07/29/2020 Overview (12/04/2024): Congestive heart failure Sleep apnea 07/29/2020 Overview (12/04/2024): Sleep apnea Benign essential hypertension 11/01/2018 Overview (12/04/2024): Essential hypertension Last Assessment & Plan: Elevated systolic blood pressure today but overall he says its been well controlled as he does monitor fairly closely. He has had some orthostatic hypotension so we will not increase his medications today. He will continue a low-sodium diet. Arrhythmia 11/01/2018 Overview (12/04/2024): Atrial fibrillation s/p ablation Generalized pain 08/13/2018 Chronic pain 08/13/2018 Overview (12/04/2024): pt has had an Intrathecal pump since 1997 Adhesive arachnoiditis 03/14/2018 Encounters Date Type Department Care Team Description 12/10/2024 2:20 PM EDT Office Visit Gastroenterology - [address] [place] [address] Gabby Pak PA Nausea and vomiting, unspecified vomiting type (Primary Dx); Chronic constipation 12/09/2024 Episode Changes [facility] Structural Heart [address] [place] [address] Anjelica Rush RN from Last 3 Months Immunizations Name Administration Dates Next Due Pfizer SARS-CoV-2 COVID-19, mRNA, LNP-S, preservative free 07/24/2021,10/31/2020,10/11/2020 Surgical History Surgery Date Site/Laterality Comments BACK SURGERY PROCEDURE:BACK SURGERY TOTAL HIP ARTHROPLASTY PROCEDURE:TOTAL HIP ARTHROPLASTY;COMMENT:bilateral HIP ARTHROPLASTY 2020 Right PROCEDURE: HISTORICAL HIP REPLACEMENT; COMMENT: Dr. Mac COLONOSCOPY 10/04/2023 10 yr recall COLONOSCOPY 09/19/2018 Medical History Medical History Date Comments Chronic pain disorder DX:Chronic pain disorder;COMMENT:spinal punp witrh fentyl and buvivicaine Chronic constipation DX:Chronic constipation Arrhythmia DX:Arrhythmia Hypertension DX:Hypertension Peripheral neuropathy DX:Periphe ral neuropathy Anxiety DX:Anxiety Hyperthyroidism DX:Hyperthyroidi sm Hypoglycemia DX:Hypoglycemia A-fib ([facility]/HCC V24, [facility] V28) DX:A-fib ([facility]) Anxiety DX:Anxiety Back pain 07/28/2021 DX:Back pain Edema 07/28/2021 DX:Edema Erectile dysfunction 07/28/2021 DX:Erectile dysfunction Hypogonadism male 07/28/2021 DX:Hypogonadis m male Hypothyroidism 07/28/2021 DX:Hypothyroidis m Morbid obesity (CMS/HCC V24, [facility] V28) DX:Morbid obesity (HCC) Obesity DX:Obesity Opiate dependence (CMS/[facility] V 24, [facility] V28) DX:Opiate dependence (HCC) Family History Medical History Relation Name Comments Colon polyps Father Other: Other Mother Afib Colon cancer Paternal Grandfather Relation Name Status Comments Father Mother Paternal Grandfather Social History Tobacco Use Types Packs/Day Years Used Date Smoking Tobacco: Former Cigarettes Q uit: 08/06/1994 Passive Smoke Exposure: Never Smokeless Tobacco: Never Tobacco Cessation:Counseling Given: Not Answered Alcohol Use Standard Drinks/Week Comments Yes 0 (1 standard drink = 0.6 oz pur e alcohol) social Sex and Gender Information Value Date Recorded Sex Assigned at Not on file Legal Sex Male 3:00 PM EST Gender Identity Not on file Sexual Orientation Not on file Obstetrics History Last Filed Vital Signs Vital Sign Reading Time Taken Comments Blood Pressure 122/78 06/17/2024 2:33 PM EST Pulse 67 06/17/2024 2:33 PM EST Temperature - - Respiratory Rate - - Oxygen Saturation 95% 06/17/2024 2:33 PM EST Inhaled Oxygen Concentration - - Weight 114 kg (252 lb) 12/10/2024 2:08 PM EDT Height 177.8 cm (5' 10 ) 12/10/2024 2:08 PM EDT Body Mass Index 36.16 12/10/2024 2:08 PM EDT Plan of Treatment Upcoming Encounters Date Type Department Care Team (Late st Contact Info) Description 02/11/2025 8:15 AM EDT Appointment [facility] Nuclear Medicine [address] [place] [address] 03/18/2025 1:30 PM EDT Office Visit Gastroenterology - [address] [phone] Gabby Pak PA [address] [place] [phone] Health Maintenance Due Date Last Done Comments DTaP,Tdap,and Td Vaccines (1 - Tdap) 1971 Pneumococcal Vaccine: 50+ Years (1 of 2 - PCV) 1971 Zoster Vaccines (1 of 2) 2002 RSV Immunization Adult Patients (1 - Risk 60-74 years 1-dose series) 2012 Abdominal Aortic Aneurysm (AAA) Screen 09/28/2020 Cholesterol Screening (Lipid Panel) 09/28/2020 Colorectal Cancer Screening: Colonoscopy 09/28/2020 12/15/2024 Falls Risk Assessment 09/28/2020 Hepatitis C Screening 09/28/2020 Medicare Annual Wellness Visit 09/28/2020 Social Influencers of Health Screening 09/28/2020 Depression Screening 01/01/2023 01/01/2022 COVID-19 Vaccine ( season) 2024 07/24/2021, 10/31/2020, 10/11/2020 Influenza Vaccine (Season Ended) 2025 05/11/2020 Hypertension/CHF/CAD Annual BMP Blood Test 06/27/2025 [...] patient's age to complete this topic Meningococcal B Vaccine Aged Out No l onger eligible based on patient's age to complete this topic RSV Immunization Patients Under 20 months Aged Out No longer eligible based on patient's age to complete this topic Varicella Vaccines Aged Out No longer eligible based on patient's age to complete this topic Medical Devices Implanted Type Area Lapel Stitcher Device Identifier Shelf Expiration Date Model / Serial / Lot Device Clsur Watchman Flx Zandra 24mm Bsci-Prnt [id number] Implanted:Qty: 1 on 05/11/2022 by Donta Espinoza MD Left: Chest test company [employer] 03/09/2025 [id number] / / [id number] Procedures Procedure Name Priority Date/Time Associated Diagnosis Comments EXTERNAL COLONOSCOPY REPORT Routine 12/15/2024 10:27 AM EDT BASIC METABOLIC PANEL Routine 06/27/2024 1:05 PM EST Atrial fibrillation, unspecified type (CMS/HCC V24, CMS/HCC V28) from Last 3 Months or Most Recently Relevant to Health Maintenance Results * External Colonoscopy Report (12/15/2024 10:27 AM EDT) Anatomical Region Laterality Modality Endoscopy us Historical Provider GI~PROCEDURE ORDERABLES F inal Result * (ABNORMAL) Basic metabolic panel (06/27/2024 1:05 [...] AM EST Performed at: ??01 - [facility] [address] ??[id number] Magisterial District Judge: Anyi Robles MD, Phone: ??[phone] Specimen Comment: A courtesy copy of this report has been sent to [phone] us Lilibeth Mcbride NP LAB BLOOD ORDERABLES Final R esult [facility] 1 from Last 3 Months or Most Recently Relevant to Health Maintenance Insurance MEDICARE [facility] Care Teams Tire Retreader Relationship Specialty Start Date End Date Benjamin Rosales MD [address] [place] [address] PCP - General Internal Medicine 07/05/20
--- OUTSIDE RECORDS SUMMARY | 2024-12-15 13:46 | XMS_ITS | Encounter Summary ---
Author Organization [facility] Address [address] [place] [address] Care Team Providers Care Automobile Rental Agent Name Role Phone Benjamin Rosales MD Primary Care Provider [phone] Encounter Details Date Type Department Care Team (Latest Contact Info) Description 05/08/2022 Transcribed Orders [address] [address] Donta Espinoza MD [address] [place] [phone] Atrial fibrillation (HC Code) (Primary Dx) Social History Tobacco [...] 9.0 - 11.1 seconds 05/08/2022 1:49 PM [facility] INR 1.01 0.90 - 1.16 05/08/2022 1:49 PM [facility] Comment: RECOMMENDED INR THERAPEUTIC RANGES: ?STANDARD INTENSITY......2.0-3.0 ?HIGH INTENSITY..........2.5-3.5 Blood Venipuncture / Unknown 05/08/2022 11:43 AM EDT 05/08/2022 11:43 AM EDT us Donta Espinoza MD LAB BLOOD ORDERABLES Final Resul t Performing Organization Address City/State/[facility] Co de Phone Number [address] [phone] documented in this encounter Visit Diagnoses Diagnosis Atrial fibrillation (HC Code)- Primary Atrial fibrillation documented in this encounter Additional Health Concerns Infection Onset Date Last Indicated Resolved Time R/O Respiratory Virus 05/14/2023 05/14/20232022 6:26 PM EDT R/O COVID-19 05/14/2023 05/14/2023 05/14/2023 6:26 PM EDT Assessment Noted Time PHQ-9 Depression Total Score: 0 01/02/20 22 11:53 PM EDT documented as of this encounter Care Teams Automobile Rental Agent Relationship Specialty Start Date End Date Benjamin Rosales MD [address] [phone] (Work) PCP - General Internal Medicine 01/31/20 documented as of this encounter
--- OUTSIDE RECORDS SUMMARY | 2024-12-15 13:46 | XMS_ITS | Clinical Summary ---
Author Organization [address] Address [address] [place] [phone] Phone Care Team Providers Care Streetcar Starter Name Role Phone Benjamin Rosales MD Primary Care Provider [phone] Allergies Active Allergy Reactions Criticality Noted Date [...] screening 1992 Colon cancer screening, Colonoscopy 1997 Pneumococcal Vaccine (50+ years) (1 of 1 - PCV) 2002 Shingles vaccine (Shingrix) (1 of 2 - Shingrix (RZV) 2 Dose Standard Series) 2002 RSV Immunization (1 - Risk 60-74 years 1-dose series) 2012 Covid-19 vaccine series ( season) 2024 07/24/2021, 10/31/2020, 10/11/2020 Influenza vaccine 04/06/2025 05/11/2020 Diabetes screening 05/08/2025 05/08/2022, 01/02/2022, 01/31/2020 Meningococcal Vaccine Aged Out No jayne vargas eligible based on patient's age to complete this topic Procedures Procedure Name Priority Date/Time Associated Diagnosis Comments BASIC METABOLIC PANEL Routine 05/08/2022 11:43 AM EDT Atrial fibrillation (HC Code) from Last 3 Months or Most Recently Relevant to Health Maintenance Results * (ABNORMAL) Basic metabolic panel (05/08/2022 11:43 AM EDT) Glucose 88 65 - 110 mg/dL 05/08/2022 1:58 PM EDT [facility] Comment: Non-fasting: ??65-110 mg/dL Fasting (minimum 6 hrs): ??65-99 mg/dL BUN 29(H) 7 - 18 mg/dL 05/08/2022 1:58 PM [facility] Creatinine 0.96 0.70 - 1.30 mg/dL 05/08/2022 1:58 PM [facility] Sodium 140 136 - 145 mmol/L 05/08/2022 1:58 PM [facility] Potassium 4.9 3.5 - 5.1 mmol/L 05/08/2022 1:58 PM [facility] Chloride 104 98 - 107 mmol/L 05/08/2022 1:58 PM [facility] CO2 32 21 - 32 mmol/L 05/08/2022 1:58 PM [facility] Anion Gap 4(L) 5 - 15 mmol/L 05/08/2022 1:58 PM [facility] Calcium 9.4 8.5 - 10.1 mg/dL 05/08/2022 1:58 PM [facility] eGFR (Creatinine) >60 >=60 mL/min/1.7 3m2 05/08/2022 1:58 PM [facility] Comment:Estimated glomerular filtration [...] MD LAB BLOOD [place] [address], [facility] [phone] from Last 3 Months or Most Recently Relevant to Health Maintenance Insurance MEDICARE [facility] [place] [id number] MEDICARE [facility] MEDICARE [facility] MEDICARE [facility] MEDICARE MEDICARE Member Subscriber Plan / Payer (Ef fective 1999-Present) Name:Marcus Maddox Member ID:[id number] Relation to Subscriber:Self Name:Marcus Maddox Subscriber ID:[id number] Payer ID:[id number] Group ID:Not on file Type:Not on file Address: [address] MEDICARE Member Subscriber Plan / Payer (Ef fective 1999-Present) Name:Marcus Maddox Member ID:[id number] Relation to Subscriber:Self Name:Marcus Maddox Subscriber ID:[id number] Payer ID:[id number] Group ID:Not on file Type:Not on file Address: [address] Care Teams Streetcar Starter Relationship Specialty Start Date End Date Benjamin Rosales MD [address] [phone] (Work) PCP - General Internal Medicine 01/31/20
--- OUTSIDE RECORDS SUMMARY | 2024-12-15 13:46 | XMS_ITS | Encounter Summary ---
Author Organization [facility] Address [address] [place] [phone] Care Team Providers Care Senior Product Integrity Engineer Name Role Phone Benjamin Rosales MD Primary Care Provider [phone] Encounter Details Date Type Department Care Team ([facility] st Contact Info) Description 05/08/2022 Transcribed Orders [facility] Laboratory Specimens [address] [place], [place] [phone] Don Maxwell MD [facility] [address] [phone] Pre-op testing (Primary Dx) Social [...] (COVID-19) Negative Negative 05/08/2022 6:46 PM EDT [facility] Comment: A negative result does not preclude SARS-CoV-2 infections and should not be used as the sole basis for treatment or other management decisions. ?? This assay is a Nucleic Acid Amplification Test (NAAT)/RT-PCR or TMA (Hologic Steen System). This is run on the Eventbrite system. It has been validated for clinical use by the [facility] (CLIA #: [id number]). It has been granted Emergency Use Authorization [...] Sheet for Healthcare Providers: Aptima SARS-CoV-2 assay: https://www.fda.gov/media/238832/download Aptima SARS-CoV-2/Flu assay: https://www.fda.gov/media/190669/download Fact Sheet for Patients: Aptima SARS-CoV-2 assay: https://www.fda.gov/media/844664/download Aptima SARS-CoV-2/Flu assay: https://www.fda.gov/media/101969/download Test performance has not been evaluated in asymptomatic patients. Test ordering and result interpretation is at the discretion of the ordering provider. Test performed at: [place] [address] Director: Beverly Freitas MD CLIA: [id number] Viral NASOPHARYNGEAL STRUCTURE / Unknown Collection / Unknown 05/08/2022 11:43 AM EDT 05/08/2022 11:43 AM EDT Don Maxwell MD MICROBIOLOGY - GENERAL KAYLA [place] [address], [facility] [phone] documented in this encounter Visit Diagnoses Diagnosis Pre-op testing- Primary Preoperative examination, unspecified documented in this encounter Additional Health Concerns Infection Onset Date Last Indicated Resolved Time R/O Respiratory Virus 05/14/2023 05/14/20232022 6:26 PM EDT R/O COVID-19 05/14/2023 05/14/2023 05/14/2023 6:26 PM EDT Assessment Noted Time PHQ-9 Depression Total Score: 0 01/02/20 22 11:53 PM EDT documented as of this encounter Care Teams Senior Product Integrity Engineer Relationship Specialty Start Date End Date Benjamin Rosales MD [address] [phone] (Work) PCP - General Internal Medicine 01/31/20 documented as of this encounter
--- OUTSIDE RECORDS SUMMARY | 2024-12-15 13:46 | XMS_ITS | Clinical Summary ---
Author Organization [facility] Address [address] [place] [address] Care Team Providers Care Water Reclamation Systems Operator Name Role Phone Benjamin Rosales MD Primary Care Provider [phone] Allergies Active Allergy Reactions Criticality Noted Date [...] this topic Medical Devices Implanted Type Area Automatic Clipper Device Identifier Shelf Expiration Date Model / Serial / Lot Device Clsur Watchman Flx Zandra 24mm Bsci-Prnt [id number] - [id number] Implanted:Qty: 1 on 05/11/2022 by Donta Espinoza MD at [facility] and Med Left: Chest Socitive [employer] 03/09/2025 [id number] / / [id number] Advance Directives For more information, please contact: [phone] Latest Code Status on File Code Status Date Activated Date Inactivated Comments Full Code 05/11/2022 9:38 AM 05/12/2022 6:14 PM This code status was ascertained in the following way: discussion with patient . Care Teams Water Reclamation Systems Operator Relationship Specialty Start Date End Date Benjamin Rosales MD [address] [address] PCP - General Grocery Team Member 11/22/17
[2024-12-15 13:48] VITALS: BP 174/84; PULSE 73; O2SAT 98; BMI 38.0
== END 2024-12-15 13:56 | disposition home or self-care (01) ==
LOC: HO.PMC 13:25
PROVIDERS: PCP Internal Medicine; Visit Provider Anesthesiology
DX: G03.9 Meningitis, unspecified (principal); M19.011 Primary osteoarthritis, right shoulder; G89.4 Chronic pain syndrome; M96.1 Postlaminectomy syndrome, not elsewhere classified; Z45.1 Encounter for adjustment and management of infusion pump
CPT/HCPCS: 62370; 99213

== ENCOUNTER → 2024-12-15 13:24 | Outpatient (BNVA) | payer MEDICARE, OTHER, SELFPAY | PROVIDERS: PCP Internal Medicine; Visit Provider Anesthesiology | DX: Z45.89 Encounter for adjustment and management of other implanted devices (principal); F11.20 Opioid dependence, uncomplicated; G03.9 Meningitis, unspecified; M19.011 Primary osteoarthritis, right shoulder; M96.1 Postlaminectomy syndrome, not elsewhere classified; G89.4 Chronic pain syndrome | CPT/HCPCS: 62370; 99212 ==

== ENCOUNTER 2025-01-29 12:45 | Outpatient (AMB) | payer MEDICARE, OTHER, SELFPAY ==
--- NOTE | 2025-01-29 12:52 | A.OFFVIS_ITS ---
Vital Signs 01/29/25 12:54 Height 5 ft 8 in Weight 250 lb BMI 38.0 BP 195/95 H Blood Pressure Location Lt brachial Position Sitting Respiration 18 Pulse 64 Pulse Source Pulse Oximeter Pulse Oximetry (%) 97 Oxygen Delivery Method Room Air Intake Visit Reasons: ITDD Refill Babbitter Required: No Promotions Specialist: Promotions Specialist Present Accompanied by: laquita rodriguez Allergies penicillin G Allergy (Severe, Verified 01/29/25 12:51) Hives zolpidem (Ambien) Allergy (Intermediate, Verified 01/29/25 12:51) sleep walking HPI Comments Details: Marcus is back in my office for pain medication refill in the pain pump and follow-up. The pump refill as below. His pain pump needs to be replaced, the replacement time is April of 2025. Six-month after that the pump will be considered working device however after that it will be rendered useless. This was explained again to this patient today. He reported that he made an appointment with neurosurgeon in [place] to replace his pump. [facility] Medical History Insomnia History of cardioversion Primary osteoarthritis, right shoulder Surgical History Hx of spinal surgery Hx of colonoscopy History of bilateral hip replacements Social History Alcohol intake: never Patient Tobacco Use Status: Former Tobacco user Review of Systems Const All systems reviewed & are unremarkable except as noted in HPI and below Neuro Denies Abnormal speech present Physical Exam Vital Signs: Last Vital Signs Pulse 64 01/29/25 12:54 Resp 18 01/29/25 12:54 BP 195/95 H 01/29/25 12:54 Pulse Ox 97 01/29/25 12:54 Oxygen Delivery Method Room Air 01/29/25 12:54 BMI result Body Mass Index 38.0 Const General: cooperative, no acute distress and well groomed Orientation/consciousness: patient oriented x3 Resp Effort & Inspection: normal respiratory effort, able to speak in complete s entences and normal respiratory pattern Cardio Jugular venous distension: no JVD Neuro General: patient oriented x3 and gait normal Cognition (Neuro): normal cognition Speech: No Abnormal speech present Psych Appearance: grossly normal Mental Status: mental status grossly normal Speech and movement: Normal speech and movement present Affect: normal affect Attitude: cooperative Assessment & Plan Assessment & Plan (1) Adhesive arachnoiditis: Code(s): 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 THE PATIENT CAME TODAY IN THE office FOR THE CHANGE OF THE MEDICATION IN his PAIN PUMP. The name and date of were verified and informed consent was obtained for the procedure. ?The pump was interrogated and the residual amount of fluid was found to be 4.7 mL. HE WAS POSITIONED supine on the bed. Ultrasound probe was placed on the left lower abdomen in the area of location of the pain pump and the silicone plug location was established by ultrasound. The location of the silicone plug was marked with permanent marker. After that THE AREA OF THE INTRATHECAL PUMP WAS PREPPED WITH CHLORAPREP. The fenestrated drape was sterilely applied over the area of the pump. Sterile gloves were worn and of the aspiration system was assembled containing 2 in 22 gauge noncoring needle, the needle was connected to extension tubing which was connected to the 20 cc sterile syringe. The pain pump was palpated under the skin in the patient's left anterior abdomen area. The ultrasound probe was applied and the central plug was detected under the skin on direct ultrasound view. The point on the skin corresponding to the area of the central plug was marked with blue surgical marker. After that the area of the pump was prepped with ChloraPrep and draped with fenestrated drape. The needle was inserted through the skin and the central plug of the pain pump and fluid was aspirated. The clear fluid was going into the syringe the total amount of the fluid was 5.4 mL .. After that a new batch? of medication was obtained which was containing Fentanyl in concentration 12,500 micro g/ml and bupivacain 15 mg per ml. The admixture was made in 20 cc syringe prepared by [facility] compounding pharmacy. The syringe was connected to the bacterial filter, and then connected to the extension tubing. After that the medication in the syringe was slowly instilled into the pump with aspirations at 15 and 5 cc ames.? The pump was reprogrammed as it was previously set for the doses of Fentanyl 2,399 mcg per day with corresponding dose of bupivacaine.? The patient was given 5 doses of PTM 425 micrograms intrathecally? every 4 hours with maximum 5 activations per 24 hour. With all activations the total dose of fentanyl is 4,485 mg in 24 hour. (2) Primary osteoarthritis, right shoulder: Code(s): M19.011 - Primary osteoarthritis, right shoulder Category: Medical (3) Chronic pain syndrome: Code(s): G89.4 - Chronic pain syndrome Category: Medical (4) Postlaminectomy syndrome: Code(s): M96.1 - Postlaminectomy syndrome, not elsewhere classified Category: Medical Plan Patient's pain pump will in April of this year. He reported today that he will go to a surgeon in [place] to replace his pump. His next pump refill will be scheduled on March 24 in 54 days. I recommended the patient to speak with his surgeon about replacing this pump with bigger 40 mL device, this way he can not visit us 3 times a year or every 100 days. Coding Level of Care Code Est Pt Level 3 (88047) Procedure Only Diagnoses Adhesive arachnoiditis G03.9 Primary osteoarthritis, right shoulder M19.011 Chronic pain syndrome G89.4 Postlaminectomy syndrome M96.1
[2025-01-29 12:54] VITALS: BP 195/95; PULSE 64; RESP 18; O2SAT 97; BMI 38.0
--- OUTSIDE RECORDS SUMMARY | 2025-01-29 15:09 | XMS_ITS | Clinical Summary ---
Author Organization [facility] Address [address] [id number] Phone Care Team Providers Care Parts Salvager Name Role Phone Benjamin Rosales MD Primary Care Provider [phone] Allergies Active Allergy Reactions Criticality Noted Date [...] Office Visit [facility] [address] [address] [address] [place] [address] Simon Carranza MD [address] [place] [id number] Health Maintenance Due Date Last Done Comments Pneumococcal Vaccine: 50+ Ye ars (1 of 2 - PCV) 1971 Colorectal Cancer Screening: Annual FOBT 2001 Colorectal Cancer Screening: Colonoscopy 2001 Colorectal Cancer Screening: Sigmoidoscopy 2001 Influenza Vaccine (Season Ended) 2025 05/11/20 20 Hepatitis B Vaccine Aged Out No longe r eligible based on patient's age to complete this topic Insurance [facility] Medicare Medicare [facility] Care Teams Parts Salvager Relationship Specialty Start Date End Date Benjamin Rosales MD [address] [place] [address] PCP - General Internal Medicine 05/11/22
== END 2025-01-29 13:31 | disposition home or self-care (01) ==
LOC: HO.PMC 12:45
PROVIDERS: PCP Internal Medicine; Visit Provider Anesthesiology
DX: G03.9 Meningitis, unspecified (principal); M19.011 Primary osteoarthritis, right shoulder; G89.4 Chronic pain syndrome; M96.1 Postlaminectomy syndrome, not elsewhere classified; Z45.1 Encounter for adjustment and management of infusion pump
CPT/HCPCS: 62370; 99213

== ENCOUNTER → 2025-01-29 12:45 | Outpatient (BNVA) | payer MEDICARE, OTHER, SELFPAY | PROVIDERS: PCP Internal Medicine; Visit Provider Anesthesiology | DX: Z45.89 Encounter for adjustment and management of other implanted devices (principal); M19.011 Primary osteoarthritis, right shoulder; M96.1 Postlaminectomy syndrome, not elsewhere classified; G03.9 Meningitis, unspecified; G89.4 Chronic pain syndrome; Z79.891 Long term (current) use of opiate analgesic | CPT/HCPCS: 62370; 99212 ==